=== PATIENT | female | born 1990 | race Caucasian/White ===

== ENCOUNTER 2018-05-06 19:21 | Emergency (ER) | payer BC, MEDICARE, SELFPAY ==
[2018-05-06 19:22] VITALS: BP 123/78; PULSE 89; RESP 14; TEMP 36.7; O2SAT 96; BMI 21.1
[2018-05-06 20:06] LABS: Absolute Lymphocyte Count 1.96 X10^3/ul (0.83-4.51); Absolute Neutrophil Count 2.5 X10^3/uL (2.0-7.7); Basophil# 0.03 X10^3/uL; Basophil% 0.6 % (0-1); Eosinophil# 0.21 X10^3/uL; Eosinophils% 3.9 % (0-5); Lymphocyte # 1.96 X10^3/ul (4.0); Lymphocyte % 36.6 % (19-41); Mean Corp Hgb Conc 31.3 g/gl (32-36); Mean Corpuscular Hgb 24.4 pg (27.0-32.0); Mean Platelet Vol. 10.2 fl (6.2-12.0); Monocyte# 0.66 X10^3/uL; Monocyte% 12.3 % (0-10); Neutrophil # 2.49 X10^3/uL (2.7-7.7); Neutrophil % 46.4 % (47-70); Platelet Count 218 K/mm3 (150-450); RBC Distribution Width CV 16.2 % (11.6-14.6); RBC Distribution Width SD 46.5 fl (35.1-43.9); White Blood Count 5.4 K/mm3 (4.4-11.0)
[2018-05-06 20:09] LABS: POSITIVE COUNT NO; POSITIVE DIFFERENTIAL NO; POSITIVE MORPHOLOGY NO
[2018-05-06 20:18] LABS: AST(SGOT) 11 U/L (15-37); Alanine Aminotransfer ALT/SGPT 12 U/L (13-56); Albumin, Serum 3.4 g/dL (3.2-5.0); Alkaline Phosphatase 66 U/L (45-117); Anion Gap 5 (5-15); BUN 12 mg/dL (7-18); Calcium,Total 8.3 mg/dL (8.5-10.1); Chloride 107 mmol/L (98-107); Creatinine, Serum 0.57 mg/dL (0.55-1.02); EST Glomerular Filtration Rate 133 mL/min (>60); Est Glom Filt Rate - Afr Amer 160 mL/min (>60); Estimated Creatinine Clearance 136.33 ml/min; Globulin 3.3 g/dL (2.2-4.2); Glucose 89 mg/dL (74-106); Lipase 257 U/L (73-393); Potassium 3.8 mmol/L (3.5-5.1); Protein, Total 6.7 g/dL (6.4-8.2); Sodium Level 140 mmol/L (136-145)
[2018-05-06] MEDS: 0.9% Normal Saline 1,000 ML 1000 ML IV (20:37)
[2018-05-06] MEDS: proMETHazine 25 MG/ML Syringe 6.25 MG IV (20:37)
[2018-05-06 20:59] LABS: Color, Urine Yellow (Yellow); Glucose, Dipstick Normal (Normal); Ketone-Dipstick Negative (Negative); Leukocyte Esterase-Dipstick 500 /ul (Negative); Nitrite-Dipstick Negative (Negative); Occult Blood-Urine 10 /ul (Negative); Protein-Dipstick 15 mg/dl (Negative); Specific Gravity, Urine 1.025 (1.002-1.030); Urine Bilirubin Dipstick Negative (Negative); Urine Clarity Clear (Clear); Urine Urobilinogen 1 mg/dl (Normal)
[2018-05-06 21:06] LABS: White Blood Cells 5-10 SEEN /hpf (0-5)
[2018-05-06 21:07] LABS: Bacteria RARE /hpf (None Seen); Mucous, Urine RARE /hpf (<or=2+); Red Blood Cells-Urine 0 SEEN /hpf (0-5); Squamous Epithelial Cells - UA 5-10 SEEN /hpf (5-10)
--- NOTE | 2018-05-06 21:37 | ED.VISSUMM ---
- ER Visit Summary Date of Service: 05/06/18 Chief Complaint: Nausea, vomiting, diarrhea History of Present Illness: The patient is a 27 F who reports significant increase in stress over the past month. She believes is manifesting as body aches, nausea, vomiting, diarrhea. She has had difficulty sleeping. She did see her primary care physician recently who gave her Zofran and increased her dose of Klonopin. Physical Examination: Vital signs are unremarkable. Patient sitting upright in bed. She is anxious and tearful. Head neck examination is significant for moist mucous membranes. Heart is regular rate and rhythm. Lung sounds are clear. Abdomen is soft with mild periumbilical tenderness. There is no guarding or rebound. Hypoactive bowel sounds are noted. Test Results: CBC was a hemoglobin of 10.0 hematocrit 32. Chemistry studies, LFTs, lipase all normal. Urinalysis does show 5-10 white cells with rare bacteria however 5-10 epithelial cells are also noted. She does not have any symptoms of urinary tract infection. Emergency Department Course and Treatment: Patient was given a liter IV fluids along with a dose of IV Phenergan. On repeat evaluation she is resting comfortably. She falls asleep easily during our conversation. She be given Phenergan to use to help with her nausea and to help her get sleep. Patient was advised to use Trazadone or Phenergan at bedtime, but do not combine the medications. Treatment Plan: [] Disposition: Discharge Impression: 1. Nausea, improved 2. Anxiety This note was generated with [employer] dictation software. It may contain incorrect words, spelling, and punctuation that were not noted in review of the chart prior to signing ED Disposition - Plan for ED Patient: Disposition: Home or Assisted Living Chief Complaint: Nausea/Vomiting/Diarrhea Instructions: ED Stress React, ED Nausea Vomiting Prescriptions: proMETHazine tablet [Phenergan] 0.5 - 1 tab PO Q6H PRN PRN #10 tablet PRN Reason: Nausea Referrals: Luciano Madison MD [Primary Care Provider] - 1 Week
--- NOTE | 2018-05-06 21:40 | DCINST.ED_ITS ---
ED Disposition - Plan for ED Patient: Disposition: Home or Assisted Living Chief Complaint: Nausea/Vomiting/Diarrhea Instructions: ED Nausea Vomiting, ED Stress React Prescriptions: proMETHazine tablet [Phenergan] 0.5 - 1 tab PO Q6H PRN PRN #10 tablet PRN Reason: Nausea Referrals: Luciano Madison MD [Primary Care Provider] - 1 Week
[2018-05-06 21:48] VITALS: BP 91/69; PULSE 67; RESP 17; O2SAT 97
== END 2018-05-06 21:49 | disposition home or self-care (01) ==
PROVIDERS: Emergency Provider Emergency Medicine; Family Provider Family Medicine; PCP Family Medicine
DX: R11.2 Nausea with vomiting, unspecified (principal); R19.7 Diarrhea, unspecified; F41.9 Anxiety disorder, unspecified; F31.9 Bipolar disorder, unspecified; F43.10 Post-traumatic stress disorder, unspecified; Z79.899 Other long term (current) drug therapy; Z72.0 Tobacco use
CPT/HCPCS: 80048; 80076; 81001; 83690; 85025; 96361; 96374; 99283; J7030; A4216

== ENCOUNTER → 2018-06-07 09:05 | Outpatient (CLI) | payer BC, MEDICARE, SELFPAY ==
[2018-06-07 10:24] LABS: Hematocrit 35.5 % (37-47); Hemoglobin 11.5 g/dl (12.0-15.0); Mean Corp Hgb Conc 32.4 g/gl (32-36); Mean Corpuscular Hgb 25.4 pg (27.0-32.0); Mean Corpuscular Volume 78.5 fL (81-99); Mean Platelet Vol. 11.4 fl (6.2-12.0); Platelet Count 243 K/mm3 (150-450); RBC Distribution Width CV 17.5 % (11.6-14.6); RBC Distribution Width SD 48.5 fl (35.1-43.9); Red Blood Count 4.52 M/mm3 (4.2-5.4); White Blood Count 5.2 K/mm3 (4.4-11.0)
[2018-06-07 10:25] LABS: Scan Indicated on CBC? Y/N NO
[2018-06-07 10:49] LABS: AST(SGOT) 12 U/L (15-37); Alanine Aminotransfer ALT/SGPT 13 U/L (13-56); Albumin, Serum 3.8 g/dL (3.2-5.0); Alkaline Phosphatase 71 U/L (45-117); Anion Gap 11 (5-15); BUN 13 mg/dL (7-18); Calcium,Total 8.9 mg/dL (8.5-10.1); Chloride 105 mmol/L (98-107); Cholesterol 142 mg/dL (200); Creatinine, Serum 0.72 mg/dL (0.55-1.02); EST Glomerular Filtration Rate 101 mL/min (>60); Est Glom Filt Rate - Afr Amer 122 mL/min (>60); Globulin 3.9 g/dL (2.2-4.2); Glucose 70 mg/dL (74-106); High Density Lipoprotein 47 mg/dL; Potassium 3.9 mmol/L (3.5-5.1); Protein, Total 7.7 g/dL (6.4-8.2); Sodium Level 139 mmol/L (136-145); Triglycerides 60 mg/dL; Very Low Density Lipoprotein 12 mg/dL (5-40)
[2018-06-07 10:51] LABS: Hemoglobin A1c 4.9 % (4.2-6.3)
== END ==
PROVIDERS: Family Provider Family Medicine; PCP Family Medicine
DX: F31.60 Bipolar disorder, current episode mixed, unspecified (principal)
CPT/HCPCS: 36415; 80053; 80061; 83036; 85027

== ENCOUNTER → 2018-06-14 11:22 | Outpatient (CLI) | payer BC, MEDICARE, SELFPAY ==
[2018-06-14 14:42] LABS: Prolactin 12.4 ng/mL
== END ==
PROVIDERS: Family Provider Family Medicine; PCP Family Medicine; Visit Provider Family Medicine
DX: O92.6 Galactorrhea (principal)
CPT/HCPCS: 36415; 84146

== ENCOUNTER → 2018-07-16 14:15 | Outpatient (CLI) | payer BC, MEDICARE, SELFPAY ==
[2018-07-20 09:02] LABS: HPV Reflexed? NOT INDICATED
== END ==
PROVIDERS: Family Provider Family Medicine; PCP Family Medicine; Referring Provider Obstetrics & Gynecology; Visit Provider Obstetrics & Gynecology
DX: Z12.4 Encounter for screening for malignant neoplasm of cervix (principal)
CPT/HCPCS: 88175; G0145

== ENCOUNTER → 2018-07-17 09:10 | Outpatient (CLI) | payer BC, MEDICARE, SELFPAY ==
--- NOTE | 2018-07-17 09:13 | BI_ITS ---
MAMMOGRAPHY - BILATERAL DIAGNOSTIC REASON FOR EXAM: Female, 27 years old. One-year history of a right breast lump. This is at the 9:00 position of the breast. PERTINENT HISTORY: Non-contributory. TECHNIQUE: Digital bilateral breast jordan (3D mammographic acquisition) in the CC and MLO projections. 2-D mediolateral oblique (MLO) and craniocaudad (CC) views of both breasts were obtained. Compression spot views of the retroareolar region of the right breast were obtained as well. CAD: Full Field Digital Mammography with Computer Added Detection was performed. COMPARISON: None. Baseline examination. FINDINGS: Breast Composition: The breasts are extremely dense, which lowers the sensitivity of mammography. There are no dominant masses or suspicious calcifications. Slight asymmetry of the retroareolar region of the right breast as compared to the left side. Correlation with ultrasound is recommended. No other significant abnormalities are identified. BI/DIAG MAMM W/CAD, BILAT IMPRESSION: Asymmetry of the retroareolar region of the right breast as compared to the left side. Correlation with ultrasound is recommended. ASSESSMENT CATEGORY: BIRADS Category 0: Incomplete. Need additional imaging evaluation. A letter regarding these results will be sent to the patient by the facility within 30 days. Approximately 10% of breast cancers are not detected by mammography. A normal mammogram should not delay biopsy of a clinically suspicious abnormality. Electronically Signed: Panda Williamson MD at 11:22 EDT Tel [phone], Service support ,
--- NOTE | 2018-07-17 09:13 | US_ITS ---
STUDY: ULTRASOUND BREAST - RIGHT REASON FOR EXAM: Female, 27 years old. Palpable lump in the right breast. TECHNIQUE: Axial and longitudinal images of the RIGHT breast were performed with a high resolution ultrasound transducer. COMPARISON: Comparison is made with prior mammogram done earlier today. FINDINGS: RIGHT Breast: The palpable abnormality corresponds to a 2.6 cm x 2.6 cm x 0.9 cm well-defined hypoechoic nodule in the retroareolar region of the breasts. This most likely represents a fibroadenoma. A biopsy is recommended for further evaluation. US/Breast Limited Unilateral IMPRESSION: The palpable normality corresponds to a 2.6 cm x 2.6 x 0.9 cm solid hypoechoic nodule in the retroareolar region of the breast. A biopsy is recommended for further evaluation. ASSESSMENT CATEGORY: BIRADS Category 4: Suspicious - Biopsy Should Be Considered. A letter regarding these results will be sent to the patient by the facility within 30 days. Electronically Signed: Panda Williamson MD at 11:16 EDT Tel [phone], Service support ,
== END ==
PROVIDERS: Family Provider Family Medicine; PCP Family Medicine; Visit Provider Obstetrics & Gynecology
DX: N63.10 Unspecified lump in the right breast, unspecified quadrant (principal)
CPT/HCPCS: 76642; 77062; 77066; G0279

== ENCOUNTER → 2018-07-24 12:49 | Outpatient (CLI) | payer BC, MEDICARE, SELFPAY ==
--- NOTE | 2018-07-24 09:30 | BRBX_PTH ---
PATIENT: ROSANNA JURADO LOC: [facility] U#:[id number] AGE/SX: 34/F ROOM: RE07/24/[address]: Dr. Sue Wilson MD : 1990 BED: DIS: SPEC #: [id number] RECD: 07/24/18 12:10 STATUS: MASON REReinaldo #: [id number] AMITA: 07/24/18 09:[address]: Sue Wilson DEPT: SURGICAL PATHOLOGY RECD BY: Hai Fontenot ENTERED: 07/24/18 13:20 SP TYPE: BREAST BX OTHR DR: Dr. Luciano Madison MD Tissues: Right breast, NOS Procedures: Surgery Specimen Level IV HEADER OPERATION: Right breast biopsy PRE-OP DIAGNOSIS: Right breast mass TISSUE SUBMITTED: Right breast biopsy ISCHEMIC TIME: 30 seconds FIXATION TIME: 10 hours MICROSCOPIC DIAGNOSIS Right breast mass, core biopsy: Fibroadenoma. Negative for atypia or malignancy. SJ:fozia 07/25/18 COMMENT Correlation with clinical, radiologic findings and appropriate follow up are necessary. MICROSCOPIC DESCRIPTION Slides are reviewed. GROSS DESCRIPTION Received in fixative is one container labeled with the patient's name and designated right breast biopsy. The specimen consists of multiple elongated fragments of quiroz-yellow fibroadipose tissue that in aggregate measure 1.5 x 0.3 x 0.1 cm. The entire specimen is submitted in one cassette. / SJ:rg 07/24/18 TC:1 CPT: 17511
== END ==
PROVIDERS: Family Provider Family Medicine; PCP Family Medicine; Referring Provider Surgery; Visit Provider Surgery
DX: N63.10 Unspecified lump in the right breast, unspecified quadrant (principal)
CPT/HCPCS: 88305

== ENCOUNTER → 2019-06-11 13:18 | Outpatient (CLI) | payer BC, MEDICARE, SELFPAY ==
[2019-02-07 09:27] VITALS: BMI 20.8
--- NOTE | 2019-06-11 13:21 | CT_ITS ---
STUDY: CT BRAIN WITHOUT CONTRAST REASON FOR EXAM: Female, 28 years old. Migraine RADIATION DOSAGE (If Supplied By Facility): CTDIvol = ( 60.81 ) mGy, DLP = ( 975.86 ) mGycm TECHNIQUE: Transaxial CT imaging of the brain was performed without administration of intravenous contrast material. Individualized dose optimization techniques were used for this CT. COMPARISON: CT head 05/23/2017. FINDINGS: Normal soft tissue structures. Normal calvarium. Normal size ventricles and extra-axial spaces for the patient's age. Normal white matter tracts of the cerebral hemispheres. Normal basal ganglia and thalami. Normal brainstem. Normal cerebellum. There is no intracranial hemorrhage. There are no findings of an acute ischemic infarction. Normal visualized paranasal sinuses. CT/Brain/Head without Contrast IMPRESSION: Normal unenhanced CT scan of the brain. Electronically Signed: Deidra Kang, at 15:51 EDT Tel , Service support ,
== END ==
PROVIDERS: Family Provider Family Medicine; PCP Family Medicine; Referring Provider Family Medicine; Visit Provider Family Medicine
DX: G43.909 Migraine, unspecified, not intractable, without status migrainosus (principal)
CPT/HCPCS: 70450

== ENCOUNTER → 2019-07-16 10:16 | Outpatient (CLI) | payer BC, MEDICARE, SELFPAY ==
[2019-06-14 09:37] VITALS: BMI 20.8
--- NOTE | 2019-07-16 10:22 | MRI_ITS ---
STUDY: MRI BRAIN WITH AND WITHOUT CONTRAST (ATTENTION PITUITARY GLAND) REASON FOR EXAM: Female, 28 years old. The patient presents with a history of chronic migraine headaches with elevated prolactin. Follow-up examination. TECHNIQUE: Standardized multiplanar fat and water weighted pulse sequences were obtained. IV Dotarem 12 was administered for the contrast portion of the examination. COMPARISON: MRI BRAIN WITHOUT AND WITH CONTRAST-June 24, 2010. MRI BRAIN WITHOUT CONTRAST-September 27, 2013 FINDINGS: Normal size of the pituitary gland for the patient?s age and gender. There is slight enlargement of a nonenhancing intrapituitary lesion within the right lateral wing of the pituitary gland (coronal T1 postcontrast series 12, image 6; sagittal T1 postcontrast series 13, image 5). The prior examination of June 24, 2010, this lesion measured approximately 1.7 x 2.9 x 3.7 mm (AP x transverse x craniocaudal). On the current examination this intrapituitary lesion now measures 2.8 x 3.5 x 4.4 mm (AP x transverse x craniocaudal). There is no invasion of the cavernous sinus. Normal infundibular stalk and suprasellar cistern. Normal optic chiasm and hypothalamus. Normal size of the ventricles and extra-axial spaces for the patient's age. Normal white matter tracts of the supratentorial brain. There is no evidence for recent intracranial ischemia or other cause of cytotoxic edema on diffusion weighted imaging (DWI). Normal bilateral basal ganglia. Normal thalami. Normal flow voids within the major intracranial circulation suggesting patency by spin echo criteria. Normal venous enhancement. There is no extra-axial fluid accumulation. Normal tectal plate and pineal gland. Normal midbrain, nagi and medulla. Normal cerebellum. Normal basal cisterns. Normal bilateral temporal bones. Normal bilateral internal auditory canals. No demonstrated orbital abnormality, within the constraints of a routine brain study. Normal visualized paranasal sinuses. Normal calvarium and skull base. Normal visualized upper cervical spine. Normal visualized soft tissue structures. MRI/Brain W/WO Contrast IMPRESSION: 1. Slight enlargement of a nonenhancing intrapituitary lesion, as compared the most recent contrast-enhanced prior examination of June 24, 2010, consistent with an intrapituitary microadenoma. 2. Otherwise, normal MRI of the brain. Electronically Signed: Garfield Hall DO at 13:23 EDT Tel , Service support ,
== END ==
PROVIDERS: Family Provider Family Medicine; PCP Family Medicine
DX: G43.719 Chronic migraine without aura, intractable, without status migrainosus (principal); D35.2 Benign neoplasm of pituitary gland
CPT/HCPCS: 70553; A9575

== ENCOUNTER → 2020-05-07 10:34 | Outpatient (CLI) | payer BC, MEDICARE, MEDICAID, SELFPAY ==
[2019-06-14 09:37] VITALS: BMI 20.8
== END ==
PROVIDERS: PCP Family Medicine; Referring Provider Orthopaedic Surgery; Visit Provider Orthopaedic Surgery
DX: Z11.59 Encounter for screening for other viral diseases (principal)
CPT/HCPCS: 87635; 94799; U0003

== ENCOUNTER → 2020-05-13 14:27 | Outpatient (CLI) | payer BC, MEDICARE, MEDICAID, SELFPAY ==
[2019-06-14 09:37] VITALS: BMI 20.8
[2020-05-18 20:30] LABS: Anti-Mullerian Hormone,Serum 4.34 ng/mL (.)
== END ==
PROVIDERS: PCP Family Medicine
DX: Z31.41 Encounter for fertility testing (principal)
CPT/HCPCS: 36415; 83516

== ENCOUNTER → 2020-09-15 10:44 | Outpatient (CLI) | payer BC, MEDICARE, MEDICAID, SELFPAY ==
[2020-06-14 10:26] VITALS: BMI 20.8
[2020-09-15 11:07] LABS: Absolute Lymphocyte Count 1.58 X10^3/uL (0.83-4.51); Absolute Neutrophil Count 3.9 X10^3/uL (2.0-7.7); Basophil# 0.05 X10^3/uL; Basophil% 0.8 % (0-1); Eosinophil# 0.19 X10^3/uL; Eosinophils% 3.1 % (0-5); Hematocrit 38.8 % (37-47); Hemoglobin 12.7 g/dL (12.0-15.0); Lymphocyte # 1.58 X10^3/ul (4.0); Lymphocyte % 25.5 % (19-41); Mean Corp Hgb Conc 32.7 g/dL (32-36); Mean Corpuscular Hgb 26.6 pg (27.0-32.0); Mean Corpuscular Volume 81.3 fL (81-99); Monocyte# 0.48 X10^3/uL; Monocyte% 7.8 % (0-10); NRBC Flagged by Analyzer 0 % (0-5); Neutrophil # 3.87 X10^3/uL (2.7-7.7); Neutrophil % 62.5 % (47-70); Platelet Count 257 K/mm3 (150-450); RBC Distribution Width CV 15.5 % (11.6-14.6); RBC Distribution Width SD 45.5 fl (35.1-43.9); Red Blood Count 4.77 M/mm3 (4.2-5.4); White Blood Count 6.2 K/mm3 (4.4-11.0)
[2020-09-15 11:44] LABS: AST(SGOT) 10 U/L (15-37); Alanine Aminotransfer ALT/SGPT 16 U/L (13-56); Albumin, Serum 3.9 g/dL (3.2-5.0); Alkaline Phosphatase 108 U/L (45-117); Anion Gap 7 (5-15); BUN 8 mg/dL (7-18); BUN/Creat Ratio 11.1 RATIO (10-20); Calcium,Total 8.9 mg/dL (8.5-10.1); Chloride 111 mmol/L (98-107); Creatinine, Serum 0.72 mg/dL (0.55-1.02); EST Glomerular Filtration Rate 100 mL/min (>60); Est Glom Filt Rate - Afr Amer 121 mL/min (>60); Globulin 3.9 g/dL (2.2-4.2); Glucose 96 mg/dL (74-106); Potassium 3.4 mmol/L (3.5-5.1); Prolactin 10.5 ng/mL; Protein, Total 7.8 g/dL (6.4-8.2); Sodium Level 141 mmol/L (136-145)
[2020-09-15 12:14] LABS: HIV - WCH Non-Reactive (Nonreactive); Hepatitis B Surface Antigen Non-Reactive (Nonreactive); Hepatitis C Antibody Non-Reactive (Nonreactive); Rubella IgG Reactive (Nonreactive); Vitamin D,25 Hydroxy 31.2 ng/mL
[2020-09-17 02:39] LABS: Rapid Plasmin Reagin (RPR) NONREACTIVE (NONREACTIVE)
[2020-09-18 10:21] LABS: Testosterone Free 0.8 pg/mL (0.0-4.2)
== END ==
PROVIDERS: PCP Family Medicine; Referring Provider Obstetrics & Gynecology; Visit Provider Obstetrics & Gynecology
DX: Z13.29 Encounter for screening for other suspected endocrine disorder (principal); Z13.21 Encounter for screening for nutritional disorder
CPT/HCPCS: 36415; 80053; 82306; 84146; 84402; 84443; 85025; 86592; 86703; 86762; 86803; 87340

== ENCOUNTER → 2020-09-24 11:30 | Outpatient (CLI) | payer BC, MEDICARE, SELFPAY ==
[2020-09-22 08:53] VITALS: BMI 24.8
[2020-09-24 12:12] LABS: hCG Titer Quant., Serum < 1 mIU/mL (1-3)
== END ==
PROVIDERS: PCP Family Medicine; Referring Provider Obstetrics & Gynecology; Visit Provider Obstetrics & Gynecology
DX: O02.1 Missed abortion (principal); Z3A.00 Weeks of gestation of pregnancy not specified
CPT/HCPCS: 36415; 84702

== ENCOUNTER → 2020-10-05 12:46 | Outpatient (CLI) | payer BC, MEDICARE, MEDICAID, SELFPAY ==
--- NOTE | 2020-10-05 12:51 | US_ITS ---
STUDY: ULTRASOUND OF THE FEMALE PELVIS - COMPLETE REASON FOR EXAM: Female, 29 years old. pelvic pain s/p tubal reversal LMP: 09/18/2020 TECHNIQUE: Transabdominal and Transvaginal TECHNICAL QUALITY: Adequate. COMPARISON: None. FINDINGS: The uterus is retroverted and is tilted to the left side of the pelvis. The uterus measures 7.1 x 5 x 5.6 cm. Normal uterine cervix. The endometrium measures 10 mm in thickness, and is hyperechoic. There is no demonstrated endometrial mass. There is no demonstrated myometrial mass. I.U.D. - The patient does not have an I.U.D. The right ovary is visualized. The right ovary measures 3.3 x 2.4 x 2.0 cm. There is no right ovarian cyst or ovarian mass. There is no visualized right adnexal mass or complex lesion. There is normal arterial and normal venous vascularity. The left ovary is visualized. The left ovary measures 3.1 x 1.7 x 1.3 cm. There is no left ovarian cyst or ovarian mass. There is no visualized left adnexal mass or complex lesion. There is normal arterial and normal venous vascularity. There is minimal fluid in the cul-de-sac, likely physiologic. The bladder distends normally, contains echogenic debris suggesting inflammation US/Pelvic (Non ) IMPRESSION: Sonographically normal uterus and ovaries. No suspicious adnexal mass, there is a small amount of free fluid which is likely physiologic Echogenic debris within the bladder suggests inflammation, urinalysis recommended Electronically Signed: Kiran Crain MD at 20:56 EST , Service support ,
--- NOTE | 2020-10-05 12:51 | US_ITS ---
STUDY: ULTRASOUND OF THE FEMALE PELVIS - COMPLETE REASON FOR EXAM: Female, 29 years old. pelvic pain s/p tubal reversal LMP: 09/18/2020 TECHNIQUE: Transabdominal and Transvaginal TECHNICAL QUALITY: Adequate. COMPARISON: None. FINDINGS: The uterus is retroverted and is tilted to the left side of the pelvis. The uterus measures 7.1 x 5 x 5.6 cm. Normal uterine cervix. The endometrium measures 10 mm in thickness, and is hyperechoic. There is no demonstrated endometrial mass. There is no demonstrated myometrial mass. I.U.D. - The patient does not have an I.U.D. The right ovary is visualized. The right ovary measures 3.3 x 2.4 x 2.0 cm. There is no right ovarian cyst or ovarian mass. There is no visualized right adnexal mass or complex lesion. There is normal arterial and normal venous vascularity. The left ovary is visualized. The left ovary measures 3.1 x 1.7 x 1.3 cm. There is no left ovarian cyst or ovarian mass. There is no visualized left adnexal mass or complex lesion. There is normal arterial and normal venous vascularity. There is minimal fluid in the cul-de-sac, likely physiologic. The bladder distends normally, contains echogenic debris suggesting inflammation US/Transvaginal Non- IMPRESSION: Sonographically normal uterus and ovaries. No suspicious adnexal mass, there is a small amount of free fluid which is likely physiologic Echogenic debris within the bladder suggests inflammation, urinalysis recommended Electronically Signed: Kiran Crain MD at 20:56 EST , Service support ,
== END ==
PROVIDERS: PCP Family Medicine; Referring Provider Obstetrics & Gynecology; Visit Provider Obstetrics & Gynecology
DX: R10.2 Pelvic and perineal pain (principal)
CPT/HCPCS: 76830; 76856

== ENCOUNTER → 2020-10-07 10:08 | Outpatient (CLI) | payer BC, MEDICARE, SELFPAY | PROVIDERS: PCP Family Medicine; Referring Provider Obstetrics & Gynecology; Visit Provider Obstetrics & Gynecology | DX: R10.2 Pelvic and perineal pain (principal) | CPT/HCPCS: 87086 ==

== ENCOUNTER → 2020-10-16 06:34 | Outpatient (CLI) | payer BC, MEDICAID, MEDICARE, SELFPAY ==
--- NOTE | 2020-10-16 07:12 | US_ITS ---
STUDY: ULTRASOUND OF THE FEMALE PELVIS - COMPLETE REASON FOR EXAM: Female, 29 years old. OVARIAN DYSFUNCTION LMP: 10/16/2020. TECHNIQUE: Transvaginal TECHNICAL QUALITY: Adequate. COMPARISON: Comparison is made with prior study dated 10/05/2020. FINDINGS: The uterus is retroverted and is in a midline position. The uterus measures 8 cm x 6.5 cm x 5.0 cm. Normal uterine cervix. The endometrium measures 11 mm in thickness, and is hyperechoic. There is no demonstrated endometrial mass. There is no demonstrated myometrial mass. I.U.D. - The patient does not have an I.U.D. The right ovary is visualized. The right ovary measures 3.2 cm x 2.9 cm x 1.3 cm. There is no right ovarian cyst or ovarian mass. There is no visualized right adnexal mass or complex lesion. There is normal arterial and normal venous vascularity. The left ovary is visualized. The left ovary measures 2.7 cm x 3.2 cm x 1.4 cm. There is no left ovarian cyst or ovarian mass. There is no visualized left adnexal mass or complex lesion. There is normal arterial and normal venous vascularity. There is minimal fluid in the cul-de-sac. US/Transvaginal Non- IMPRESSION: Normal female pelvis. Minimal fluid in the cul-de-sac. Electronically Signed: Panda Williamson, at 8:24 EST , Service support ,
[2020-10-16 07:58] LABS: hCG Titer Quant., Serum < 1 mIU/mL (1-3)
[2020-10-16 08:04] LABS: Estradiol 33.7 pg/mL; Follicle Stimulating Hormone 6.9 mIU/mL; Luteinizing Hormone 7.4 mIU/mL; Thyroid Stim Hormone (TSH) 0.62 uIU/mL (0.358-3.74)
== END ==
PROVIDERS: PCP Family Medicine; Referring Provider Obstetrics & Gynecology; Visit Provider Obstetrics & Gynecology
DX: E28.9 Ovarian dysfunction, unspecified (principal)
CPT/HCPCS: 36415; 76830; 82670; 83001; 83002; 84144; 84443; 84702

== ENCOUNTER → 2020-10-19 07:30 | Outpatient (CLI) | payer BC, MEDICAID, MEDICARE, SELFPAY ==
--- NOTE | 2020-10-19 07:53 | US_ITS ---
STUDY: ULTRASOUND OF THE FEMALE PELVIS - COMPLETE REASON FOR EXAM: Female, 29 years old. INFERTILITY, OVARIAN DYSFUNCTION. PT PREPARING FOR IVF LMP: 10/16/2020. TECHNIQUE: Transvaginal TECHNICAL QUALITY: Adequate. COMPARISON: Comparison is made with prior study dated 10/16/2020. FINDINGS: The uterus is retroverted and is tilted to the left side of the pelvis. The uterus measures 5.9 cm x 6.2 cm x 4.6 cm. Normal uterine cervix. The endometrium measures 7.6 mm in thickness, and is heterogeneous (with fluid and thickened endometrium.). There is no demonstrated endometrial mass. There is no demonstrated myometrial mass. I.U.D. - The patient does not have an I.U.D. The right ovary is visualized. The right ovary measures 3.2 cm x 1.8 cm x 1.6 cm. There is no right ovarian cyst or ovarian mass. There is no visualized right adnexal mass or complex lesion. There is normal arterial and normal venous vascularity. The left ovary is visualized. The left ovary measures 2.2 cm x 1.9 cm x 1.4 cm. There is no left ovarian cyst or ovarian mass. There is no visualized left adnexal mass or complex lesion. There is normal arterial and normal venous vascularity. There is no fluid in the cul-de-sac. US/Transvaginal Non- IMPRESSION: Heterogeneous appearance of the endometrium containing both fluid and thickened endometrium. Electronically Signed: Panda Williamson MD at 8:59 EST , Service support ,
[2020-10-19 08:05] LABS: hCG Titer Quant., Serum < 1 mIU/mL (1-3)
[2020-10-19 08:10] LABS: Estradiol 28.5 pg/mL; Follicle Stimulating Hormone 7.7 mIU/mL; Luteinizing Hormone 8.6 mIU/mL; Thyroid Stim Hormone (TSH) 0.87 uIU/mL (0.358-3.74)
== END ==
PROVIDERS: PCP Family Medicine; Referring Provider Obstetrics & Gynecology; Visit Provider Obstetrics & Gynecology
DX: E28.9 Ovarian dysfunction, unspecified (principal)
CPT/HCPCS: 36415; 76830; 82670; 83001; 83002; 84144; 84443; 84702

== ENCOUNTER → 2020-11-06 09:25 | Outpatient (CLI) | payer BC, MEDICAID, MEDICARE, SELFPAY ==
--- NOTE | 2020-11-06 09:29 | US_ITS ---
STUDY: RENAL ULTRASOUND - COMPLETE REASON FOR EXAM: Female, 29 years old. UTI/ HX OF STONES TECHNIQUE: Ultrasound evaluation of the kidneys was performed with real-time and static martinez-scale imaging. COMPARISON: Comparison is made with prior examination dated 01/03/2014. FINDINGS: RIGHT KIDNEY: Normal location of the right kidney, which is normal in size. The right kidney measures 11.2 cm x 5.1 cm x 4.4 cm. There is a normal cortex of the right kidney. The renal cortex measures 1.5 cm. There is no right renal mass or cyst. There are no right renal calculi. There is no right hydronephrosis. DISTAL RIGHT URETER: There is non-visualization of the distal right ureter. There is no demonstrated right ureterovesical junction calculus. There is a visualized right ureteral jet. LEFT KIDNEY: Normal location of the left kidney, which is normal in size. The left kidney measures 10.2 cm x 5.1 cm x 4.3 cm. There is a normal cortex of the left kidney. The renal cortex measures 1.2 cm. There is no left renal mass or cyst. There are no left renal calculi. There is no left hydronephrosis. DISTAL LEFT URETER: There is non-visualization of the distal left ureter. There is no demonstrated left ureterovesical junction calculus. There is a visualized left ureteral jet. BLADDER: The distended urinary bladder has a volume of 75 ml. There is a normal wall thickness of the distended urinary bladder. There is no demonstrated mass within the urinary bladder. There are no demonstrated bladder calculi. US/Kidney and Bladder IMPRESSION: Normal ultrasound of the kidneys and urinary bladder. Electronically Signed: Panda Williamson MD at 12:32 EST , Service support ,
== END ==
PROVIDERS: PCP Family Medicine; Referring Provider Urology; Visit Provider Urology
DX: N39.0 Urinary tract infection, site not specified (principal); Z87.442 Personal history of urinary calculi
CPT/HCPCS: 76770

== ENCOUNTER → 2020-12-11 09:47 | Outpatient (CLI) | payer BC, MEDICARE, SELFPAY ==
[2020-11-24 09:43] VITALS: BMI 26.1
[2020-12-11 10:43] LABS: hCG Titer Quant., Serum 192 mIU/mL (1-3)
== END ==
PROVIDERS: PCP Family Medicine; Referring Provider Obstetrics & Gynecology; Visit Provider Obstetrics & Gynecology
DX: O20.0 Threatened abortion (principal); Z3A.00 Weeks of gestation of pregnancy not specified
CPT/HCPCS: 36415; 84702

== ENCOUNTER → 2020-12-13 08:08 | Outpatient (CLI) | payer BC, MEDICARE, SELFPAY ==
[2020-11-24 09:43] VITALS: BMI 26.1
[2020-12-13 09:04] LABS: hCG Titer Quant., Serum 436 mIU/mL (1-3)
== END ==
PROVIDERS: PCP Family Medicine; Referring Provider Obstetrics & Gynecology; Visit Provider Obstetrics & Gynecology
DX: O20.0 Threatened abortion (principal); Z3A.00 Weeks of gestation of pregnancy not specified
CPT/HCPCS: 36415; 84702

== ENCOUNTER → 2020-12-18 08:10 | Outpatient (CLI) | payer BC, MEDICARE, SELFPAY ==
[2020-11-24 09:43] VITALS: BMI 26.1
--- NOTE | 2020-12-18 08:42 | US_ITS ---
STUDY: FIRST TRIMESTER OBSTETRICAL ULTRASOUND (TWINS) REASON FOR EXAM: Female, 30 years old. LMP: viability TECHNIQUE: Transvaginal TECHNICAL QUALITY: Adequate. COMPARISON: None. FINDINGS: There are two demonstrated intrauterine gestational sacs. These measure 4 mm in diameter without the yolk sac or pole. The amniotic membrane cannot be visualized. The estimated gestation age (EGA) by implantation is 4 weeks, 1 days. The estimated date of delivery ([place]) by LMP is 08/26/2021. Also within the endometrial cavity there is a triangular hypoechoic area which may represent subchorionic hemorrhage (implantation bleed). BABY A The mean sac diameter (MSD) measure 4 mm, indicating an estimated gestational age (EGA) of 4 weeks, 1 days. There is no demonstrated yolk sac.. There is no demonstrated embryo ( pole).. The estimated gestation age (EGA) by US is 5 weeks, 1 days. The estimated date of delivery ([place]) by US is 08/19/2021. . BABY B The mean sac diameter (MSD) measure 4 mm, indicating an estimated gestational age (EGA) of 4 weeks, 1 days. There is no demonstrated yolk sac.. There is no demonstrated embryo ( pole).. The estimated gestation age (EGA) by US is 5 weeks, 1 days. The estimated date of delivery ([place]) by US is 08/19/2021. MATERNAL ANATOMY The uterus measures 8.4 x 6.8 x 6.1 cm cm. There is no demonstrated uterine fibroid. The cervix is closed. The right ovary measures 3.8 x 2.4 x 2.6 cm. There is no right ovarian cyst. There is no visualized right adnexal mass or complex lesion. The left ovary measures 3.5 x 2.8 x 2.3 cm. There is no left ovarian cyst. There is no visualized left adnexal mass or complex lesion. There is no fluid in the cul de sac. US/Transvaginal w/Preg US IMPRESSION: Suspect early twin gestation of 4 weeks 1 day with an adjacent subchorionic hemorrhage (implantation bleed). Follow-up ultrasound is recommended to Electronically Signed: Hai Murillo MD at 17:14 EDT Tel , Service support , Refer to twin gestational ultrasound Electronically Signed: Hai Murillo MD at 17:14 EDT Tel , Service support ,
[2020-12-18 09:31] LABS: hCG Titer Quant., Serum 3378 mIU/mL (1-3)
== END ==
PROVIDERS: PCP Family Medicine; Referring Provider Obstetrics & Gynecology; Visit Provider Obstetrics & Gynecology
DX: O36.80X0 Pregnancy with inconclusive fetal viability, not applicable or unspecified (principal); N93.9 Abnormal uterine and vaginal bleeding, unspecified; Z3A.00 Weeks of gestation of pregnancy not specified
CPT/HCPCS: 76801; 36415; 76802; 76817; 84702

== ENCOUNTER → 2020-12-21 12:28 | Outpatient (CLI) | payer BC, MEDICARE, SELFPAY ==
[2020-11-24 09:43] VITALS: BMI 26.1
[2020-12-21 13:41] LABS: Estradiol 658.7 pg/mL
[2020-12-21 14:09] LABS: hCG Titer Quant., Serum 10792 mIU/mL (1-3)
[2020-12-21 14:15] LABS: Progesterone Level 57.07 ng/mL (See Comment)
== END ==
PROVIDERS: PCP Family Medicine; Referring Provider Obstetrics & Gynecology Reproductive Endocrinology; Visit Provider Obstetrics & Gynecology Reproductive Endocrinology
DX: E28.9 Ovarian dysfunction, unspecified (principal); Z32.01 Encounter for pregnancy test, result positive
CPT/HCPCS: 36415; 82670; 84144; 84702

== ENCOUNTER → 2020-12-23 07:46 | Outpatient (CLI) | payer BC, MEDICAID, MEDICARE, SELFPAY ==
[2020-11-24 09:43] VITALS: BMI 26.1
--- NOTE | 2020-12-23 07:54 | US_ITS ---
STUDY: FIRST TRIMESTER OBSTETRICAL ULTRASOUND (TWINS) REASON FOR EXAM: Female, 30 years old. LMP: AFTER POSITIVE implantation. TECHNIQUE: Transvaginal TECHNICAL QUALITY: Adequate. COMPARISON: Comparison is made with prior examination dated 12/18/2020. FINDINGS: There are two demonstrated intrauterine gestational sacs. The amniotic membrane cannot be visualized. The estimated gestation age (EGA) by LMP is 4 weeks, 6 days. The estimated date of delivery ([place]) by LMP is 08/26/2021. BABY A The mean sac diameter (MSD) measure 1.08 cm, indicating an estimated gestational age (EGA) of 5 weeks, 5 days. There is a visualized yolk sac. The yolk sac measures 3.8 mm. There is no demonstrated embryo ( pole). The estimated gestation age (EGA) by US is 5 weeks, 5 days. The estimated date of delivery ([place]) by US is 08/20/2021. BABY B The mean sac diameter (MSD) measure 1.15 cm, indicating an estimated gestational age (EGA) of 5 weeks, 6 days. There is a visualized yolk sac. The yolk sac measures 3.5 mm. There is no demonstrated embryo ( pole). The estimated gestation age (EGA) by US is 5 weeks, 6 days. The estimated date of delivery ([place]) by US is 08/19/2021. MATERNAL ANATOMY The uterus measures 9.4 cm x 7.2 cm x 6.4 cm. There is no demonstrated uterine fibroid. The cervix is closed. There is evidence of a 1.3 cm x 1.6 cm x 1 cm subchorionic hematoma. The right ovary measures 3.4 cm x 3.2 cm x 2.4 centimeters. There is no right ovarian cyst. There is no visualized right adnexal mass or complex lesion. The left ovary measures 3.9 cm x 2.3 cm x 2.2 cm. There is no left ovarian cyst. There is no visualized left adnexal mass or complex lesion. There is no fluid in the cul de sac. US/Transvaginal Non- IMPRESSION: Twin gestation. Mean gestational age of twin A is 5 weeks and 5 days and mean gestational age of twin B is 5 weeks and 6 days. Small subchorionic hematoma. Electronically Signed: Panda Williamson MD at 9:22 EDT , Service support ,
== END ==
PROVIDERS: PCP Family Medicine; Referring Provider Obstetrics & Gynecology Reproductive Endocrinology; Visit Provider Obstetrics & Gynecology Reproductive Endocrinology
DX: Z32.01 Encounter for pregnancy test, result positive (principal)
CPT/HCPCS: 76802; 76817; 76830

== ENCOUNTER → 2020-12-28 11:16 | Outpatient (CLI) | payer BC, MEDICARE, SELFPAY ==
[2020-11-24 09:43] VITALS: BMI 26.1
--- NOTE | 2020-12-28 11:17 | US_ITS ---
STUDY: FIRST TRIMESTER OBSTETRICAL ULTRASOUND REASON FOR EXAM: Female, 30 years old viability . Baby A. LMP: In vitro fertilization. 12/03/2020. TECHNIQUE: Transvaginal TECHNICAL QUALITY: Adequate. PRIOR ULTRASOUND: Comparison is made with prior study dated 12/23/2020. FINDINGS: There is visualization of a single gestational sac in a normal intrauterine position. The mean sac diameter (MSD) measures 1.6 cm, indicating an estimated gestational age (EGA) of 6 weeks, 2 days. The gestational sac shape is within normal limits. There is a visualized yolk sac. The yolk sac measures 2 mm. The placenta is non-visualized. There is visualization of a live embryo. The crown-rump length (CRL) measures 4 mm, indicating an estimated gestational age (EGA) of 6 weeks, 1 days. There is demonstrated cardiac activity with a heart rate of 119 bpm. The estimated gestation age (EGA) by LMP is 5 weeks, 4 days. The estimated date of delivery (CHELSEA) by LMP is 08/26/2021. The estimated gestation age (EGA) by US is 6 weeks, 1 days. The estimated date of delivery (CHELSEA) by US is 08/22/2021. The uterus measures 8.9 cm x 7.1 cm x 6.7 cm. There is no demonstrated uterine fibroid. The cervix is closed. The right ovary measures 3 cm x 2.27 x 2.5 cm. There is no right ovarian cyst. There is no visualized right adnexal mass or complex lesion. The left ovary measures 3 cm x 2.2 size by 2.2 cm. There is no left ovarian cyst. There is no visualized left adnexal mass or complex lesion. There is minimal fluid in the cul de sac. IMPRESSION: Baby A with a mean gestational age of 6 weeks and 1 day. Electronically Signed: Panda Williamson MD at 13:12 EDT , Service support , STUDY: FIRST TRIMESTER OBSTETRICAL ULTRASOUND (TWINS) REASON FOR EXAM: Female, 30 years old. LMP: In vitro fertilization viability. Baby B TECHNIQUE: Transvaginal TECHNICAL QUALITY: Adequate. COMPARISON: Comparison is made with prior study 12/23/2020. FINDINGS: BABY B The mean sac diameter (MSD) measure 1.8 cm, indicating an estimated gestational age (EGA) of 60 weeks, 4 days. There is a visualized yolk sac. The yolk sac measures 3 mm. There is visualization of an embryo. The crown-rump length (CRL) measures 5 mm, indicating an estimated gestational age (EGA) of 6 weeks, 2 days. The estimated gestation age (EGA) by US is 5 weeks, 4 days. The estimated date of delivery (CHELSEA) by US is 08/26/2021. There is demonstrated cardiac activity with a heart rate 119 bpm. MATERNAL ANATOMY The uterus measures 8.9 cm x 7.1 cm x 6.7 cm. There is no demonstrated uterine fibroid. The cervix is closed. The right ovary measures 3.9 cm x 2.2 cm by 2.5 cm tThere is no right ovarian cyst. There is no visualized right adnexal mass or complex lesion. The left ovary measures 3 cm x 2.2 cm x 2.8 cm. There is no left ovarian cyst. There is no visualized left adnexal mass or complex lesion. There is minimal fluid in the cul de sac. US/Transvaginal w/Preg US IMPRESSION: Normal intrauterine first trimester Electronically Signed: Panda Williamson MD at 13:35 EDT , Service support ,
== END ==
PROVIDERS: PCP Family Medicine; Referring Provider Obstetrics & Gynecology; Visit Provider Obstetrics & Gynecology
DX: O30.001 Twin pregnancy, unspecified number of placenta and unspecified number of amniotic sacs, first trimester (principal); Z3A.00 Weeks of gestation of pregnancy not specified
CPT/HCPCS: 76801; 76802; 76817

== ENCOUNTER 2021-01-03 03:37 | Emergency (ER) | payer MEDICARE, BC, MEDICAID, SELFPAY ==
[2020-11-24 09:43] VITALS: BMI 26.1
[2021-01-03 03:38] VITALS: BP 135/98; PULSE 99; RESP 16; TEMP 36; O2SAT 100; BMI 39.2
--- NOTE | 2021-01-03 03:54 | US_ITS ---
STUDY: FIRST TRIMESTER OBSTETRICAL ULTRASOUND (TWINS) REASON FOR EXAM: Female, 30 years old patient with abnormal vaginal bleeding. Twin gestation with subchorionic hemorrhage TECHNIQUE: Transabdominal TECHNICAL QUALITY: Adequate. COMPARISON: Pelvic ultrasound dated 12/28/2020. FINDINGS: There are two demonstrated intrauterine gestational sacs. The placenta(s) cannot be identified. There is a thick amniotic membrane (>2mm), indicating a probable diamniotic . BABY A The mean sac diameter (MSD) measure 2.1 cm, indicating an estimated gestational age (EGA) of 6 weeks, 6 days. There is a visualized yolk sac. The yolk sac measures 4.2 mm. There is visualization of an embryo. The crown-rump length (CRL) measures 7.3 mm, indicating an estimated gestational age (EGA) of 60 weeks, 5 days. The estimated gestation age (EGA) by US is 6 weeks, 5 days. The estimated date of delivery (CHELSEA) by US is 08/24/2021. There is demonstrated cardiac activity with a heart rate 137 bpm. BABY B The mean sac diameter (MSD) measure 2.27, indicating an estimated gestational age (EGA) of 7 weeks, 1 days. There is a visualized yolk sac. There is visualization of an embryo. The crown-rump length (CRL) measures 8 mm, indicating an estimated gestational age (EGA) of 6 weeks, 5 days. The estimated gestation age (EGA) by US is 6 weeks, 6 days. The estimated date of delivery (CHELSEA) by US is 08/23/2021. There is demonstrated cardiac activity with a heart rate 127 bpm. MATERNAL ANATOMY The uterus measures 11.1 x 6.4 by cm. There is no demonstrated uterine fibroid. The cervix is closed. There is subchorionic hemorrhage measuring 3.6 x 0.9 x 1.7 cm. The right ovary is not imaged. There is no visualized right adnexal mass or complex lesion. The left ovary is not imaged. There is no visualized left adnexal mass or complex lesion. There is no fluid in the cul de sac. IMPRESSION: 1. Enlarging subchorionic hemorrhage. 2. Twin living intrauterine gestation. Electronically Signed: Cookie Davis MD at 6:49 EDT , Service support , STUDY: FIRST TRIMESTER OBSTETRICAL ULTRASOUND (TWINS) REASON FOR EXAM: Female, 30 years old patient with abnormal vaginal bleeding -- twin gestation, subchorionic hemorrhage TECHNIQUE: Transabdominal TECHNICAL QUALITY: Adequate. COMPARISON: Pelvic ultrasound dated 12/28/2020. FINDINGS: There are two demonstrated intrauterine gestational sacs. The placenta(s) cannot be identified. There is a thick amniotic membrane (>2mm), indicating a probable diamniotic . BABY A The mean sac diameter (MSD) measure 2.1 cm, indicating an estimated gestational age (EGA) of 6 weeks, 6 days. There is a visualized yolk sac. The yolk sac measures 4.2 mm. There is visualization of an embryo. The crown-rump length (CRL) measures 7.3 mm, indicating an estimated gestational age (EGA) of 60 weeks, 5 days. The estimated gestation age (EGA) by US is 6 weeks, 5 days. The estimated date of delivery (CHELSEA) by US is 08/24/2021. There is demonstrated cardiac activity with a heart rate 137 bpm. BABY B The mean sac diameter (MSD) measure 2.27, indicating an estimated gestational age (EGA) of 7 weeks, 1 days. There is a visualized yolk sac. There is visualization of an embryo. The crown-rump length (CRL) measures 8 mm, indicating an estimated gestational age (EGA) of 6 weeks, 5 days. The estimated gestation age (EGA) by US is 6 weeks, 6 days. The estimated date of delivery (CHELSEA) by US is 08/23/2021. There is demonstrated cardiac activity with a heart rate 127 bpm. MATERNAL ANATOMY The uterus measures 11.1 x 6.4 by cm. There is no demonstrated uterine fibroid. The cervix is closed. There is subchorionic hemorrhage measuring 3.6 x 0.9 x 1.7 cm. The right ovary is not imaged. There is no visualized right adnexal mass or complex lesion. The left ovary is not imaged. There is no visualized left adnexal mass or complex lesion. There is no fluid in the cul de sac. US/Transvaginal w/Preg US IMPRESSION: 1. Enlarging subchorionic hemorrhage. 2. Twin living intrauterine gestation. Electronically Signed: Cookie Davis MD at 6:50 EDT , Service support ,
--- NOTE | 2021-01-03 03:55 | ED.DCSUM_ITS ---
History of Present Illness Chief Complaint: Vag Bld, Preg Informant: Patient Onset: Today Current Severity: Mild Maximum Severity: Mild Narrative: Patient presents secondary to vaginal bleeding. She is currently 7 and half weeks with twin gestation conceived through IVF. Patient states she had some mild bleeding 2 weeks ago and a small subchorionic hemorrhage was noted. She had another ultrasound on 28 December. She states she was told the subchorionic hemorrhage is slightly larger at that visit. Patient states 2 hours prior to arrival she started having some bright red vaginal bleeding. She states it is not enough to fill a pad. 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 Blood type is A-positive. She is G8, P5 AB 3. - Past Medical History (1) Bipolar disorder Status: Chronic (2) Generalized anxiety disorder Status: Chronic (3) Post traumatic stress disorder Status: Chronic Past Medical History - Allergies and Home Meds Allergies/Adverse Reactions: Allergies cephalexin [From Keflex] Adverse Reaction (Verified 01/03/21 03:42) Vomiting codeine Adverse Reaction (Verified 01/03/21 03:42) Vomiting divalproex sodium [From Depakote] Adverse Reaction (Verified 01/03/21 03:42) Other pt states depakote causes her to black out hydrocodone bitartrate [From Vicodin] Adverse Reaction (Verified 01/03/21 03:42) Vomiting oxcarbazepine [From Trileptal] Adverse Reaction (Verified 01/03/21 03:42) Vomiting sumatriptan [From Imitrex] Adverse Reaction (Verified 01/03/21 03:42) Vomiting sumatriptan succinate [From Imitrex] Adverse Reaction (Verified 01/03/21 03:42) Vomiting Primary Care Physician: Luciano Madison MD [Primary Care Provider] - Prior records reviewed: Yes Lives: With Family Smoking Status: Current every day smoker Review of Systems General: Denies: Chills, Fever Eyes: Denies: Visual changes - bilaterally ENT: Denies: Bilateral ear pain Cardiovascular: Denies: Chest pain Respiratory: Denies: Dyspnea, Cough Gastrointestinal: Reports: Abdominal pain - Mild lower abdominal cramping. Denies: Nausea, Vomiting, Diarrhea Genitourinary: Denies: Dysuria Musculoskeletal: Denies: Swelling, Extremity Pain Skin: Denies: Rash Neurological: Denies: Headache Hematologic: Denies: Easy bruising, Easy bleeding Allergy: Denies: Uticaria Physical Exam Vital Signs/Narrative: Vital Signs Temp Pulse Resp BP Pulse Ox 01/03/21 03:38 96.8 F L 99 16 135/98 H 100 Inital Vital Signs reviewed: Yes General: Well nourished, Well developed Head: Normocephalic ENT: Moist mucous membranes Cardiovascular: Regular rate, Regular rhythm Respiratory: No distress, CTA bilaterally Abdomen: Soft, Nontender, Hypoactive bowel sounds Extremities: Nontender Skin: Normal color Neurological: Alert, Oriented x3 Psychological: Normal affect Diagnostic/Tx/Re-eval Impressions Obstetrics Ultrasound 01/03/21 03:54 IMPRESSION: 1. Enlarging subchorionic hemorrhage. 2. Twin living intrauterine gestation. Electronically Signed: Cookie Davis MD at 6:50 EDT , Service support , 01/03/21 03:54 Transvaginal w/Preg US [US] Stat Laboratory Results 01/03/21 03:49 HCG, Quant 19130 H - Medical Decision Making Ultrasound was obtained. Both fetuses have appropriate heart rates. Subchorionic hemorrhage previously noted is slightly enlarged. Patient did complain of migraine while here and was given Tylenol, Reglan, and Benadryl. Ultrasound results discussed with Dr. Garzon. She encouraged pelvic rest and close follow-up in the office. ED Disposition - Plan for ED Patient: Disposition: Home or Assisted Living Diagnosis: Threatened miscarriage Instructions: ED Possible Miscarriage ... Referrals: Sandy Ferreira EXPANDER MACHINE OPERATOR, EXPANDER MACHINE OPERATOR-C [Nurse Practitioner] - 3-5 Days if not improving
[2021-01-03 06:25] VITALS: BP 115/76; PULSE 75; RESP 18; O2SAT 98
[2021-01-03] MEDS: Metoclopramide 10 MG/2 ML Vial IV (06:29)
[2021-01-03] MEDS: Acetaminophen 500 MG Tablet 1000 MG PO (06:29)
[2021-01-03] MEDS: DiphenhydrAMINE 50 MG/ML Syringe 25 MG IV (06:30)
[2021-01-03 07:09] VITALS: BP 116/72; PULSE 78; RESP 16; O2SAT 100
== END 2021-01-03 07:11 | disposition home or self-care (01) ==
PROVIDERS: Emergency Provider Emergency Medicine; PCP Family Medicine
DX: O20.0 Threatened abortion (principal); O99.331 Smoking (tobacco) complicating pregnancy, first trimester; F17.200 Nicotine dependence, unspecified, uncomplicated; Z3A.01 Less than 8 weeks gestation of pregnancy; O30.001 Twin pregnancy, unspecified number of placenta and unspecified number of amniotic sacs, first trimester
CPT/HCPCS: 76801; 76802; 76817; 84702; 96374; 96375; 99283; A4216

== ENCOUNTER → 2021-01-14 18:08 | Outpatient (CLI) | payer BC, MEDICARE, SELFPAY ==
[2021-01-03 03:38] VITALS: BMI 39.2
--- NOTE | 2021-01-14 18:11 | US_ITS ---
STUDY: FIRST TRIMESTER OBSTETRICAL ULTRASOUND REASON FOR EXAM: Female, 30 years old VIABILITY- bleeding with twins LMP: TECHNIQUE: Transvaginal real-time exam with iqbal scale image documentation. TECHNICAL QUALITY: Adequate. PRIOR ULTRASOUND: Prior ultrasound of 01/03/2021 FINDINGS: There is a twin intrauterine gestation. Baby A is intrauterine with a normal gestational sac. Sac diameter is equivalent to 8 weeks and 3 days. A yolk sac is visualized measuring 0.35 cm. The placenta is not visualized due to early gestational age. There is a thick membrane indicating a dichorionic gestation. Baby A demonstrates a heart rate of 166 bpm and a crown rump length measurement of 2.34 cm equivalent to 8 weeks and 5 days. CHELSEA of 08/22/2021 Baby B is intrauterine with a normal sac with diameter up equivalent to 8 weeks and 3 days. A yolk sac is identified measuring 0.44 cm. Baby B demonstrates a heart rate of 1 64 bpm and a crown-rump length of 2.24 cm MIRTA: 28 weeks and 5 days with an CHELSEA of 08/22/2021. The subchorionic hemorrhage appears resolved. The uterus measures 9.5 x 7.0 x 10.1 cm. No uterine abnormality. Cervix is closed. The right ovary is 3.0 x 2.0 x 2.6 cm. The left ovary is 2.7 x 2.4 x 2.1 cm. Involuting corpus luteum of the right ovary. Normal DOPPLER flow of the ovaries. No additional adnexal masses or free fluid. US/Transvaginal w/Preg US IMPRESSION: Twin intrauterine gestation with by biometry as stated above. Both fetuses are living with gestational age of 8 weeks and 5 days. The prior identified subchorionic hemorrhage appears resolved. No new intrauterine findings. Normal ovaries bilaterally. Involuting corpus luteum of the right ovary. Negative for other adnexal masses or free fluid. Electronically Signed: Divina Ferguson MD at 20:21 EDT , Service support ,
== END ==
PROVIDERS: PCP Family Medicine; Visit Provider Obstetrics & Gynecology
DX: O46.91 Antepartum hemorrhage, unspecified, first trimester (principal); Z3A.00 Weeks of gestation of pregnancy not specified
CPT/HCPCS: 76801; 76817

== ENCOUNTER 2021-01-17 17:47 | Emergency (ER) | payer BC, MEDICARE, SELFPAY ==
[2021-01-17 17:48] VITALS: BP 131/94; PULSE 108; RESP 16; TEMP 36.4; O2SAT 96; BMI 26.7
--- NOTE | 2021-01-17 18:09 | ED.VIS.HA ---
History of Present Illness Chief Complaint: Headache Informant: Patient Onset: Weeks - 4 Context: Gradual, Onset Timing: Continuous Quality: Similar Prior Headaches, Throbbing Location: Bifrontal and retro-orbital Current Severity: Moderate Maximum Severity: Severe Worsened by: Light Relieved by: Nothing. Trying Tylenol only since she is . Associated Symptoms: Nausea, Vomiting, Photophobia Narrative: Patient states she has a history of migraines and had a similar headache started around 4 weeks ago, it has been persistent and continuous, dealing with it every day. 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 She states the headache is similar to prior except with the fact that it is persistent. She partially blames this on the fact that she is not allowed to take her usual medicine such as her triptan since she is . She also states that several hours ago she became very shaky all over along with a little lightheadedness no syncope, and those symptoms have been persistent. She denies any lower abdominal pain or vaginal bleeding or urinary symptoms. No fevers or chills. 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 Comment: patient states that the is not a carrier (3) Depression Status: Chronic (4) Generalized anxiety disorder Status: Chronic (5) History of benign pituitary tumor Status: Chronic (6) PTSD (post-traumatic stress disorder) Status: Chronic Comment: past trauma Past Medical History - Allergies and Home Meds Allergies/Adverse Reactions: Allergies cephalexin [From Keflex] Adverse Reaction (Verified 01/17/21 17:48) Vomiting codeine Adverse Reaction (Verified 01/17/21 17:48) Vomiting divalproex sodium [From Depakote] Adverse Reaction (Verified 01/17/21 17:48) Other pt states depakote causes her to black out hydrocodone bitartrate [From Vicodin] Adverse Reaction (Verified 01/17/21 17:48) Vomiting oxcarbazepine [From Trileptal] Adverse Reaction (Verified 01/17/21 17:48) Vomiting sumatriptan [From Imitrex] Adverse Reaction (Verified 01/17/21 17:48) Vomiting sumatriptan succinate [From Imitrex] Adverse Reaction (Verified 01/17/21 17:48) Vomiting Primary Care Physician: Luciano Madison MD [Primary Care Provider] - Lives: Spouse/ Significant Other Smoking Status: Former smoker Review of Systems General: Reports: Malaise - and shaky all over. Denies: Chills, Fever, Sweats Eyes: Reports: Blurred Vision - bilaterally - occasionally. Denies: Diplopia ENT: Denies: Bilateral ear pain, Rhinorrhea, Sore throat Cardiovascular: Denies: Chest pain, Palpitations Respiratory: Denies: Dyspnea, Cough, Dyspnea on exertion Gastrointestinal: Reports: Nausea, Vomiting. Denies: Abdominal pain, Diarrhea, Melena, Hematochezia Genitourinary: Denies: Dysuria, Hematuria, Frequency Musculoskeletal: Reports: Swelling, Extremity Pain. Denies: Back pain Skin: Denies: Rash, Wounds Neurological: Reports: Headache. Denies: Weakness, Numbness Physical Exam Vital Signs/Narrative: Vital Signs Temp Pulse Resp BP Pulse Ox 01/17/21 17:48 97.6 F L 108 H 16 131/94 H 96 Inital Vital Signs reviewed: Yes General: Well nourished, Well developed Head: NC, AT Eyes: Perrl, EOMI, - - mild photophobia ENT: Moist mucous membranes, No rhinorrhea. Negative for: Sinus tenderness Neck: Supple, No Lymphadenopathy, Nontender, No Meningismus Cardiovascular: Regular rate, Regular rhythm, No murmurs. Negative for: Tachycardia Respiratory: No distress, CTA bilaterally, Chest nontender Abdomen: Soft, Nontender, Nondistended, Normal bowel sounds Back: Nontender, Normal Inspection Extremities: No edema, Tenderness - mild, at pes anserinas bilaterally; no overlying erythema or other abn; normal inspection bilat w/o objective swelling present.. Negative for: Calf Tenderness Skin: Normal color, No rash, No Trauma Neuro: Alert, Oriented x3, Cranial nerves II-XII grossly intact, Normal Strength, Normal Sensation, Normal Gait Psychological: - - anxious Diagnostic/Tx/Re-eval Laboratory Tests 01/17/21 01/17/21 Range/Units 18:12 18:12 WBC 8.6 (4.4-11.0) K/mm3 RBC 4.88 (4.2-5.4) M/mm3 Hgb 12.2 (12.0-15.0) g/dL Hct 39.7 (37-47) % MCV 81.4 (81-99) fL MCH 25.0 L (27.0-32.0) pg MCHC 30.7 L (32-36) g/dL RDW Std Deviation 45.7 H (35.1-43.9) fl RDW Coeff of Yuri 15.4 H (11.6-14.6) % Plt Count 338 (150-450) K/mm3 MPV 9.9 (6.2-12.0) fl Immature Gran % (Auto) 0.600 (0.0-0.9) % Neut % (Auto) 67.1 (47-70) % Lymph % (Auto) 18.7 L (19-41) % Terry % (Auto) 9.6 (0-10) % Eos % (Auto) 3.4 (0-5) % Baso % (Auto) 0.6 (0-1) % Absolute Neuts (auto) 5.8 (2.0-7.7) X10^3/uL Absolute Lymphs (auto) 1.60 (0.83-4.51) X10^3/uL Nucleated RBC % 0 (0-5) % Sodium 137 (136-145) mmol/L Potassium 3.7 (3.5-5.1) mmol/L Chloride 106 (98-107) mmol/L Carbon Dioxide 25.0 (21.0-32.0) mmol/L Anion Gap 6 (5-15) BUN 7 (7-18) mg/dL Creatinine 0.63 (0.55-1.02) mg/dL Estim Creat Clear Calc 120.01 ml/min Est GFR (MDRD) Af Amer 141 (>60) mL/min Est GFR (MDRD) Non-Af 116 (>60) mL/min BUN/Creatinine Ratio 11.1 (10-20) RATIO Glucose 88 (74-106) mg/dL Calcium 9.2 (8.5-10.1) mg/dL - Medical Decision Making Patient was given IV fluids, Reglan, Benadryl. On reevaluation she is improved and is comfortable going home. She still feels anxious and is a little shaky but she is able to stop while I was discussing with her. She states she will go home and take her usual prescription medications that she is allowed to take and go to bed and she is comfortable with that plan and following up. ED Disposition - Plan for ED Patient: Disposition: Home or Assisted Living Diagnosis: Migraine headache, Anxiety Instructions: ED, Migraine (Classical) Prescriptions: Metoclopramide [Reglan] 10 mg PO Q6H PRN #10 tablet PRN Reason: Headache or nausea Prescription Printed Referrals: Luciano Madison MD [Primary Care Provider] - As Needed
[2021-01-17] MEDS: Metoclopramide 10 MG/2 ML Vial IV (18:21)
[2021-01-17] MEDS: DiphenhydrAMINE 50 MG/ML Syringe 25 MG IV (18:21)
[2021-01-17] MEDS: 0.9% Normal Saline 1,000 ML 999 ML IV (18:21)
[2021-01-17 18:23] LABS: Absolute Neutrophil Count 5.8 X10^3/uL (2.0-7.7); Basophil# 0.05 X10^3/uL; Basophil% 0.6 % (0-1); Eosinophil# 0.29 X10^3/uL; Eosinophils% 3.4 % (0-5); Hematocrit 39.7 % (37-47); Hemoglobin 12.2 g/dL (12.0-15.0); Lymphocyte % 18.7 % (19-41); Mean Corp Hgb Conc 30.7 g/dL (32-36); Mean Corpuscular Volume 81.4 fL (81-99); Mean Platelet Vol. 9.9 fl (6.2-12.0); Monocyte# 0.82 X10^3/uL; Monocyte% 9.6 % (0-10); NRBC Flagged by Analyzer 0 % (0-5); Neutrophil # 5.75 X10^3/uL (2.7-7.7); Neutrophil % 67.1 % (47-70); Platelet Count 338 K/mm3 (150-450); RBC Distribution Width CV 15.4 % (11.6-14.6); RBC Distribution Width SD 45.7 fl (35.1-43.9); Red Blood Count 4.88 M/mm3 (4.2-5.4); White Blood Count 8.6 K/mm3 (4.4-11.0)
[2021-01-17 18:39] LABS: Anion Gap 6 (5-15); BUN 7 mg/dL (7-18); BUN/Creat Ratio 11.1 RATIO (10-20); Calcium,Total 9.2 mg/dL (8.5-10.1); Chloride 106 mmol/L (98-107); Creatinine, Serum 0.63 mg/dL (0.55-1.02); EST Glomerular Filtration Rate 116 mL/min (>60); Est Glom Filt Rate - Afr Amer 141 mL/min (>60); Estimated Creatinine Clearance 120.01 ml/min; Glucose 88 mg/dL (74-106); Potassium 3.7 mmol/L (3.5-5.1); Sodium Level 137 mmol/L (136-145)
[2021-01-17 20:09] VITALS: BP 128/80; PULSE 80; RESP 16; O2SAT 99
== END 2021-01-17 20:15 | disposition home or self-care (01) ==
PROVIDERS: Emergency Provider Emergency Medicine; PCP Family Medicine
DX: O99.351 Diseases of the nervous system complicating pregnancy, first trimester (principal); O99.341 Other mental disorders complicating pregnancy, first trimester; G43.909 Migraine, unspecified, not intractable, without status migrainosus; F41.9 Anxiety disorder, unspecified; Z3A.09 9 weeks gestation of pregnancy; Z87.891 Personal history of nicotine dependence
CPT/HCPCS: 80048; 85025; 96361; 96374; 96375; 99283; J7030

== ENCOUNTER → 2021-01-18 12:10 | Outpatient (CLI) | payer BC, MEDICARE, SELFPAY ==
[2021-01-18 09:32] VITALS: BMI 26.2
[2021-01-18 13:17] LABS: Amphetamine Urine VISTA NEGATIVE (<1000 ng/mL); Barbiturate Urine VISTA NEGATIVE (< 200 ng/mL); Benzodiazepine Urine VISTA NEGATIVE (< 200 ng/mL); Cocaine Urine VISTA NEGATIVE (< 300 ng/mL); Ecstacy Urine VISTA NEGATIVE (< 500 ng/mL); Methadone Urine VISTA NEGATIVE (< 300 ng/mL); PCP Urine VISTA NEGATIVE (< 25 ng/mL); THC Urine VISTA NEGATIVE (< 50 ng/mL); Vista UDS pH Range 7
[2021-01-20 12:53] LABS: HPV APTIMA, High Risk Negative (Negative)
[2021-01-21 03:06] LABS: Chlamydia By Nucleic Acid AMP Negative (Negative)
[2021-01-21 17:00] LABS: Gonococcus By Nucleic Acid AMP Negative (Negative)
== END ==
PROVIDERS: PCP Family Medicine; Referring Provider Obstetrics & Gynecology; Visit Provider Obstetrics & Gynecology
DX: O09.90 Supervision of high risk pregnancy, unspecified, unspecified trimester (principal); Z3A.00 Weeks of gestation of pregnancy not specified; Z12.4 Encounter for screening for malignant neoplasm of cervix
CPT/HCPCS: 80307; 87086; 87088; 87491; 87591; 87624; 88175; G0145

== ENCOUNTER 2021-01-24 03:36 | Emergency (ER) | payer BC, MEDICARE, SELFPAY ==
[2021-01-18 09:32] VITALS: BMI 26.2
[2021-01-24 03:36] VITALS: BP 137/85; PULSE 118; RESP 18; TEMP 36.2; O2SAT 98; BMI 26.7
--- NOTE | 2021-01-24 03:45 | ED.DCSUM_ITS ---
History of Present Illness Chief Complaint: Vag Bld, Preg Informant: Patient Onset: Today Context: Sudden Onset Timing: Continuous Current Severity: Moderate Maximum Severity: Moderate Narrative: Patient is a 30-year-old female with twin gestation at approximately 10 weeks the presents to the emergency department vaginal bleeding. Patient states that started about an hour ago. She is describes it as being bleeding like a normal menstrual period. She denies any pain. She denies any fevers or chills. She did discuss this with her TECHNICAL SERVICES CONSULTANT who told her to come in for formal ultrasound. Her blood type is a positive. She did have history of subchorionic hemorrhage early in which seemed to have resolved. She denies any weakness or lightheadedness. Prior similar symptoms: Yes Recent Illness/Hospitalization: No Past Medical History - Allergies and Home Meds Allergies/Adverse Reactions: Allergies cephalexin [From Keflex] Adverse Reaction (Verified 01/24/21 03:38) Vomiting codeine Adverse Reaction (Verified 01/24/21 03:38) Vomiting divalproex sodium [From Depakote] Adverse Reaction (Verified 01/24/21 03:38) Other pt states depakote causes her to black out hydrocodone bitartrate [From Vicodin] Adverse Reaction (Verified 01/24/21 03:38) Vomiting oxcarbazepine [From Trileptal] Adverse Reaction (Verified 01/24/21 03:38) Vomiting sumatriptan [From Imitrex] Adverse Reaction (Verified 01/24/21 03:38) Vomiting sumatriptan succinate [From Imitrex] Adverse Reaction (Verified 01/24/21 03:38) Vomiting Primary Care Physician: Poonam Reilly MD [STAFF PHYSICIAN] - Prior records reviewed: Yes Past Medical History: - - History of seizures Surgical History: noncontributory Smoking Status: Current every day smoker Review of Systems General: Denies: Chills, Fever, Sweats Eyes: Denies: Visual changes - bilaterally, Diplopia ENT: Denies: Rhinorrhea, Sore throat Cardiovascular: Denies: Chest pain, Palpitations Respiratory: Denies: Dyspnea, Cough, Dyspnea on exertion Gastrointestinal: Denies: Abdominal pain, Nausea, Vomiting, Diarrhea, Melena, Hematochezia Genitourinary: Denies: Dysuria, Hematuria, Frequency Musculoskeletal: Denies: Back pain, Extremity Pain Skin: Denies: Rash, Wounds Neurological: Denies: Headache, Weakness, Numbness Physical Exam Vital Signs/Narrative: Vital Signs Temp Pulse Resp BP Pulse Ox 01/24/21 03:36 97.2 F L 118 H 18 137/85 H 98 Inital Vital Signs reviewed: Yes General: Well nourished, Well developed, No Acute Distress Head: Normocephalic, Atraumatic Eyes: Perrl, EOMI ENT: Moist mucous membranes, No rhinorrhea Neck: Supple, Nontender Cardiovascular: Regular rate, Regular rhythm, No murmurs Respiratory: No distress, CTA bilaterally, Chest nontender Abdomen: Soft, Nontender, Nondistended, Normal bowel sounds Back: Nontender, Normal Inspection Extremities: Nontender, No edema Skin: Normal color, No rash Neurological: Alert, Oriented x3, Cranial nerves II-XII grossly intact, Normal Strength, Normal Sensation Psychological: Normal affect, Normal Mood Diagnostic/Tx/Re-eval Abnormal Lab Results 01/24/21 01/24/21 01/24/21 03:45 03:45 04:15 WBC 6.4 RBC 4.34 Hgb 10.8 L Hct 34.9 L MCV 80.4 L MCH 24.9 L MCHC 30.9 L RDW Std Deviation 44.6 H RDW Coeff of Yuri 15.2 H Plt Count 271 MPV 10.1 Immature Gran % (Auto) 0.500 Neut % (Auto) 56.3 Lymph % (Auto) 27.7 [place] % (Auto) 10.7 H Eos % (Auto) 3.9 Baso % (Auto) 0.9 Absolute Neuts (auto) 3.6 Absolute Lymphs (auto) 1.76 Nucleated RBC % 0 Sodium 138 Potassium 3.5 Chloride 107 Carbon Dioxide 24.0 Anion Gap 7 BUN 6 L Creatinine 0.45 L Estim Creat Clear Calc 168.02 Est GFR (MDRD) Af Amer 205 Est GFR (MDRD) Non-Af 170 BUN/Creatinine Ratio 13.2 Glucose 83 Calcium 8.8 Urine Color Yellow Urine Clarity Clear Urine pH 6.0 Ur Specific [place] 1.020 Urine Protein Negative Urine Glucose (UA) Normal Urine Ketones Negative Urine Occult Blood 250 H Urine Nitrite Negative Urine Bilirubin Negative Urine Urobilinogen Normal Ur Leukocyte Esterase 100 H Urine RBC 10-25 SEEN Urine WBC 10-25 SEEN Ur Squamous Epith Cells 0-5 SEEN Urine Bacteria 0 SEEN Urine Mucus 0 SEEN - Medical Decision Making Patient presents with vaginal bleeding. She does have twin gestation at approximately 10 weeks. She has had documented intrauterine . IV was established. Labs are obtained. Labs are relatively unremarkable. Urine shows some contamination without bacteria. I do not feel this needs treated. Bedside ultrasound was performed. There is twin gestation with 2 live intrauterine pregnancies. heart rates 140s and reactive. Both fetuses appeared reactive with normal heart rates. At this time in the evening, we do not have formal ultrasound. I did offer the patient that she could stay in the emergency department and we can get a formal ultrasound first thing in the morning. She states that she has a busy day and wants to be discharged as long as it was okay with OB. I did discuss this with Dr. Pro Sykes. The patient is blood type a positive. She does not require RhoGam. She is comfortable seeing her in the office on Monday. The patient was given very strict return precautions and was counseled with any vaginal bleeding there is still risk for miscarriage. The patient will be discharged. Impression 1. Threatened miscarriage ED Disposition - Plan for ED Patient: Disposition: Home or Assisted Living Instructions: ED Possible Miscarriage ... Referrals: Poonam Reilly MD [STAFF PHYSICIAN] -
[2021-01-24 04:04] LABS: Absolute Lymphocyte Count 1.76 X10^3/uL (0.83-4.51); Absolute Neutrophil Count 3.6 X10^3/uL (2.0-7.7); Basophil# 0.06 X10^3/uL; Basophil% 0.9 % (0-1); Eosinophil# 0.25 X10^3/uL; Eosinophils% 3.9 % (0-5); Hematocrit 34.9 % (37-47); Hemoglobin 10.8 g/dL (12.0-15.0); Lymphocyte # 1.76 X10^3/ul (0.83-4.51); Lymphocyte % 27.7 % (19-41); Mean Corp Hgb Conc 30.9 g/dL (32-36); Mean Corpuscular Hgb 24.9 pg (27.0-32.0); Mean Corpuscular Volume 80.4 fL (81-99); Mean Platelet Vol. 10.1 fl (6.2-12.0); Monocyte# 0.68 X10^3/uL; Monocyte% 10.7 % (0-10); NRBC Flagged by Analyzer 0 % (0-5); Neutrophil # 3.57 X10^3/uL (2.7-7.7); Neutrophil % 56.3 % (47-70); Platelet Count 271 K/mm3 (150-450); RBC Distribution Width CV 15.2 % (11.6-14.6); RBC Distribution Width SD 44.6 fl (35.1-43.9); Red Blood Count 4.34 M/mm3 (4.2-5.4); White Blood Count 6.4 K/mm3 (4.4-11.0)
[2021-01-24 04:13] LABS: Anion Gap 7 (5-15); BUN 6 mg/dL (7-18); BUN/Creat Ratio 13.2 RATIO (10-20); Calcium,Total 8.8 mg/dL (8.5-10.1); Chloride 107 mmol/L (98-107); Creatinine, Serum 0.45 mg/dL (0.55-1.02); EST Glomerular Filtration Rate 170 mL/min (>60); Est Glom Filt Rate - Afr Amer 205 mL/min (>60); Estimated Creatinine Clearance 168.02 ml/min; Glucose 83 mg/dL (74-106); Potassium 3.5 mmol/L (3.5-5.1); Sodium Level 138 mmol/L (136-145)
[2021-01-24 04:20] VITALS: RESP 16
[2021-01-24 04:20] LABS: Bacteria 0 SEEN /hpf (None Seen); Color, Urine Yellow (Yellow); Glucose, Dipstick Normal (Normal); Ketone-Dipstick Negative (Negative); Leukocyte Esterase-Dipstick 100 /ul (Negative); Mucous, Urine 0 SEEN /hpf (<or=2+); Nitrite-Dipstick Negative (Negative); Occult Blood-Urine 250 /ul (Negative); Protein-Dipstick Negative (Negative); Urine Bilirubin Dipstick Negative (Negative); Urine Clarity Clear (Clear); Urine Urobilinogen Normal (Normal)
[2021-01-24 04:25] LABS: Red Blood Cells-Urine 10-25 SEEN /hpf (0-5); Squamous Epithelial Cells - UA 0-5 SEEN /hpf (5-10); White Blood Cells 10-25 SEEN /hpf (0-5)
== END 2021-01-24 04:20 | disposition home or self-care (01) ==
LOC: ED 03:49
PROVIDERS: Emergency Provider Emergency Medicine; PCP Family Medicine
DX: O20.0 Threatened abortion (principal); O99.331 Smoking (tobacco) complicating pregnancy, first trimester; F17.200 Nicotine dependence, unspecified, uncomplicated; Z3A.10 10 weeks gestation of pregnancy
CPT/HCPCS: 80048; 81001; 85025; 99283; A4216

== ENCOUNTER → 2021-01-29 14:26 | Outpatient (CLI) | payer BC, MEDICARE, SELFPAY ==
[2021-01-25 11:32] VITALS: BMI 26.0
--- NOTE | 2021-01-29 14:30 | US_ITS ---
STUDY: FIRST TRIMESTER OBSTETRICAL ULTRASOUND REASON FOR EXAM: Female, 30 years old . Viability. Baby A LMP: 11/12/2020. TECHNIQUE: Transvaginal TECHNICAL QUALITY: Adequate. PRIOR ULTRASOUND: Comparison is made with prior study dated 01/14/2021 and 01/03/2021. FINDINGS: There is visualization of a single gestational sac in a normal intrauterine position. The mean sac diameter (MSD) measures 4.4 cm, indicating an estimated gestational age (EGA) of 9 weeks, 6 days. The gestational sac shape is within normal limits. There is no demonstrated yolk sac. The placenta is non-visualized. There is visualization of a live embryo. The crown-rump length (CRL) measures 4.4 cm, indicating an estimated gestational age (EGA) of 11 weeks, 0 days. There is demonstrated cardiac activity with a heart rate of 166 bpm. The estimated gestation age (EGA) by LMP is 11 weeks, 1 days. The estimated date of delivery (CHELSEA) by LMP is 08/19/2021. The estimated gestation age (EGA) by US is 10 weeks, 3 days. The estimated date of delivery ([place]) by US is 08/24/2021. The uterus measures 12.7 cm x 10.6 cm x 8.4 cm. There is no demonstrated uterine fibroid. The cervix is closed. The right ovary measures 3.2 cm x 1.6 cm x 1.5 cm. There is no right ovarian cyst. There is no visualized right adnexal mass or complex lesion. The left ovary is not visualized. There is no fluid in the cul de sac. IMPRESSION: Twin gestation. Twin A has a gestational age of 10 weeks and 3 days. Electronically Signed: Panda Williamson MD at 15:27 EDT , Service support , STUDY: FIRST TRIMESTER OBSTETRICAL ULTRASOUND (TWINS) REASON FOR EXAM: Female, 30 years old. LMP: 11/12/2020. viability. Twin B TECHNIQUE: Transabdominal TECHNICAL QUALITY: Adequate. COMPARISON: None. FINDINGS: BABY B The mean sac diameter (MSD) measure 4.9 cm, indicating an estimated gestational age (EGA) of 10 weeks, 4 days. There is no demonstrated yolk sac. There is visualization of an embryo. The crown-rump length (CRL) measures 6.5 mm, indicating an estimated gestational age (EGA) of 10 weeks, 4 days. The estimated gestation age (EGA) by US is 10 weeks, 6 days. The estimated date of delivery (CHELSEA) by US is 08/21/2021. There is demonstrated cardiac activity with a heart rate 177 bpm. US/Init OB < 14Wks US IMPRESSION: Normal intrauterine first trimester Electronically Signed: Panda Williamson MD at 15:29 EDT , Service support ,
== END ==
PROVIDERS: PCP Family Medicine; Referring Provider Obstetrics & Gynecology; Visit Provider Obstetrics & Gynecology
DX: O20.0 Threatened abortion (principal); Z3A.00 Weeks of gestation of pregnancy not specified
CPT/HCPCS: 76801; 76802

== ENCOUNTER → 2021-02-01 13:37 | Outpatient (CLI) | payer BC, MEDICARE, SELFPAY ==
[2021-02-01 13:06] VITALS: BMI 26.0
[2021-02-01 13:56] LABS: Absolute Lymphocyte Count 1.39 X10^3/uL (0.83-4.51); Absolute Neutrophil Count 4.8 X10^3/uL (2.0-7.7); Basophil# 0.04 X10^3/uL; Basophil% 0.5 % (0-1); Eosinophil# 0.17 X10^3/uL; Eosinophils% 2.3 % (0-5); Hematocrit 36.8 % (37-47); Hemoglobin 11.6 g/dL (12.0-15.0); Lymphocyte # 1.39 X10^3/ul (0.83-4.51); Lymphocyte % 18.9 % (19-41); Mean Corp Hgb Conc 31.5 g/dL (32-36); Mean Corpuscular Hgb 24.8 pg (27.0-32.0); Mean Corpuscular Volume 78.8 fL (81-99); Mean Platelet Vol. 10.6 fl (6.2-12.0); Monocyte% 12.2 % (0-10); NRBC Flagged by Analyzer 0 % (0-5); Neutrophil # 4.83 X10^3/uL (2.7-7.7); Neutrophil % 65.7 % (47-70); Platelet Count 313 K/mm3 (150-450); RBC Distribution Width CV 15.4 % (11.6-14.6); RBC Distribution Width SD 43.5 fl (35.1-43.9); Red Blood Count 4.67 M/mm3 (4.2-5.4); White Blood Count 7.4 K/mm3 (4.4-11.0)
[2021-02-01 14:55] LABS: NATERA MAILED SPECIMEN
[2021-02-01 17:06] LABS: HIV - WCH Non-Reactive (Nonreactive); Hepatitis B Surface Antigen Non-Reactive (Nonreactive); Hepatitis C Antibody Non-Reactive (Nonreactive); Rubella IgG Reactive (Nonreactive); Syphilis Antibodies Non-reactive
== END ==
PROVIDERS: PCP Family Medicine; Referring Provider Obstetrics & Gynecology; Visit Provider Obstetrics & Gynecology
DX: O09.90 Supervision of high risk pregnancy, unspecified, unspecified trimester (principal); Z3A.00 Weeks of gestation of pregnancy not specified
CPT/HCPCS: 36415; 85025; 86703; 86762; 86780; 86803; 86850; 86900; 86901; 87340

== ENCOUNTER → 2021-02-10 11:38 | Outpatient (CLI) | payer BC, MEDICARE, SELFPAY ==
[2021-02-10 11:05] VITALS: BMI 25.7
== END ==
PROVIDERS: PCP Family Medicine; Referring Provider Obstetrics & Gynecology; Visit Provider Obstetrics & Gynecology
DX: Z09 Encounter for follow-up examination after completed treatment for conditions other than malignant neoplasm (principal)

== ENCOUNTER → 2021-05-21 09:34 | Outpatient (CLI) | payer BC, MEDICARE, MEDICAID, SELFPAY ==
[2021-05-21 10:29] LABS: Absolute Neutrophil Count 8.8 X10^3/uL (2.0-7.7); Basophil# 0.05 X10^3/uL; Basophil% 0.4 % (0-1); Eosinophil# 0.28 X10^3/uL; Eosinophils% 2.3 % (0-5); Hematocrit 28.2 % (37-47); Hemoglobin 8.4 g/dL (12.0-15.0); Lymphocyte % 11.6 % (19-41); Mean Corp Hgb Conc 29.8 g/dL (32-36); Mean Corpuscular Hgb 21.6 pg (27.0-32.0); Mean Corpuscular Volume 72.7 fL (81-99); Monocyte# 1.11 X10^3/uL; Monocyte% 9.2 % (0-10); NRBC Flagged by Analyzer 0.5 % (0-5); Neutrophil # 8.79 X10^3/uL (2.7-7.7); Neutrophil % 73.2 % (47-70); Platelet Count 241 K/mm3 (150-450); RBC Distribution Width CV 18.3 % (11.6-14.6); RBC Distribution Width SD 46.8 fl (35.1-43.9); Red Blood Count 3.88 M/mm3 (4.2-5.4)
[2021-05-21 10:48] LABS: Glucose Challenge Gest 1H 50g 118 mg/dL (70-140)
== END ==
PROVIDERS: PCP Family Medicine; Referring Provider Obstetrics & Gynecology; Visit Provider Obstetrics & Gynecology
DX: Z34.92 Encounter for supervision of normal pregnancy, unspecified, second trimester (principal)
CPT/HCPCS: 36415; 82950; 85025

== ENCOUNTER → 2021-05-28 10:10 | Outpatient (CLI) | payer BC, MEDICARE, MEDICAID, SELFPAY ==
[2021-05-28 10:50] LABS: Ferritin 5 ng/mL (8-252); Iron Binding Capacity,Total 493 ug/dL (250-450)
== END ==
PROVIDERS: PCP Family Medicine; Referring Provider Obstetrics & Gynecology; Visit Provider Obstetrics & Gynecology
DX: O99.019 Anemia complicating pregnancy, unspecified trimester (principal); Z3A.00 Weeks of gestation of pregnancy not specified
CPT/HCPCS: 36415; 82728; 82746; 83550

== ENCOUNTER 2021-06-05 22:40 | Outpatient (CLI) | payer BC, MEDICARE, MEDICAID, SELFPAY ==
[2021-06-05] VITALS (8 sets, daily range): BP systolic 135; BP diastolic 83; PULSE 104–110; TEMP 37.2; O2SAT 98–99; BMI 31.4
[2021-06-05 22:57] LABS: Color, Urine Yellow (Yellow); Glucose, Dipstick Normal (Normal); Ketone-Dipstick Negative (Negative); Leukocyte Esterase-Dipstick 500 /ul (Negative); Mucous, Urine 0 SEEN /hpf (<or=2+); Nitrite-Dipstick Negative (Negative); Occult Blood-Urine 25 /ul (Negative); Protein-Dipstick Negative (Negative); Urine Bilirubin Dipstick Negative (Negative); Urine Clarity Sl. Cloudy (Clear); Urine Urobilinogen Normal (Normal)
[2021-06-05 23:03] LABS: Bacteria 1+ /hpf (None Seen); Red Blood Cells-Urine 0-5 SEEN /hpf (0-5); Squamous Epithelial Cells - UA 0-5 SEEN /hpf (5-10); White Blood Cells 5-10 SEEN /hpf (0-5)
[2021-06-05 23:53] LABS: Fetal Fibronectin Negative
[2021-06-05] MEDS: Nitrofurantoin Macrocrystals 100 MG Capsule PO (23:57)
[2021-06-06] VITALS (45 sets, daily range): BP systolic 128–150; BP diastolic 66–93; PULSE 93–111; RESP 16; TEMP 36.6; O2SAT 97–100
[2021-06-06] MEDS: Lactated Ringers 1,000 ML 15 ML IV (01:25)
[2021-06-06] MEDS: Magnesium Sulfate 4gm/100mL 4 GM/100 ML IV.SOLN. IV (01:29)
[2021-06-06] MEDS: Betamethasone/Betamethasone 30 MG/5 ML Vial 12 MG IM (01:30)
--- NOTE | 2021-06-06 01:40 | OB.TRI.HP_ITS ---
HPI - General HPI Narrative ROSANNA JURADO, is a 30 F at 29/0 who presents with contractions. She has been doris off and on since yesterday evening but they became more persistent tonight. While in triage, patient has made cervical change from 1 to 2 cm and contractions have become significantly more uncomfortable. Denies fevers, chills, chest pain, shortness of breath. Reports significant pressure that radiates around into her back. Maternal Data Information CHELSEA Calculator Estimated Delivery Date Method Current WG Current Estimate 08/22/21 LMP (Certain) 29w 0d # 2 PFSH PFSH Medical History (Updated 06/06/21 @ 01:[address] Sherrill Hill MD) Anxiety Bipolar disorder Chronic anemia Chronic constipation Cystic fibrosis carrier Depression Generalized anxiety disorder H/O renal calculi History of benign pituitary tumor IBS (irritable bowel syndrome) Manic affective disorder, recurrent episode, moderate degree PTSD (post-traumatic stress disorder) Skin lesions Home Medications sertraline 50 mg tablet 50 mg PO DAILY 11/07/20 [History Last Taken Unknown] hydroxyzine pamoate 50 mg PO 4X/DAY PRN PRN 01/17/21 [History Last Taken Unknown] vit no.[id number] 1 each PO DAILY 01/17/21 [History Last Taken Unknown] ondansetron 8 mg disintegrating tablet 8 mg PO Q8H PRN #60 tab 02/10/21 [Rx Last Taken Unknown] nicotine 14 mg/24 hr daily transdermal patch 1 patch TRANSDERMAL DAILY #14 ea 03/09/21 [Rx Last Taken Unknown] nicotine 7 mg/24 hr daily transdermal patch 1 patch TRANSDERMAL Q24H #14 ea 03/09/21 [Rx Last Taken Unknown] breast pump #1 ea 04/07/21 [Rx Last Taken Unknown] metoclopramide HCl 10 mg tablet 10 mg PO Q6H PRN #60 tab 04/15/21 [Rx Last Taken Unknown] buspirone 5 mg tablet 5 mg PO BID #60 tab 04/23/21 [Rx Last Taken Unknown] ferrous sulfate 325 mg (65 mg iron) tablet 325 mg PO BID #60 tab 05/07/21 [Rx Last Taken Unknown] famotidine 20 mg tablet 20 mg PO BID #60 tab 05/28/21 [Rx Last Taken Unknown] Allergy/AdvReac Type Severity Reaction Status Date / Time cephalexin [From Keflex] AdvReac Vomiting Verified 06/05/21 23:17 codeine AdvReac Vomiting Verified 06/05/21 23:17 divalproex sodium AdvReac Other Verified 06/05/21 23:17 [From Depakote] hydrocodone bitartrate AdvReac Vomiting Verified 06/05/21 23:17 [From Vicodin] oxcarbazepine AdvReac Vomiting Verified 06/05/21 23:17 [From Trileptal] sumatriptan [From Imitrex] AdvReac Vomiting Verified 06/05/21 23:17 sumatriptan succinate AdvReac Vomiting Verified 06/05/21 23:17 [From Imitrex] Family History Father Hypertension Blood clotting disorder Cancer Kidney CVA (cerebral vascular accident) Mother Depression Anxiety Grandfather Heart disease Myocardial infarction Surgical History arm manipulation History of breast biopsy History of reversal of tubal ligation Tubal ligation status Social History adopted: No household members: family housing: house number of children: 6 current occupational status: unemployed pets and animals: Yes history of recent travel: No Smoking Status: Current every day smoker tobacco type: cigarettes second hand exposure: No alcohol intake: never substance use type: does not use what type of physical activity do you participate in: other frequency: 5-6 times per week seatbelt use: sometimes do you feel safe at home: Yes additional social history: -Jori- Yolis History 8 Elective abortions Hx Para 5 Spontaneous abortions Hx # Term Pregnancies Ectopic pregnancies Hx # Pregnancies Multiple births # of living children 5 Past Pregnancies Del. Date Name GA/Weeks Outcome Route Bth Weight Infant Gen Labor Lgth Anes the yanique Del Locatn Provider FOB Unknown 2009- Libia 40 live - full term 8lbs 13oz Fe male 6 hours epidural [facility] Jori Unknown 2011- Neena 36 live - 6lbs 10oz Female [address]Vandevelde Hsieh Unknown 2012- Yaritza 37 live - full term 6lbs 15oz Fe male 4 hours epidural [facility] Jori Unknown 2013- Angelito 38 live - full term 6lbs 10oz Ma le less than 2cm epidural [facility] Jori Unknown 2016- Aneta 39 live - full term 8lbs 15 oz Female 10 houts epidural [facility] DM Jori Delivery Date: Meconium aspiration; hyperemesis MarkAdrienne Delivery Date: Non reassuring NST Adrienne Flores Delivery Date: Meconium; loose nucal cord x1 Adrienne Flores Delivery Date: no complications Adrienne Flores Delivery Date: Severe hyperemesis; meconium; loose nuchal cord x1; manual placenta removal. Abi Floresily Visit Details Expected Delivery Route/Plan if V/V Labor Preferences- labor support person: [] labor intervention preferences: [] pain management options preferred: [] cut cord/dad catch: [] : [] PP control planned: [] discussed possible routes of delivery and associated risks: [] special requests: [] Plans flu vaccine: [] tdap vaccine: [] rhogam: [] LARC form signed: [] Problem list reviewed and updated with the most current plan of care details and appropriate orders placed. Relevant counseling for the gestational age provided. Continue routine care and follow up unless otherwise noted in visit notes/problem list details OB Flowsheet Initial Weight: 162 lb Date -?-?-?-?-?-?-?-?-?-?-?-?- EGA Weight BP Urine Prot -?-?-?-?-?-?-?-?-?-?-?-?- Glucose FHR FuHt Pres Dilation -?-?-?-?-?-?-?-?-?-?-?-?- Effaced St Visit Note 01/18/21 -?-?-?-?-?-?-?-?-?-?-?-?- 9w 1d 162 lb 6 oz (+6 oz) 132/78 -?-?-?-?-?-?-?-?-?-?-?-?- A 170 -?-?-?-?-?-?-?-?-?-?-?-?- B 170 A -?-?-?-?-?-?-?-?-?-?-?-?- B -?-?-?-?-?-?-?-?-?-?-?-?- A -?-?-?-?-?-?-?-?-?-?-?-?- B A SM- viable IUP x 2 seen -?-?-?-?-?-?-?-?-?-?-?-?- B 01/25/21 -?-?-?-?-?-?-?-?-?-?-?-?- 10w 1d 161 lb 8 oz (-8 oz) 120/86 Negative -?-?-?-?-?-?-?-?-?-?-?-?- Negative A 170 -?-?-?-?-?-?-?-?-?-?-?-?- B 175 A -?-?-?-?-?-?-?-?-?-?-?-?- B -?-?-?-?-?-?-?-?-?-?-?-?- A -?-?-?-?-?-?-?-?-?-?-?-?- B A GP - work in for bleeding. Seen in ER Monday for heavy vaginal bleeding. Stopped progesterone shots last week. US today shows viable twin gestation with no AFTAB. GP - work in for bleeding. S een in ER Monday for heavy vaginal bleeding. Stopped progesterone shots last week. US today shows viable twin gestation with no AFTAB. Return precautions reviewed. -?-?-?-?-?-?-?-?-?-?-?-?- B 02/01/21 -?-?-?-?-?-?-?-?-?-?-?-?- 11w 1d 161 lb 8 oz (-8 oz) 128/90 Negative -?-?-?-?-?-?-?-?-?-?-?-?- Negative A 150 -?-?-?-?-?-?-?-?-?-?-?-?- B 165 A -?-?-?-?-?-?-?-?-?-?-?-?- B -?-?-?-?-?-?-?-?-?-?-?-?- A -?-?-?-?-?-?-?-?-?-?-?-?- B A GP - work in for bleeding. Had bright red bleeding over weekend and seen in [place] [facility] - had 2 small AFTAB. Very small AFTAB (1x0.2cm) on US today. Bleeding precautions reviewed. Will see back next week. -?-?-?-?-?-?-?-?-?-?-?-?- B 02/10/21 -?-?-?-?-?-?-?-?-?-?-?-?- 12w 3d 159 lb (-3 lb) 130/90 Negative -?-?-?-?-?-?-?-?-?-?-?-?- Negative A 155 -?-?-?-?-?-?-?-?-?-?-?-?- B 165 A -?-?-?-?-?-?-?-?--?-?-?-?- B -?-?-?-?-?-?-?-?-?-?-?-?- A -?-?-?-?-?-?-?-?-?-?-?-?- B A GP - no longer b brodie. Severe nausea - not tolerating PO intake. Sent for fluids. Plan zofran pump. -?-?-?-?-?-?-?-?-?-?-?-?- B 02/24/21 -?-?-?-?-?-?-?-?-?-?-?-?- 14w 3d 163 lb 2 oz (+1 lb 2 oz) 120/90 Negative -?-?-?-?-?-?-?-?-?-?-?-?- Negative A 150 -?-?-?-?-?-?-?-?-?-?-?-?- B 153 A -?-?-?-?-?-?-?-?-?-?-?-?- B -?-?-?-?-?-?-?-?-?-?-?-?- A -?-?-?-?-?-?-?-?-?-?-?-?- B A GP - no cramping . Still having brown bleeding. Small AFTAB noted. Encouraged continued bleeding precautions. Nausea better with zofran pump. -?-?-?-?-?-?--?-?-?-?-?-?- B 03/09/21 -?-?-?-?-?-?-?-?-?-?-?-?- 16w 2d 167 lb (+5 lb) 132/78 Negative -?-?-?-?-?-?-?-?-?-?-?-?- Negative A 145 -?-?-?-?-?-?-?-?-?-?-?-?- B 150 A -?-?-?-?-?-?-?-?-?-?-?-?- B -?-?-?-?-?-?-?-?-?-?-?-?- A -?-?-?-?-?-?-?-?-?-?-?-?- B A SM- nausea impro ving, strugglign with pump so taking oral meds and stabilizing. brown discharge no rahel bleeding -?-?-?-?-?-?-?-?-?-?-?-?- B 03/26/21 -?-?-?-?-?-?-?-?-?-?-?-?- 18w 5d 172 lb 4 oz (+10 lb 4 oz) 124/82 Negative -?-?-?-?-?-?-?-?-?-?-?-?- Negative A 140 -?-?-?-?-?-?-?-?-?-?-?-?- B 135 A -?-?-?-?-?-?-?-?-?-?-?-?- B -?-?-?-?-?-?-?-?-?-?-?-?- A -?-?-?-?-?-?-?-?-?-?-?-?- B A GP - no LOF, VB, DFM, ctx. Prescribed compression stockings for swelling. No longer using zofran pump. -?-?-?-?-?-?-?-?-?-?-?-?- B 04/08/21 -?-?-?-?-?-?-?-?-?-?-?-?- 20w 4d 179 lb (+17 lb) 136/78 Negative -?-?-?-?-?-?-?-?-?-?-?-?- Negative A 140 -?-?-?-?-?-?-?-?-?-?-?-?- B 145 A -?-?-?-?-?-?-?-?-?-?-?-?- B -?-?-?-?-?-?-?-?-?-?-?-?- A -?-?-?-?-?-?-?-?-?-?-?-?- B A SM- no vb lof go od fm no regular ctx. co vulvar swelling, round ligament pain -?-?-?-?-?-?-?-?-?-?-?-?- B 04/23/21 -?-?-?--?-?-?-?-?-?-?-?-?- 22w 5d 182 lb (+20 lb) 102/78 Negative -?-?-?-?-?-?-?-?-?-?-?-?- Negative A 145 -?-?-?-?-?-?-?-?-?-?-?-?- B 145 A Breech -?-?-?-?-?-?-?-?-?-?-?-?- B Transverse -?-?-?-?-?-?-?-?-?-?-?-?- A -?-?-?-?-?-?-?-?-?-?-?-?- B A Sm- no vb lof, d iscussed still having severe anxiety, psychiatrist prescribed clonazepam, which i explained is a medication not preferred due to known risks of growth restriction and abnormalities, so i would recommend adding buspar until therapeutic, patient agrees to try. ordered. -?-?-?-?-?-?-?-?-?-?-?-?- B 05/07/21 -?-?-?-?-?-?-?-?-?-?-?-?- 24w 5d 185 lb (+23 lb) 138/80 Negative -?-?-?-?-?-?-?-?-?-?-?-?- Negative A 145 -?-?-?-?-?-?-?-?-?-?-?-?- B 155 A -?-?-?-?-?-?-?-?-?-?-?-?- B -?-?-?-?-?-?-?-?-?-?-?-?- A -?-?-?-?-?-?-?-?-?-?-?-?- B A SM- took zpack f or infection, neg covid infection, still having some SOB and wheezing. -?-?-?-?-?-?-?-?-?-?-?-?- B 05/28/21 -?-?-?-?-?-?-?-?-?-?-?-?- 27w 5d 191 lb 6 oz (+29 lb 6 oz) 128/80 Negative -?-?-?-?-?-?-?-?-?-?-?-?- Negative A 145 -?--?-?-?-?-?-?-?-?-?-?-?- B 140 A Cephalic -?-?-?-?-?-?-?-?-?-?-?-?- B Cephalic -?-?-?-?-?-?-?-?-?-?-?-?- A -?-?-?-?-?-?-?-?-?-?-?-?- B A GP - no LOF, VB, dFM, ctx. Had iron studies drawn today. Prescribed pepcid for heartburn -?-?-?-?-?-?-?-?-?-?-?-?- B 06/05/21 -?-?-?-?-?-?-?-?-?-?-?-?- 28w 6d 195 lb 1.745 oz (+33 lb 1.745 oz) 135/83 140/93 150/91 135/73 138/74 129/66 Negative mg/dl (Nega tive) -?-?-?-?-?-?-?-?-?-?-?-?- A -?-?-?-?-?-?-?-?-?-?-?-?- B A -?-?-?-?-?-?-?-?-?-?-?-?- B -?-?-?-?-?-?-?-?-?-?-?-?- A -?-?-?-?-?-?-?-?-?-?-?-?- B A -?-?-?-?-?-?-?-?-?-?-?-?- B ROS Constitutional Constitutional: Denies fever(s) or weakness Cardiovascular Cardiovascular: Denies chest pain, dyspnea or lightheadedness Gastrointestinal Gastrointestinal: Reports abdominal pain, nausea and vomiting Genitourinary Genitourinary: Reports contractions and movement; Denies urinary frequency, urinary hesitancy or urinary urgency Physical Exam Const alert, oriented x3, no apparent distress, average body habitus, healthy appearing and well nourished HEENT normocephalic and moist oral mucous membranes Head and Scalp: atraumatic Eyes PERRL and EOMs intact bilaterally Neck full ROM Resp normal respiratory effort, no retractions and no use of accessory muscles Cardio regular rate and regular rhythm GI soft to palpation, non-tender and non-distended Manual OB Exam: dilated 2, effaced 50 and station -3 Extremity normal to inspection and full ROM Skin no rashes or lesions noted Neuro no focal motor deficits and no sensory deficits noted Psych mental status grossly normal, affect normal, speech normal and activity/motor behavior normal NST FHR Rate Baby A Baseline: 140 Variability:: Moderate Accelerations:: 15 x 15 Decelerations:: None NST Reactive:: Yes FHR Category:: Category I Uterine Activity:: q2-4min FHR Rate Baby B Baseline: 130 Variability:: Moderate Accelerations:: 15 x 15 Decelerations:: None NST Reactive:: Yes FHR Category:: Category I Assessment & Plan (1) labor: PLAN: Patient presents in labor. Made cervical change from 1 to 2 cm since arrival approximately 2 hours Contractions of increased from every 6 minutes approximately every 2 to 3 minutes Magnesium sulfate started for neuro protection Betamethasone administered Penicillin started for GBS unknown-GBS culture collected CBC and type and screen pending Indomethacin administered for toco lysis Patient discussed with Dr. Cash at [facility] who accepts transport. Charges/Coding Visit Charges Office Visits / Consults: [id number] OV L4 Est
[2021-06-06 01:46] LABS: Absolute Lymphocyte Count 1.65 X10^3/uL (0.83-4.51); Absolute Neutrophil Count 11.3 X10^3/uL (2.0-7.7); Basophil# 0.09 X10^3/uL; Basophil% 0.6 % (0-1); Eosinophil# 0.32 X10^3/uL; Eosinophils% 2.1 % (0-5); Hematocrit 26.2 % (37-47); Lymphocyte # 1.65 X10^3/ul (0.83-4.51); Lymphocyte % 10.8 % (19-41); Mean Corp Hgb Conc 30.5 g/dL (32-36); Mean Corpuscular Hgb 21.1 pg (27.0-32.0); Mean Corpuscular Volume 68.9 fL (81-99); Mean Platelet Vol. 9.9 fl (6.2-12.0); Monocyte# 1.39 X10^3/uL; Monocyte% 9.1 % (0-10); NRBC Flagged by Analyzer 0.5 % (0-5); Neutrophil # 11.27 X10^3/uL (2.7-7.7); Neutrophil % 73.6 % (47-70); Platelet Count 219 K/mm3 (150-450); RBC Distribution Width CV 18.9 % (11.6-14.6); RBC Distribution Width SD 46.5 fl (35.1-43.9); White Blood Count 15.3 K/mm3 (4.4-11.0)
[2021-06-06] MEDS: Indomethacin 25 MG Capsule 50 MG PO (01:50)
[2021-06-06] MEDS: Magnesium Sulfate 4gm/100mL 2 GM/50 ML IV.SOLN. IV (01:52)
[2021-06-06] MEDS: Magnesium Sulfate 20 GM/500 ML BAG IV (02:04)
--- NOTE | 2021-06-06 03:45 | NURSING ---
pt transferred to [facility] by [facility] ambulance
== END 2021-06-06 03:45 | disposition short-term general hospital (02) ==
LOC: WPOUT 22:48 → WP 22:48
PROVIDERS: PCP Family Medicine; Referring Provider Obstetrics & Gynecology; Visit Provider Obstetrics & Gynecology
DX: O60.03 Preterm labor without delivery, third trimester (principal); O99.333 Smoking (tobacco) complicating pregnancy, third trimester; O99.343 Other mental disorders complicating pregnancy, third trimester; F41.9 Anxiety disorder, unspecified; F17.210 Nicotine dependence, cigarettes, uncomplicated; Z3A.29 29 weeks gestation of pregnancy; Z87.442 Personal history of urinary calculi; Z79.899 Other long term (current) drug therapy
CPT/HCPCS: 96365; 96366; 96367 ×2; 96372; 36415; 59025; 59050; 76815; 81001; 82731; 85025; 86850; 86900; 86901; 87077; 87081; 87086; 87088; 87186; 94760; 99218; J7120; G0378; J0702

== ENCOUNTER 2021-06-09 15:00 | Outpatient (CLI) | payer BC, MEDICARE, MEDICAID, SELFPAY ==
[2021-06-09] VITALS (7 sets, daily range): BP systolic 107–138; BP diastolic 59–81; PULSE 99–111; TEMP 36.7; BMI 32.3
[2021-06-09] MEDS: Acetaminophen/Butalbital/Caffe 1 Tablet 2 TABLET PO (15:48)
[2021-06-09 16:14] LABS: Protein, Urine (Random) 34.8 mg/dL (<11.9); Protein:Creat Ratio 350 mg/g CRE (0-200)
[2021-06-09 16:19] LABS: AST(SGOT) 20 U/L (15-37); Alanine Aminotransfer ALT/SGPT 15 U/L (13-56); EST Glomerular Filtration Rate 195 mL/min (>60); Est Glom Filt Rate - Afr Amer 236 mL/min (>60); Estimated Creatinine Clearance 181.69 ml/min; Uric Acid 4.3 mg/dL (2.6-6.0)
[2021-06-09 16:23] LABS: Hematocrit 24.5 % (37-47); Hemoglobin 7.2 g/dL (12.0-15.0); Mean Corp Hgb Conc 29.4 g/dL (32-36); Mean Corpuscular Hgb 20.7 pg (27.0-32.0); Mean Corpuscular Volume 70.6 fL (81-99); Mean Platelet Vol. 9.6 fl (6.2-12.0); Platelet Count 218 K/mm3 (150-450); RBC Distribution Width CV 19.4 % (11.6-14.6); RBC Distribution Width SD 47.4 fl (35.1-43.9); Red Blood Count 3.47 M/mm3 (4.2-5.4); White Blood Count 14.1 K/mm3 (4.4-11.0)
[2021-06-10 14:57] LABS: 24 Hour Urine Protein 339.7 mg/24HR (<150 MG/24HR); 24HR. UA Prot. Total Volume 1975 mL; Urine Protein (24 Hour) 17.2 mg/dL (<11.9)
[2021-06-10 15:02] LABS: 24HR. Urine Creatinine 0.96 g/24 HR (0.70-1.90)
[2021-06-10 15:04] LABS: Creat.Clear Total Volume 1975 mL; Creatinine Clearance 166 ml/min (100-200); Creatinine Serum Creat 0.4 mg/dL (0.6-1.0); Creatinine Urine 48.4 mg/dL (NO RANGE EST.); EST Glomerular Filtration Rate 196 mL/min (>60); Est Glom Filt Rate - Afr Amer 237 mL/min (>60)
--- NOTE | 2021-06-13 06:53 | OB.TRI.PN_ITS ---
Progress Notes Date of Service: 06/10/21 Progress Note: Patient presents for triage evaluation secondary to elevated bp in office and headache FHT: A150 Moderate variability reactive no decelerations category I tracing B 140 Moderate variability reactive no decelerations category I tracing [place]: irritability Contractions Assessment and plan: headache resolved and bps normal, nl labs Reactive NST, reassuring maternal and status patient discharged to home to follow-up as scheduled. See problem list details for additional plan information. Laboratory Studies: Laboratory Tests 06/10/21 06/10/21 06/10/21 Range/Units 14:45 14:45 14:45 WBC (4.4-11.0) K/mm3 RBC (4.2-5.4) M/mm3 Hgb (12.0-15.0) g/dL Hct (37-47) % MCV (81-99) fL MCH (27.0-32.0) pg MCHC (32-36) g/dL RDW Std Deviation (35.1-43.9) fl RDW Coeff of Yuri (11.6-14.6) % Plt Count (150-450) K/mm3 MPV (6.2-12.0) fl Creatinine 0.4 L (0.55-1.02) mg/dL Estim Creat Clear Calc ml/min Est GFR (MDRD) Af Amer 237 (>60) mL/min Est GFR (MDRD) Non-Af 196 (>60) mL/min Uric Acid (2.6-6.0) mg/dL AST (15-37) U/L ALT (13-56) U/L U Random Total Protein (<11.9) mg/dL Urine Collection Time 24.0 24.0 (24.0) HOURS Ur Collection Duration 24.0 (24.0) HOURS Urine Total Volume 2.00 L Timed Urine Volume 1975 1975 mL Urine Creatinine 48.4 48.60 (NO RANGE EST.) mg/dL Ur Creatinine 24 Hour 0.96 (0.70-1.90) g/24 HR Creatinine Clearance 166 (100-200) ml/min Ur Total Protein 24 Hr 339.7 H (<150 MG/24HR) mg/24HR Protein/Creatinin Ratio (0-200) mg/g CRE Urine Total Protein 17.2 H (<11.9) mg/dL 06/09/21 06/09/21 06/09/21 Range/Units 15:35 15:30 15:30 WBC 14.1 H (4.4-11.0) K/mm3 RBC 3.47 L (4.2-5.4) M/mm3 Hgb 7.2 L (12.0-15.0) g/dL Hct 24.5 L (37-47) % MCV 70.6 L (81-99) fL MCH 20.7 L (27.0-32.0) pg MCHC 29.4 L (32-36) g/dL RDW Std Deviation 47.4 H (35.1-43.9) fl RDW Coeff of Yuri 19.4 H (11.6-14.6) % Plt Count 218 (150-450) K/mm3 MPV 9.6 (6.2-12.0) fl Creatinine 0.40 L (0.55-1.02) mg/dL Estim Creat Clear Calc 181.69 ml/min Est GFR (MDRD) Af Amer 236 (>60) mL/min Est GFR (MDRD) Non-Af 195 (>60) mL/min Uric Acid 4.3 (2.6-6.0) mg/dL AST 20 (15-37) U/L ALT 15 (13-56) U/L U Random Total Protein 34.8 H (<11.9) mg/dL Urine Collection Time (24.0) HOURS Ur Collection Duration (24.0) HOURS Urine Total Volume L Timed Urine Volume mL Urine Creatinine 99.50 (NO RANGE EST.) mg/dL Ur Creatinine 24 Hour (0.70-1.90) g/24 HR Creatinine Clearance (100-200) ml/min Ur Total Protein 24 Hr (<150 MG/24HR) mg/24HR Protein/Creatinin Ratio 350 H (0-200) mg/g CRE Urine Total Protein (<11.9) mg/dL Charges/Coding Procedures Urinary/Genital [id number]: [id number] non-stress test Interp Assessment & Plan (1) Proteinuria affecting : COMMENT: plan weekly nsts on l and d and growth us q 4 weeks, plan 37 week delivery. home bps checks
== END 2021-06-09 17:10 | disposition home or self-care (01) ==
LOC: WPOUT 15:10 → WP 15:11
PROVIDERS: Obstetrics & Gynecology; PCP Family Medicine; Visit Provider Obstetrics & Gynecology
DX: O12.10 Gestational proteinuria, unspecified trimester (principal); Z3A.00 Weeks of gestation of pregnancy not specified
CPT/HCPCS: 36415; 59025; 59050; 82565; 82570; 82575; 84156; 84450; 84460; 84550; 85027; 99218; G0378

== ENCOUNTER → 2021-06-11 13:01 | Outpatient (CLI) | payer BC, MEDICARE, MEDICAID, SELFPAY ==
[2021-06-11] MEDS: 0.9% NaCl Peripheral Flush Adult/Peds IV (13:18)
[2021-06-11 13:19] VITALS: BP 127/73; PULSE 119; RESP 16; TEMP 36.6; O2SAT 99
[2021-06-11] MEDS: 0.9% NaCl IVPB Med Flush (250 mL) 15 ML IV (13:19)
== END ==
PROVIDERS: PCP Family Medicine; Referring Provider Obstetrics & Gynecology; Visit Provider Obstetrics & Gynecology
DX: O99.019 Anemia complicating pregnancy, unspecified trimester (principal); Z3A.00 Weeks of gestation of pregnancy not specified
CPT/HCPCS: 96365; J1756; J7050; A4216

== ENCOUNTER 2021-06-18 09:40 | Outpatient (CLI) | payer BC, MEDICARE, MEDICAID, SELFPAY ==
[2021-06-18 09:54] VITALS: BMI 32.1
[2021-06-18 09:55] VITALS: TEMP 36.1
[2021-06-18 09:57] VITALS: BP 127/84; PULSE 112
== END 2021-06-18 11:14 | disposition home or self-care (01) ==
LOC: MEDOUTP 09:44 → WP 09:46
PROVIDERS: PCP Family Medicine; Referring Provider Obstetrics & Gynecology; Visit Provider Obstetrics & Gynecology
DX: O99.019 Anemia complicating pregnancy, unspecified trimester (principal); Z3A.00 Weeks of gestation of pregnancy not specified
CPT/HCPCS: 59025

== ENCOUNTER → 2021-06-18 13:19 | Outpatient (CLI) | payer BC, MEDICARE, MEDICAID, SELFPAY ==
[2021-06-18] MEDS: 0.9% NaCl Peripheral Flush Adult/Peds IV (13:35)
[2021-06-18 13:40] VITALS: BP 119/74; PULSE 117; RESP 16; TEMP 36.2; O2SAT 98
[2021-06-18] MEDS: 0.9% NaCl IVPB Med Flush (250 mL) 15 ML IV (13:40)
[2021-06-18 14:30] VITALS: BP 113/68; PULSE 118; RESP 16; O2SAT 100
== END ==
PROVIDERS: PCP Family Medicine; Referring Provider Obstetrics & Gynecology; Visit Provider Obstetrics & Gynecology
DX: O99.019 Anemia complicating pregnancy, unspecified trimester (principal); Z3A.00 Weeks of gestation of pregnancy not specified
CPT/HCPCS: 96365; J1756; J7050; A4216

== ENCOUNTER 2021-06-24 12:50 | Outpatient (CLI) | payer BC, MEDICARE, MEDICAID, SELFPAY ==
[2021-06-24 13:10] VITALS: BP 131/92; PULSE 110
[2021-06-24 13:11] VITALS: BP 123/87; PULSE 114; TEMP 36.3
[2021-06-24 13:13] VITALS: BMI 32.8
--- NOTE | 2021-07-05 08:10 | OB.TRI.PN ---
Progress Notes Date of Service: 06/24/21 Progress Note: Patient presents for triage evaluation secondary to NST for twin FHT A: Moderate variability reactive no decelerations category I tracing FHT B: Moderate variability reactive no decelerations category I tracing [place]: No Contractions Assessment and plan: Reactive NST, reassuring maternal and status patient discharged to home to follow-up []. See problem list details for additional plan information. Charges/Coding Procedures Urinary/Genital [id number]: 51758-65 non-stress test Interp
== END 2021-06-24 13:55 | disposition home or self-care (01) ==
LOC: WPOUT 12:55 → WP 12:55
PROVIDERS: PCP Family Medicine; Referring Provider Obstetrics & Gynecology; Visit Provider Obstetrics & Gynecology
DX: O47.9 False labor, unspecified (principal); Z3A.00 Weeks of gestation of pregnancy not specified
CPT/HCPCS: 59025

== ENCOUNTER → 2021-06-25 12:33 | Outpatient (CLI) | payer BC, MEDICARE, MEDICAID, SELFPAY ==
[2021-06-25] MEDS: 0.9% NaCl IVPB Med Flush (250 mL) 15 ML IV (12:40)
[2021-06-25] MEDS: 0.9% NaCl Peripheral Flush Adult/Peds IV (12:41)
[2021-06-25 12:47] VITALS: BP 129/85; PULSE 114; RESP 16; TEMP 36.1; O2SAT 99; BMI 32.5
== END ==
PROVIDERS: PCP Family Medicine; Referring Provider Obstetrics & Gynecology; Visit Provider Obstetrics & Gynecology
DX: O99.019 Anemia complicating pregnancy, unspecified trimester (principal); Z3A.00 Weeks of gestation of pregnancy not specified
CPT/HCPCS: 96365; J1756; J7050; A4216

== ENCOUNTER → 2021-06-25 14:15 | Outpatient (CLI) | payer BC, MEDICARE, MEDICAID, SELFPAY ==
--- NOTE | 2021-06-25 14:16 | US_ITS ---
HISTORY: Twins, AGA, well being. TECHNIQUE: US Biophysical Profile W/O Nonst. Transabdominal pelvic ultrasound was performed. Number of images including paperwork 48. COMPARISON: 01/29/2021. FINDINGS: INTRAUTERINE GESTATION(s): Twin. Baby A- PRESENTATION: Cephalic. PLACENTA: Anterior, no placenta previa HEART MOTION: 140 bpm. AMNIOTIC FLUID: Largest fluid pocket 3.2 x 7.7 cm. ONEL 13.5 cm. BIOPHYSICAL PROFILE (BPP): 05/09. -- breathin/2. -- movement: 2/2. -- tone: 2/2. --ONEL: 2/2. Baby B- PRESENTATION: Cephalic. PLACENTA: Anterior, no placenta previa HEART MOTION: 147 bpm. AMNIOTIC FLUID: Largest fluid pocket 2 x 4.3 cm. ONEL 13.5 cm. BIOPHYSICAL PROFILE (BPP): 05/09. -- breathin/2. -- movement: 2/2. -- tone: 2/2. --ONEL: 2/2. US/Biophysical Prof W/O Non Stres IMPRESSION: Living twin intrauterine gestation with normal biophysical profile scores. at 1615 Reported and signed by: Demi Ford MD Electronically Signed: Demi Ford MD at 16:14 EDT Tel , Service support ,
== END ==
PROVIDERS: PCP Family Medicine; Referring Provider Obstetrics & Gynecology; Visit Provider Obstetrics & Gynecology
DX: O30.042 Twin pregnancy, dichorionic/diamniotic, second trimester (principal); O26.899 Other specified pregnancy related conditions, unspecified trimester; R10.2 Pelvic and perineal pain; Z3A.00 Weeks of gestation of pregnancy not specified
CPT/HCPCS: 76819; 87070; 87205

== ENCOUNTER → 2021-07-02 09:31 | Outpatient (CLI) | payer BC, MEDICARE, MEDICAID, SELFPAY ==
--- NOTE | 2021-07-02 09:33 | US_ITS ---
EXAM: US BIOPHYSICAL PROFILE WITHOUT NON-STRESS TESTING : 1990 CLINICAL INDICATION: AGA, twins TECHNIQUE: Real-time ultrasound of the maternal pelvis for biophysical profile evaluation with image documentation. This report was created using [employer] report generation technology. COMPARISON: None. FINDINGS: BREATHING MOVEMENTS: Present. Score 2/2. GROSS BODY MOVEMENTS: Present. Score 2/2. TONE: Present. Score 2/2. QUALITATIVE AMNIOTIC FLUID VOLUME: Within normal limits. Score 2/2. FETUS: There is a twin gestation. HEART RATE: Twin A heart rate is 141 bpm. Twin B heart rate of 140 bpm. PRESENTATION: Twin A is in the cephalic position. Twin B is in the oblique position on the right. PLACENTA: The placenta is anterior. Twin B placental location is anterior. FREE FLUID: Twin A largest fluid pocket is 3.1 x 9.3 cm. The largest fluid pocket for twin B is 3.0 x 4.7 cm. OTHER FINDINGS: Twin A and twin B both have biophysical profile scores of 8/8. US/Biophysical Prof W/O Non Stres IMPRESSION: Twin gestations both with biophysical profile scores of 8/8. Twin A has a heart rate of 141 bpm and twin B has a heart rate of 140 bpm. at 1718 Reported and signed by: Michael Valverde MD Electronically Signed: Michael Valverde MD at 17:17 EDT Tel , Service support ,
== END ==
PROVIDERS: PCP Family Medicine; Referring Provider Obstetrics & Gynecology; Visit Provider Obstetrics & Gynecology
DX: O30.042 Twin pregnancy, dichorionic/diamniotic, second trimester (principal); Z3A.00 Weeks of gestation of pregnancy not specified
CPT/HCPCS: 76819

== ENCOUNTER → 2021-07-02 10:37 | Outpatient (CLI) | payer BC, MEDICARE, MEDICAID, SELFPAY ==
[2021-07-02 10:48] VITALS: BP 129/79; PULSE 114; RESP 16; TEMP 36.5; O2SAT 99
[2021-07-02] MEDS: 0.9% NaCl IVPB Med Flush (250 mL) 15 ML IV (11:01)
[2021-07-02] MEDS: 0.9% NaCl Peripheral Flush Adult/Peds IV (11:01)
[2021-07-02 11:57] VITALS: BP 126/88; PULSE 104; RESP 16; O2SAT 100
== END ==
PROVIDERS: PCP Family Medicine; Referring Provider Obstetrics & Gynecology; Visit Provider Obstetrics & Gynecology
DX: O99.019 Anemia complicating pregnancy, unspecified trimester (principal); Z3A.00 Weeks of gestation of pregnancy not specified
CPT/HCPCS: 96365; J1756; J7050; A4216

== ENCOUNTER → 2021-07-09 11:17 | Outpatient (CLI) | payer BC, MEDICARE, MEDICAID, SELFPAY ==
--- NOTE | 2021-07-09 11:19 | US_ITS ---
STUDY: OBSTETRICAL ULTRASOUND - BIOPHYSICAL PROFILE REASON FOR EXAM: Female, 30 years old AGA- TWINS twin A LMP: 11/15/2020 PRIOR ULTRASOUND: 07/02/2021 TECHNIQUE: Transabdominal TECHNICAL QUALITY: Adequate. FINDINGS: There is a single intrauterine fetus. The fetus is in an transverse lie with the head on the maternal left side. There is demonstrated cardiac activity with a heart rate of 131 bpm. There is a normal amniotic fluid volume. The largest amniotic fluid pocket measures 7.3 x 4.97 cm. The placenta is anterior in location and is not low lying. There are Grade 2 placental changes. age by current US: 33 weeks, 5 days. [place] by current US: 08/22/2021. Gender: Female BIOPHYSICAL PROFILE: Breathing Movements (FBM): 2 Gross Body Movements (GBM): 2 Tone (FT): 2 Amniotic Fluid Volume (AFV): 2 TOTAL SCORE: 8 / 8 IMPRESSION: Normal biophysical profile of 8/8. Electronically Signed: Kiran Crain MD at 16:29 EDT , Service support , STUDY: OBSTETRICAL ULTRASOUND - BIOPHYSICAL PROFILE REASON FOR EXAM: Female, 30 years old AGA- TWINS twin B LMP: 11/15/2020 PRIOR ULTRASOUND: 07/02/2021 TECHNIQUE: Transabdominal TECHNICAL QUALITY: Adequate. FINDINGS: There is a single intrauterine fetus. The fetus is in a cephalic presentation. There is demonstrated cardiac activity with a heart rate of 138 bpm. There is a normal amniotic fluid volume. The largest amniotic fluid pocket measures 6.45 x 4.44 cm. . The placenta is anterior in location and is not low lying. There are Grade 2 placental changes. Age by LMP: 33 weeks, 5 days. [place] by LMP: 08/22/2021. Gender: Female BIOPHYSICAL PROFILE: Breathing Movements (FBM): 2 Gross Body Movements (GBM): 2 Tone (FT): 2 Amniotic Fluid Volume (AFV): 2 TOTAL SCORE: US/Biophysical Prof W/O Non Stres IMPRESSION: Normal biophysical profile of 05/09. Electronically Signed: Kiran Crain MD at 16:28 EDT , Service support ,
== END ==
PROVIDERS: PCP Family Medicine; Visit Provider Obstetrics & Gynecology
DX: O30.042 Twin pregnancy, dichorionic/diamniotic, second trimester (principal); Z3A.00 Weeks of gestation of pregnancy not specified
CPT/HCPCS: 76819

== ENCOUNTER → 2021-07-12 14:19 | Outpatient (CLI) | payer BC, MEDICARE, MEDICAID, SELFPAY ==
[2021-07-12 14:23] VITALS: BP 134/92; PULSE 116; RESP 16; O2SAT 99
[2021-07-12] MEDS: 0.9% NaCl Peripheral Flush Adult/Peds IV (14:37)
[2021-07-12] MEDS: 0.9% NaCl IVPB Med Flush (250 mL) 15 ML IV (14:37)
[2021-07-12 15:27] VITALS: BP 128/92; PULSE 107; RESP 16; TEMP 36.5; O2SAT 99
== END ==
PROVIDERS: PCP Family Medicine; Referring Provider Obstetrics & Gynecology; Visit Provider Obstetrics & Gynecology
DX: O99.019 Anemia complicating pregnancy, unspecified trimester (principal); D64.9 Anemia, unspecified; Z3A.00 Weeks of gestation of pregnancy not specified
CPT/HCPCS: 96365; J1756; J7050; A4216

== ENCOUNTER → 2021-07-16 11:09 | Outpatient (CLI) | payer BC, MEDICARE, MEDICAID, SELFPAY ==
--- NOTE | 2021-07-16 11:19 | US_ITS ---
STUDY: OBSTETRICAL ULTRASOUND - BIOPHYSICAL PROFILE REASON FOR EXAM: Female, 30 years old AGA TWINS . Twin A. LMP: 11/15/2020. PRIOR ULTRASOUND: Comparison is made with prior examination 07/09/2021. TECHNIQUE: Transabdominal TECHNICAL QUALITY: Adequate. FINDINGS: There is a single intrauterine fetus. The fetus is in a cephalic presentation. There is demonstrated cardiac activity with a heart rate of 144 bpm. There is a normal amniotic fluid volume. The largest amniotic fluid pocket measures 5.1 cm. The placenta is anterior in location and is not low lying. There are Grade 3 placental changes. Age by LMP: 34 weeks, 5 days. [place] by LMP: 08/22/2021.. BIOPHYSICAL PROFILE: Breathing Movements (FBM): 2 Gross Body Movements (GBM): 2 Tone (FT): 2 Amniotic Fluid Volume (AFV): 2 TOTAL SCORE: 8 / 8 IMPRESSION: Normal biophysical profile of 8/8. Electronically Signed: Panda Williamson MD at 12:25 EDT , Service support , STUDY: OBSTETRICAL ULTRASOUND - BIOPHYSICAL PROFILE REASON FOR EXAM: Female, 30 years old AGA TWINS . Twin B LMP: 11/15/2020. PRIOR ULTRASOUND: Comparison is made with prior examination dated 07/09/2021. TECHNIQUE: Transabdominal TECHNICAL QUALITY: Adequate. FINDINGS: There is a single intrauterine fetus. The fetus is in a cephalic presentation. There is demonstrated cardiac activity with a heart rate of 137 bpm. There is a normal amniotic fluid volume. The largest amniotic fluid pocket measures 7.1 cm. The placenta is anterior in location and is not low lying. There are Grade 3 placental changes. Age by LMP: 34 weeks, 5 days. [place] by LMP: 08/22/2021. BIOPHYSICAL PROFILE: Breathing Movements (FBM): 2 Gross Body Movements (GBM): 2 Tone (FT): 2 Amniotic Fluid Volume (AFV): 2 TOTAL SCORE: US/Biophysical Prof W/O Non Stres IMPRESSION: Normal biophysical profile of 05/09. Electronically Signed: Panda Williamson MD at 12:26 EDT , Service support ,
[2021-07-16 11:40] LABS: Absolute Lymphocyte Count 1.45 X10^3/uL (0.83-4.51); Absolute Neutrophil Count 8.8 X10^3/uL (2.0-7.7); Basophil# 0.09 X10^3/uL; Basophil% 0.8 % (0-1); Eosinophils% 1.7 % (0-5); Hemoglobin 9.1 g/dL (12.0-15.0); Lymphocyte # 1.45 X10^3/ul (0.83-4.51); Lymphocyte % 12.3 % (19-41); Mean Corp Hgb Conc 30.3 g/dL (32-36); Mean Corpuscular Hgb 21.9 pg (27.0-32.0); Mean Corpuscular Volume 72.3 fL (81-99); Mean Platelet Vol. 10.5 fl (6.2-12.0); Monocyte# 0.97 X10^3/uL; Monocyte% 8.2 % (0-10); NRBC Flagged by Analyzer 0.8 % (0-5); Neutrophil # 8.79 X10^3/uL (2.7-7.7); Neutrophil % 74.8 % (47-70); POSITIVE MORPHOLOGY YES; Platelet Count 214 K/mm3 (150-450); RBC Distribution Width SD 62.3 fl (35.1-43.9); Red Blood Count 4.15 M/mm3 (4.2-5.4); White Blood Count 11.8 K/mm3 (4.4-11.0)
[2021-07-16 11:42] LABS: Differential Indicated SCAN CRITERIA MET
[2021-07-16 11:59] LABS: Protein:Creat Ratio 238 mg/g CRE (0-200)
[2021-07-16 12:33] LABS: Anisocytosis 1+
[2021-07-16 12:46] LABS: ALB/GLOB Ratio 0.5 RATIO (0.9-2.4); AST(SGOT) 15 U/L (15-37); Alanine Aminotransfer ALT/SGPT 9 U/L (13-56); Albumin, Serum 2.2 g/dL (3.2-5.0); Alkaline Phosphatase 141 U/L (45-117); Anion Gap 9 (5-15); BUN 6 mg/dL (7-18); BUN/Creat Ratio 10.2 RATIO (10-20); Calcium,Total 8.8 mg/dL (8.5-10.1); Chloride 109 mmol/L (98-107); Creatinine, Serum 0.59 mg/dL (0.55-1.02); EST Glomerular Filtration Rate 125 mL/min (>60); Est Glom Filt Rate - Afr Amer 151 mL/min (>60); Globulin 4.3 g/dL (2.2-4.2); Glucose 105 mg/dL (74-106); Potassium 3.9 mmol/L (3.5-5.1); Protein, Total 6.5 g/dL (6.4-8.2); Sodium Level 137 mmol/L (136-145)
== END ==
PROVIDERS: Obstetrics & Gynecology; PCP Family Medicine; Referring Provider Obstetrics & Gynecology; Visit Provider Obstetrics & Gynecology
DX: O99.019 Anemia complicating pregnancy, unspecified trimester (principal); O12.10 Gestational proteinuria, unspecified trimester; O30.042 Twin pregnancy, dichorionic/diamniotic, second trimester; D64.9 Anemia, unspecified; Z3A.00 Weeks of gestation of pregnancy not specified
CPT/HCPCS: 36415; 76819; 80053; 82570; 84156; 85025

== ENCOUNTER 2021-07-20 12:02 | Inpatient (IN) | payer BC, MEDICARE, MEDICAID, SELFPAY ==
[2021-07-20] VITALS (134 sets, daily range): BP systolic 65–168; BP diastolic 34–111; PULSE 62–139; RESP 6–22; TEMP 36–37.1; O2SAT 85–100; BMI 33.9
--- NOTE | 2021-07-20 12:01 | US_ITS ---
STUDY: SECOND AND THIRD TRIMESTER OBSTETRICAL ULTRASOUND - TWIN REASON FOR EXAM: Female, 30 years old. LMP: 35.2 WEEKS GESTATION POSITION TWINS BEDSIDE US -- ELEVATED BLOOD PRESSURE NEED POSITION FOR DELIVERY TECHNIQUE: Transabdominal TECHNICAL QUALITY: Adequate. COMPARISON: None. FINDINGS: The uterine wall is normal. There is a competent closed cervical os. The cervix measures 2.8 cm in length. Fetus A demonstrates cardiac activity with a heart rate of 127 bpm. Fetus ?A? is in a cephalic presentation. Fetus B demonstrates cardiac activity with a heart rate of 136 bpm. Fetus B is in a cephalic presentation. age by prior US: 35 weeks, 2 days. [place] by prior US: 08/22/2021. Age by LMP: 35 weeks, 2 days. [place] by LMP: 08/22/2021. FETUS B BIOMETRY: age by prior US: 35 weeks, 2 days. [place] by previous US: 08/22/2021. Age by LMP: 35 weeks, 2 days. [place] by LMP: 08/22/2021. IMPRESSION: Both fetuses are in a cephalic presentation. Normal amniotic fluid index. Electronically Signed: Panda Williamson MD at 13:42 EDT , Service support , STUDY: SECOND AND THIRD TRIMESTER OBSTETRICAL ULTRASOUND - TWIN REASON FOR EXAM: Female, 30 years old. LMP: 35.2 WEEKS GESTATION POSITION TWINS BEDSIDE US -- ELEVATED BLOOD PRESSURE NEED POSITION FOR DELIVERY TECHNIQUE: Transabdominal TECHNICAL QUALITY: Adequate. COMPARISON: None. FINDINGS: The uterine wall is normal. There is a competent closed cervical os. The cervix measures 2.8 cm in length. Fetus A demonstrates cardiac activity with a heart rate of 127 bpm. Fetus ?A? is in a cephalic presentation. Fetus B demonstrates cardiac activity with a heart rate of 136 bpm. Fetus B is in a cephalic presentation. age by prior US: 35 weeks, 2 days. [place] by prior US: 08/22/2021. Age by LMP: 35 weeks, 2 days. [place] by LMP: 08/22/2021. FETUS B BIOMETRY: age by prior US: 35 weeks, 2 days. [place] by previous US: 08/22/2021. Age by LMP: 35 weeks, 2 days. [place] by LMP: 08/22/2021. US/OB Limited (No Biometrics)
[2021-07-20 12:02] LABS: Absolute Lymphocyte Count 1.13 X10^3/uL (0.83-4.51); Absolute Neutrophil Count 7.4 X10^3/uL (2.0-7.7); Basophil# 0.07 X10^3/uL; Basophil% 0.7 % (0-1); Eosinophil# 0.19 X10^3/uL; Eosinophils% 1.9 % (0-5); Hematocrit 31.4 % (37-47); Hemoglobin 9.3 g/dL (12.0-15.0); Lymphocyte # 1.13 X10^3/ul (0.83-4.51); Lymphocyte % 11.4 % (19-41); Mean Corp Hgb Conc 29.6 g/dL (32-36); Mean Corpuscular Hgb 21.4 pg (27.0-32.0); Mean Corpuscular Volume 72.4 fL (81-99); Monocyte# 0.92 X10^3/uL; Monocyte% 9.3 % (0-10); NRBC Flagged by Analyzer 0.9 % (0-5); Neutrophil # 7.36 X10^3/uL (2.7-7.7); Neutrophil % 74.6 % (47-70); POSITIVE MORPHOLOGY YES; Platelet Count 173 K/mm3 (150-450); RBC Distribution Width CV 26.2 % (11.6-14.6); RBC Distribution Width SD 66.4 fl (35.1-43.9); Red Blood Count 4.34 M/mm3 (4.2-5.4); White Blood Count 9.9 K/mm3 (4.4-11.0)
[2021-07-20 12:03] LABS: Differential Indicated SCAN CRITERIA MET
[2021-07-20] MEDS: Labetalol (Prefilled) 20 MG/4 ML IV (12:03)
[2021-07-20] MEDS: Magnesium Sulfate 4gm/100mL 4 GM/100 ML IV.SOLN. IV (12:10)
[2021-07-20] MEDS: Labetalol (Prefilled) 20 MG/4 ML 40 MG IV (12:15)
[2021-07-20 12:17] LABS: AST(SGOT) 17 U/L (15-37); Alanine Aminotransfer ALT/SGPT 8 U/L (13-56); Creatinine, Serum 0.59 mg/dL (0.55-1.02); EST Glomerular Filtration Rate 124 mL/min (>60); Est Glom Filt Rate - Afr Amer 150 mL/min (>60); Estimated Creatinine Clearance 123.18 ml/min; Protein:Creat Ratio 950 mg/g CRE (0-200); Uric Acid 6.3 mg/dL (2.6-6.0)
[2021-07-20 12:22] LABS: Anisocytosis 2+; Hypochromasia 2+; Microcytosis 2+; Platelet Estimate ADEQUATE (ADEQ); Polychromasia RARE
[2021-07-20] MEDS: Magnesium Sulfate 4gm/100mL 2 GM/50 ML IV.SOLN. IV (12:30)
[2021-07-20] MEDS: Magnesium Sulfate 20 GM/500 ML BAG IV (12:41)
[2021-07-20] MEDS: Lactated Ringers 1,000 ML 150 ML IV (13:28)
--- NOTE | 2021-07-20 13:34 | HP.PCM.OB_ITS ---
HPI - General General Date of Admission: 07/20/21 HPI Narrative ROSANNA JURADO, is a 30 F who presents with severe preeclampsia. She has had increasing headaches not managed with Tylenol and now has severe range blood pressures. Labs are within normal limits. Patient's blood pressures responded to 2 doses of IV labetalol and magnesium sulfate. Maternal Data Information CHELSEA Calculator Estimated Delivery Date Method Current WG Current Estimate 08/22/21 LMP (Certain) 35w 2d # 2 PFSH PFSH Medical History (Updated 07/20/21 @ 13:[address] Poonam Reilly MD) Anxiety Bipolar disorder Chronic anemia Chronic constipation Cystic fibrosis carrier Depression Generalized anxiety disorder H/O renal calculi History of benign pituitary tumor IBS (irritable bowel syndrome) Manic affective disorder, recurrent episode, moderate degree PTSD (post-traumatic stress disorder) Skin lesions Home Medications hydroxyzine pamoate 50 mg PO 4X/DAY PRN PRN 01/17/21 [History Last Taken 07/19/21 20:00 50 mg] breast pump #1 ea 04/07/21 [Rx Last Taken Unknown] famotidine 20 mg tablet 20 mg PO BID #180 tab 06/11/21 [Rx Last Taken Unknown] blood pressure monitor #1 ea 06/15/21 [Rx Last Taken Unknown] Allergy/AdvReac Type Severity Reaction Status Date / Time cephalexin [From Keflex] AdvReac Vomiting Verified 07/16/21 10:15 codeine AdvReac Vomiting Verified 07/16/21 10:15 divalproex sodium AdvReac Other Verified 07/16/21 10:15 [From Depakote] hydrocodone bitartrate AdvReac Vomiting Verified 07/16/21 10:15 [From Vicodin] oxcarbazepine AdvReac Vomiting Verified 07/16/21 10:15 [From Trileptal] sumatriptan [From Imitrex] AdvReac Vomiting Verified 07/16/21 10:15 sumatriptan succinate AdvReac Vomiting Verified 07/16/21 10:15 [From Imitrex] Family History Father Hypertension Blood clotting disorder Cancer Kidney CVA (cerebral vascular accident) Mother Depression Anxiety Grandfather Heart disease Myocardial infarction Surgical History arm manipulation History of breast biopsy History of reversal of tubal ligation Tubal ligation status Social History adopted: No household members: family housing: house number of children: 6 current occupational status: unemployed pets and animals: Yes history of recent travel: No Smoking Status: Current every day smoker tobacco type: cigarettes second hand exposure: No alcohol intake: never substance use type: does not use what type of physical activity do you participate in: other frequency: 5-6 times per week seatbelt use: sometimes do you feel safe at home: Yes additional social history: -Junito Lagos History 8 Elective abortions Hx Para 5 Spontaneous abortions Hx # Term Pregnancies Ectopic pregnancies Hx # Pregnancies Multiple births # of living children 5 Past Pregnancies Del. Date Name GA/Weeks Outcome Route Bth Weight Infant Gen Labor Lgth Anesthesia Del Locatn Provider FOB Unknown 2009- Libia 40 live - full term 8lbs 13oz Fe male 6 hours epidural [facility] Jori Unknown 2011- Mikaela 36 live - 6lbs 10oz Female 7 hours epidural [facility] Dr.Vandevelde Hsieh Unknown 2012- Yaritza 37 live - full term 6lbs 15oz Fe male 4 hours epidural [facility] Jori Unknown 2013- Angelito 38 live - full term 6lbs 10oz Ma le less than 2cm epidural WC [facility] Jori Unknown 2015- Aneta 39 live - full term 8lbs 15 oz Female 10 houts epidural [facility] SHABBIR Hsieh Delivery Date: Meconium aspiration; hyperemesis Adrienne Flores Delivery Date: Non reassuring NST Adrienne Flores Delivery Date: Meconium; loose nucal cord x1 Adrienne Flores Delivery Date: no complications Adrienne Flores Delivery Date: Severe hyperemesis; meconium; loose nuchal cord x1; manual placenta removal. Adrienne Flores Visit Details Expected Delivery Route/Plan if V/V Labor Preferences- labor support person: [] labor intervention preferences: [] pain management options preferred: [] cut cord/dad catch: [] : [] PP control planned: [] discussed possible routes of delivery and associated risks: [] special requests: [] Plans flu vaccine: [] tdap vaccine: [] rhogam: [] LARC form signed: [] Problem list reviewed and updated with the most current plan of care details and appropriate orders placed. Relevant counseling for the gestational age provided. Continue routine care and follow up unless otherwise noted in visit notes/problem list details OB Flowsheet Initial Weight: 162 lb Date -?-?-?-?-?-?-?-?-?-?-?-?- EGA Weight BP Urine Prot -?-?-?-?-?-?-?-?-?-?-?-?- Glucose FHR FuHt Pres Dilation -?-?-?-?-?-?-?-?-?-?-?-?- Effaced St Visit Note 01/18/21 -?-?-?-?-?-?-?-?-?-?-?-?- 9w 1d 162 lb 6 oz (+6 oz) 132/78 -?-?-?-?-?-?-?-?-?-?-?-?- A 170 -?-?-?-?-?-?-?-?-?-?-?--?- B 170 A -?-?-?-?-?-?-?-?-?-?-?-?- B -?-?-?-?-?-?-?-?-?-?-?-?- A -?-?-?-?-?-?-?-?-?-?-?-?- B A SM- viable IUP x 2 seen -?-?-?-?-?-?-?-?-?-?-?-?- B 01/25/21 -?-?-?-?-?-?-?-?-?-?-?-?- 10w 1d 161 lb 8 oz (-8 oz) 120/86 Negative -?-?-?-?-?-?-?-?-?-?-?-?- Negative A 170 -?-?-?-?-?-?-?-?-?-?-?-?- B 175 A -?-?-?-?-?-?-?-?-?-?-?-?- B -?-?-?-?-?-?-?-?-?-?-?-?- A -?-?-?-?-?-?-?-?-?-?-?-?- B A GP - work in for bleeding. Seen in ER Monday for heavy vaginal bleeding. Stopped progesterone shots last week. US today shows viable twin gestation with no AFTAB. GP - work in for bleeding. S een in ER Monday for heavy vaginal bleeding. Stopped progesterone shots last week. US today shows viable twin gestation with no AFTAB. Return precautions reviewed. -?-?-?-?-?-?-?-?-?-?-?-?- B 02/01/21 -?-?-?-?-?-?-?-?-?-?-?-?- 11w 1d 161 lb 8 oz (-8 oz) 128/90 Negative -?-?-?-?-?-?-?-?-?-?-?-?- Negative A 150 -?-?-?-?-?-?-?-?-?-?-?-?- B 165 A -?-?-?-?-?-?-?-?-?-?-?-?- B -?-?-?-?-?-?-?-?-?-?-?-?- A -?-?-?-?-?-?-?-?-?-?-?-?- B A GP - work in for bleeding. Had bright red bleeding over weekend and seen in [facility] - had 2 small AFTAB. Very small AFTAB (1x0.2cm) on US today. Bleeding precautions reviewed. Will see back next week. -?-?-?-?-?-?--?-?-?-?-?-?- B 02/10/21 -?-?-?-?-?-?-?-?-?-?-?-?- 12w 3d 159 lb (-3 lb) 130/90 Negative -?-?-?-?-?-?-?-?-?-?-?-?- Negative A 155 -?-?-?-?-?-?-?-?-?-?-?-?- B 165 A -?-?-?-?-?-?-?-?-?-?-?-?- B -?-?-?-?-?-?-?-?-?-?-?-?- A -?-?-?-?-?-?-?-?-?-?-?-?- B A GP - no longer b brodie. Severe nausea - not tolerating PO intake. Sent for fluids. Plan zofran pump. -?-?-?-?-?-?-?-?-?-?-?-?- B 02/24/21 -?-?-?-?-?-?-?-?-?-?-?-?- 14w 3d 163 lb 2 oz (+1 lb 2 oz) 120/90 Negative -?-?-?-?-?-?-?-?-?-?-?-?- Negative A 150 -?-?-?-?-?-?-?-?-?-?-?-?- B 153 A -?-?-?--?-?-?-?-?-?-?-?-?- B -?-?-?-?-?-?-?-?-?-?-?-?- A -?-?-?-?-?-?-?-?-?-?-?-?- B A GP - no cramping . Still having brown bleeding. Small AFTAB noted. Encouraged continued bleeding precautions. Nausea better with zofran pump. -?-?-?-?-?-?-?-?-?-?-?-?- B 03/09/21 -?-?-?-?-?-?-?-?-?-?-?-?- 16w 2d 167 lb (+5 lb) 132/78 Negative -?-?-?-?-?-?-?-?-?-?-?-?- Negative A 145 -?-?-?-?-?-?-?-?-?-?-?-?- B 150 A -?-?-?-?-?-?-?-?-?-?-?-?- B -?-?-?-?-?-?--?-?-?-?-?-?- A -?-?-?-?-?-?-?-?-?-?-?-?- B A SM- nausea impro ving, strugglign with pump so taking oral meds and stabilizing. brown discharge no rahel bleeding -?-?-?-?-?-?-?-?-?-?-?-?- B 03/26/21 -?-?-?-?-?-?-?-?-?-?-?-?- 18w 5d 172 lb 4 oz (+10 lb 4 oz) 124/82 Negative -?-?-?-?-?-?-?-?-?-?-?-?- Negative A 140 -?-?-?-?-?-?-?-?-?-?-?-?- B 135 A -?-?-?-?-?-?-?-?-?-?-?-?- B -?-?-?-?-?-?-?-?-?-?-?-?- A -?-?-?-?-?-?-?-?-?-?-?-?- B A GP - no LOF, VB, DFM, ctx. Prescribed compression stockings for swelling. No longer using zofran pump. -?-?-?-?-?-?-?-?-?-?-?-?- B 04/08/21 -?-?-?-?-?-?-?-?-?-?-?-?- 20w 4d 179 lb (+17 lb) 136/78 Negative -?-?-?-?-?-?-?-?-?-?-?-?- Negative A 140 -?-?-?-?-?-?-?-?-?-?-?-?- B 145 A -?-?-?-?-?-?-?-?-?-?-?-?- B -?-?-?-?-?-?-?-?-?-?-?-?- A -?-?-?-?-?-?-?-?-?-?-?-?- B A SM- no vb lof go od fm no regular ctx. co vulvar swelling, round ligament pain -?-?-?-?-?-?-?-?-?-?-?-?- B 04/23/21 -?-?-?-?-?-?-?-?-?-?-?-?- 22w 5d 182 lb (+20 lb) 102/78 Negative -?-?-?-?-?-?-?-?-?-?-?-?- Negative A 145 -?-?-?-?-?-?-?-?-?-?-?-?- B 145 A Breech -?-?-?-?-?-?-?-?-?-?-?-?- B Transverse -?-?-?-?-?-?-?-?-?-?-?-?- A -?-?-?-?-?-?-?-?-?-?-?-?- B A Sm- no vb lof, d iscussed still having severe anxiety, psychiatrist prescribed clonazepam, which i explained is a medication not preferred due to known risks of growth restriction and abnormalities, so i would recommend adding buspar until therapeutic, patient agrees to try. ordered. -?-?-?-?-?-?-?-?-?-?-?-?- B 05/07/21 -?-?-?-?-?-?--?-?-?-?-?-?- 24w 5d 185 lb (+23 lb) 138/80 Negative -?-?-?-?-?-?-?-?-?-?-?-?- Negative A 145 -?-?-?-?-?-?-?-?-?-?-?-?- B 155 A -?-?-?-?-?-?-?-?-?-?-?-?- B -?-?-?-?-?-?-?-?-?-?-?-?- A -?-?-?-?-?-?-?-?-?-?-?-?- B A SM- took zpack f or infection, neg covid infection, still having some SOB and wheezing. -?-?-?-?-?-?-?-?-?-?-?-?- B 05/28/21 -?-?-?-?-?-?-?-?-?-?-?-?- 27w 5d 191 lb 6 oz (+29 lb 6 oz) 128/80 Negative -?-?-?-?-?-?-?-?-?-?-?-?- Negative A 145 -?-?-?-?-?-?-?-?-?-?-?-?- B 140 A Cephalic -?-?-?-?-?-?-?-?-?-?-?-?- B Cephalic -?-?-?-?-?-?-?--?-?-?-?-?- A -?-?-?-?-?-?-?-?-?-?-?-?- B A GP - no LOF, VB, dFM, ctx. Had iron studies drawn today. Prescribed pepcid for heartburn -?-?-?-?-?-?-?-?-?-?-?-?- B 06/05/21 -?-?-?-?-?-?-?-?-?-?-?-?- 29w 0d 195 lb 1.745 oz (+33 lb 1.745 oz) 135/83 140/93 150/91 150/91 135/73 138/74 129/66 142/79 132/85 133/73 136/83 130/76 139/86 128/74 Negative mg/dl (Nega tive) -?-?-?-?-?-?-?-?-?-?-?-?- A -?-?-?-?-?-?-?-?-?-?-?-?- B A -?-?-?-?-?-?-?-?-?-?-?-?- B -?-?-?-?-?-?-?-?-?-?-?-?- A -?-?-?-?-?-?-?-?-?-?-?-?- B A -?-?-?-?-?-?-?-?-?-?-?-?- B 06/09/21 -?-?-?-?-?-?-?-?-?-?-?-?- 29w 3d 195 lb (+33 lb) 152/100 Negative -?-?-?-?-?-?-?-?-?-?-?-?- Negative A -?-?-?-?-?-?-?-?-?-?-?-?- B A -?-?-?-?-?-?-?-?-?-?-?-?- B -?-?-?-?-?-?-?-?-?-?-?-?- A -?-?-?-?-?-?-?-?-?-?-?-?- B A elevated bps and headache- sent to l and d. repeat BPs WNL. LOWRY resolved. elevated urine protein but normal other labs -?-?-?-?-?-?-?-?-?-?-?-?- B 06/15/21 -?-?-?-?-?-?-?-?-?-?-?-?- 30w 2d 195 lb (+33 lb) 137/96 132/86 Negative -?-?-?-?-?-?-?-?-?-?-?-?- Negative A 140 -?-?-?-?-?-?-?-?-?-?-?-?- B 155 A -?-?-?-?-?-?-?-?-?-?-?-?- B -?-?-?-?-?-?-?-?-?-?-?-?- A -?-?-?-?-?-?-?-?-?-?-?-?- B A pelvic pressure irregular ctx no cervical change, repeat bp WNL, reviewed precautions see PL updates. -?-?-?-?-?-?-?-?-?-?-?-?- B 06/25/21 -?-?-?-?-?-?-?-?-?-?-?-?- 31w 5d 199 lb 4 oz (+37 lb 4 oz) 130/86 Negative -?-?-?-?-?-?-?-?-?-?-?-?- Negative A 133 -?-?-?-?-?-?-?-?-?-?-?-?- B 139 A Cephalic -?-?-?-?-?-?-?-?-?-?-?-?- B Cephalic 2 -?-?-?-?-?-?-?-?-?-?-?-?- 50 A -3 -?-?-?-?-?-?-?-?-?-?-?-?- B A GP - no LOF, VB, DFM. Continues to have pressure and contractions. Cervix unchanged from prior exam. Reassurance provided. -?-?-?-?-?-?-?-?-?-?-?-?- B 07/09/21 -?-?-?-?-?-?-?--?-?-?-?-?- 33w 5d 204 lb (+42 lb) 132/88 -?-?-?-?-?-?-?-?-?-?-?-?- A 145 -?-?-?-?-?-?-?-?-?-?-?-?- B 135 A -?--?-?-?-?-?-?-?-?-?-?-?- B -?-?-?-?-?-?-?-?-?-?-?-?- A -?-?-?-?-?-?-?-?-?-?-?-?- B A SM- no vb lof ir regular ctx discussed left sided VC. fu echo ordered -?-?-?-?-?-?-?-?-?-?-?-?- B 07/16/21 -?-?-?-?-?-?-?-?-?-?-?-?- 34w 5d 208 lb 4 oz (+46 lb 4 oz) 144/96 138/99 Negative -?-?-?-?--?-?-?-?-?-?-?-?- Negative A 140 -?-?-?-?-?-?-?-?-?-?-?-?- B 140 A -?-?-?-?-?-?-?-?-?-?-?-?- B 2 -?-?-?-?-?-?-?-?-?-?-?-?- A -?-?-?-?-?-?-?-?-?-?-?-?- B A SM- no vb lof go od fm co pressure and irregular ctx, no LOWRY BV -?-?-?-?-?-?-?-?-?-?-?-?- B 07/20/21 -?-?-?-?-?-?-?-?-?-?-?-?- 35w 2d 203 lb 14.841 oz (+41 lb 14.841 oz) -?-?-?-?-?-?-?-?-?-?-?-?- A -?-?-?-?-?-?-?-?-?-?-?-?- B A -?-?-?-?-?-?-?-?-?-?-?-?- B -?-?-?-?-?-?-?-?-?-?-?-?- A -?-?-?-?-?-?-?-?-?-?-?-?- B A -?-?-?-?-?-?-?-?-?-?-?-?- B NST FHR Rate Baby A Baseline: 140 Variability:: Moderate Accelerations:: 15 x 15 Decelerations:: None NST Reactive:: Yes FHR Category:: Category I Uterine Activity:: Irregular FHR Rate Baby B Baseline: 140 Variability:: Moderate Accelerations:: 15 x 15 Decelerations:: None NST Reactive:: Yes FHR Category:: Category I ROS Constitutional Constitutional: Reports systems reviewed and no addt'l complaints, except as documented Eyes Eyes: Denies change in vision ENT HEENT: Reports systems reviewed and no addt'l complaints, except as documented Cardiovascular Cardiovascular: Reports systems reviewed and no addt'l complaints, except as documented; Denies chest pain or dyspnea Respiratory/Chest Respiratory/Chest: Reports systems reviewed and no addt'l complaints, except as documented Gastrointestinal Gastrointestinal: Reports systems reviewed and no addt'l complaints, except as documented; Denies abdominal pain Genitourinary Genitourinary: Reports systems reviewed and no addt'l complaints, except as documented, contractions Details: present (irregular) and movement Details: present; Denies dysuria or genital lesions Musculoskeletal Musculoskeletal: Reports systems reviewed and no addt'l complaints, except as documented Neurologic Neurologic: Reports systems reviewed and no addt'l complaints, except as documented Endocrine Endocrinology: Reports systems reviewed and no addt'l complaints, except as documented Vital Signs Vital Signs Vital Signs: Weight Weight: 203 lb 14.841 oz Body Mass Index (BMI) 33.9 Physical Exam Const alert, oriented x3, no apparent distress and healthy appearing HEENT normocephalic and moist oral mucous membranes Head and Scalp: atraumatic Neck full ROM, no lymphadenopathy, supple and thyroid normal General: trachea midline Lymph Lymphatic: no lymphadenopathy noted Chest inspection of chest normal Resp normal respiratory effort Cardio regular rate GI normal to inspection, nondistended, normoactive bowel sounds, soft to palpation and non-tender Inspection: gravid external exam normal Manual OB Exam: estimated gestational size appropriate, presentation cephalic, dilated, effaced and station Extremity normal to inspection General Extremity: Negative for edema Skin no rashes or lesions noted Neuro no focal motor deficits and deep tendon reflexes 2+ bilaterally Motor Exam: strength 5/5 throughout and clonus absent Psych mental status grossly normal Labs Labs Labs: Blood Type A POSITIVE Antibody Screen NEGATIVE Hct 31.4 % (37-47) L Hgb 9.3 g/dL (12.0-15.0) L Obstetrics US Syphilis Total Ab Non-reactive Rubella IgG Antibody Reactive (Nonreactive) Hep Bs Antigen Non-Reactive (Nonreactive) Neisseria gonorrhoeae DNA (PJ) Negative (Negative) HIV 1&2 Antibody Non-Reactive (Nonreactive) Glucose 1 Hr 50 gm 118 mg/dL (70-140) Assessment & Plan (1) Pre-eclampsia, mild, third trimester: COMMENT: twice weekly visits, home bp monitoring, weekly labs, reviewed symptoms. weekly bpp with MFM. 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 MFM to reach out to patient to schedule another echo. initial ECHO was read normal. Serial growth q4w. testing 1x week (3) Discordant growth in twin gestation: COMMENT: 06/28/21- 20% growth discordance- 2xwkly BPP w/ MFM (4) Proteinuria affecting : COMMENT: 2x wkly BPP 1 @ [facility] and 1 @ [facility],weekly nsts on l and d and growth us q 4 weeks, weekly labs, plan 37 week delivery. home bps checks (5) Positive GBS test: COMMENT: tx with PCN in labor (6) Anemia affecting : (7) Smoking (tobacco) complicating , unspecified trimester: COMMENT: encouraged cessation, smokes approximately 15 cig a day. ordered nicotine patches (8) Conceived by in vitro fertilization: COMMENT: echo at 24 weeks- NORMAL done 05/03/21 (9) Bipolar disorder: COMMENT: sees Dr Newman. Sertraline and vistaril PRN. (10) PTSD (post-traumatic stress disorder): COMMENT: past trauma (11) Cystic fibrosis carrier: COMMENT: patient states that the is not a carrier (12) : QUALIFIERS: Weeks of gestation: 31 weeks Qualified Code(s): Z3A.31 - 31 weeks gestation of COMMENT: nl genetic and carrier screening reviewed. anatomy reviewed. (13) Supervision of high risk , antepartum: COMMENT: PRR CHELSEA: 08/22/21 Girl/Girl - Sonya (sp TBD)PC: Neena Reza; Angelito Vigil Arianna & Elvira(has custody of) Spouse: Jori (14) Twin : QUALIFIERS: Multiple gestation type: dichorionic and diamniotic Trimester: second trimester Qualified Code(s): O30.042 - Twin , dichorionic/diamniotic, second trimester COMMENT: notified of normal genetics, (girl/girl) fraternal (15) Preeclampsia, severe: COMMENT: recommend immediate delivery- patient requesting primary for twins PLAN: proceed with LTCS
--- NOTE | 2021-07-20 13:37 | OP.PCM_ITS ---
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 M to reach out to patient to schedule another echo. initial ECHO was read normal. Serial growth q4w. testing 1x week (3) Discordant growth in twin gestation: COMMENT: 06/28/21- 20% growth discordance- 2xwkly BPP w/ [facility] (4) Proteinuria affecting : COMMENT: 2x wkly BPP 1 @ [facility] and 1 @ [facility],weekly nsts on l and d and growth us q 4 weeks, weekly labs, plan 37 week delivery. home bps checks (5) Positive GBS test: COMMENT: tx with PCN in labor (6) Bipolar disorder: COMMENT: sees Dr Newman. Sertraline and vistaril PRN. (7) PTSD (post-traumatic stress disorder): COMMENT: past trauma (8) Cystic fibrosis carrier: COMMENT: patient states that the is not a carrier (9) Supervision of high risk , antepartum: COMMENT: PRR CHELSEA: 08/22/21 Girl/Girl - Sonya (sp TBD)PC: Neena Reza; Angelito Vigil Arianna & Elvira(has custody of) Spouse: Jori (10) Twin : QUALIFIERS: Multiple gestation type: dichorionic and diamniotic Trimester: second trimester Qualified Code(s): O30.042 - Twin , dichorionic/diamniotic, second trimester COMMENT: notified of normal genetics, (girl/girl) fraternal (11) : QUALIFIERS: Weeks of gestation: 31 weeks Qualified Code(s): Z3A.31 - 31 weeks gestation of COMMENT: nl genetic and carrier screening reviewed. anatomy reviewed. (12) Conceived by in vitro fertilization: COMMENT: echo at 24 weeks- NORMAL done 05/03/21 (13) Smoking (tobacco) complicating , unspecified trimester: COMMENT: encouraged cessation, smokes approximately 15 cig a day. ordered nicotine patches (14) Anemia affecting : Maternal Data Information CHELSEA Calculator Estimated Delivery Date Method Current WG Current Estimate 08/22/21 LMP (Certain) 35w 2d # 2 Final CHELSEA Source: LMP Details Operative Information Pre-Operative Diagnosis: Previous Type of Anesthesia: Spinal Special Medications: none Drain: Garg to straight drain Estimated Blood Loss: 800 Fluids Replaced: crystalloid Findings Description of Procedure: Spinal anesthesia was placed without difficulty. Garg catheter was placed. The patient was placed in the dorsal supine position with leftward tilt. Patient was prepped and draped in the normal sterile fashion. Pfannenstiel skin incision was made with the scalpel and carried through to the underlying layer of fascia with the scalpel. Fascia was nicked in the midline and the incision extended laterally. The rectus bellies were dissected off superiorly and inferiorly with out complication both sharply and bluntly. The peritoneum was entered digitally. The incision was stretched and a low transverse uterine incision was made with the scalpel. The infant's head was delivered atraumatically followed by the anterior and posterior shoulders without complication the rest of the infant delivered. The cord was clamped and cut and the was handed off to awaiting nurse. second membranes were ruptured and baby b on the left was delivered breech feet first and without complication and with delayed cord clamping, passed off to awaiting nurse. The placenta was delivered spontaneously immediately following and was noted to be intact and have a three-vessel cord. The uterus was exteriorized cleared of all clots and debris, and the incision was closed in a double layer closure using #1 Monocryl. The ovaries and fallopian tubes were noted to be within normal limits. The uterus was returned to the maternal abdomen and gutters were cleared of all clots and debris. The peritoneum was closed with 3-0 Monocryl in a running fashion. Gloves were changed prior to fascial closure. Fascia was closed with 0 PDS in a running fashion. Subcutaneous tissue was copiously irrigated and the skin was closed with 3-0 Monocryl in a subcuticular fashion. Mepilex dressing was applied without complication. Patient was taken to recovery in stable condition. It was discussed with the patient that based on the clinical information obtained during this encounter, combined with her history, at this time I would recommend vaginal or for future deliveries if further pregnancies are desired. Amniotic Membrane Rupture Type: Artificial Amniotic Fluid Description: Clear Placenta Disposition: [facility] Cord Vessel Description: 3 Vessels Cord Entanglement: None Delayed Cord Clamping: Yes Complications Risks of Surgery Discussed w/Patient: Bleeding, Infection and Injury to surrounding structure(s) including bowel and bladder Vaginal Delivery Complication Complications: None Admit VTE Documentation VTE Present on Admission: No VTE Mechan Device Prophylaxis: SCD's Procedures Urinary/Genital [id number]: [id number] delivery+PP Care([facility])
[2021-07-20] MEDS: Sodium Citrate/Citric Acid 30 ML UDC PO (13:57)
--- NOTE | 2021-07-20 14:58 | PLAC_PTH ---
PATIENT: ROSANNA JURADO LOC: [facility] U#:[id number] AGE/SX: 30/F ROOM: WP002 RE07/20/[address]: Dr. Poonam Reilly MD : 1990 BED: 1 DIS: 07/22/2021 SPEC #: [id number] RECD: 07/20/21 17:19 STATUS: MASON REReinaldo #: [id number] AMITA: 07/20/21 14:[address]: Poonam Reilly DEPT: SURGICAL PATHOLOGY RECD BY: Annabelle Romo ENTERED: 07/21/21 11:09 SP TYPE: PLACENTA OTHR DR: Dr. Luciano Madison MD Tissues: Placenta, NOS Procedures: Surgery Specimen Level V HEADER OPERATION: Caesarean section PRE-OP DIAGNOSIS: Twins TISSUE SUBMITTED: Placenta MICROSCOPIC DIAGNOSIS Dichorionic and diamniotic twin placenta (1008 gm): Placenta A: Placental disc - third trimester placenta. - Focal area of infarction and calcification (1 cm in greatest dimension). Membranes - no pathologic diagnosis. Umbilical cord - three blood vessels and no pathologic diagnosis. Placenta B: Placental disc - third trimester placenta. Membranes - no pathologic diagnosis. Umbilical cord - three blood vessels and no pathologic diagnosis. SJ:fozia 07/23/2021 MICROSCOPIC DESCRIPTION Slides are reviewed. GROSS DESCRIPTION SPECIMEN: TWIN PLACENTA / CLINICAL INFORMATION: A. Weight: A ? 2.7 kg; B ? 1.865 kg B. Gestational Age: 35 weeks C. Sex: A ? Female, B - Female The specimen consists of twin placenta consisting of single placental disc, two umbilical cord and two amniotic sacs. Dividing membranous septum is present in the center of the surface of the placental disc. PLACENTAL WEIGHT (POST FIXATION): 1008 gm PLACENTAL DIMENSIONS: PLACENTAL SHAPE: Usual ovoid PLACENTAL WEIGHT FOR GESTATIONAL AGE: Within 10-99th percentile PLACENTA A: Placenta A is identified by a clamp on umbilical cord MEMBRANES - Present A. Insertion: Marginal B. Site of rupture from edge: At edge of placental disc C. Color of membrane: Quiroz-iqbal D. Abnormalities: None UMBILICAL CORD ? Present. A. Color: Quiroz-iqbal B. Insertion: Paracentral C. Length: 56 cm D. Diameter: Up to 1.2 cm E. Number of vessels: Three F. Abnormalities: None PLACENTAL DISC - Present A. Color of surface: Quiroz-iqbal B. surface abnormalities: None C. Maternal cotyledons: Intact with minimal tears D. Attached retro placental clot: No clot E. Cut surface: Dark red and spongy F. Lesions: Sections reveal a quiroz, indurated lesion measuring 1 cm in greatest dimension. G. Separate clot: Absent PLACENTA B: MEMBRANES - Present A. Insertion: Membranes of placenta B are separately inserted at the margin. B. Site of rupture from edge: At edge of placental disc C. Color of membrane: Quiroz-iqbal D. Abnormalities: None UMBILICAL CORD - Present A. Color: Quiroz-iqbal B. Insertion: Paracentral close to the dividing membranous septum. C. Length: 33 cm D. Diameter: 1 cm E. Number of vessels: Three F. Abnormalities: None PLACENTAL DISC - Present A. Color of surface: Quiroz-iqbal B. surface abnormalities: None C. Maternal cotyledons: Intact with minimal tears D. Attached retro placental clot: No clot E. Cut surface: Dark red and spongy F. Lesions: None G. Separate clot: Absent SECTIONS SUBMITTED: 11 cassettes 1 - Dividing membranous septum 2-6 - placenta A (2 - membrane roll, 3 - umbilical cord, end inked black, 4-6 - placental disc). Cassette 4 contains the lesion. 7-11 - placenta B (7 - membrane roll, 8 - umbilical cord, end inked black, 9-11 - placental disc) FLORENTINO:fozia 07/22/21 TC:5 CPT: 57803 x2
[2021-07-20] MEDS: Lactated Ringers 1,000 ML 999 ML IV ×2 (16:00→23:48)
[2021-07-20 17:21] LABS: Pathology Specimen OB SEE PATHOLOGY REPORT
[2021-07-20] MEDS: Ketorolac 30 MG/ML Syringe IV ×2 (17:23→23:22)
[2021-07-20] MEDS: Oxytocin 30 units/NS 500 ml 30 UNITS/500 ML IV.SOLN 167 UNITS IV (17:29)
[2021-07-20] MEDS: Ondansetron 4 MG/2 ML Vial IV ×2 (17:57→22:00)
[2021-07-20] MEDS: proCHLORPERazine 10 MG/2 ML Vial IV (18:23)
--- NOTE | 2021-07-20 18:38 | NURSING ---
1443-see anesthesia record for vitals
--- NOTE | 2021-07-20 18:40 | NURSING ---
1538-mag stopped, pt feeling dizzy, and lightheaded.
[2021-07-20] MEDS: Lactated Ringers 1,000 ML 100 ML IV (20:38)
--- NOTE | 2021-07-20 20:55 | NURSING ---
late [id number] dr hidalgo made aware of pt feeling dizzy and lightheaded and initial blood pressure was 65/34, mag infusion stopped and that jonny was at bedside and gave ephedra for this, bp did come up to 96/62, 95/56, and 95/56 with the last being 89/50, pts hr has been in the 80's. order for ivf bolus received and to continue to hold mag at this point. late [id number] dr bruner office d/t orders not being put in, spoke w nurse reina, will have her pt orders in late [id number] dr hidalgo made aware that this nurse did not unroll the roller clamp for pitocin when first in room, noticed this around 1730 that it was not infusing, therefore unrolled pitocin and started this infusion, bleeding stable fundus firm u-1. to complete pitocin as normally would. new orders recedived for pt to have cbc, and cmp drawn in am and to call dr hidalgo for blood pressures above 150/100 and will restart mag infusion. -
[2021-07-20] MEDS: Acetaminophen 500 MG Tablet 1000 MG PO (23:23)
[2021-07-21] VITALS (19 sets, daily range): BP systolic 115–139; BP diastolic 65–87; PULSE 66–82; RESP 16–18; TEMP 36.2–36.6; O2SAT 96–100
--- NOTE | 2021-07-21 00:31 | NURSING ---
iv that was placed upon admission to is in left AC-charted as it is in the Right AC, unable to edit documentation
[2021-07-21] MEDS: Ketorolac 30 MG/ML Syringe IV ×2 (05:08→11:10)
[2021-07-21] MEDS: Acetaminophen 500 MG Tablet 1000 MG PO ×3 (05:08→17:16)
[2021-07-21 05:29] LABS: Hematocrit 21.4 % (37-47); Hemoglobin 6.6 g/dL (12.0-15.0); Mean Corp Hgb Conc 30.8 g/dL (32-36); Mean Corpuscular Hgb 22.2 pg (27.0-32.0); Mean Corpuscular Volume 72.1 fL (81-99); Mean Platelet Vol. 10.3 fl (6.2-12.0); POSITIVE MORPHOLOGY YES; Platelet Count 134 K/mm3 (150-450); RBC Distribution Width CV 25.8 % (11.6-14.6); RBC Distribution Width SD 65.3 fl (35.1-43.9); Red Blood Count 2.97 M/mm3 (4.2-5.4); White Blood Count 7.8 K/mm3 (4.4-11.0)
[2021-07-21 05:32] LABS: Scan Indicated on CBC? Y/N YES- FLAGS NOTED
[2021-07-21 05:43] LABS: ALB/GLOB Ratio 0.5 RATIO (0.9-2.4); AST(SGOT) 17 U/L (15-37); Alanine Aminotransfer ALT/SGPT 8 U/L (13-56); Albumin, Serum 1.6 g/dL (3.2-5.0); Alkaline Phosphatase 103 U/L (45-117); Anion Gap 8 (5-15); BUN 6 mg/dL (7-18); BUN/Creat Ratio 10.8 RATIO (10-20); Calcium,Total 7.9 mg/dL (8.5-10.1); Chloride 106 mmol/L (98-107); Creatinine, Serum 0.56 mg/dL (0.55-1.02); EST Glomerular Filtration Rate 134 mL/min (>60); Est Glom Filt Rate - Afr Amer 162 mL/min (>60); Estimated Creatinine Clearance 129.78 ml/min; Globulin 3.4 g/dL (2.2-4.2); Glucose 91 mg/dL (74-106); Potassium 4.5 mmol/L (3.5-5.1); Sodium Level 137 mmol/L (136-145)
--- NOTE | 2021-07-21 10:09 | PCM.PN.OB ---
Objective Data Objective Data Vital Signs: Vital Signs Temp Pulse Resp BP Pulse Ox 97.5 F L 73 16 135/76 H 98 07/21/21 10:05 07/21/21 10:05 07/21/21 10:05 07/21/21 10:05 07/21/21 10:05 Oxygen Delivery Method Room Air Weight: 203 lb 14.841 oz Body Mass Index (BMI) 33.9 Intake & Output: Intake and Output for Last 24 Hours 07/19/21 07/20/21 07/21/21 23:59 23:59 23:59 Intake Total 2681.59 / 2681.59 2233.33 / 2233.33 Output Total 1450 / 1450 525 / 525 Balance 1231.59 / 1231.59 1708.33 / 1708.33 Lab / Micro Data Result Diagrams: 07/21/21 05:14 07/21/21 05:14 Labs: Laboratory Results - last 24 hr 07/20/21 11:30: U Random Total Protein 21.0 H, Urine Creatinine 22.10, Protein/Creatinin Ratio 950 H 07/20/21 11:30: Creatinine 0.59, Estim Creat Clear Calc 123.18, Est GFR (MDRD) Af Amer 150, Est GFR (MDRD) Non-Af 124, Uric Acid 6.3 H, AST 17, ALT 8 L 07/20/21 11:30: Blood Type A POSITIVE, Antibody Screen NEGATIVE 07/20/21 11:50: WBC 9.9, RBC 4.34, Hgb 9.3 L, Hct 31.4 L, MCV 72.4 L, MCH 21.4 L, MCHC 29.6 L, RDW Std Deviation 66.4 H, RDW Coeff of Yuri 26.2 H, Plt Count 173, MPV TNP, Immature Gran % (Auto) 2.100 H, Neut % (Auto) 74.6 H, Lymph % (Auto) 11.4 L, [place] % (Auto) 9.3, Eos % (Auto) 1.9, Baso % (Auto) 0.7, Absolute Neuts (auto) 7.4, Absolute Lymphs (auto) 1.13, Nucleated RBC % 0.9, Platelet Estimate ADEQUATE, Polychromasia RARE, Hypochromasia 2+, Anisocytosis 2+, Microcytosis 2+ 07/20/21 11:50: Crossmatch See Detail 07/21/21 05:14: WBC 7.8, RBC 2.97 L, Hgb 6.6 L, Hct 21.4 L, MCV 72.1 L, MCH 22.2 L, MCHC 30.8 L, RDW Std Deviation 65.3 H, RDW Coeff of Yuri 25.8 H, Plt Count 134 L, MPV 10.3 07/21/21 05:14: Sodium 137, Potassium 4.5, Chloride 106, Carbon Dioxide 23.0, Anion Gap 8, BUN 6 L, Creatinine 0.56, Estim Creat Clear Calc 129.78, Est GFR (MDRD) Af Amer 162, Est GFR (MDRD) Non-Af 134, BUN/Creatinine Ratio 10.8, Glucose 91, Calcium 7.9 L, Total Bilirubin 0.30, AST 17, ALT 8 L, Alkaline Phosphatase 103, Total Protein 5.0 L, Albumin 1.6 L, Globulin 3.4, Albumin/Globulin Ratio 0.5 L Micro: Microbiology 07/20/21 13:40 Nasal Secretion SARS-CoV-2 Antigen (Rapid) - Final Radiography Diagnostic Testing: Radiology Impression Obstetrics Ultrasound 07/20/21 12:01 IMPRESSION: Both fetuses are in a cephalic presentation. Normal amniotic fluid index. Electronically Signed: Panda Williamson MD at 13:42 EDT , Service support ,
[2021-07-21] MEDS: Naproxen 500 MG Tablet PO (17:20)
[2021-07-21 18:36] LABS: Absolute Lymphocyte Count 1.53 X10^3/uL (0.83-4.51); Absolute Neutrophil Count 6.2 X10^3/uL (2.0-7.7); Basophil# 0.06 X10^3/uL; Basophil% 0.7 % (0-1); Eosinophil# 0.21 X10^3/uL; Eosinophils% 2.3 % (0-5); Hematocrit 27.8 % (37-47); Hemoglobin 8.8 g/dL (12.0-15.0); Lymphocyte # 1.53 X10^3/ul (0.83-4.51); Lymphocyte % 16.8 % (19-41); Mean Corp Hgb Conc 31.7 g/dL (32-36); Mean Corpuscular Volume 75.7 fL (81-99); Mean Platelet Vol. 9.9 fl (6.2-12.0); Monocyte# 0.99 X10^3/uL; Monocyte% 10.9 % (0-10); NRBC Flagged by Analyzer 0.6 % (0-5); Neutrophil # 6.16 X10^3/uL (2.7-7.7); Neutrophil % 67.8 % (47-70); POSITIVE MORPHOLOGY YES; Platelet Count 153 K/mm3 (150-450); RBC Distribution Width CV 24.6 % (11.6-14.6); RBC Distribution Width SD 67.1 fl (35.1-43.9); Red Blood Count 3.67 M/mm3 (4.2-5.4); White Blood Count 9.1 K/mm3 (4.4-11.0)
[2021-07-21 18:37] LABS: Differential Indicated SCAN CRITERIA MET
[2021-07-21 19:29] LABS: Anisocytosis 2+; Differential Comment SCANNED; Polychromasia 1+
[2021-07-22] MEDS: Acetaminophen 500 MG Tablet 1000 MG PO ×2 (00:08→05:44)
[2021-07-22 02:07] VITALS: BP 132/83; PULSE 74; RESP 18; TEMP 36; O2SAT 98
[2021-07-22] MEDS: Naproxen 500 MG Tablet PO ×2 (02:08→09:38)
[2021-07-22 08:25] VITALS: BP 129/88; PULSE 84; RESP 14; TEMP 37.1; O2SAT 98
--- NOTE | 2021-07-22 09:21 | PCM.PN.OB ---
Subjective Subjective Patient doing well without complaints. Tolerating PO. Ambulating and voiding without difficulty. feeding well. Denies chest pain, shortness of breath, calf pain/swelling, fevers, chills, lightheadedness. Objective Data Objective Data Vital Signs: Vital Signs Temp Pulse Resp BP Pulse Ox 98.7 F 84 14 129/88 H 98 07/22/21 08:25 07/22/21 08:25 07/22/21 08:25 07/22/21 08:25 07/22/21 08:25 Oxygen Delivery Method Room Air Weight: 203 lb 14.841 oz Body Mass Index (BMI) 33.9 Intake & Output: Intake and Output for Last 24 Hours 07/20/21 07/21/21 07/22/21 23:59 23:59 23:59 Intake Total 2681.59 / 2681.59 3033.33 / 3033.33 Output Total 1450 / 1450 1145 / 1145 Balance 1231.59 / 1231.59 1888.33 / 1888.33 Lab / Micro Data Result Diagrams: 07/21/21 18:15 07/21/21 05:14 Labs: Laboratory Results - last 24 hr 07/20/21 11:50: Crossmatch See Detail 07/21/21 18:15: WBC 9.1, RBC 3.67 L, Hgb 8.8 L, Hct 27.8 L, MCV 75.7 L, MCH 24.0 L, MCHC 31.7 L, RDW Std Deviation 67.1 H, RDW Coeff of Yuri 24.6 H, Plt Count 153, MPV 9.9, Immature Gran % (Auto) 1.500 H, Neut % (Auto) 67.8, Lymph % (Auto) 16.8 L, Gregg % (Auto) 10.9 H, Eos % (Auto) 2.3, Baso % (Auto) 0.7, Absolute Neuts (auto) 6.2, Absolute Lymphs (auto) 1.53, Nucleated RBC % 0.6, Differential Comment SCANNED, Polychromasia 1+, Anisocytosis 2+ Micro: Microbiology 07/20/21 13:40 Nasal Secretion SARS-CoV-2 Antigen (Rapid) - Final ROS Constitutional Constitutional: Reports systems reviewed and no addt'l complaints, except as documented Cardiovascular Cardiovascular: Reports systems reviewed and no addt'l complaints, except as documented Respiratory/Chest Respiratory/Chest: Reports systems reviewed and no addt'l complaints, except as documented Gastrointestinal Gastrointestinal: Reports systems reviewed and no addt'l complaints, except as documented Physical Exam Const alert, oriented x3 and no apparent distress HEENT Head and Scalp: atraumatic Resp normal respiratory effort GI soft to palpation and non-tender Inspection: incision intact, healing well and drainage (none) Bimanual Exam - Vag & Uterus: uterus non-tender Uterus Palpation: uterus fundus firm (below Umbilicus) Assessment & Plan (1) Acute on chronic anemia: COMMENT: transfused 2 units. hg stable. iron upon dc home (2) delivery delivered: COMMENT: CS v/b twins blair kike (3) : QUALIFIERS: Weeks of gestation: 31 weeks Qualified Code(s): Z3A.31 - 31 weeks gestation of COMMENT: nl genetic and carrier screening reviewed. anatomy reviewed. (4) Supervision of high risk , antepartum: COMMENT: PRR CHELSEA: 08/22/21 Girl/Girl - Sonya (sp TBD)PC: Neena Reza; Angelito Vigil Arianna & Elvira(has custody of) Spouse: Jori PLAN: s/p LTCS PPD # 2 1. routine post care 2. breast feeding- support given 3. rh positive 4. rubella immune
--- NOTE | 2021-07-22 09:36 | PCM.DC ---
Discharge Instructions Diet Discharge Diet: No restrictions Activity Discharge Activity: May Not Drive (for 2 weeks or while taking narcotic pain medications.), May Shower and May Take a Tub Bath (in 7 days) May shower in (days): 0 May resume sexual activity in: 4-6 weeks Weight Bearing Status: Full weight bearing Lifting Restrictions: 20 pounds Dressing / Incision Call your doctor if your incision/area has: Continuous Slow Oozing, Sudden Increased Bleeding, Increased Pain/ Swelling, Increased Redness and Foul Smelling Discharge Call your doctor if you observe: Fever of 101 or Higher and Using more than 1 pad per hour (for 2 hours) Suture Line Care: Avoid Pulling/Pushing and Avoid Pinching/Bending Cleanse incision/area with: Soap & Water and Keep Dressing Clean & Dry Follow Up Care Please Follow Up With: Poonam Reilly MD When: Call [phone] to make an appointment for an incision check in 1-2 weeks. Test Results: Test results from this visit will be discussed in further detail at your follow-up appointment, if applicable. Discharge Plan Admission Admit Date/Time: 07/20/21 12:02 Primary Reason for Your Visit: Attending Provider: Poonam Reilly Primary Care Provider: Luciano Madison Discharge Orders/Prescriptions Prescriptions: New oxycodone-acetaminophen [Endocet] 5-325 mg tablet 1 tab PO Q4H PRN (Reason: pain) 7 Days Qty: 20 RF: 0 ibuprofen [ibuprofen] 600 MG tablet 600 mg PO Q6H PRN PRN (Reason: Pain) Qty: 30 RF: 0 Continued (DME) blood pressure monitor [Blood Pressure Kit] Kit See Rx Instructions .ROUTE .MEDSUPPLY Qty: 1 RF: 0 hydroxyzine pamoate 50 MG capsule 50 mg PO 4X/DAY PRN PRN (Reason: Anxiety) RF: 0 acetaminophen [Tylenol] 325 mg Tablet 650 mg PO Q6H PRN (Reason: prn pain) RF: 0 ibuprofen 800 mg Tablet 800 mg PO PRN PRN (Reason: prn pain) RF: 0 ondansetron 8 mg Tablet,Disintegrating 8 mg PO PRN PRN (Reason: Nausea) RF: 0 (DME) breast pump Device See Rx Instructions .ROUTE .MEDSUPPLY Qty: 1 RF: 0 Referrals / Follow Up: Luciano Madison MD [Primary Care Provider] - Disposition Disposition (needs filled in before D/C Order can be placed): Home, Self Care
--- NOTE | 2021-07-22 10:00 | NURSING ---
Patient desires to be discharged to hotel status this morning due to her son having surgery this afternoon. Discussed with CECE Knutson and she is comfortable with this decision. She will plan to see patient later this afternoon or tomorrow. Reviewed PHQ-9 score prior to DC.
== END 2021-07-22 09:55 | disposition home or self-care (01) | DRG 788 ==
LOC: WPOUT 12:03 → WP 15:03
PROVIDERS: Admitting Provider Obstetrics & Gynecology; PCP Family Medicine; Referring Provider Obstetrics & Gynecology; Visit Provider Obstetrics & Gynecology
DX: O14.14 Severe pre-eclampsia complicating childbirth (principal); Z3A.35 35 weeks gestation of pregnancy; Z37.2 Twins, both liveborn; O34.219 Maternal care for unspecified type scar from previous cesarean delivery; O99.334 Smoking (tobacco) complicating childbirth; F17.210 Nicotine dependence, cigarettes, uncomplicated; O66.3 Obstructed labor due to other abnormalities of fetus; O99.824 Streptococcus B carrier state complicating childbirth; Z14.1 Cystic fibrosis carrier; O30.043 Twin pregnancy, dichorionic/diamniotic, third trimester; O32.1XX2 Maternal care for breech presentation, fetus 2; O99.02 Anemia complicating childbirth; D64.9 Anemia, unspecified
CPT/HCPCS: 59025; 59050; 76815; 76816; 80053; 82565; 82570; 84156; 84450; 84460; 84550; 85025; 85027; 86850; 86900; 86901; 86920; 87426; 88307; 99218; 99251; J7120; P9016; G0378; G0463; J2405

== ENCOUNTER → 2021-08-09 09:06 | Outpatient (CLI) | payer BC, MEDICARE, MEDICAID, SELFPAY ==
[2021-08-09 09:18] LABS: Absolute Lymphocyte Count 1.69 X10^3/uL (0.83-4.51); Absolute Neutrophil Count 3.9 X10^3/uL (2.0-7.7); Basophil# 0.08 X10^3/uL; Basophil% 1.2 % (0-1); Eosinophil# 0.44 X10^3/uL; Eosinophils% 6.5 % (0-5); Hematocrit 39.8 % (37-47); Hemoglobin 12.3 g/dL (12.0-15.0); Lymphocyte # 1.69 X10^3/ul (0.83-4.51); Mean Corp Hgb Conc 30.9 g/dL (32-36); Mean Corpuscular Hgb 23.9 pg (27.0-32.0); Mean Corpuscular Volume 77.3 fL (81-99); Mean Platelet Vol. 9.3 fl (6.2-12.0); Monocyte# 0.68 X10^3/uL; NRBC Flagged by Analyzer 0 % (0-5); Neutrophil # 3.86 X10^3/uL (2.7-7.7); POSITIVE MORPHOLOGY YES; Platelet Count 366 K/mm3 (150-450); RBC Distribution Width CV 21.8 % (11.6-14.6); RBC Distribution Width SD 59.9 fl (35.1-43.9); Red Blood Count 5.15 M/mm3 (4.2-5.4); White Blood Count 6.8 K/mm3 (4.4-11.0)
[2021-08-09 09:19] LABS: Differential Indicated SCAN CRITERIA MET
[2021-08-09 09:37] LABS: Anisocytosis 2+; Differential Comment SCANNED; Macrocytosis 1+; Microcytosis 1+
[2021-08-09 17:16] LABS: Xtra Tube EP Lab EXTRA TUBE
== END ==
PROVIDERS: PCP Family Medicine; Referring Provider Nurse Practitioner Women's Health; Visit Provider Nurse Practitioner Women's Health
DX: D64.9 Anemia, unspecified (principal)
CPT/HCPCS: 36415; 85025

== ENCOUNTER 2021-11-08 11:02 | Outpatient (CLI) | payer BC, MEDICARE, MEDICAID, SELFPAY ==
--- NOTE | 2021-11-08 11:12 | US_ITS ---
STUDY: ULTRASOUND OF THE FEMALE PELVIS - COMPLETE REASON FOR EXAM: Female, 30 years old. Abnormal uterine bleeding LMP: 10/05/2021. TECHNIQUE: Transabdominal and Transvaginal TECHNICAL QUALITY: Adequate. COMPARISON: Comparison is made with prior study dated 10/19/2020. FINDINGS: The uterus is retroverted and is in a midline position. The uterus measures 9.1 cm x 6.1 cm x 4.2 cm. Normal uterine cervix. The endometrium measures 9.8 mm in thickness, and is hyperechoic. There is no demonstrated endometrial mass. There is no demonstrated myometrial mass. I.U.D. - The patient does have an I.U.D. The right ovary is visualized. The right ovary measures 2.4 cm x 1.8 cm x 2.4 cm. There is no right ovarian cyst or ovarian mass. There is no visualized right adnexal mass or complex lesion. There is normal arterial and normal venous vascularity. The left ovary is visualized. The left ovary measures 2.3 cm x 2.1 cm x 2 cm. There is no left ovarian cyst or ovarian mass. There is no visualized left adnexal mass or complex lesion. There is normal arterial and normal venous vascularity. There is no fluid in the cul-de-sac. US/Transvaginal Non- IMPRESSION: IUD is seen within the endometrium. Electronically Signed: Panda Williamson MD at 15:36 EST ,
--- NOTE | 2021-11-08 11:12 | US_ITS ---
STUDY: ULTRASOUND OF THE FEMALE PELVIS - COMPLETE REASON FOR EXAM: Female, 30 years old. Abnormal uterine bleeding LMP: 10/05/2021. TECHNIQUE: Transabdominal and Transvaginal TECHNICAL QUALITY: Adequate. COMPARISON: Comparison is made with prior study dated 10/19/2020. FINDINGS: The uterus is retroverted and is in a midline position. The uterus measures 9.1 cm x 6.1 cm x 4.2 cm. Normal uterine cervix. The endometrium measures 9.8 mm in thickness, and is hyperechoic. There is no demonstrated endometrial mass. There is no demonstrated myometrial mass. I.U.D. - The patient does have an I.U.D. The right ovary is visualized. The right ovary measures 2.4 cm x 1.8 cm x 2.4 cm. There is no right ovarian cyst or ovarian mass. There is no visualized right adnexal mass or complex lesion. There is normal arterial and normal venous vascularity. The left ovary is visualized. The left ovary measures 2.3 cm x 2.1 cm x 2 cm. There is no left ovarian cyst or ovarian mass. There is no visualized left adnexal mass or complex lesion. There is normal arterial and normal venous vascularity. There is no fluid in the cul-de-sac. US/Pelvic (Non ) IMPRESSION: IUD is seen within the endometrium. Electronically Signed: Panda Wliliamson MD at 15:36 EST ,
[2021-11-08 11:22] LABS: Absolute Lymphocyte Count 1.61 X10^3/uL (0.83-4.51); Absolute Neutrophil Count 4.1 X10^3/uL (2.0-7.7); Basophil# 0.06 X10^3/uL; Basophil% 0.9 % (0-1); Eosinophil# 0.27 X10^3/uL; Hematocrit 40.6 % (37-47); Hemoglobin 13.1 g/dL (12.0-15.0); Lymphocyte # 1.61 X10^3/ul (0.83-4.51); Mean Corp Hgb Conc 32.3 g/dL (32-36); Mean Corpuscular Hgb 27.3 pg (27.0-32.0); Mean Corpuscular Volume 84.8 fL (81-99); Monocyte# 0.63 X10^3/uL; Monocyte% 9.4 % (0-10); NRBC Flagged by Analyzer 0 % (0-5); Neutrophil # 4.12 X10^3/uL (2.7-7.7); Neutrophil % 61.6 % (47-70); Platelet Count 265 K/mm3 (150-450); RBC Distribution Width CV 14.6 % (11.6-14.6); RBC Distribution Width SD 45.6 fl (35.1-43.9); Red Blood Count 4.79 M/mm3 (4.2-5.4); White Blood Count 6.7 K/mm3 (4.4-11.0)
[2021-11-08 12:17] LABS: Thyroid Stim Hormone (TSH) 0.53 uIU/mL (0.358-3.74)
== END 2021-11-08 23:59 | disposition home or self-care (01) ==
LOC: US 11:05
PROVIDERS: PCP Family Medicine; Referring Provider Obstetrics & Gynecology; Visit Provider Obstetrics & Gynecology
DX: D64.9 Anemia, unspecified (principal); N93.9 Abnormal uterine and vaginal bleeding, unspecified
CPT/HCPCS: 36415; 76830; 76856; 84443; 85025

== ENCOUNTER → 2024-11-29 | Outpatient (CLI) | payer MEDICARE, MEDICAID, SELFPAY ==
--- NOTE | 2024-11-29 10:28 | RAD_ITS ---
PROCEDURE: SCOLIOSIS 1 VIEW REASON FOR EXAM: Scoliosis TECHNIQUE: Standing AP view(s) of the thoracic and lumbar spine. COMPARISON: None. FINDINGS: S shaped curvature of the thoracic and lumbar spine, with 9.4 degrees of rightward curvature of the lower thoracic spine and 15.4 degrees leftward curvature of the lumbar spine. Imaged lungs are clear. Cardiomediastinal silhouette is normal. RAD/Scoliosis 1 view IMPRESSION: S SHAPED CURVATURE OF THE THORACIC AND LUMBAR SPINE. Reading Location: [id number]
[2024-11-29 12:58] LABS: ALB/GLOB Ratio 1.6 RATIO (0.9-2.4); AST(SGOT) 21 U/L (<=31); Alanine Aminotransfer ALT/SGPT 15 U/L (<=34); Albumin, Serum 4.4 g/dL (3.5-5.0); Alkaline Phosphatase 92 U/L (35-104); Anion Gap 12 (5-15); BUN 9 mg/dL (4-19); BUN/Creat Ratio 12.5 RATIO (10-20); Calcium 9.5 mg/dL (7.6-11.0); Carbon Dioxide 24.6 mmol/L (22.0-29.0); Chloride 101 mmol/L (96-108); Cholesterol 152 mg/dL (<=200); Creatinine, Serum 0.75 mg/dL (0.70-1.20); EST Glomerular Filtration Rate 105 (>60); Ferritin 57 ng/mL (22-378); Globulin 2.8 g/dL (2.2-4.2); Glucose 79 mg/dL (70-99); High Density Lipoprotein 47 mg/dL; Low Density Lipoprotein Calc. 92 mg/dL; Potassium 4.1 mmol/L (3.3-5.1); Protein, Total 7.2 g/dL (5.9-8.4); Sodium Level 138 mmol/L (133-145); Thyroid Stim Hormone (TSH) 0.482 uIU/mL (0.300-4.200); Total Bilirubin 0.34 mg/dL (0.00-1.30); Triglycerides 66 mg/dL; Very Low Density Lipoprotein 13 mg/dL (5-40); cholesterol:hdl ratio screen 3.26
[2024-11-29 13:29] LABS: Iron 129 ug/dL (50-170); Iron Binding Capacity,Total 276 ug/dL (250-450); Iron Binding Capacity,Unsat 147 ug/dL (228-428)
[2024-11-29 13:47] LABS: Absolute Neutrophil Count 4.4 X10^3/uL (2.0-7.7); Basophil# 0.06 X10^3/uL; Basophil% 0.9 % (0-1); Eosinophil# 0.24 X10^3/uL; Eosinophils% 3.4 % (0-5); Hematocrit 42.1 % (37-47); Hemoglobin 14.2 g/dL (12.0-15.0); Lymphocyte % 22.8 % (19-41); Mean Corp Hgb Conc 33.7 g/dL (32-36); Mean Corpuscular Volume 91.9 fL (81-99); Mean Platelet Vol. 11.2 fl (6.2-12.0); Monocyte# 0.73 X10^3/uL; Monocyte% 10.4 % (0-10); NRBC Flagged by Analyzer 0 % (0-5); Neutrophil # 4.37 X10^3/uL (2.7-7.7); Neutrophil % 62.2 % (47-70); Platelet Count 266 K/mm3 (150-450); RBC Distribution Width CV 12.4 % (11.6-14.6); RBC Distribution Width SD 41.4 fl (35.1-43.9); Red Blood Count 4.58 M/mm3 (4.2-5.4)
== END | disposition home or self-care (01) ==
PROVIDERS: PCP Family Medicine; Referring Provider Family Medicine; Visit Provider Family Medicine
DX: E03.9 Hypothyroidism, unspecified (principal); D50.9 Iron deficiency anemia, unspecified; Z13.6 Encounter for screening for cardiovascular disorders; Z13.228 Encounter for screening for other metabolic disorders; M41.20 Other idiopathic scoliosis, site unspecified
CPT/HCPCS: 36415; 72081; 80053; 80061; 82728; 83036; 83540; 83550; 84439; 84443; 85025

== ENCOUNTER → 2025-03-03 | Outpatient (CLI) | payer MEDICARE, MEDICAID, SELFPAY ==
[2025-03-03 12:06] LABS: hCG Titer Quant., Serum 39 mIU/mL (<9 non-preg)
== END | disposition home or self-care (01) ==
LOC: LAB 09:24
PROVIDERS: PCP Family Medicine; Referring Provider Advanced Practice Midwife; Visit Provider Advanced Practice Midwife
DX: O20.0 Threatened abortion (principal); Z3A.00 Weeks of gestation of pregnancy not specified
CPT/HCPCS: 36415; 84702

== ENCOUNTER → 2025-03-05 | Outpatient (CLI) | payer MEDICARE, MEDICAID, SELFPAY ==
[2025-03-05 10:43] LABS: hCG Titer Quant., Serum 95 mIU/mL (<9 non-preg)
== END | disposition home or self-care (01) ==
LOC: LAB 09:05
PROVIDERS: PCP Family Medicine; Referring Provider Advanced Practice Midwife; Visit Provider Advanced Practice Midwife
DX: O20.0 Threatened abortion (principal); Z3A.00 Weeks of gestation of pregnancy not specified
CPT/HCPCS: 36415; 84702

== ENCOUNTER → 2025-03-07 | Outpatient (CLI) | payer MEDICARE, MEDICAID, SELFPAY ==
[2025-03-07 10:13] LABS: hCG Titer Quant., Serum 263 mIU/mL (<9 non-preg)
== END | disposition home or self-care (01) ==
PROVIDERS: Referring Provider Obstetrics & Gynecology; Visit Provider Obstetrics & Gynecology
DX: O26.859 Spotting complicating pregnancy, unspecified trimester (principal); Z3A.00 Weeks of gestation of pregnancy not specified
CPT/HCPCS: 36415; 84702

== ENCOUNTER → 2025-03-10 | Outpatient (CLI) | payer MEDICARE, MEDICAID, SELFPAY ==
--- OUTSIDE RECORDS SUMMARY | 2025-03-10 07:20 | XMS RPT_ITS | CCD ---
Author Organization [facility] CliniSymd Care Team Providers Care Library Attendant Name Role Phone LACI SINGH Primary Care Unavailab MARTHA Chirinos Attending MARTHA Soto Admitting Unavai lable Unavailable Primary Care Provider Unavailedwige SINGH MD, DR AGUERO Primary Care Physician Laci Singh MD Primary Care Provider Lico Mortensen (Hist) Unavailable Laci Singh MD Primary Care Provider Lico Mortensen (Hist) Unavailable LATIA TRINIDAD Attending Benny SINGH MD, DR AGUERO Primary Care Unavailable LATIA TRINIDAD Attending Benny SINGH MD, DR AGUERO Primary Care Unavailable SAMANTHA KEVIN, DR AGUERO Primary Care Unavailable LISSY CELIS Attending Laci Hernandez MD Primary Care Provider Laci Singh MD Primary Care Provider LACI SINGH Primary Care Unavailab le LACI SINGH Primary Care Unavailab ABRIL Nathan Referring Unavailable LACI SINGH Primary Care Unavailab GAVINO Price Referring Unavailable LACI SINGH Primary Care Unavailab le LACI SINGH Primary Care Unavailab le Michelle Goldberg DO Primary Care Provider Michelle Goldberg DO Attending Provider Michelle Goldberg DO Referring Provider Ashlyn VSC, Michelle Primary Care Unavailable Ashlyn VSC, Michelle Referring Unavailable Ana Hilton Attending Unavailable Tommie, Poonam Primary Care Unavailable Poonam Reilly Attending Unavailable Poonam Reilly Referring Unavailable Ana Hilton Attending Unavailable Ana Hilton Referring Unavailable Ashlyn VSC, Michelle Primary Care Unavailable Care Physician, No Primary Primary Care Unava ilable Poonam Reilly Attending Unavailable Poonam Reilly Referring Unavailable Elli Ramirez Attending Unavailable Elli Ramirez Referring Unavailable Ashlyn VSC, Michelle Primary Care Unavailable Erich Avendaño Attending Unavailable Ashlyn VSC, Michelle Primary Care Unavailable Elli Ramirez Attending Unavailable Elli Ramirez Referring Unavailable Ashlyn VSC, Michelle Primary Care Unavailable Ashlyn VSC, Michelle Primary Care Unavailable Ashlyn VSC, Michelle Attending Unavailable Ashlyn VSC, Michelle Referring Unavailable Ana Grant Attending Provider Jarocho KEVIN, Dr. Jung Attending Provider [phone] Elli Ramirez CNM Attending Provider Elli Ramirez CNM Referring Provider [phone] Allergies Allergy Classification Reported Allergen(s) Allergy Type Date of Onset Reaction(s) Facility (9 sources) Acetaminophen / HYDROcodone; Translations: [HYDROCODONE-ACETAM INOPHEN] Drug Allergy 07-16-20 09 Nausea And Vomiting, Vomiting [facility] (11 sources) Cephalexin; Translations: [CEPHALEXIN] Drug Allergy 07-10-20 14 Nausea And Vomiting, Vomiting [facility] (15 sources) SUMAtriptan; Translations: [sumatriptan] Drug Allergy 07-16-20 09 Nausea And Vomiting, Vomiting [facility] (4 sources) Valproate; Translations: [divalproex sodium] Drug Allergy 06-06-20 21 Other (See Comments) [facility] Comment on above: pt states depjoellete c auses her to black out (11 sources) Sulfamethoxazole / Trimethoprim; Translations: [sulfamethoxazole-t rimethoprim] Drug Allergy 07-16-20 09 GI Upset [facility] Comment on above: Patient stated she h ad nausea, and diarrhea (4 sources) Valproate; Translations: [divalproex sodium] Drug Allergy [facility] (8 sources) Valproate; Translations: [DIVALPROEX] Drug Allergy 09-15-20 Mental Status Change [facility] Work Phone: (8 sources) Carbamazepine Analogues; Translations: [CARBAMAZEPINE ANALOGUES] Propensity to adverse reactions 07-16-20 Vomiting [facility] Work Phone: (1 source) Acetaminophen / HYDROcodone; Translations: [acetaminophen-hydr ocodone] Drug Allergy [facility] (1 source) Sulfamethoxazole / Trimethoprim; Translations: [SULFAMETHOXAZOLE-T RIMETHOPRIM] Drug Allergy 07-16-20 [facility] (2 sources) Codeine Drug Allergy 10-06-19 [facility] (3 sources) HYDROcodone; Translations: [hydrocodone bitartrate] Drug Allergy 10-06-19 [facility] (2 sources) OXcarbazepine Drug Allergy 10-06-19 [facility] (3 sources) SUMAtriptan; Translations: [sumatriptan succinate] Drug Allergy 10-06-19 [facility] (1 source) Cephalexin Drug Allergy 02-08-20 [facility] Repository (1 source) Codeine Drug Allergy 02-08-20 [facility] (1 source) OXcarbazepine Drug Allergy 02-08-20 [facility] Rep[facility] (1 source) SUMAtriptan Drug Allergy 02-08-20 [facility] Repository Medications Current Medications Medication Drug Class(es) Dates Sig (Normalized) Sig (Original) acetaminophen 325 mg / HYDROcodone bitartrate 5 mg oral tablet (3 sources) Opioid Agonist Start: 07-16-2022 End: 07-21-2022 take 1 tablet by mouth every six hours as needed for pain [place] 325- 5 mg oral tablet Dose = 1 tab(s), Oral, q6h, PRN As needed for severe pain, X 3 day(s), # 12 tab(s), 0 Refill(s), Pharmacy: [id number], Renal colic Renal colic on left side, 167.6, cm, 07/17/22 21:43:00 EDT, Height, 70.5, kg, 07/17/22 21:43:00 EDT, Dosing... Start Date: 07/18/22 Stop Date: 07/21/22 Status: Ordered albuterol MDI (90 mcg/inh) CFC free inhalation aerosol (4 sources) Start: 04-27-2021 take 1 puff(s) by inhalation every six hours as needed for wheezing albuterol MDI (90 mcg/inh) CFC free inhalation aerosol 1 puff(s), Inhalation, q6h, PRN as needed for wheezing, # 6.7 gram(s), 0 Refill(s), Bronchitis Start Date: 04/27/21 Status: Ordered amoxicillin 875 mg / clavulanate 125 mg oral tablet (1 source) Penicillin-class Antibacterial Start: 12-17-2023 End: 12-24-2023 take 1 tablet by mouth twice daily amoxicillin-clav ulanate potassium (AUGMENTIN) 875-125 mg per tablet Take 1 tablet by mouth two times a day for 7 days. 14 tablet 0 12/17/2023 12/24/2023 Active Comment on above: Take 1 tablet by stefany two times a day for 7 days. busPIRone hydrochloride 10 mg oral tablet (2 sources) Start: 06-06-2021 take 1 tablet by mouth three times daily 30 mg, Oral, 3 TIMES DAILY, First dose on 06/06/21 at 0900 This 15 mg tablet can be split into thirds (5 mg) or halves (7.5 mg) based on the ordered dose. take 2 tablets by mouth three ti mes daily busPIRone (BUSPAR) 15 MG tablet Take 30 mg by mouth 3 times daily 0 Active cefdinir 300 mg oral capsule (1 source) Cephalosporin Antibacterial Start: 07-18-2022 End: 07-25-2022 cefdinir 300 mg oral capsule Dose : 300 mg = 1 cap(s), Oral, q12h, X 7 day(s), # 14 cap(s), 0 Refill(s), 07/25/22 22:27:00 EDT, Pharmacy: [id number], 167.6, cm, 07/17/22 21:43:00 EDT, Height, 70.5, kg, 07/17/22 21:43:00 EDT, Dosing Weight Start Date: 07/18/22 Stop Date: 07/25/22 Status: Ordered clonazePAM 0.5 mg oral tablet (19 sources) Benzodiazepine Start: 07-29-2022 clonazePAM 1 m g oral tablet Dose : 1 mg = 1 tab(s), Oral, TID, PRN Anxiety, # 270 tab(s), 0 Refill(s), 70.5 Start Date: 07/29/22 Status: Ordered Start: 10-06-2021 End: 02-25-2022 take 1 tablet by mouth twice daily Clonazepam 0.5 mg tablet Discontinued 0.5 mg PO TWICE A DAY October 06, 2021 1:00am February 25, 2022 1:49pm Start: 11-07-2020 End: 01-12-2021 take 1 tablet by mouth twice daily Clonazepam (Klonopin) 1 mg tablet Discontinued 1 mg PO TWICE A DAY November 07, 2020 1:00am January 12, 2021 10:38am Start: 05-16-2017 End: 02-07-2025 take 1 tablet by mouth once daily Clonazepam 0.5 mg tablet Discontinued 0.5 mg PO DAILY June 10, 2022 12:00am February 07, 2025 9:50am Start: 02-17-2017 End: 06-14-2020 take 1 tablet by mouth three times daily as needed for anxiety Clonazepam 0.5 MG tablet Discontinued 0.5 mg PO 3 TIMES DAILY NEEDED as needed for Anxiety February 17, 2017 12:00am June 14, 2020 10:21am Comment on above: Take by mouth. docusate sodium 100 mg oral capsule (1 source) Start: 2020 take 100 mg by mouth twice daily as needed for constipation 100 mg, Oral, 2 TIMES DAILY PRN, Constipation, Starting on 06/06/21 at 0611 Do not crush or break. doxepin hydrochloride 10 mg oral capsule (8 sources) Tricyclic Antidepressant Start: 2019 doxepin capsule 10 mg Take 10 mg by mouth. 09/27/2020 Active Comment on above: Take 10 mg by mouth. 2 ml dupilumab 150 mg/ml auto-injector (4 sources) Interleukin-4 Receptor alpha Antagonist Start: 2023 inject 300 mg by subcutaneous injection every other week DUPIXENT PEN 300 mg/2 mL pen injection Inject 300 mg subcutaneously every 2 weeks. 01/22/2024 Active FLUoxetine 40 mg oral capsule (7 sources) Serotonin Reuptake Inhibitor Start: 2024 take 1 capsule by mouth once daily Fluoxetine 40 mg capsule Active 40 mg PO daily February 07, 2025 12:00am Start: 10-08-2023 FLUoxetine (OH OZAC) 40 mg capsule 10/08/2023 Active Start: 09-08-2022 FLUoxetine 20 mg oral capsule Dose : 20 mg = 1 cap(s), Oral, qDay, # 30 cap(s), 0 Refill(s) Start Date: 09/08/22 Status: Ordered hydrOXYzine pamoate 50 mg oral capsule (12 sources) Antihistamine Start: 06-10-2022 take 1 capsule by mouth twice daily Hydroxyzine Pamoate (Vistaril) 50 mg capsule Active 50 mg PO TWICE A DAY June 10, 2022 12:00am Start: 06-06-2021 hydrOXYzine (V ISTARIL) capsule 50 mg Start: 01-17-2021 End: 02-25-2022 take 1 capsule by mouth four times daily as needed for anxiety Hydroxyzine Pamoate 50 MG capsule Discontinued 50 mg PO 4 TIMES DAILY NEEDED as needed for Anxiety January 17, 2021 12:00am February 25, 2022 1:50pm Start: 01-09-2020 hydrOXYzine HC l (ATARAX) 25 mg tablet Take by mouth. 01/09/2020 Active take 0.5 mg by mouth three times daily as needed hydrOXYzine (VISTARIL) 25 MG capsule Take 0.5 mg by mouth 3 times daily as needed for Itching 0 Active Comment on above: Take by mouth. indomethacin 25 mg oral capsule (2 sources) Nonsteroidal Anti-inflammatory Drug Start: 06-06-20 End: 06-08-20 21 take 1 capsule by mouth every six hours indomethacin (INDOCIN) 25 MG capsule Take 1 capsule by mouth every 6 hours for 3 doses 3 capsule 0 06/07/2021 06/08/2021 Active mecobalamin (1 source) Start: 02-08-20 take 1 tablet by mouth once daily Mecobalamin (Vitamin B12) 500 mcg tablet,chewable Active 500 ug PO DAILY February 07, 2025 12:00am methocarbamol 500 mg oral tablet (1 source) Muscle Relaxant Start: 02-08-20 take 1 tablet by mouth three times daily as needed for pain Methocarbamol 500 mg tablet Active 500 mg PO THREE TIMES A DAY as needed for pain/spasms 60 February 07, 2025 12:00am 2 ml metoclopramide 5 mg/ml prefilled syringe (6 sources) Dopamine-2 Receptor Antagonist Start: 06-06-20 21 metoclopramide (REGLAN) injection 10 mg Start: 01-17-2021 End: 04-15-2021 take 1 tablet by mouth every six hours as needed for nausea Metoclopramide Hcl 10 mg tablet Discontinued 10 mg PO EVERY 6 HOURS as needed for Headache or nausea February 09, 2021 4:53pm April 15, 2021 10:44am 24 hr nicotine 0.583 mg/hr transdermal system (1 source) Cholinergic Nicotinic Agonist Start: 06-06-2021 nicotine (NICODERM CQ) 14 MG/24HR 1 patch omeprazole 20 mg disintegrating oral tablet (6 sources) Proton Pump Inhibitor Start: 04-07-2022 End: 08-05-2022 take 1 tablet by mouth once daily omeprazole 20 mg disintegrating tablet (PriLOSEC) Indications: Generalized abdominal pain Take 1 tablet by mouth once daily. 30 tablet 3 04/07/2022 Active Comment on above: Take 1 tablet by stefany th once daily. ondansetron 4 mg oral tablet (18 sources) Serotonin-3 Receptor Antagonist Start: 07-16-2022 End: 07-19-2022 Zofran 4 mg oral tablet Dose : 4 mg = 1 tab(s), Oral, q6h, PRN As needed for nausea and vomiting, X 3 day(s), # 12 tab(s), 0 Refill(s), 07/19/22 10:10:00 EDT, Renal colic Start Date: 07/16/22 Stop Date: 07/19/22 Status: Ordered Start: 07-20-2021 End: 10-06-2021 Ondansetron 8 mg Tablet,Disi ntegrating Discontinued 8 mg PO NEEDED as needed for Nausea July 20, 2021 12:00am October 06, 2021 9:53am Start: 09-27-2020 End: 02-10-2021 take 1 tablet by mouth every eight hours as needed for nausea Ondansetron 4 mg tablet,disintegrating Discontinued 4 mg PO EVERY 8 HOURS NEEDED as needed for Nausea 60 February 09, 2021 4:53pm February 10, 2021 11:31am Start: 06-14-2020 End: 11-07-2020 Ondansetron 8 mg tablet,disi ntegrating Discontinued 8 mg PO June 14, 2020 12:00am November 07, 2020 9:10am Start: 02-17-2017 End: 02-07-2019 take 1 tablet by mouth every eight hours as needed for nausea Ondansetron 4 MG tablet Discontinued 4 m g PO EVERY 8 HOURS NEEDED as needed for Nausea February 17, 2017 12:00am February 07, 2019 9:26am ondansetron (ZOFRAN-ODT) disintegrating tablet 4 mg (1 source) Start: 06-06-2021 ondansetron (Z OFRAN-ODT) disintegrating tablet 4 mg OXcarbazepine 600 mg oral tablet (5 sources) Anti-epileptic Agent Start: 07-29-2022 Trileptal 600 mg ora l tablet Dose : 600 mg = 1 tab(s), Oral, BID, # 180 tab(s), 0 Refill(s) Start Date: 07/29/22 Status: Ordered Start: 06-10-2022 End: 02-07-2025 take 1 tablet by mouth twice daily Oxcarbazepine (Trileptal) 300 mg tablet Discontinued 300 mg PO TWICE A DAY June 10, 2022 12:00am February 07, 2025 9:50am Vit-Fe Fumarate-FA ( 1+1 PO) (1 source) Vit-Fe Fumarate-FA ( 1+1 PO) Take by mouth 0 Active vitamin 27-1 MG tablet 1 tablet (1 source) Start: 06-06-2021 take 1 tablet by mouth once daily 1 tablet, Oral, DAILY, First dose on 06/06/21 at 0900 rizatriptan 10 mg oral tablet (8 sources) Serotonin-1b and Serotonin-1d Receptor Agonist Start: 09-27-2020 rizatriptan (MAXALT) 10 mg tablet 1 tablet, at start of headache, may repeat in 2 hour Orally Once a day for 90 days 09/27/2020 Active Comment on above: 1 tablet, at start o f headache, may repeat in 2 hour Orally Once a day for 90 days 3 ml sodium chloride 9 mg/ml injection (3 sources) Start: 06-06-2021 10 mL, IntraVENous, EVERY 12 HOURS SCHEDULED (2 times per day), First dose on 06/06/21 at 0900 Start: 06-06-2021 take 25 mL intraveno usly every hour as needed 25 mL, IntraVENous, at 100 mL/hr, PRN, If patient receiving piggyback infusions without ordered maintenance IV fluids or with frequent/long duration piggyback infusions, Starting on 06/06/21 at 0611 Administer at the same rate as the piggyback being infused. Start: 06-06-2021 take 10 mL intraveno usly once as needed 10 mL, IntraVENous, PRN, Line Care, After every IV line use, Starting on 06/06/21 at 0611 divalproex sodium 500 mg delayed release oral tablet (3 sources) Mood Stabilizer, Anti-epileptic Agent Start: 09-27-2020 divalproex sodium 500 mg oral delayed release tablet Dose : 500 mg = 1 tab(s), Oral, TID, # 270 tab(s), 0 Refill(s) Start Date: 09/27/20 Status: Ordered Completed/Discontinued Medications Medication Drug Class(es) Dates Sig (Normalized) Sig (Original) acetaminophen 325 mg oral tablet (6 sources) Start: 07-20-2021 End: 10-06-2021 take 2 tablets by mouth every six hours as needed for pain Acetaminophen (Tylenol) 325 mg Tablet Discontinued 650 mg PO EVERY 6 HOURS as needed for prn pain July 20, 2021 12:00am October 06, 2021 9:53am Start: 06-06-2021 acetaminophen (TYLENOL) tablet 650 mg Start: 06-14-2020 End: 01-12-2021 take 1 capsule by mouth once as needed Acetaminophen (Tylenol) 325 mg capsule Discontinued 325 mg PO ONCE as needed June 14, 2020 12:00am January 12, 2021 10:37am take 1 tablet by stefany th every six hours as needed for pain acetaminophen (TYLENOL) 500 MG tablet Take 500 mg by mouth every 6 hours as needed for Pain 0 Active acetaminophen 325 mg / oxyCODONE hydrochloride 5 mg oral tablet (2 sources) Opioid Agonist Start: 07-22-2021 End: 08-05-2021 Oxycodone-Acetaminophen (Endocet) 5-325 mg tablet Discontinued 1 {tbl} PO Q4H as needed for pain 20 04July 22, 2021 August 05, 2021 3:02pm aspirin 81 mg delayed release oral tablet (2 sources) Platelet Aggregation Inhibitor, Nonsteroidal Anti-inflammatory Drug Start: 01-03-2021 End: 01-12-2021 take 1 tablet by mouth once daily Aspirin 81 MG tablet,delayed release (DR/EC) Discontinued 81 mg PO DAILY January 03, 2021 12:00am January 12, 2021 10:37am azithromycin 250 mg oral tablet (14 sources) Macrolide Antimicrobial Start: 05-31-2020 End: 05-31-2020 take 1 g by mouth once daily Azithromycin 1 gram packet Discontinued 1 g PO DAILY 3 May 31, 2020 12:00am June 04, 2020 12:00am May 31, 2020 12:37pm Start: 06-14-2019 End: 01-12-2021 take 2-5 tablets by mouth once daily Azithromycin 250 mg tablet Discontinued 0 PO .COMPLEX September 28, 2020 1:00am January 12, 2021 10:38am take 500 mg today (day 1), then 250 mg for 4 days (days 2-5) PO Start: 02-07-2019 End: 06-14-2019 Azithromycin 250 mg tablet Discontinued 250 mg PO daily February 07, 2019 12:00am June 14, 2019 9:37am 2 tablets today, then 1 tablet daily on days 2 through 5 benzonatate 100 mg oral capsule (2 sources) Non-narcotic Antitussive Start: 06-14-2019 End: 05-31-2020 take 1 capsule by mouth every eight hours as needed for cough Benzonatate 100 mg capsule Discontinued 100 mg PO Q8H as needed for cough June 14, 2019 12:00am May 31, 2020 11:56am betamethasone 3 mg/ml / betamethasone acetate 3 mg/ml injectable suspension (1 source) Corticosteroid Start: 06-07-2021 End: 06-07-2021 inject 12 mg by intramuscular injection once 12 mg, IntraMUSCular, ONCE, On 06/07/21 at 0130, For 1 dose Blood Pressure Monitor (Blood Pressure Kit) kit (2 sources) Start: 06-15-2021 End: 10-06-2021 Blood Pressure Monitor (Blood Pressure Kit) kit Discontinued 0 .ROUTE .MEDSUPPLY June 15, 2021 12:00am October 06, 2021 9:53am As directed Breast Pump device (2 sources) Start: 04-07-2021 End: 10-06-2021 Breast Pump device Discontinued 0 .ROUTE .MEDSUPPLY April 07, 2021 12:00am October 06, 2021 9:53am As directed doxycycline hyclate 100 mg oral tablet (4 sources) Tetracycline-class Drug Start: 11-07-2020 End: 01-12-2021 take 1 tablet by mouth twice daily Doxycycline Hyclate 100 mg tablet Discontinued 100 mg PO TWICE A DAY November 07, 2020 10:13am January 12, 2021 10:38am estradiol 1 mg oral tablet (5 sources) Estrogen Start: 01-03-2021 End: 01-25-2021 take 2 tablets by mouth twice daily Estradiol 1 MG tablet Discontinued 2 mg PO TWICE A DAY January 03, 2021 12:00am January 25, 2021 11:47am Start: 11-05-2020 estradiol 2 mg oral tablet Dose : 2 mg = 1 tab(s), Oral, qDay, # 30 tab(s), 0 Refill(s) Start Date: 11/05/20 Status: Ordered famotidine 20 mg oral tablet (2 sources) Histamine-2 Receptor Antagonist Start: 05-28-2021 End: 06-11-2021 take 1 tablet by mouth twice daily Famotidine (Pepcid) 20 mg tablet Discontinued 20 mg PO TWICE A DAY 60 May 28, 2021 12:00am June 11, 2021 4:10pm fluconazole 150 mg oral tablet (2 sources) Azole Antifungal Start: 11-16-2022 End: 02-07-2025 Fluconazole 150 mg tablet Discontinued 150 mg PO .COMPLEX 2 November 16, 2022 1:00am February 07, 2025 9:50am 150 mg PO take one po now and repeat in 3 days ibuprofen 600 mg oral tablet (6 sources) Nonsteroidal Anti-inflammatory Drug Start: 07-22-2021 End: 08-05-2021 take 1 tablet by mouth every six hours as needed for pain Ibuprofen 600 MG tablet Discontinued 600 mg PO EVERY 6 HOURS NEEDED as needed for Pain July 22, 2021 12:00am August 05, 2021 3:02pm Start: 07-20-2021 End: 08-05-2021 Ibuprofen 800 mg Tablet Disc ontinued 800 mg PO NEEDED as needed for prn pain July 20, 2021 12:00am August 05, 2021 3:02pm Start: 06-14-2020 End: 01-12-2021 Ibuprofen 600 mg tablet Disc ontinued NMA PO June 14, 2020 12:00am January 12, 2021 10:38am lamoTRIgine 100 mg oral tablet (2 sources) Mood Stabilizer, Anti-epileptic Agent Start: 09-03-2013 End: 09-05-2013 Lamotrigine 100 MG tablet Discontinued 25 mg PO TWICE A DAY 60 September 03, 2013 1:00am September 05, 2013 3:40pm linaclotide 0.29 mg oral capsule (2 sources) Guanylate Cyclase-C Agonist Start: 05-06-2018 End: 02-07-2019 take 1 capsule by mouth once daily Linaclotide 290 capsule Discontinued 290 ug PO DAILY May 06, 2018 12:00am February 07, 2019 9:26am lurasidone hydrochloride 80 mg oral tablet (4 sources) Atypical Antipsychotic Start: 10-06-2021 End: 02-25-2022 Lurasidone (Latuda) 80 mg tablet Discontinued 80 mg PO DAILY October 06, 2021 1:00am February 25, 2022 1:50pm must administer with food (at least 350 calories) Start: 07-16-2018 End: 06-14-2020 take 1 tablet by mouth once daily Lurasidone (Latuda) 120 mg tablet Discontinued 120 mg PO DAILY July 16, 2018 12:00am June 14, 2020 10:21am 500 ml magnesium sulfate 40 mg/ml injection (1 source) Start: 06-06-2021 End: 06-06-2021 2,000 mg/hr (50 mL/hr), IntraVENous, at 50 mL/hr, CONTINUOUS, Starting on 06/06/21 at 0645 1000 mg = 1 gram; 2000 mg = 2 grams; 20,000 mg = 20 grams methylPREDNISolone 4 mg oral tablet (4 sources) Corticosteroid Start: 09-28-2020 End: 10-03-2020 take 1 tablet by mouth once Methylprednisolone (Medrol (Marco)) 4 mg tablets,dose pack Discontinued 4 mg PO per package directions 19 02September 28, 2020 1:00am October 02, 2020 1:00am September 28, 2020 1:01pm naltrexone hydrochloride 50 mg oral tablet (2 sources) Opioid Antagonist Start: 01-12-2021 End: 01-25-2021 take 1 tablet by mouth once daily Naltrexone 50 mg tablet Discontinued 50 mg PO DAILY January 12, 2021 12:00am January 25, 2021 11:47am nitrofurantoin, macrocrystals 100 mg oral capsule (4 sources) Nitrofuran Antibacterial Start: 07-27-2013 End: 09-04-2013 take 1 capsule by mouth every twelve hours Nitrofurantoin Monohyd/M-Cryst 100 MG capsule Discontinued 100 mg PO EVERY 12 HOURS September 03, 2013 1:00am September 04, 2013 10:14pm norethindrone acetate 5 mg oral tablet (2 sources) Start: 02-25-2022 End: 06-10-2022 take 1 tablet by mouth twice daily, then take 1 tablet by mouth once daily Norethindrone Acetate (Aygestin) 5 mg tablet Discontinued 5 mg PO .COMPLEX February 25, 2022 12:00am June 10, 2022 9:30am 5 mg PO BID x 3 days and then once daily for remainder potassium chloride 20 meq extended release oral tablet (2 sources) Start: 09-15-2020 End: 09-17-2020 take 1 tablet by mouth twice daily Potassium Chloride 20 mEq tablet extended release Discontinued 20 meq PO TWICE A DAY 4 September 15, 2020 1:00am September 16, 2020 1:00am September 17, 2020 1:02am predniSONE 20 mg oral tablet (9 sources) Start: 04-27-2021 End: 05-02-2021 predniSONE 20 mg oral tablet Dose : 40 mg = 2 tab(s), Oral, qDay, # 10 tab(s), 0 Refill(s), Bronchitis Start Date: 04/27/21 Stop Date: 05/02/21 Status: Ordered Start: 01-03-2021 End: 01-25-2021 take 1 tablet by mouth twice daily Prednisone 10 MG tablet Discontinued 10 mg PO TWICE A DAY January 03, 2021 3:50am January 25, 2021 11:47am Start: 11-07-2020 End: 01-03-2021 Prednisone 10 mg tablet Disc ontinued 10 mg PO .COMPLEX November 07, 2020 10:13am January 03, 2021 3:50am Take 4 pills for 3 days, 3 pills for 3 days, 2 pills for 3 days, take 1 pill for 3 days progesterone 50 mg/ml injectable solution (4 sources) Progesterone Start: 01-03-2021 End: 01-25-2021 Progesterone Micronized 1.125 GM gel Discontinued 1.125 g VG DAILY January 03, 2021 12:00am January 25, 2021 11:47am Start: 01-03-2021 End: 01-25-2021 inject 50 mg by intramuscular injection twice daily Progesterone 50 MG/ML oil Discontinued 50 mg IM TWICE A DAY January 03, 2021 12:00am January 25, 2021 11:47am promethazine hydrochloride 25 mg oral tablet (2 sources) Phenothiazine Start: 05-06-2018 End: 02-07-2019 Promethazine 25 MG tablet Discontinued 0.5 - 1 {tbl} PO EVERY 6 HOURS NEEDED as needed for Nausea May 06, 2018 12:00am February 07, 2019 9:26am 12 hr pseudoephedrine hydrochloride 120 mg extended release oral tablet (2 sources) alpha-Adrenergic Agonist Start: 06-14-2020 End: 11-07-2020 Pseudoephedrine Hcl (Sinus 12 Hour) 120 mg tablet extended release Discontinued 120 mg PO Q12H June 14, 2020 12:00am November 07, 2020 9:10am QUEtiapine 100 mg oral tablet (2 sources) Atypical Antipsychotic Start: 07-27-2013 End: 09-05-2013 take 1 tablet by mouth three times daily Quetiapine 100 MG tablet Discontinued 100 mg PO THREE TIMES A DAY July 27, 2013 12:00am September 05, 2013 3:40pm sertraline 100 mg oral tablet (9 sources) Serotonin Reuptake Inhibitor Start: 10-06-2021 End: 02-25-2022 take 1 tablet by mouth once daily Sertraline 100 mg tablet Discontinued 100 mg PO DAILY October 06, 2021 1:00am February 25, 2022 1:50pm Start: 06-06-2021 take 150 mg by mouth once corby y 150 mg, Oral, DAILY, First dose on 06/06/21 at 0900 Start: 11-05-2020 sertraline 50 mg oral tablet Dose : 50 mg = 1 tab(s), Oral, qDay, # 30 tab(s), 0 Refill(s) Start Date: 11/05/20 Status: Ordered Start: 07-27-2013 End: 09-03-2013 take 1 tablet by mouth once daily Sertraline 50 MG tablet Discontinued 50 mg PO DAILY July 27, 2013 12:00am September 03, 2013 1:51pm sertraline (ZOLO FT) 100 MG tablet Take 150 mg by mouth daily 0 Active terconazole 4 mg/ml vaginal cream (2 sources) Azole Antifungal Start: 07-02-2021 End: 07-09-2021 Terconazole 0.4 % cream Discontinued 1 NMA VAGINAL AT BEDTIME 45 7 July 02, 2021 12:00am July 08, 2021 12:00am July 09, 2021 12:01am topiramate 100 mg oral tablet (2 sources) Start: 11-07-2020 End: 01-12-2021 take 1 tablet by mouth twice daily Topiramate (Topamax) 100 mg tablet Discontinued 100 mg PO TWICE A DAY November 07, 2020 1:00am January 12, 2021 10:39am traZODone hydrochloride 100 mg oral tablet (4 sources) Serotonin Reuptake Inhibitor Start: 05-06-2018 End: 07-16-2018 take 1 tablet by mouth once daily Trazodone 100 tablet Discontinued 100 mg PO DAILY May 06, 2018 12:00am July 16, 2018 2:35pm Start: 07-27-2013 End: 09-05-2013 take 2 tablets by mouth at bedtime Trazodone 50 MG tablet Discontinued 100 mg PO AT BEDTIME July 27, 2013 12:00am September 05, 2013 3:40pm vortioxetine 10 mg oral tablet (2 sources) Start: 11-17-2015 End: 06-14-2020 take 1 tablet by mouth once daily Vortioxetine 10 MG tablet Discontinued 20 mg PO DAILY November 17, 2015 1:00am June 14, 2020 10:21am zolpidem tartrate 5 mg oral tablet (3 sources) gamma-Aminobuty shruthi Acid-ergic Agonist Start: 09-27-2020 zolpidem 5 mg oral tablet Dose : 5 mg = 1 tab(s), Oral, qHS, PRN as needed for sleep, 0 Refill(s), 72 Start Date: 09/27/20 Status: Ordered Problems Active Problems Problem Classification Problem Date Documented Da te Episodic/Chronic Anxiety disorders (20 sources) Posttraumatic stress disorder; Translations: [Post-traumatic stress disorder, unspecified] Onset: 11-20-2010 05-26-2020 Chronic Comment on above: past trauma Bacterial infection; unspecified site (2 sources) Bacteria present; Translations: [Streptococcus, group B, as the cause of diseases classified elsewhere] 07-22-2021 Episodic Comment on above: tx with PCN in labor Calculus of urinary tract (5 sources) Renal colic; Translations: [Unspecified renal colic] Onset: 07-16-2022 Episodic Cardiac dysrhythmias (1 source) Tachycardia 07-29-2022 Episodic Contraceptive and procreative management (4 sources) Encounter for fertility testing; Translations: [Patient encounter status] Onset: 08-05-2020 06-10-2022 Episodic Deficiency and other anemia (4 sources) Chronic anemia; Translations: [Anemia, unspecified] 07-22-2021 Episodic Comment on above: transfused 2 units. hg stable. iron upon dc home E Codes: Fall (1 source) Fall; Translations: [Unspecified fall, initial encounter] 02-12-2024 Episodic Early or threatened labor (4 sources) Threatened premature labor - not delivered ; Translations: [False labor before 37 completed weeks of gestation, unspecified trimester] Onset: 06-06-2021 Episodic Essential hypertension (1 source) Hypertensive disorder 07-29-2022 Chronic Comment on above: No meds Headache; including migraine (2 sources) Migraine; Translations: [Migraine, unspecified, not intractable, without status migrainosus] 01-18-2021 Chronic Hemorrhage during ; abruptio placenta; placenta previa (19 sources) Antepartum hemorrhage; Translations: [Antepartum hemorrhage, unspecified, unspecified trimester] Onset: 09-30-2013 Resolved: 07-10-2014 09-28-2021 Episodic Hypertension complicating ; childbirth and the puerperium (4 sources) Mild pre-eclampsia; Translations: [Mild to moderate pre-eclampsia, third trimester] 07-22-2021 Episodic Comment on above: twice weekly visits, home bp monitoring, weekly labs, reviewed symptoms. weekly bpp with MFM. deliver at 37 if V/V recommend immediate delivery- patient requesting primary for twins Immunizations and screening for infectious disease (6 sources) Immunization due; Translations: [Encounter for immunization] Onset: 09-27-2012 Resolved: 09-30-2013 09-27-2021 Episodic Miscellaneous mental health disorders (7 sources) Insomnia disorder related to another mental disorder; Translations: [Insomnia due to other mental disorder] Onset: 10-14-2019 10-14-2019 Chronic Mood disorders (20 sources) Bipolar affective disorder, currently manic, moderate; Translations: [Bipolar disorder, current episode manic without psychotic features, moderate] Onset: 08-18-2009 Resolved: 03-10-2021 12-03-2011 Chronic Nausea and vomiting (3 sources) Vomiting; Translations: [Vomiting, unspecified] Onset: 07-17-2022 07-17-2022 Episodic Other acquired deformities (2 sources) Scoliosis deformity of spine; Translations: [Scoliosis, unspecified] 02-07-2025 Chronic Other aftercare (1 source) Long-term current use of drug therapy; Translations: [Other residential (current) drug therapy] Episodic Other complications of ; puerperium affecting management of mother (4 sources) Deliveries by ; Translations: [Encounter for delivery without indication] 07-22-2021 Episodic Comment on above: SM CS v/b twins aver i kike Other complications of ; puerperium affecting management of mother (2 sources) Abnormality of heart; Translations: [Anomaly of heart of fetus affecting , antepartum] 07-22-2021 Episodic Comment on above: 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 MFM to reach out to patient to schedule another echo. initial ECHO was read normal. Serial growth q4w. testing 1x week Other complications of (2 sources) Anemia of ; Translations: [Anemia complicating , unspecified trimester] 07-22-2021 Chronic Other complications of (6 sources) High risk ; Translations: [Supervision of high risk , unspecified, unspecified trimester] Onset: 11-07-2013 Resolved: 07-10-2014 09-27-2021 Episodic Comment on above: PRR CHELSEA: Girl/Girl - Sonya (sp TBD)PC: Neena Reza; Angelito Vigil Arianna & Elvira(has custody of) Spouse: Jori Other complications of (2 sources) Proteinuria; Translations: [Gestational proteinuria, unspecified trimester] 07-22-2021 Episodic Comment on above: 2x wkly BPP 1 @ [facility] and 1 @ [facility],weekly nsts on l and d and growth us q 4 weeks, weekly labs, plan 37 week delivery. home bps checks Other complications of (2 sources) Hyperemesis gravidarum; Translations: [Mild hyperemesis gravidarum] 04-23-2021 Episodic Other complications of (1 source) Spotting complicating , unspecified trimester; Translations: [Spotting complicating , unspecified trimester] Onset: 03-06-2025 Episodic Other complications of (1 source) Spotting per vagina in ; Translations: [Spotting complicating , unspecified trimester] 03-06-2025 Episodic Comment on above: hx of ectopic pregna ncy, TVUS Other diseases of kidney and ureters (2 sources) Obstruction of pelviureteric junction 07-17-2022 Episodic Other endocrine disorders (1 source) Hypoglycemia 07-29-2022 Chronic Other endocrine disorders (2 sources) Disorder of endocrine ovary; Translations: [Ovarian dysfunction, unspecified] 01-12-2021 Chronic Other female genital disorders (2 sources) Abnormal uterine bleeding; Translations: [Abnormal uterine and vaginal bleeding, unspecified] 06-10-2022 Chronic Comment on above: nl US. iud in. ayges tin given. s/p cbc coags which were normal. iud removed now and declines hormonal intervention. Other gastrointestinal disorders (8 sources) Irritable bowel syndrome; Translations: [Irritable bowel syndrome without diarrhea] Onset: 05-16-2017 04-07-2022 Chronic Other gastrointestinal disorders (2 sources) Chronic constipation; Translations: [Other constipation] 01-12-2021 Episodic Other injuries and conditions due to external causes (2 sources) Injury of left shoulder; Translations: [Unspecified injury of left shoulder and upper arm, initial encounter] 02-12-2024 Episodic Other lower respiratory disease (2 sources) Cough; Translations: [Acute cough] 08-31-2024 Episodic Other and delivery including normal (16 sources) ; Translations: [Normal ] Onset: 05-04-2016 01-30-2021 Episodic Comment on above: System added from do cumentation. Status documented as Yes on Admission 06/28/21- % growth discordance- 2xwkly BPP w/ MFM nl genetic and anny er screening reviewed. anatomy reviewed. notified of normal g enetics, (girl/girl) fraternal Other upper respiratory infections (1 source) Acute maxillary sinusitis; Translations: [Acute maxillary sinusitis, unspecified] 12-17-2023 Episodic Residual codes; unclassified (9 sources) Carrier of cystic fibrosis gene mutation; Translations: [Cystic fibrosis carrier] Onset: 12-24-2015 09-27-2021 Episodic Comment on above: patient states that the is not a carrier Residual codes; unclassified (9 sources) History of neoplasm of pituitary gland; Translations: [Personal history of other specified conditions] Onset: 04-07-2022 04-07-2022 Episodic Spondylosis; intervertebral disc disorders; other back problems (8 sources) Cervicalgia; Translations: [Radiculopathy, lumbar region] Onset: 02-07-2025 Episodic Syncope (2 sources) Syncope; Translations: [Syncope and collapse] 01-12-2021 Episodic Thyroid disorders (1 source) Hypothyroidism, unspecified; Translations: [Hypothyroidism, unspecified] Onset: 12-12-2024 Chronic Unclassified (1 source) Acute cough; Translations: [Acute cough] Onset: 08-31-2024 Unclassified (1 source) Low back pain, unspecified; Translations: [Low back pain, unspecified] Onset: 02-07-2025 Unclassified (1 source) M54.16 - Radiculopathy, lumbar region,M54.2 - Cervicalgia Urinary tract infections (2 sources) Urinary tract infectious disease; Translations: [Urinary tract infection, site not specified] 11-22-2015 Episodic Past or Other Problems Problem Classification Problem Date Documented Da te Episodic/Chronic Abdominal pain (12 sources) Right lower quadrant pain; Translations: [Right lower quadrant pain] Onset: 07-21-2009 Resolved: 10-09-2013 11-24-2011 Episodic Epilepsy; convulsions (4 sources) Neurological finding; Translations: [Unspecified convulsions] Onset: 09-30-2013 Resolved: 07-10-2014 09-27-2021 Episodic Genitourinary symptoms and ill-defined conditions (11 sources) History of recurrent urinary tract infection; Translations: [Personal history of urinary (tract) infections] Onset: 09-27-2012 Resolved: 07-10-2014 09-27-2021 Episodic Menstrual disorders (4 sources) Irregular periods; Translations: [Irregular menstruation, unspecified] Onset: 06-22-2012 Resolved: 10-10-2013 10-10-2013 Chronic Miscellaneous mental health disorders (4 sources) depression; Translations: [ depression] Onset: 11-20-2010 Resolved: 11-24-2011 11-24-2011 Episodic Nonmalignant breast conditions (8 sources) Increased ; Translations: [Galactorrhea not associated with childbirth] Onset: 07-01-2010 Resolved: 07-10-2014 11-24-2011 Episodic Other circulatory disease (7 sources) History of clinical finding in subject; Translations: [Personal history of other diseases of the circulatory system] Onset: 09-27-2012 09-27-2021 Episodic Other complications of (4 sources) Iron deficiency anemia of ; Translations: [Anemia complicating , unspecified trimester] Onset: 12-03-2011 Resolved: 03-29-2012 03-29-2012 Chronic Other complications of (4 sources) Nausea and vomiting; Translations: [Vomiting of , unspecified] Onset: 12-24-2015 09-27-2021 Episodic Other complications of (4 sources) Supervision of other high risk pregnancies, unspecified trimester; Translations: [Supervision of other high-risk ] Onset: 07-21-2009 Resolved: 03-29-2012 03-29-2012 Episodic Other complications of (4 sources) Pain in female pelvis; Translations: [Other specified related conditions, unspecified trimester] Onset: 11-24-2011 Resolved: 03-29-2012 03-29-2012 Episodic Other complications of (4 sources) History of hemorrhage; Translations: [Supervision of with other poor reproductive or obstetric history, unspecified trimester] Onset: 09-27-2012 Resolved: 07-10-2014 09-27-2021 Episodic Other complications of (4 sources) Finding of pattern of ; Translations: [Supervision of other high risk pregnancies, unspecified trimester] Onset: 09-30-2013 Resolved: 07-10-2014 09-27-2021 Episodic Other complications of (4 sources) Maternal tobacco use in ; Translations: [Smoking (tobacco) complicating , unspecified trimester] Onset: 09-30-2013 Resolved: 07-10-2014 09-27-2021 Episodic Other complications of (3 sources) Vomiting of , unspecified; Translations: [Unspecified vomiting of , unspecified as to episode of care or not applicable] Onset: 12-24-2015 09-27-2021 Episodic Other gastrointestinal disorders (4 sources) Diarrhea; Translations: [Diarrhea, unspecified] Onset: 09-01-2009 Resolved: 11-24-2011 11-24-2011 Episodic Other injuries and conditions due to external causes (1 source) Unspecified injury of left shoulder and upper arm, initial encounter; Translations: [Injury of left shoulder, initial encounter] Onset: 02-12-2024 Episodic Other nervous system disorders (7 sources) H/O: migraine; Translations: [Personal history of other diseases of the nervous system and sense organs] Onset: 09-27-2012 09-27-2021 Episodic Other screening for suspected conditions (not mental disorders or infectious disease) (4 sources) Patient encounter status; Translations: [Encounter for nonprocreative screening for genetic disease carrier status] Onset: 09-30-2013 Resolved: 07-10-2014 09-27-2021 Episodic Polyhydramnios and other problems of amniotic cavity (2 sources) Subchorionic hematoma; Translations: [Other specified disorders of amniotic fluid and membranes, first trimester, not applicable or unspecified] Onset: 12-24-2015 09-27-2021 Episodic Residual codes; unclassified (7 sources) H/O: depression; Translations: [Personal history of other complications of , childbirth and the puerperium] Onset: 12-24-2015 12-24-2015 Episodic Residual codes; unclassified (4 sources) FH: Thrombosis; Translations: [Family history of ischemic heart disease and other diseases of the circulatory system] Onset: 09-27-2012 Resolved: 07-10-2014 09-27-2021 Episodic Unclassified (2 sources) arm manipulation 04-22-2022 Comment on above: Shoulder froze up- l eft currently in therapy Results Test Name Value Interpretation Reference Range Facility hCG Titer Quant., Serumon HCG QUANT. 263 mIU/mL High <9 non-preg [facility] Comment on above: Result Comment: Gest ational Age 0.2-1 Week: 5-50 mIU/mL 1-2 Weeks: 50-500 mIU/mL 2-3 Weeks: 100-5000 mIU/mL 3-4 Weeks: 500-10,000 mIU/mL 4-5 Weeks:1000-50,000 mIU/mL 5-6 Weeks: 10,000-100,000 mIU/mL 6-8 Weeks: 15,000-200,000 mIU/mL 2-3 Months:10,000-100,000 mIU/mL Performed By: #### L 700.8000 #### [facility] [address] [place], [address] Serum human chorionic gonado tropin detection for pregnancyOrdered By: Elli Ramirez on 03-05-2025 HCG ( test) Ql 95 mIU/mL High <9 [facility] Comment on above: Gestational Age0.2-1 Week: 5-50 mIU/mL1-2 Weeks: 50-500 mIU/mL2-3 Weeks: 100-5000 mIU/mL3-4 Weeks: 500-10,000 mIU/mL4-5 Weeks:1000-50,000 mIU/mL5-6 Weeks: 10,000-100,000 mIU/mL6-8 Weeks: 15,000-200,000 mIU/mL2-3 Months:10,000-100,000 mIU/mL hCG Titer Quant., Serumon HCG QUANT. 95 mIU/mL High <9 non-preg [facility] Comment on above: Result Comment: Gest ational Age 0.2-1 Week: 5-50 mIU/mL 1-2 Weeks: 50-500 mIU/mL 2-3 Weeks: 100-5000 mIU/mL 3-4 Weeks: 500-10,000 mIU/mL 4-5 Weeks:1000-50,000 mIU/mL 5-6 Weeks: 10,000-100,000 mIU/mL 6-8 Weeks: 15,000-200,000 mIU/mL 2-3 Months:10,000-100,000 mIU/mL Performed By: #### L 501.9520, L500.4100, L500.4050, L503.6030, L100.0100, L503.6550, L501.9985, L506.0400 #### [facility] [address] [place], [place], [address] Serum human chorionic gonado tropin detection for pregnancyOrdered By: Elli Ramirez on 03-03-2025 HCG ( test) Ql 39 mIU/mL High <9 [facility] Comment on above: Gestational Age0.2-1 Week: 5-50 mIU/mL1-2 Weeks: 50-500 mIU/mL2-3 Weeks: 100-5000 mIU/mL3-4 Weeks: 500-10,000 mIU/mL4-5 Weeks:1000-50,000 mIU/mL5-6 Weeks: 10,000-100,000 mIU/mL6-8 Weeks: 15,000-200,000 mIU/mL2-3 Months:10,000-100,000 mIU/mL hCG Titer Quant., Serumon HCG QUANT. 39 mIU/mL High <9 non-preg [facility] Comment on above: Result Comment: Gest ational Age 0.2-1 Week: 5-50 mIU/mL 1-2 Weeks: 50-500 mIU/mL 2-3 Weeks: 100-5000 mIU/mL 3-4 Weeks: 500-10,000 mIU/mL 4-5 Weeks:1000-50,000 mIU/mL 5-6 Weeks: 10,000-100,000 mIU/mL 6-8 Weeks: 15,000-200,000 mIU/mL 2-3 Months:10,000-100,000 mIU/mL Performed By: #### L 501.9520, L500.4100, L500.4050, L503.6030, L100.0100, L503.6550, L501.9985, L506.0400 #### [facility] [address] [place], [place], [id number] Cerv Spine 4 or 5 Viewson Cerv Spine 4 or 5 Views [facility] Imaging Services [address] [place], [place] [id number] Cerv Spine 4 or 5 Views MR#: [id number] Acct: [id number] Name: SUZIE ALEXANDRE Tawanda Russell Rep #: [id number] : 1990 F 34 From: Tal ledbetter MD PCP: Michelle Goldberg DO Status: DEP AMB Study: Cerv Spine 4 or 5 Views Date of Exam: 02/07/25 Exam# [id number] Ordering Dr: Ana Hilton PROCEDURE: CERV SPINE 4 OR 5 VIEWS 02/07/2025 REASON FOR EXAM: CHRONIC PAIN, NKI TECHNIQUE: 4 views of the cervical spine. COMPARISON: None. FINDINGS: Grade 1 anterolisthesis of C2 on C3, C3 on C4, C4 on C5 and C5 on C6 on flexion images. No associated instability. Normal craniovertebral junction. Normal anterior atlantoaxial articulation. Normal odontoid process. Straightening of the cervical lordosis. Normal vertebral bodies and posterior osseous elements. Normal disc space heights and vertebral endplates. Normal visualized intervertebral neuroforamina. Normal visualized soft tissue structures. RAD/Cerv Spine 4 or 5 Views IMPRESSION: Straightening of the cervical lordosis, probably muscular spasm and pain. No evidence of instability. Reading Location: [place] [address] CC: PANCHO Mcdonnell; Michelle Goldberg DO Magnetic Resonance Imaging Director: Signed Normal [facility] L/S Spine Min 4 Viewson L/S Spine Min 4 Views [facility] Imaging Services [address] [place], [place] [address] L/S Spine Min 4 Views MR#: [id number] Acct: [id number] Name: SUZIE ALEXANDRE Rep #: [id number] : 1990 F 34 From: Ced Ortiz MD PCP: Michelle Goldberg DO Status: DEP AMB Study: L/S Spine Min 4 Views Date of Exam: 02/07/25 Exam# [id number] Ordering Dr: Ana Hilton PROCEDURE: L/S SPINE MIN 4 VIEWS 02/07/2025 REASON FOR EXAM: CHRONIC PAIN, NKI TECHNIQUE: Four views; AP, lateral and flexion-extension COMPARISON: None available FINDINGS: Leftward thoracolumbar curvature, scoliosis. 5 [id number] lumbar vertebral body types identified. No fracture or malalignment. No evidence of instability. The disc spaces appear within limits. Suspect possible small bilateral nephrolithiasis RAD/L/S Spine Min 4 Views IMPRESSION: Leftward thoracolumbar curvature, scoliosis. Suspect possible small bilateral nephrolithiasis Reading Location: [id number] CC: PANCHO Mcdonnell; Michelle Goldberg DO Magnetic Resonance Imaging Director: Signed Normal [facility] Orthopedic Visit Reporton Orthopedic Visit Report [facility] [address] [place] [address] OFFICE VISIT Date of Service: 02/07/25 MR#: [id number] Acct: [id number] Name: SUZIE ALEXANDRE Rep #: [id number] : 1990 Provider: PANCHO Mcdonnell Age/Sex: 34/F Location: [facility] Status: Signed Intake Vital Signs 06/10/22 09:13 02/07/25 09:37 Height 5 ft 5 in 5 ft 5 in Weight: 157 lb BMI 26.1 Intake Visit Reasons: SCOLIOSIS Allergies cephalexin (From Keflex) Adverse Reaction (Verified 02/07/25 09:39) Vomiting codeine Adverse Reaction (Verified 02/07/25 09:39) Vomiting divalproex sodium (From Depakote) Adverse Reaction (Verified 02/07/25 09:39) Other hydrocodone bitartrate (From Vicodin) Adverse Reaction (Verified 02/07/25 09:39) Vomiting oxcarbazepine (From Trileptal) Adverse Reaction (Verified 02/07/25 09:39) Vomiting sumatriptan (From Imitrex) Adverse Reaction (Verified 02/07/25 09:39) Vomiting sumatriptan succinate (From Imitrex) Adverse Reaction (Verified 02/07/25 09:39) Vomiting Medications ???Medication ???Instructions ???Recorded ???Confirmed ???Type hydroxyzine pamoate 50 mg capsule 50 mg PO BID 06/10/22 02/07/25 Hi story (Vistaril) fluoxetine 40 mg capsule 40 mg PO QDAY 02/07/25 02/07/25 Hi story mecobalamin (vitamin B12) 500 mcg 500 mcg PO DAILY 02/07/25 5 History chewable tablet methocarbamol 500 mg tablet 500 mg PO TID PRN pain/spasms #60 02/07/25 02/07/25 Rx tabs PFSH Medical History Pre-eclampsia H/O renal calculi Smoking (tobacco) complicating , unspecified trimester Conceived by in vitro fertilization Cystic fibrosis carrier PTSD (post-traumatic stress disorder) Skin lesions IBS (irritable bowel syndrome) Manic affective disorder, recurrent episode, moderate degree Anxiety Depression History of benign pituitary tumor Chronic anemia Chronic constipation Bipolar disorder Generalized anxiety disorder Surgical History arm manipulation History of reversal of tubal ligation History of breast biopsy Tubal ligation status Family History Father Hypertension Blood clotting disorder Cancer Kidney CVA (cerebral vascular accident) Mother Depression Anxiety Grandfather Heart disease Myocardial infarction Social History adopted: No household members: family housing: house number of children: 6 current occupational status: unemployed pets and animals: Yes history of recent travel: No Smoking Status: Current every day smoker tobacco type: cigarettes second hand exposure: No alcohol intake: never substance use type: does not use what type of physical activity do you participate in: other frequency: 5-6 times per week seatbelt use: sometimes do you feel safe at home: Yes additional social history: -Junito Lagos HPI SCOLIOSIS Details: This documentation accurately reflects the service provided and the decisions made by me, PANCHO Mcdonnell 02/07/25 0936. Part of today???s visit was documented by Annette ROMERO, acting as scribe. SUZIE ALEXANDRE is a 34 year old F here today for scoliosis. Patient states that she has pain in between her shoulder blades and in the center of her lower back. Worsening over the last 2 and half years. She gets pain bilaterally in her lower back however left-sided symptoms seem to be worse she also reports that she will get a left sided shooting pain into her left buttock. She states that by the end of the day her upper back gets very still which make it hard for her to straighten her back. She has been having pain ever since she was a kid. When she was a kid she used to wear a back brace. She states that standing towards the end of the day is hard for her due to stiffness and pain. Her lower back pain does radiated into her right leg. Standing in one spot increases the pain. She hasn't been able to sleep in a bed for the last 15 years. Laying flat increases the pain. Denies numbness, tingling or other associated symptoms. She has done PT in the past but it never seemed to be very beneficial for her. This was about 4 years ago. She has tried chiropractor treatment in the past. She denies injections. No prior back or neck surgeries. She denies having an MRI of her back but did have some xrays in November. She denies leg weakness. Takes ibuprofen and Tylenol over the counter has tried heat at home with some mild help. The patient also has neck pain that will radiate up into her head and cause headaches. The patient also reports a left shoulder pain but has had shoulder surgery in the past about 4 years ago and so is (more content not included)... Normal [facility] Absolute lymphocyte countOrd ered By: Michelle Goldberg on 11-29-2024 Lymphocytes Auto (Unsp spec) [#/Vol] 1.60 10*3/uL 0.83-4.51 [facility] Absolute neutrophil countOrd ered By: Michelle Goldberg on 11-29-2024 Neutrophils (Bld) [#/Vol] 4.4 10*3/uL 2.0-7.7 [facility] Automated lymphocyte count a s percentage of total leukocytesOrdered By: Michelle Goldberg on 11-29-2024 Lymphocytes/100 WBC Auto (Unsp spec) 22.8 % 19- [facility] BUN/creatinine ratioOrdered By: Michelle Goldberg on 11-29-2024 Urea nitrogen/Creatinine [Mass ratio] 12.5 mg/mg 10- [facility] Basophil percentageOrdered B y: Michelle Goldberg on 11-29-2024 Basophils/100 WBC (Bld) 0.9 % 0-1 [facility] Bilirubin, totalOrdered By: Michelle Goldberg on 11-29-2024 Bilirubin [Mass/Vol] 0.34 mg/dL 0.00-1.30 [facility] CBC W/Diff, Automatedon 11-03 Absolute Lymph 1.60 X10 3/uL Normal 0.83-4.51 [facility] Comment on above: Performed By: #### L 501.9520, L500.4100, L500.4050, L503.6030, L100.0100, L503.6550, L501.9985, L506.0400 #### [facility] [address] [place], [address] Absolute Neut 4.4 X10 3/uL Normal 2.0-7.7 [facility] Comment on above: Performed By: #### L 501.9520, L500.4100, L500.4050, L503.6030, L100.0100, L503.6550, L501.9985, L506.0400 #### [facility] [address] [place], [address] Basophils/100 WBC (Bld) 0.9 % Normal 0-1 [facility] Comment on above: Performed By: #### L 501.9520, L500.4100, L500.4050, L503.6030, L100.0100, L503.6550, L501.9985, L506.0400 #### [facility] [address] [place], [address] Eosinophils/100 WBC (Bld) 3.4 % Normal 0-5 [facility] Comment on above: Performed By: #### L 501.9520, L500.4100, L500.4050, L503.6030, L100.0100, L503.6550, L501.9985, L506.0400 #### [facility] [address] [place], [address] (682) Erythrocyte distribution width (RBC) [Ratio] 12.4 % Normal 11.6-14.6 [facility] Comment on above: Performed By: #### L 501.9520, L500.4100, L500.4050, L503.6030, L100.0100, L503.6550, L501.9985, L506.0400 #### [facility] [address] [place], [address] (787) Hematocrit (Bld) [Volume fraction] 42.1 % Normal 37-47 [facility] Comment on above: Performed By: #### L 501.9520, L500.4100, L500.4050, L503.6030, L100.0100, L503.6550, L501.9985, L506.0400 #### [facility] [address] [place], [address] Hemoglobin (Bld) [Mass/Vol] 14.2 g/dL Normal 12.0-15.0 [facility] Comment on above: Performed By: #### L 501.9520, L500.4100, L500.4050, L503.6030, L100.0100, L503.6550, L501.9985, L506.0400 #### [facility] [address] [facility] [place], [address] IG% 0.300 Normal 0.0-0.9 [facility] Comment on above: Result Comment: IG% - Immature Granulocytes (promyelocytes, myelocytes and metamyelocytes) > 1% indicates that a LEFT SHIFT is Present. Performed By: #### L 501.9520, L500.4100, L500.4050, L503.6030, L100.0100, L503.6550, L501.9985, L506.0400 #### [facility] [address] [facility] [place], [address] Lymphocytes/100 WBC (Bld) 22.8 % Normal 19-41 [facility] Comment on above: Performed By: #### L 501.9520, L500.4100, L500.4050, L503.6030, L100.0100, L503.6550, L501.9985, L506.0400 #### [facility] [address] [facility] [place], [address] MCH (RBC) [Entitic mass] 31.0 pg Normal 27.0-32.0 [facility] Comment on above: Performed By: #### L 501.9520, L500.4100, L500.4050, L503.6030, L100.0100, L503.6550, L501.9985, L506.0400 #### [facility] [address] [place], [address] MCHC (RBC) [Mass/Vol] 33.7 g/dL Normal 32-[address] [facility] Comment on above: Performed By: #### L 501.9520, L500.4100, L500.4050, L503.6030, L100.0100, L503.6550, L501.9985, L506.0400 #### [facility] [address] [place], [address] MCV (RBC) [Entitic vol] 91.9 fL Normal 81-99 [facility] Comment on above: Performed By: #### L 501.9520, L500.4100, L500.4050, L503.6030, L100.0100, L503.6550, L501.9985, L506.0400 #### [facility] [address] [place], [address] Monocytes/100 WBC (Bld) 10.4 % High 0-10 [facility] Comment on above: Performed By: #### L 501.9520, L500.4100, L500.4050, L503.6030, L100.0100, L503.6550, L501.9985, L506.0400 #### [facility] [address] [place], [address] Neutrophils/100 WBC (Bld) 62.2 % Normal 47-70 [facility] Comment on above: Performed By: #### L 501.9520, L500.4100, L500.4050, L503.6030, L100.0100, L503.6550, L501.9985, L506.0400 #### [facility] [address] [place], [address] Nucleated RBC (Bld) [#/Vol] 0 10*3/uL Normal 0-5 [facility] Comment on above: Performed By: #### L 501.9520, L500.4100, L500.4050, L503.6030, L100.0100, L503.6550, L501.9985, L506.0400 #### [facility] [address] [place], [address] Platelet mean volume (Bld) [Entitic vol] 11.2 fL Normal 6.2-12.0 [facility] Comment on above: Performed By: #### L 501.9520, L500.4100, L500.4050, L503.6030, L100.0100, L503.6550, L501.9985, L506.0400 #### [facility] [address] [place], [address] Platelets (Bld) [#/Vol] 266 10*3/uL Normal 150-450 [facility] Comment on above: Performed By: #### L 501.9520, L500.4100, L500.4050, L503.6030, L100.0100, L503.6550, L501.9985, L506.0400 #### [facility] [address] [place], [address] RBC (Bld) [#/Vol] 4.58 10*6/uL Normal 4.2-5.4 [facility] Comment on above: Performed By: #### L 501.9520, L500.4100, L500.4050, L503.6030, L100.0100, L503.6550, L501.9985, L506.0400 #### [facility] [address] [place], [address] RDW SD 41.4 fl Normal 35.1-43.9 [facility] Comment on above: Performed By: #### L 501.9520, L500.4100, L500.4050, L503.6030, L100.0100, L503.6550, L501.9985, L506.0400 #### [facility] [address] [place], [address] WBC (Bld) [#/Vol] 7.0 10*3/uL Normal 4.4-11.0 [facility] Comment on above: Performed By: #### L 501.9520, L500.4100, L500.4050, L503.6030, L100.0100, L503.6550, L501.9985, L506.0400 #### [facility] [address] [place], [place], [id number] Calculated total iron bindin g capacityOrdered By: Michelle Goldberg on 11-29-2024 Total Iron Binding Capacity 276 ug/dL 250-450 [facility] Calculated very low density lipoprotein (VLDL) cholesterol measurementOrdered By: Michelle Goldberg on 11-29-2024 Calculated very low density lipoprotein (VLDL) cholesterol measurement 13 mg/dL 5-40 [facility] VLDL Cholesterol 13 mg/dL 5-40 [facility] Carbon dioxide measurementOr dered By: Michelle Goldberg on 11-29-2024 CO2 [Moles/Vol] 24.6 mmol/L 22.0-29.0 [facility] Chloride measurementOrdered By: Michelle Goldberg on 11-29-2024 Chloride [Moles/Vol] 101 mmol/L 96-108 [facility] Comprehensive Metabolic Prof ilon 11-29-2024 Albumin [Mass/Vol] 4.4 g/dL Normal 3.5-5.0 [facility] Comment on above: Performed By: #### L 501.9520, L500.4100, L500.4050, L503.6030, L100.0100, L503.6550, L501.9985, L506.0400 #### [facility] [address] [facility] [id number] Albumin/Globulin [Mass ratio] 1.6 {ratio} Normal 0.9-2.4 [facility] Comment on above: Performed By: #### L 501.9520, L500.4100, L500.4050, L503.6030, L100.0100, L503.6550, L501.9985, L506.0400 #### [facility] [address], [place], [id number] ALK PHOS 92 U/L Normal 35-104 [facility] Comment on above: Performed By: #### L 501.9520, L500.4100, L500.4050, L503.6030, L100.0100, L503.6550, L501.9985, L506.0400 #### [facility] [address] [place], [address] ALT [Catalytic activity/Vol] 15 U/L Normal <=34 [facility] Comment on above: Performed By: #### L 501.9520, L500.4100, L500.4050, L503.6030, L100.0100, L503.6550, L501.9985, L506.0400 #### [facility] [address] [place], [address] Anion gap [Moles/Vol] 12 mmol/L Normal 5-[address] [facility] Comment on above: Performed By: #### L 501.9520, L500.4100, L500.4050, L503.6030, L100.0100, L503.6550, L501.9985, L506.0400 #### [facility] [address] [place], [address] AST [Catalytic activity/Vol] 21 U/L Normal <=31 [facility] Comment on above: Performed By: #### L 501.9520, L500.4100, L500.4050, L503.6030, L100.0100, L503.6550, L501.9985, L506.0400 #### [facility] [address] [place], [address] Bilirubin [Mass/Vol] 0.34 mg/dL Normal 0.00-1.30 [facility] Comment on above: Performed By: #### L 501.9520, L500.4100, L500.4050, L503.6030, L100.0100, L503.6550, L501.9985, L506.0400 #### [facility] [address] [place], [address] BUN/CRE 12.5 RATIO Normal 10-20 [facility] Comment on above: Performed By: #### L 501.9520, L500.4100, L500.4050, L503.6030, L100.0100, L503.6550, L501.9985, L506.0400 #### [facility] [address] [place], [address] Calcium [Mass/Vol] 9.5 mg/dL Normal 7.6-11.0 [facility] Comment on above: Performed By: #### L 501.9520, L500.4100, L500.4050, L503.6030, L100.0100, L503.6550, L501.9985, L506.0400 #### [facility] [address] [place], [address] Chloride [Moles/Vol] 101 mmol/L Normal 96-108 [facility] Comment on above: Performed By: #### L 501.9520, L500.4100, L500.4050, L503.6030, L100.0100, L503.6550, L501.9985, L506.0400 #### [facility] [address] [place], [address] CO2 [Moles/Vol] 24.6 mmol/L Normal 22.0-29.0 [facility] Comment on above: Performed By: #### L 501.9520, L500.4100, L500.4050, L503.6030, L100.0100, L503.6550, L501.9985, L506.0400 #### [facility] [address] [place], [address] Creatinine [Mass/Vol] 0.75 mg/dL Normal 0.70-1.[address] [facility] Comment on above: Performed By: #### L 501.9520, L500.4100, L500.4050, L503.6030, L100.0100, L503.6550, L501.9985, L506.0400 #### [facility] [address] [place], [address] GFR/1.73 sq M.predicted among non-blacks MDRD (S/P/Bld) [Vol rate/Area] 105 mL/min/{1.73_m2} Normal >60 [facility] Comment on above: Result Comment: mL/m in/1.73m2 CKD-EPI Creatinine Equation (2020) Performed By: #### L 501.9520, L500.4100, L500.4050, L503.6030, L100.0100, L503.6550, L501.9985, L506.0400 #### [facility] [address] [place], [address] Globulin (S) [Mass/Vol] 2.8 g/dL Normal 2.2-4.2 [facility] Comment on above: Performed By: #### L 501.9520, L500.4100, L500.4050, L503.6030, L100.0100, L503.6550, L501.9985, L506.0400 #### [facility] [address] [place], [address] Glucose [Mass/Vol] 79 mg/dL Normal 70-99 [facility] Comment on above: Performed By: #### L 501.9520, L500.4100, L500.4050, L503.6030, L100.0100, L503.6550, L501.9985, L506.0400 #### [facility] [address] [place], [address] Potassium [Moles/Vol] 4.1 mmol/L Normal 3.3-5.[address] [facility] Comment on above: Performed By: #### L 501.9520, L500.4100, L500.4050, L503.6030, L100.0100, L503.6550, L501.9985, L506.0400 #### [facility] [address] [place], [address] Sodium [Moles/Vol] 138 mmol/L Normal 133-145 [facility] Comment on above: Performed By: #### L 501.9520, L500.4100, L500.4050, L503.6030, L100.0100, L503.6550, L501.9985, L506.0400 #### [facility] [address] [place], [address] T PROT 7.2 g/dL Normal 5.9-8.4 [facility] Comment on above: Performed By: #### L 501.9520, L500.4100, L500.4050, L503.6030, L100.0100, L503.6550, L501.9985, L506.0400 #### [facility] [address] [place], [address] Urea nitrogen [Mass/Vol] 9 mg/dL Normal 4-19 [facility] Comment on above: Performed By: #### L 501.9520, L500.4100, L500.4050, L503.6030, L100.0100, L503.6550, L501.9985, L506.0400 #### [facility] [address] [place], [address] Eosinophil percentageOrdered By: Michelle Goldberg on 11-29-2024 Eosinophils/100 WBC (Bld) 3.4 % 0-5 [facility] Erythrocyte distribution wid th ratioOrdered By: Michelle Goldberg on 11-29-2024 Erythrocyte distribution width (RBC) [Ratio] 12.4 % 11.6-14.6 [facility] Erythrocyte distribution wid th standard deviationOrdered By: Michelle Goldberg on 11-29-2024 Erythrocyte distribution width (RBC) [Entitic vol] 41.4 fL 35.1-43.9 [facility] Erythrocyte distribution width (RBC) [Ratio] 41.4 fl 35.1-43.9 [facility] Ferritinon 11-29-2024 Ferritin [Mass/Vol] 57 ng/mL Normal 22-378 [facility] Comment on above: Performed By: #### L 501.9520, L500.4100, L500.4050, L503.6030, L100.0100, L503.6550, L501.9985, L506.0400 #### [facility] [address] [place], [place], [address] GFR/1.73 sq M.predicted mindy g non-blacks MDRD (S/P/Bld) [Vol rate/Area]Ordered By: Michelle Goldberg on 11-29-2024 Estimated GFR (MDRD) Non-Af Amer 105 >60 [facility] Comment on above: mL/min/1.73m2 CKD-EP I Creatinine Equation (2020) Glomerular filtration rate ( GFR) estimation/1.73 sq m using serum, plasma, or whole bOrdered By: Michelle Goldberg on 11-29-2024 GFR/1.73 sq M.predicted among non-blacks MDRD (S/P/Bld) [Vol rate/Area] 105 mL/min/{1.73_m2} >60 [facility] Comment on above: mL/min/1.73m2 CKD-EP I Creatinine Equation (2020) Hematocrit Auto (Bld) [Volum e fraction]Ordered By: Michelle Goldberg on 11-29-2024 Hematocrit (Bld) [Volume fraction] 42.1 % 37-47 [facility] Hemoglobin A1con 11-29-2024 HbA1c (Bld) [Mass fraction] 5.0 % Low <=5.6 [facility] Comment on above: Performed By: #### L 501.9520, L500.4100, L500.4050, L503.6030, L100.0100, L503.6550, L501.9985, L506.0400 #### [facility] [address] [place], [place], [id number] Hemoglobin A1c percentageOrd ered By: Michelle Goldberg on 11-29-2024 HbA1c (Bld) [Mass fraction] 5.0 % Low >5.7 [facility] Hemoglobin measurementOrdere d By: Michelle Goldberg on 11-29-2024 Hemoglobin (Bld) [Mass/Vol] 14.2 g/dL 12.0-15.0 [facility] Immature granulocytes/100 WB C Auto (Bld)Ordered By: Michelle Goldberg on 11-29-2024 Immature granulocytes/100 WBC (Bld) 0.300 % 0.0-0.9 [facility] Comment on above: IG% - Immature Granu locytes (promyelocytes, myelocytes and metamyelocytes) > 1% indicates that a LEFT SHIFT is Present. Iron (Unsp spec) [Mass/Mass] Ordered By: Michelle Goldberg on 11-29-2024 Iron [Mass/Vol] 129 ug/dL 50-170 [facility] Iron measurement (mass/mass) Ordered By: Michelle Goldberg on 11-29-2024 Iron (Unsp spec) [Mass/Mass] 129 ug/dL 50-170 [facility] Iron saturation [Mass fracti on]Ordered By: Michelle Goldberg on 11-29-2024 Iron Saturation 47.0 % 15.0-55.0 [facility] Iron+Iron Binding Capacityon 11-29-2024 Iron [Mass/Vol] 129 ug/dL Normal 50-170 [facility] Comment on above: Performed By: #### L 501.9520, L500.4100, L500.4050, L503.6030, L100.0100, L503.6550, L501.9985, L506.0400 #### [facility] [place], [address] IRON SATURATION 47.0 Normal 15.0-55.0 [facility] Comment on above: Performed By: #### L 501.9520, L500.4100, L500.4050, L503.6030, L100.0100, L503.6550, L501.9985, L506.0400 #### [facility] [address] [place], [address] TIBC 276 ug/dL Normal 250-450 [facility] Comment on above: Performed By: #### L 501.9520, L500.4100, L500.4050, L503.6030, L100.0100, L503.6550, L501.9985, L506.0400 #### [facility] [address] [place], [address] UIBC 147 ug/dL Low 228-428 [facility] Comment on above: Performed By: #### L 501.9520, L500.4100, L500.4050, L503.6030, L100.0100, L503.6550, L501.9985, L506.0400 #### [facility] [address] [place], [address] LDL calc ser/plasOrdered By: Michelle Goldberg on 11-29-2024 Cholesterol in LDL [Mass/Vol] 92 mg/dL [facility] Comment on above: Feamhhyxrp=134-637 m g/dL & Higher Dymw=977 mg/dL or greater LDL Cholesterol, Calculated 92 mg/dL [facility] Comment on above: Jottkvxlgp=193-626 m g/dL & Higher Epge=524 mg/dL or greater Laboratory - Chemistry and C hemistry - challengeOrdered By: Michelle Goldberg on 11-29-2024 AST [Catalytic activity/Vol] 21 U/L <32 [facility] Lipid Profileon 11-29-2024 CHOL:HDL 3.26 Normal [facility] Comment on above: Performed By: #### L 501.9520, L500.4100, L500.4050, L503.6030, L100.0100, L503.6550, L501.9985, L506.0400 #### [facility] [address] [place], [address] Cholesterol [Mass/Vol] 152 mg/dL Normal <=200 [facility] Comment on above: Result Comment: Chol esterol level, Desirable <200 mg/dL Borderline high cholesterol 200-239 mg/dL High cholesterol >=240 mg/dL Recommendations of the NCEP Adult Treatment Panel for the following risk-cutoff thresholds for the [place] population. Performed By: #### L 501.9520, L500.4100, L500.4050, L503.6030, L100.0100, L503.6550, L501.9985, L506.0400 #### [facility] [address] [place], [address] Cholesterol in HDL [Mass/Vol] 47 mg/dL Normal [facility] Comment on above: Result Comment: Sharon onal Cholesterol Education Program (NCEP) guidelines: <40 mg/dL: Low HDL-cholesterol (major risk factor for CHD) >= 60 mg/dL: High HDL-cholesterol (negative risk factor for CHD) HDL-cholesterol is affected by a number of factors, e.g. smoking, exercise, hormones, sex and age. Performed By: #### L 501.9520, L500.4100, L500.4050, L503.6030, L100.0100, L503.6550, L501.9985, L506.0400 #### [facility] [address] [place], [address] Cholesterol in LDL [Mass/Vol] 92 mg/dL Normal [facility] Comment on above: Result Comment: Bord mclxyl=590-720 mg/dL Higher Yfiu=303 mg/dL or greater Performed By: #### L 501.9520, L500.4100, L500.4050, L503.6030, L100.0100, L503.6550, L501.9985, L506.0400 #### [facility] [address] [place], [address] Cholesterol in VLDL [Mass/Vol] 13 mg/dL Normal 5-40 [facility] Comment on above: Performed By: #### L 501.9520, L500.4100, L500.4050, L503.6030, L100.0100, L503.6550, L501.9985, L506.0400 #### [facility] [address] [place], [address] Triglyceride [Mass/Vol] 66 mg/dL Normal [facility] Comment on above: Result Comment: The drugs N-Acetylcysteine and Metamizole may falsely depress this assay. Normal range: <150 mg/dL Borderline High: 150-199 mg/dL High: 200-499 mg/dL Very High: >500 mg/dL Performed By: #### L 501.9520, L500.4100, L500.4050, L503.6030, L100.0100, L503.6550, L501.9985, L506.0400 #### [facility] [address] [place], [address] Lymphocytes Auto (Unsp spec) [#/Vol]Ordered By: Michelle Goldberg on 11-29-2024 Lymphocytes (Bld) [#/Vol] 1.60 10*3/uL 0.83-4.5 1 [facility] Lymphocytes/100 WBC Auto (Un sp spec)Ordered By: Michelle Goldberg on 11-29-2024 Lymphocytes/100 WBC (Bld) 22.8 % 19-41 [facility] MCV (mean corpuscular volume ) determinationOrdered By: Michelle Goldberg on 11-29-2024 MCV (RBC) [Entitic vol] 91.9 fL 81-99 [facility] Mean corpuscular hemoglobin (MCH) determinationOrdered By: Michelle Goldberg on 11-29-2024 MCH (RBC) [Entitic mass] 31.0 pg 27.0-32.0 [facility] Mean corpuscular hemoglobin concentration (MCHC) determinationOrdered By: Michelle Goldberg on 11-29-2024 MCHC (RBC) [Mass/Vol] 33.7 g/dL 32-[address] [facility] Mean platelet volume determi nationOrdered By: Michelle Goldberg on 11-29-2024 Platelet mean volume (Bld) [Entitic vol] 11.2 fL 6.2-12.0 [facility] Monocyte percentageOrdered B y: Michelle Goldberg on 11-29-2024 Monocytes/100 WBC (Bld) 10.4 % High 0-10 [facility] Neutrophil percentageOrdered By: Michelle Goldberg on 11-29-2024 Neutrophils/100 WBC (Bld) 62.2 % 47-70 [facility] No Panel InformationOrdered By: Michelle Goldberg on 11-29-2024 Unsaturated Iron Binding Capacity 147 ug/dL Low 228-428 [facility] Nucleated red blood cell per centageOrdered By: Michelle Goldberg on 11-29-2024 Nucleated RBC/100 WBC (Bld) [Ratio] 0 % 0-5 [facility] Platelet countOrdered By: Reji Goldberg on 11-29-2024 Platelets (Bld) [#/Vol] 266 10*3/uL 150-450 [facility] RBC Auto (Bld) [#/Vol]Ordere d By: Michelle Goldberg on 11-29-2024 RBC (Bld) [#/Vol] 4.58 10*6/uL 4.2-5.4 [facility] Scoliosis 1 viewon Scoliosis 1 view [facility] Imaging Services [address] [id number] Scoliosis 1 view MR#: [id number] Acct: [id number] Name: SUZIE ALEXANDRE Rep #: [id number] : 1990 F 34 From: Latia Larson MD PCP: Michelle Goldberg DO Status: REG CLI Study: Scoliosis 1 view Date of Exam: 11/29/24 Exam# [id number] Ordering Dr: Michelle Goldberg [facility] D O PROCEDURE: SCOLIOSIS 1 VIEW REASON FOR EXAM: Scoliosis TECHNIQUE: Standing AP view(s) of the thoracic and lumbar spine. COMPARISON: None. FINDINGS: S shaped curvature of the thoracic and lumbar spine, with 9.4 degrees of rightward curvature of the lower thoracic spine and 15.4 degrees leftward curvature of the lumbar spine. Imaged lungs are clear. Cardiomediastinal silhouette is normal. RAD/Scoliosis 1 view IMPRESSION: S SHAPED CURVATURE OF THE THORACIC AND LUMBAR SPINE. Reading Location: [id number] CC: Michelle Goldberg DO Magnetic Resonance Imaging Director: Signed Normal [facility] Screening total cholesterol/ high density lipoprotein (HDL) cholesterol ratioOrdered By: Michelle Goldberg on 11-29-2024 Cholesterol.total/Cholest sandra in HDL [Mass ratio] 3.26 {ratio} [facility] Serum creatinine measurement (mass/volume)Ordered By: Michelle Goldberg on 11-29-2024 Creatinine [Mass/Vol] 0.75 mg/dL 0.70-1.[address] [facility] Serum globulin measurementOr dered By: Michelle Goldberg on 11-29-2024 Globulin (S) [Mass/Vol] 2.8 g/dL 2.2-4.2 [facility] Serum glucose measurement (m ass/volume)Ordered By: Michelle Goldberg on 11-29-2024 Glucose [Mass/Vol] 79 mg/dL 70-99 [facility] Serum or plasma alanine hanks otransferase (ALT) measurementOrdered By: Michelle Goldberg on 11-29-2024 ALT [Catalytic activity/Vol] 15 U/L <35 [facility] Serum or plasma albumin delmi urement (mass/volume)Ordered By: Michelle Goldberg on 11-29-2024 Albumin [Mass/Vol] 4.4 g/dL 3.5-5.0 [facility] Serum or plasma albumin/glob ulin mass ratioOrdered By: Michelle Goldberg on 11-29-2024 Albumin/Globulin [Mass ratio] 1.6 {ratio} 0.9-2.4 [facility] Serum or plasma alkaline stepan sphatase measurementOrdered By: Michelle Goldberg on 11-29-2024 ALP [Catalytic activity/Vol] 92 U/L 35-104 [facility] Serum or plasma anion gap de termination (moles/volume)Ordered By: Michelle Goldberg on 11-29-2024 Anion gap [Moles/Vol] 12 mmol/L 5-[address] [facility] Serum or plasma calcium delmi urement (mass/volume)Ordered By: Michelle Goldberg on 11-29-2024 Calcium [Mass/Vol] 9.5 mg/dL 7.6-11.0 [facility] Serum or plasma cholesterol in HDL measurement (mass/volume)Ordered By: Michelle Goldberg on 11-29-2024 Cholesterol in HDL [Mass/Vol] 47 mg/dL >40 [facility] Comment on above: National Cholesterol Education Program (NCEP) guidelines:<40 mg/dL: Low HDL-cholesterol (major risk factor for CHD)>= 60 mg/dL: High HDL-cholesterol (negative risk factor for CHD)HDL-cholesterol is affected by a number of factors, e.g. smoking, exercise, hormones, sex and age. Serum or plasma cholesterol measurement (mass/volume)Ordered By: Michelle Goldberg on 11-29-2024 Cholesterol [Mass/Vol] 152 mg/dL <201 [facility] Comment on above: Cholesterol level, D esirable <200 mg/dLBorderline high cholesterol 200-239 mg/dLHigh cholesterol >=240 mg/dLRecommendations of the NCEP Adult Treatment Panel for the following risk-cutoff thresholds for the [place] population. Serum or plasma ferritin terry surement (mass/volume)Ordered By: Michelle Goldberg on 11-29-2024 Ferritin [Mass/Vol] 57 ng/mL 22-378 [facility] Serum or plasma iron saturat ion measurement (mass fraction)Ordered By: Michelle Goldberg on 11-29-2024 Iron saturation [Mass fraction] 47.0 % 15.0-55.0 [facility] Serum or plasma potassium me asurementOrdered By: Michelle Goldberg on 11-29-2024 Potassium [Moles/Vol] 4.1 mmol/L 3.3-5.[address] [facility] Serum or plasma sodium measu rement (moles/volume)Ordered By: Michelle Goldberg on 11-29-2024 Sodium [Moles/Vol] 138 mmol/L 133-145 [facility] Serum or plasma urea nitroge n measurement (mass/volume)Ordered By: Michelle Goldberg on 11-29-2024 Urea nitrogen [Mass/Vol] 9 mg/dL 4-19 [facility] T4 Free Directon 11-29-2024 T4 FREE DIRECT 1.20 ng/dL Normal 0.76-1.46 [facility] Comment on above: Performed By: #### L [id number], L500.4100, L500.4050, L503.6030, L100.0100, L503.6550, L501.9985, L506.0400 #### [facility] [address] [place], [address] T4 freeOrdered By: Michelle coronado on 11-29-2024 Free T4 [Mass/Vol] 1.20 ng/dL 0.76-1.46 [facility] TSH DL <= 0.005 mIU/L QnOrde red By: Michelle Goldberg on 11-29-2024 Thyroid Stimulating Hormone (TSH) 0.482 uIU/mL 0.300-4.200 [facility] TSH Qn 0.482 uIU/mL 0.300-4.200 [facility] Thyroid Stim Hormone (TSH)on 11-29-2024 TSH 0.482 uIU/mL Normal 0.300-4.200 [facility] Comment on above: Performed By: #### L [id number], L500.4100, L500.4050, L503.6030, L100.0100, L503.6550, L501.9985, L506.0400 #### [facility] [address] [place], [address] Total proteinOrdered By: Albina Goldberg on 11-29-2024 Protein [Mass/Vol] 7.2 g/dL 5.9-8.4 [facility] Triglycerides measurementOrd ered By: Michelle Goldberg on 11-29-2024 Triglyceride [Mass/Vol] 66 mg/dL <199 [facility] Comment on above: The drugs N-Acetylcy steine and Metamizole may falsely depress this assay. 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 Symptoms are staying the same. Associated symptoms includes facial pain/pressure and dyspnea. Denies nausea, vomiting , and diarrhea. Treatments tried include nothing so far. with no relief of symptoms. Sick contacts: unknown. History of asthma, frequent episodes of bronchitis, chronic bronchitis, bronchiectasis or COPD: No Smoker: yes Seasonal/environmental allergies: No The ROS is otherwise negative. The patient's pmh, medications, allergies, and past visits are reviewed. PHYSICAL EXAM: BP 122/76 Pulse 105 Temp 36.6 ?C (97.8 ?F) Resp 18 Wt 69.8 kg (153 lb 14.1 oz) LMP 09/26/2015 (LMP Unknown) SpO2 96% BMI 25.22 kg/m? General appearance: alert, cooperative, pleasant, in no acute distress Head: Normocephalic Eyes: EOM's intact, conjunctiva pink and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 Comment on above: Performed By: #### C MP, ADIFF, ANEU, CBC, 125VTD, HFP, MISC, GFR, TSH, A1C, LIPID #### [address] [address] #### FOL, PROL, B12, T4, T3 #### [address] [address] B12on 01-03-2023 Cobalamin (Vitamin B12) [Mass/Vol] 644 pg/mL Normal 211-911 [facility] ([place] Comment on above: Performed By: #### C MP, ADIFF, ANEU, CBC, 125VTD, HFP, MISC, GFR, TSH, A1C, LIPID #### [address] [address] #### FOL, PROL, B12, T4, T3 #### [address] [address] CBCon 01-03-2023 Erythrocyte distribution width (RBC) [Ratio] 16.0 % High 11.5-14.5 [facility] ([place] Comment on above: Performed By: #### C MP, ADIFF, ANEU, CBC, 125VTD, HFP, MISC, GFR, TSH, A1C, LIPID #### [address] [address] #### FOL, PROL, B12, T4, T3 #### [address] [address] Hematocrit (Bld) [Volume fraction] 36.7 % Low 37.0-47.0 [facility] ([place] Comment on above: Performed By: #### C MP, ADIFF, ANEU, CBC, 125VTD, HFP, MISC, GFR, TSH, A1C, LIPID #### [address] [address] #### FOL, PROL, B12, T4, T3 #### [address] [address] Hgb 12.2 G/dL Normal 12.0-16.0 [facility] ([place] Comment on above: Performed By: #### C MP, ADIFF, ANEU, CBC, 125VTD, HFP, MISC, GFR, TSH, A1C, LIPID #### [address] [address] #### FOL, PROL, B12, T4, T3 #### [place] [address] MCH (RBC) [Entitic mass] 27.4 pg Normal 27.0-31.2 [facility] ([place] Comment on above: Performed By: #### C MP, ADIFF, ANEU, CBC, 125VTD, HFP, MISC, GFR, TSH, A1C, LIPID #### [place] [id number] #### FOL, PROL, B12, T4, T3 #### [place] [address] MCHC 33.4 G/dL Normal 33.0-37.0 [facility] ([place] Comment on above: Performed By: #### C MP, ADIFF, ANEU, CBC, 125VTD, HFP, MISC, GFR, TSH, A1C, LIPID #### [place] [address] #### FOL, PROL, B12, T4, T3 #### [place] [address] MCV (RBC) [Entitic vol] 82.2 fL Normal 80.0-94.0 A [facility] ([place] Comment on above: Performed By: #### C MP, ADIFF, ANEU, CBC, 125VTD, HFP, MISC, GFR, TSH, A1C, LIPID #### [place] [address] #### FOL, PROL, B12, T4, T3 #### [place] [address] Platelet 259 10 3/mcL Normal 130-400 [facility] ([place] Comment on above: Performed By: #### C MP, ADIFF, ANEU, CBC, 125VTD, HFP, MISC, GFR, TSH, A1C, LIPID #### [place] [id number] #### FOL, PROL, B12, T4, T3 #### [place] [address] Platelet mean volume (Bld) [Entitic vol] 8.7 fL Normal 7.4-10.4 [facility] ([place] Comment on above: Performed By: #### C MP, ADIFF, ANEU, CBC, 125VTD, HFP, MISC, GFR, TSH, A1C, LIPID #### [address] [address] #### FOL, PROL, B12, T4, T3 #### [place] [address] RBC 4.46 10 6/mcL Normal 4.20-5.40 [facility] ([place] Comment on above: Performed By: #### C MP, ADIFF, ANEU, CBC, 125VTD, HFP, MISC, GFR, TSH, A1C, LIPID #### [place] [address] #### FOL, PROL, B12, T4, T3 #### [place] [address] WBC 6.6 10 3/mcL Normal 4.6-10.8 [facility] ([place] Comment on above: Performed By: #### C MP, ADIFF, ANEU, CBC, 125VTD, HFP, MISC, GFR, TSH, A1C, LIPID #### [place] [id number] #### FOL, PROL, B12, T4, T3 #### [place] [address] CMPon 01-03-2023 Albumin Level 3.9 G/dL Normal 3.5-5.0 [facility] ([place] Comment on above: Performed By: #### C MP, ADIFF, ANEU, CBC, 125VTD, HFP, MISC, GFR, TSH, A1C, LIPID #### [place] [address] #### FOL, PROL, B12, T4, T3 #### [place] [address] Albumin/Globulin [Mass ratio] 1.3 {ratio} Normal 1.1-2.5 [facility] ([place] Comment on above: Performed By: #### C MP, ADIFF, ANEU, CBC, 125VTD, HFP, MISC, GFR, TSH, A1C, LIPID #### [address] [address] #### FOL, PROL, B12, T4, T3 #### [address] [address] ALP [Catalytic activity/Vol] 87 U/L Normal 40-135 [facility] ([place] Comment on above: Performed By: #### C MP, ADIFF, ANEU, CBC, 125VTD, HFP, MISC, GFR, TSH, A1C, LIPID #### [address] [address] #### FOL, PROL, B12, T4, T3 #### [address] [address] ALT [Catalytic activity/Vol] 26 U/L Normal 14-59 [facility] ([place] Comment on above: Performed By: #### C MP, ADIFF, ANEU, CBC, 125VTD, HFP, MISC, GFR, TSH, A1C, LIPID #### [address] [address] #### FOL, PROL, B12, T4, T3 #### [address] [address] AST [Catalytic activity/Vol] 18 U/L Normal 10-40 [facility] ([place] Comment on above: Performed By: #### C MP, ADIFF, ANEU, CBC, 125VTD, HFP, MISC, GFR, TSH, A1C, LIPID #### [address] [address] #### FOL, PROL, B12, T4, T3 #### [place] [id number] Bili Total 0.2 mg/dL Normal 0.2-1.0 [facility] ([place] Comment on above: Result Comment: Use of this assay is not recommended for patients undergoing treatment with eltrombopag due to the potential for falsely elevated results. Performed By: #### C MP, ADIFF, ANEU, CBC, 125VTD, HFP, MISC, GFR, TSH, A1C, LIPID #### [address] [address] #### FOL, PROL, B12, T4, T3 #### [address] [address] BUN/Creatinine Ratio 16 ratio Normal 7-27 [facility] ([place] Comment on above: Performed By: #### C MP, ADIFF, ANEU, CBC, 125VTD, HFP, MISC, GFR, TSH, A1C, LIPID #### [address] [address] #### FOL, PROL, B12, T4, T3 #### [address] [address] Calcium [Mass/Vol] 8.8 mg/dL Normal 8.4-10.2 [facility] ([place] Comment on above: Performed By: #### C MP, ADIFF, ANEU, CBC, 125VTD, HFP, MISC, GFR, TSH, A1C, LIPID #### [address] [address] #### FOL, PROL, B12, T4, T3 #### [address] [address] Chloride [Moles/Vol] 104 mmol/L Normal 98-107 [facility] ([place] Comment on above: Performed By: #### C MP, ADIFF, ANEU, CBC, 125VTD, HFP, MISC, GFR, TSH, A1C, LIPID #### [address] [address] #### FOL, PROL, B12, T4, T3 #### [address] [address] CO2 [Moles/Vol] 26 mmol/L Normal 22-29 [facility] ([place] Comment on above: Performed By: #### C MP, ADIFF, ANEU, CBC, 125VTD, HFP, MISC, GFR, TSH, A1C, LIPID #### [address] [address] #### FOL, PROL, B12, T4, T3 #### [address] [address] Creatinine [Mass/Vol] 0.58 mg/dL Normal 0.55-1.02 [facility] ([place] Comment on above: Performed By: #### C MP, ADIFF, ANEU, CBC, 125VTD, HFP, MISC, GFR, TSH, A1C, LIPID #### [address] [address] #### FOL, PROL, B12, T4, T3 #### [address] [address] Electrolyte Balance 10.0 mEq/L Normal 4.0-15.0 [facility] [place] Comment on above: Performed By: #### C MP, ADIFF, ANEU, CBC, 125VTD, HFP, MISC, GFR, TSH, A1C, LIPID #### [address] [address] #### FOL, PROL, B12, T4, T3 #### [address] [address] Globulin 3.0 G/dL Normal [facility] ([place] Comment on above: Performed By: #### C MP, ADIFF, ANEU, CBC, 125VTD, HFP, MISC, GFR, TSH, A1C, LIPID #### [address] [address] #### FOL, PROL, B12, T4, T3 #### [address] [address] Glucose [Mass/Vol] 79 mg/dL Normal 70-105 [facility] ([place] Comment on above: Performed By: #### C MP, ADIFF, ANEU, CBC, 125VTD, HFP, MISC, GFR, TSH, A1C, LIPID #### [address] [address] #### FOL, PROL, B12, T4, T3 #### [address] [address] Potassium [Moles/Vol] 4.5 mmol/L Normal 3.5-5.1 [facility] ([place] Comment on above: Performed By: #### C MP, ADIFF, ANEU, CBC, 125VTD, HFP, MISC, GFR, TSH, A1C, LIPID #### [address] [address] #### FOL, PROL, B12, T4, T3 #### [address] [address] Sodium [Moles/Vol] 140 mmol/L Normal 136-145 [facility] ([place] Comment on above: Performed By: #### C MP, ADIFF, ANEU, CBC, 125VTD, HFP, MISC, GFR, TSH, A1C, LIPID #### [address] [address] #### FOL, PROL, B12, T4, T3 #### [address] [address] Total Protein 6.9 G/dL Normal 6.4-8.2 [facility] ([place] Comment on above: Performed By: #### C MP, ADIFF, ANEU, CBC, 125VTD, HFP, MISC, GFR, TSH, A1C, LIPID #### [address] [address] #### FOL, PROL, B12, T4, T3 #### [address] [address] Urea nitrogen [Mass/Vol] 9 mg/dL Normal 7-18 [facility] ([place] Comment on above: Performed By: #### C MP, ADIFF, ANEU, CBC, 125VTD, HFP, MISC, GFR, TSH, A1C, LIPID #### [address] [address] #### FOL, PROL, B12, T4, T3 #### [address] [address] FOLon 01-03-2023 Folate 9.27 ng/mL Normal 5.38-24.00 [facility] ([place] Comment on above: Performed By: #### C MP, ADIFF, ANEU, CBC, 125VTD, HFP, MISC, GFR, TSH, A1C, LIPID #### [address] [address] #### FOL, PROL, B12, T4, T3 #### [place] [address] HFPon 01-03-2023 Bili Indirect Unable to Calculate Normal [facility] ([place] Comment on above: Result Comment: Unab le to calculate this test result accurately. Results used to calculate this test are outside the reportable range. Performed By: #### C MP, ADIFF, ANEU, CBC, 125VTD, HFP, MISC, GFR, TSH, A1C, LIPID #### [address] [address] #### FOL, PROL, B12, T4, T3 #### [place] [address] Bili Direct <0.1 Normal 0.0-0.2 [facility] ([place] Comment on above: Result Comment: Use of this assay is not recommended for patients undergoing treatment with eltrombopag due to the potential for falsely elevated results. Performed By: #### C MP, ADIFF, ANEU, CBC, 125VTD, HFP, MISC, GFR, TSH, A1C, LIPID #### [place] [address] #### FOL, PROL, B12, T4, T3 #### [place] [address] LABORATORYOrdered By: Sy Banks on 01-03-2023 Basophil, Absolute 0.1 103/mcL Invalid Interpretation Code 0.0 - 0.2 10^3/mcL AO Workflow SS Basophils/100 WBC (Bld) 0.9 % Invalid Interpretation Code 0.0 - 2.5 % AO Workflow SS Eosinophil, Absolute 0.2 103/mcL Invalid Interpretation Code 0.0 - 0.4 10^3/mcL AO Workflow SS Eosinophils/100 WBC (Bld) 2.5 % Invali d Interpretation Code 0.0 - 7.0 % AO Workflow SS Erythrocyte distribution width (RBC) [Ratio] 16.0 % Invalid Interpretation Code 11.5 - 14.5 % AO Workflow SS Hematocrit (Bld) [Volume fraction] 36.7 % Invalid Interpretation Code 37.0 - 47.0 % AO Workflow SS Hemoglobin (Bld) [Mass/Vol] 12.2 G/dL Invalid Interpretation Code 12.0 - 16.0 G/dL AO Workflow SS Lymphocyte, Absolute 1.8 103/mcL Invalid Interpretation Code 0.8 - 3.9 10^3/mcL AO Workflow SS Lymphocytes/100 WBC (Bld) 28.0 % Invali d Interpretation Code 10.0 - 50.0 % AO Workflow SS MCH (RBC) [Entitic mass] 27.4 pg Invalid Interpretation Code 27.0 - 31.2 pg AO Workflow SS MCHC 33.4 G/dL Invalid Interpretation Code 33.0 - 37.0 G/dL AO Workflow SS MCV (RBC) [Entitic vol] 82.2 fL Invalid Interpretation Code 80.0 - 94.0 fL AO Workflow SS Monocyte, Absolute 0.6 103/mcL Invalid Interpretation Code 0.2 - 1.0 10^3/mcL AO Workflow SS Monocytes/100 WBC (Bld) 8.4 % Invalid Interpretation Code 1.7 - 13.0 % AO Workflow SS Neutrophil, Absolute 3.9 103/mcL Invalid Interpretation Code 2.9 - 6.2 10^3/mcL AO Workflow SS Neutrophils/100 WBC (Bld) 60.2 % Invali d Interpretation Code 37.0 - 80.0 % AO Workflow SS Platelet mean volume (Bld) [Entitic vol] 8.7 fL Invalid Interpretation Code 7.4 - 10.4 fL AO Workflow SS Platelets (Bld) [#/Vol] 259 103/mcL Invalid Interpretation Code 130 - 400 10^3/mcL AO Workflow SS RBC (Bld) [#/Vol] 4.46 106/mcL Invalid Interpretation Code 4.20 - 5.40 10^6/mcL AO Workflow SS WBC (Bld) [#/Vol] 6.6 103/mcL Invalid Interpretation Code 4.6 - 10.8 10^3/mcL AO Workflow SS LABORATORYOrdered By: SYSTEM SYSTEM on 01-03-2023 Bili Indirect Unable to Calculate Invalid Interpretation Code AO Chemistry S Comment on above: Result Comment: Unab le to calculate this test result accurately. Results used to calculate this test are outside the reportable range. Bilirubin.direct [Mass/Vol] mg/dL Invalid Interpretation Code 0.0 - 0.2 mg/dL AO ADM SS Calcium [Mass/Vol] 8.8 mg/dL Invalid Interpretation Code 8.4 - 10.2 mg/dL AO ADM SS Chloride [Moles/Vol] 104 mmol/L Invalid Interpretation Code 98 - 107 mmol/L AO ADM SS CO2 [Moles/Vol] 26 mmol/L Invalid Interpretation Code 22 - 29 mmol/L AO ADM SS Cobalamin (Vitamin B12) [Mass/Vol] 644 pg/mL Invalid Interpretation Code 211 - 911 pg/mL AH ADM SS Creatinine [Mass/Vol] 0.58 mg/dL Invalid Interpretation Code 0.55 - 1.02 mg/dL AO ADM SS Electrolyte Balance 10.0 mEq/L Invalid Interpretation Code 4.0 - 15.0 mEq/L AO ADM SS Folate [Mass/Vol] 9.27 ng/mL Invalid Interpretation Code 5.38 - 24.00 ng/mL AH ADM SS GFR 144 ml/min/1.73sqm Invalid Interpretation Code AO Chemistry S GFR Non- 119 ml/min/1.73sqm Inva lid Interpretation Code AO Chemistry S Glucose [Mass/Vol] 79 mg/dL Invalid Interpretation Code 70 - 105 mg/dL AO ADM SS HbA1c (Bld) [Mass fraction] 5.0 % Invalid Interpretation Code 4.3 - 6.4 % AO ADM SS Potassium [Moles/Vol] 4.5 mmol/L Invalid Interpretation Code 3.5 - 5.1 mmol/L AO ADM SS Prolactin [Mass/Vol] 9.2 ng/mL Invalid Interpretation Code 2.0 - 30.0 ng/mL AH ADM SS Sodium [Moles/Vol] 140 mmol/L Invalid Interpretation Code 136 - 145 mmol/L AO ADM SS T3 [Mass/Vol] 164 ng/dL Invalid Interpretation Code 60 - 181 ng/dL AH ADM SS T4 [Mass/Vol] 10.6 ug/dL Invalid Interpretation Code 4.5 - 10.9 mcg/dL AH ADM SS Urea nitrogen [Mass/Vol] 9 mg/dL Invalid Interpretation Code 7 - 18 mg/dL AO ADM SS Urea nitrogen/Creatinine [Mass ratio] 16 ratio Invalid Interpretation Code 7 - 27 ratio AO ADM SS LABORATORYOrdered By: Tammi Russo on 01-03-2023 Cholesterol [Mass/Vol] 154 mg/dL Invalid Interpretation Code 0 - 200 mg/dL AO ADM SS Cholesterol in HDL [Mass/Vol] 50 mg/dL Invalid Interpretation Code 40 - 60 mg/dL AO ADM SS Cholesterol in LDL [Mass/Vol] 87 mg/dL Invalid Interpretation Code 0 - 130 mg/dL AO ADM SS Triglyceride [Mass/Vol] 85 mg/dL Invalid Interpretation Code 0 - 150 mg/dL AO ADM SS LIPIDon 01-03-2023 Cholesterol [Mass/Vol] 154 mg/dL Normal 0-200 [facility] ([place] Comment on above: Result Comment: Chol esterol Reference Interval: Less than 200 Desirable 200-239 Borderline high risk 240 and above High risk Performed By: #### C MP, ADIFF, ANEU, CBC, 125VTD, HFP, MISC, GFR, TSH, A1C, LIPID #### [address] [address] #### FOL, PROL, B12, T4, T3 #### [address] [address] Cholesterol in HDL [Mass/Vol] 50 mg/dL Normal 40-60 [facility] ([place] Comment on above: Performed By: #### C MP, ADIFF, ANEU, CBC, 125VTD, HFP, MISC, GFR, TSH, A1C, LIPID #### [address] [address] #### FOL, PROL, B12, T4, T3 #### [address] [address] Cholesterol in LDL [Mass/Vol] 87 mg/dL Normal 0-130 [facility] ([place] Comment on above: Performed By: #### C MP, ADIFF, ANEU, CBC, 125VTD, HFP, MISC, GFR, TSH, A1C, LIPID #### [address] [address] #### FOL, PROL, B12, T4, T3 #### [address] [address] Triglyceride [Mass/Vol] 85 mg/dL Normal 0-150 [facility] ([place] Comment on above: Result Comment: Trig lyceride Reference Interval: Less than 150 Normal 150-199 Borderline high risk 200-499 High risk 500 or higher Very high risk Performed By: #### C MP, ADIFF, ANEU, CBC, 125VTD, HFP, MISC, GFR, TSH, A1C, LIPID #### [address] [address] #### FOL, PROL, B12, T4, T3 #### [address] [address] Laboratory - Chemistry and C hemistry - challengeOrdered By: SYSTEM SYSTEM on 01-03-2023 Albumin BCP dye [Mass/Vol] 3.9 G/dL Invalid Interpretation Code 3.5 - 5.0 G/dL AO ADM SS Albumin/Globulin [Mass ratio] 1.3 {ratio} Invalid Interpretation Code 1.1 - 2.5 ratio AO ADM SS ALP [Catalytic activity/Vol] 87 U/L Invalid Interpretation Code 40 - 135 U/L AO ADM SS ALT With P-5'-P [Catalytic activity/Vol] 26 U/L Invalid Interpretation Code 14 - 59 U/L AO ADM SS AST With P-5'-P [Catalytic activity/Vol] 18 U/L Invalid Interpretation Code 10 - 40 U/L AO ADM SS Bilirubin [Mass/Vol] 0.2 mg/dL Invalid Interpretation Code 0.2 - 1.0 mg/dL AO ADM SS Protein [Mass/Vol] 6.9 G/dL Invalid Interpretation Code 6.4 - 8.2 G/dL AO ADM SS No Panel InformationOrdered By: SYSTEM SYSTEM on 01-03-2023 Globulin 3.0 G/dL Invalid Interpretation Code AO ADM SS PROLon 01-03-2023 Prolactin 9.2 ng/mL Normal 2.0-30.0 [facility] Comment on above: Performed By: #### C MP, ADIFF, ANEU, CBC, 125VTD, HFP, MISC, GFR, TSH, A1C, LIPID #### [address] [id number] #### FOL, PROL, B12, T4, T3 #### [address] [id number] T3on 01-03-2023 Total T3 164 ng/dL Normal 60-181 [facility] Comment on above: Performed By: #### C MP, ADIFF, ANEU, CBC, 125VTD, HFP, MISC, GFR, TSH, A1C, LIPID #### [id number] [place], [place] [address] #### FOL, PROL, B12, T4, T3 #### [address] [address] T4on 01-03-2023 T4 [Mass/Vol] 10.6 ug/dL Normal 4.5-10.9 [facility] [place] Comment on above: Result Comment: No te - New Reference Range in effect 20 Performed By: #### C MP, ADIFF, ANEU, CBC, 125VTD, HFP, MISC, GFR, TSH, A1C, LIPID #### [address] [id number] #### FOL, PROL, B12, T4, T3 #### [address] [address] LABORATORYOrdered By: Kena quiroz on 07-18-2022 Glucose [Mass/Vol] 74 mg/dL Invalid Interpretation Code 70 - 110 mg/dL [facility] Work Phone: LABORATORYOrdered By: SYSTEM SYSTEM on 07-18-2022 Basophils (Bld) [#/Vol] 0.0 103/mcL Invalid Interpretation Code 0.0 - 0.3 10^3/mcL [facility] Workflow SS Basophils/100 WBC (Bld) 0.8 % Invalid Interpretation Code 0.0 - 2.5 % [facility] Workflow SS Calcium [Mass/Vol] 8.7 mg/dL Invalid Interpretation Code 8.7 - 10.4 mg/dL ADM SS Chloride [Moles/Vol] 109 mmol/L Invalid Interpretation Code 98 - 110 mEq/L ADM SS CO2 [Moles/Vol] 22 mmol/L Invalid Interpretation Code 22 - 32 mEq/L AH ADM SS Creatinine [Mass/Vol] 0.69 mg/dL Invalid Interpretation Code 0.50 - 1.20 mg/dL AH ADM SS Electrolyte Balance 10.0 mEq/L Invalid Interpretation Code 4.0 - 15.0 mEq/L AH ADM SS Eosinophils (Bld) [#/Vol] 0.2 103/mcL Invali d Interpretation Code 0.0 - 0.7 10^3/mcL AH Workflow SS Eosinophils/100 WBC (Bld) 4.2 % Invali d Interpretation Code 0.0 - 6.0 % Workflow SS Erythrocyte distribution width (RBC) [Ratio] 15.4 % Invalid Interpretation Code 11.5 - 15.5 % Workflow SS GFR/1.73 sq M.predicted among blacks MDRD (S/P/Bld) [Vol rate/Area] ml/min/1.73sqm Invalid Interpretation Code Chemistry S GFR/1.73 sq M.predicted among non-blacks MDRD (S/P/Bld) [Vol rate/Area] ml/min/1.73sqm Invalid Interpretation Code Chemistry S Glucose [Mass/Vol] 58 mg/dL Invalid Interpretation Code 70 - 110 mg/dL ADM SS Hematocrit (Bld) [Volume fraction] 37.1 % Invalid Interpretation Code 34.0 - 46.0 % Workflow SS Hemoglobin (Bld) [Mass/Vol] 12.6 G/dL Invalid Interpretation Code 12.0 - 16.0 G/dL Workflow SS Lymphocytes (Bld) [#/Vol] 1.6 103/mcL Invali d Interpretation Code 0.9 - 4.3 10^3/mcL Workflow SS Lymphocytes/100 WBC (Bld) 32.9 % Invali d Interpretation Code 20.0 - 40.0 % Workflow SS MCH (RBC) [Entitic mass] 29.3 pg Invalid Interpretation Code 27.0 - 33.0 pg AH Workflow SS MCHC 34.0 G/dL Invalid Interpretation Code 32.0 - 36.0 G/dL Workflow SS MCV (RBC) [Entitic vol] 86.4 fL Invalid Interpretation Code 80.0 - 99.0 fL Workflow SS Monocytes (Bld) [#/Vol] 0.4 103/mcL Invalid Interpretation Code 0.1 - 1.4 10^3/mcL Workflow SS Monocytes/100 WBC (Bld) 9.4 % Invalid Interpretation Code 2.0 - 13.0 % Workflow SS Neutrophils (Bld) [#/Vol] 2.5 103/mcL Invali d Interpretation Code 2.3 - 8.1 10^3/mcL AH Workflow SS Neutrophils/100 WBC (Bld) 52.7 % Invali d Interpretation Code 50.0 - 75.0 % Workflow SS Platelet mean volume (Bld) [Entitic vol] 8.5 fL Invalid Interpretation Code 6.6 - 10.5 fL AH Workflow SS Platelets (Bld) [#/Vol] 193 103/mcL Invalid Interpretation Code 150 - 450 10^3/mcL AH Workflow SS Potassium [Moles/Vol] 3.7 mmol/L Invalid Interpretation Code 3.5 - 5.0 mEq/L AH ADM SS RBC (Bld) [#/Vol] 4.30 106/mcL Invalid Interpretation Code 4.10 - 5.30 10^6/mcL AH Workflow SS Sodium [Moles/Vol] 141 mmol/L Invalid Interpretation Code 136 - 145 mEq/L AH ADM SS Urea nitrogen [Mass/Vol] 7.0 mg/dL Invalid Interpretation Code 8.0 - 22.0 mg/dL AH ADM SS Urea nitrogen/Creatinine [Mass ratio] 10.1 ratio Invalid Interpretation Code 10.0 - 22.0 ratio AH ADM SS WBC (Bld) [#/Vol] 4.8 103/mcL Invalid Interpretation Code 4.5 - 10.8 10^3/mcL AH Workflow SS LABORATORYOrdered By: Lovely Luke on 07-17-2022 Appearance (U) Cloudy *ABN* (07/17/22 3:21 PM) Invalid Interpretation Code Clear AO Auto Urine SS Bacteria LM.HPF (Urine sed) [#/Area] 1 /[HPF] Invalid Interpretation Code AO Auto Urine SS Basophil, Absolute 0.0 103/mcL Invalid Interpretation Code 0.0 - 0.2 10^3/mcL AO Workflow SS Basophils/100 WBC (Bld) 0.5 % Invalid Interpretation Code 0.0 - 2.5 % AO Workflow SS Bilirubin Ql (U) Small *ABN* (07/17/22 3:21 PM) Invalid Interpretation Code Negative AO Auto Urine SS Calcium [Mass/Vol] 8.7 mg/dL Invalid Interpretation Code 8.4 - 10.2 mg/dL AO ADM SS Chloride [Moles/Vol] 100 mmol/L Invalid Interpretation Code 98 - 107 mmol/L AO ADM SS CO2 [Moles/Vol] 27 mmol/L Invalid Interpretation Code 22 - 29 mmol/L AO ADM SS Color (U) Yellow (07/17/22 3:21 PM) Invalid Interpretation Code AO Auto Urine SS Creatinine [Mass/Vol] 0.98 mg/dL Invalid Interpretation Code 0.55 - 1.02 mg/dL AO ADM SS Crystals.amorphous LM.HPF (Urine sed) [#/Area] 1 /[HPF] Invalid Interpretation Code AO Auto Urine SS Electrolyte Balance 10.0 mEq/L Invalid Interpretation Code 4.0 - 15.0 mEq/L AO ADM SS Eosinophil, Absolute 0.1 103/mcL Invalid Interpretation Code 0.0 - 0.4 10^3/mcL AO Workflow SS Eosinophils/100 WBC (Bld) 1.2 % Invali d Interpretation Code 0.0 - 7.0 % AO Workflow SS Erythrocyte distribution width (RBC) [Ratio] 15.6 % Invalid Interpretation Code 11.5 - 14.5 % AO Workflow SS Glucose [Mass/Vol] 83 mg/dL Invalid Interpretation Code 70 - 105 mg/dL AO ADM SS Glucose Test strip (U) [Mass/Vol] Negative Invalid Interpretation Code Negativemg/ dL AO Auto Urine SS Hematocrit (Bld) [Volume fraction] 36.7 % Invalid Interpretation Code 37.0 - 47.0 % AO Workflow SS Hemoglobin (Bld) [Mass/Vol] 12.8 G/dL Invalid Interpretation Code 12.0 - 16.0 G/dL AO Workflow SS Hemoglobin Auto test strip (U) [Mass/Vol] Large *ABN* (07/17/22 3:21 PM) Invalid Interpretation Code Negative AO Auto Urine SS Ketones Ql (U) 40 mg/dL Invalid Interpretation Code Negativemg/ dL AO Auto Urine SS Lymphocyte, Absolute 1.0 103/mcL Invalid Interpretation Code 0.8 - 3.9 10^3/mcL AO Workflow SS Lymphocytes/100 WBC (Bld) 10.7 % Invali d Interpretation Code 10.0 - 50.0 % AO Workflow SS MCH (RBC) [Entitic mass] 29.2 pg Invalid Interpretation Code 27.0 - 31.2 pg AO Workflow SS MCHC 35.0 G/dL Invalid Interpretation Code 33.0 - 37.0 G/dL AO Workflow SS MCV (RBC) [Entitic vol] 83.7 fL Invalid Interpretation Code 80.0 - 94.0 fL AO Workflow SS Monocyte distribution width Auto (Bld) [Entitic vol] 17.05 Invalid Interpretation Code 0.00 - 20.00 AO Workflow SS Comment on above: Result Comment: For ED adult patients suspected of sepsis, MDW<=20.0 does not rule out sepsis or risk of sepsis Monocyte, Absolute 0.8 103/mcL Invalid Interpretation Code 0.2 - 1.0 10^3/mcL AO Workflow SS Monocytes/100 WBC (Bld) 8.8 % Invalid Interpretation Code 1.7 - 13.0 % AO Workflow SS Neutrophil, Absolute 7.6 103/mcL Invalid Interpretation Code 2.9 - 6.2 10^3/mcL AO Workflow SS Neutrophils/100 WBC (Bld) 78.8 % Invali d Interpretation Code 37.0 - 80.0 % AO Workflow SS Platelet mean volume (Bld) [Entitic vol] 8.5 fL Invalid Interpretation Code 7.4 - 10.4 fL AO Workflow SS Platelets (Bld) [#/Vol] 216 103/mcL Invalid Interpretation Code 130 - 400 10^3/mcL AO Workflow SS Potassium [Moles/Vol] 4.3 mmol/L Invalid Interpretation Code 3.5 - 5.1 mmol/L AO ADM SS RBC (Bld) [#/Vol] 4.39 106/mcL Invalid Interpretation Code 4.20 - 5.40 10^6/mcL AO Workflow SS Sodium [Moles/Vol] 137 mmol/L Invalid Interpretation Code 136 - 145 mmol/L AO ADM SS UA Leuk Est Trace *ABN* (07/17/22 3:21 PM) Invalid Interpretation Code Negative AO Auto Urine SS UA Mucous 1+ /HPF Invalid Interpretation Code AO Auto Urine SS UA Nitrite Negative (07/17/22 3:21 PM) Invalid Interpretation Code Negative AO Auto Urine SS UA pH 5.5 (07/17/22 3:21 PM) Invalid Interpretation Code 5.0 - 8.0 AO Auto Urine SS UA Protein 100 mg/dL Invalid Interpretation Code Negativemg/ dL AO Auto Urine SS UA RBC LOADED /HPF Invalid Interpretation Code None Seen/HPF AO Auto Urine SS UA Spec Grav 1.025 (07/17/22 3:21 PM) Invalid Interpretation Code 1.015-1.025 AO Auto Urine SS UA Specimen Type Clean Catch (07/17/22 3:21 PM) Invalid Interpretation Code AO Auto Urine SS UA Squam Epithelial LOADED /HPF Invalid Interpretation Code None Seen/HPF AO Auto Urine SS UA Urobilinogen 0.2 E.U./dL Invalid Interpretation Code 0.2-1.0E.U. /dL AO Auto Urine SS Urea nitrogen [Mass/Vol] 14 mg/dL Invalid Interpretation Code 7 - 18 mg/dL AO ADM SS Urea nitrogen/Creatinine [Mass ratio] 14 ratio Invalid Interpretation Code 7 - 27 ratio AO ADM SS WBC (Bld) [#/Vol] 9.6 103/mcL Invalid Interpretation Code 4.6 - 10.8 10^3/mcL AO Workflow SS WBC LM.HPF (Urine sed) [#/Area] 10-15 /HPF Invalid Interpretation Code None Seen/HPF AO Auto Urine SS LABORATORYOrdered By: SYSTEM SYSTEM on 07-17-2022 GFR 79 ml/min/1.73sqm Invalid Interpretation Code AO Chemistry S GFR Non- 65 ml/min/1.73sqm Inval id Interpretation Code AO Chemistry S LABORATORYOrdered By: Vero Schilling on 07-17-2022 Appearance (U) Clear (07/17/22 2:50 AM) Invalid Interpretation Code Clear AH Auto Urine SS Bacteria LM.HPF (Urine sed) [#/Area] Trace /HPF Invalid Interpretation Code Negative/HP F AH Auto Urine SS Bilirubin Ql (U) Negative (07/17/22 2:50 AM) Invalid Interpretation Code Neg-Trace AH Auto Urine SS Color (U) Yellow (07/17/22 2:50 AM) Invalid Interpretation Code AH Auto Urine SS Glucose Test strip (U) [Mass/Vol] Negative Invalid Interpretation Code Negativemg/ dL AH Auto Urine SS Hemoglobin Auto test strip (U) [Mass/Vol] Large *ABN* (07/17/22 2:50 AM) Invalid Interpretation Code Neg-Trace AH Auto Urine SS Ketones Ql (U) 40 mg/dL Invalid Interpretation Code Neg-Tracemg /dL AH Auto Urine SS UA Leuk Est Trace (07/17/22 2:50 AM) Invalid Interpretation Code Negative AH Auto Urine SS UA Mucous Trace /HPF Invalid Interpretation Code AH Auto Urine SS UA Nitrite Negative (07/17/22 2:50 AM) Invalid Interpretation Code Negative AH Auto Urine SS UA pH 6.0 (07/17/22 2:50 AM) Invalid Interpretation Code 5.0 - 8.0 AH Auto Urine SS UA Protein Negative Invalid Interpretation Code Negativemg/ dL AH Auto Urine SS UA RBC 5-10 /HPF Invalid Interpretation Code 0-2/HPF AH Auto Urine SS UA Spec Grav 1.010 (07/17/22 2:50 AM) Invalid Interpretation Code 1.006-1.029 AH Auto Urine SS UA Specimen Type Clean Catch (07/17/22 2:50 AM) Invalid Interpretation Code AH Auto Urine SS UA Squam Epithelial 0-2 /HPF Invalid Interpretation Code 0-20/HPF AH Auto Urine SS UA Urobilinogen 0.2 E.U./dL Invalid Interpretation Code 0.2-1.0E.U. /dL AH Auto Urine SS WBC LM.HPF (Urine sed) [#/Area] 3-5 /HPF Invalid Interpretation Code 0-5/HPF AH Auto Urine SS LABORATORYOrdered By: Lovely Luke on 07-16-2022 Appearance (U) Cloudy *ABN* (07/16/22 7:59 AM) Invalid Interpretation Code Clear AO Auto Urine SS Bacteria LM.HPF (Urine sed) [#/Area] 2 /[HPF] Invalid Interpretation Code AO Auto Urine SS Basophil, Absolute 0.1 103/mcL Invalid Interpretation Code 0.0 - 0.2 10^3/mcL AO Workflow SS Basophils/100 WBC (Bld) 0.5 % Invalid Interpretation Code 0.0 - 2.5 % AO Workflow SS Bilirubin Ql (U) Negative (07/16/22 7:59 AM) Invalid Interpretation Code Negative AO Auto Urine SS Calcium [Mass/Vol] 9.0 mg/dL Invalid Interpretation Code 8.4 - 10.2 mg/dL AO ADM SS Chloride [Moles/Vol] 103 mmol/L Invalid Interpretation Code 98 - 107 mmol/L AO ADM SS CO2 [Moles/Vol] 24 mmol/L Invalid Interpretation Code 22 - 29 mmol/L AO ADM SS Color (U) Yellow (07/16/22 7:59 AM) Invalid Interpretation Code AO Auto Urine SS Creatinine [Mass/Vol] 0.85 mg/dL Invalid Interpretation Code 0.55 - 1.02 mg/dL AO ADM SS Electrolyte Balance 10.0 mEq/L Invalid Interpretation Code 4.0 - 15.0 mEq/L AO ADM SS Eosinophil, Absolute 0.1 103/mcL Invalid Interpretation Code 0.0 - 0.4 10^3/mcL AO Workflow SS Eosinophils/100 WBC (Bld) 0.8 % Invali d Interpretation Code 0.0 - 7.0 % AO Workflow SS Erythrocyte distribution width (RBC) [Ratio] 15.5 % Invalid Interpretation Code 11.5 - 14.5 % AO Workflow SS Glucose [Mass/Vol] 105 mg/dL Invalid Interpretation Code 70 - 105 mg/dL AO ADM SS Glucose Test strip (U) [Mass/Vol] Negative Invalid Interpretation Code Negativemg/ dL AO Auto Urine SS HCG ( test) Ql Negative (07/16/22 7:59 AM) Invalid Interpretation Code AO Manual Urine SS Hematocrit (Bld) [Volume fraction] 39.9 % Invalid Interpretation Code 37.0 - 47.0 % AO Workflow SS Hemoglobin (Bld) [Mass/Vol] 13.9 G/dL Invalid Interpretation Code 12.0 - 16.0 G/dL AO Workflow SS Hemoglobin Auto test strip (U) [Mass/Vol] Small *ABN* (07/16/22 7:59 AM) Invalid Interpretation Code Negative AO Auto Urine SS Ketones Ql (U) Negative Invalid Interpretation Code Negativemg/ dL AO Auto Urine SS Lymphocyte, Absolute 1.0 103/mcL Invalid Interpretation Code 0.8 - 3.9 10^3/mcL AO Workflow SS Lymphocytes/100 WBC (Bld) 8.6 % Invali d Interpretation Code 10.0 - 50.0 % AO Workflow SS MCH (RBC) [Entitic mass] 29.1 pg Invalid Interpretation Code 27.0 - 31.2 pg AO Workflow SS MCHC 34.8 G/dL Invalid Interpretation Code 33.0 - 37.0 G/dL AO Workflow SS MCV (RBC) [Entitic vol] 83.6 fL Invalid Interpretation Code 80.0 - 94.0 fL AO Workflow SS Monocyte distribution width Auto (Bld) [Entitic vol] 17.08 Invalid Interpretation Code 0.00 - 20.00 AO Workflow SS Comment on above: Result Comment: For ED adult patients suspected of sepsis, MDW<=20.0 does not rule out sepsis or risk of sepsis Monocyte, Absolute 0.7 103/mcL Invalid Interpretation Code 0.2 - 1.0 10^3/mcL AO Workflow SS Monocytes/100 WBC (Bld) 5.6 % Invalid Interpretation Code 1.7 - 13.0 % AO Workflow SS Neutrophil, Absolute 10.0 103/mcL Invalid Interpretation Code 2.9 - 6.2 10^3/mcL AO Workflow SS Neutrophils/100 WBC (Bld) 84.5 % Invali d Interpretation Code 37.0 - 80.0 % AO Workflow SS Platelet mean volume (Bld) [Entitic vol] 8.5 fL Invalid Interpretation Code 7.4 - 10.4 fL AO Workflow SS Platelets (Bld) [#/Vol] 270 103/mcL Invalid Interpretation Code 130 - 400 10^3/mcL AO Workflow SS Potassium [Moles/Vol] 4.8 mmol/L Invalid Interpretation Code 3.5 - 5.1 mmol/L AO ADM SS test (u) int Not detected Invalid Interpretation Code AO Manual Urine SS RBC (Bld) [#/Vol] 4.78 106/mcL Invalid Interpretation Code 4.20 - 5.40 10^6/mcL AO Workflow SS Sodium [Moles/Vol] 137 mmol/L Invalid Interpretation Code 136 - 145 mmol/L AO ADM SS UA Leuk Est Small *ABN* (07/16/22 7:59 AM) Invalid Interpretation Code Negative AO Auto Urine SS UA Mucous 1+ /HPF Invalid Interpretation Code AO Auto Urine SS UA Nitrite Negative (07/16/22 7:59 AM) Invalid Interpretation Code Negative AO Auto Urine SS UA pH 6.0 (07/16/22 7:59 AM) Invalid Interpretation Code 5.0 - 8.0 AO Auto Urine SS UA Protein Negative Invalid Interpretation Code Negativemg/ dL AO Auto Urine SS UA RBC 15-25 /HPF Invalid Interpretation Code None Seen/HPF AO Auto Urine SS UA Spec Grav >=1.030 *ABN* (07/16/22 7:59 AM) Invalid Interpretation Code 1.015-1.025 AO Auto Urine SS UA Specimen Type Void (07/16/22 7:59 AM) Invalid Interpretation Code AO Auto Urine SS UA Squam Epithelial LOADED /HPF Invalid Interpretation Code None Seen/HPF AO Auto Urine SS UA Urobilinogen 0.2 E.U./dL Invalid Interpretation Code 0.2-1.0E.U. /dL AO Auto Urine SS Urea nitrogen [Mass/Vol] 16 mg/dL Invalid Interpretation Code 7 - 18 mg/dL AO ADM SS Urea nitrogen/Creatinine [Mass ratio] 19 ratio Invalid Interpretation Code 7 - 27 ratio AO ADM SS WBC (Bld) [#/Vol] 11.8 103/mcL Invalid Interpretation Code 4.6 - 10.8 10^3/mcL AO Workflow SS WBC LM.HPF (Urine sed) [#/Area] 5-10 /HPF Invalid Interpretation Code None Seen/HPF AO Auto Urine SS LABORATORYOrdered By: SYSTEM SYSTEM on 07-16-2022 GFR 93 ml/min/1.73sqm Invalid Interpretation Code AO Chemistry S GFR Non- 77 ml/min/1.73sqm Inval id Interpretation Code AO Chemistry S CNOVon 04-07-2022 CNOV Office Visit (FAMMAS ) SUZIE ALEXANDRE ([id number]) 1990 F Date Time Provider Department 04/07/22 3:00 PM YUSEF MERCADO During your visit today, we recorded the following information about you: Temperature Pulse Respiration Blood pressure 98.4 degrees 92/minute 14/minute 132/94 Weight Height 75.1 kg 1.664 m Yusef Mercado APRN.CHIKA 04/07/2022 4:41 PM Signed - Begin daily GI probiotic and daily fiber supplement - Stay hydrated - Complete labs both blood and stool tests - Begin taking omeprazole 20mg daily - Avoid irritating foods - Follow up in 1 month - Go to ER if symptoms worsen or do not improve in next several days Yusef Mercado APRN.CHIKA 04/08/2022 7:52 AM Signed This note was created using [employer]xtControlter. Subjective Suzie Alexandre is a 31 year old female. Patient presents to the office today with chief complaint of generalized abdominal discomfort that she has had intermittently for the last several weeks however this abdominal pain has worsened over the last 3 to 4 days. Patient denies any fevers, chills, night sweats. Patient reports that she has been experiencing some nausea but denies any vomiting, diarrhea, blood in stool, or dark tarry stools. Patient reports that the abdominal pain is typically worse after eating. Patient currently reports her abdominal pain a 4 out of 10. Patient reports that the pain was much worse yesterday. Review of Systems Constitutional: Negative. HENT: Negative. Eyes: Negative. Respiratory: Negative. Cardiovascular: Negative. Gastrointestinal: Positive for abdominal pain and nausea. Negative for abdominal distention, anal bleeding, blood in stool, constipation, diarrhea, rectal pain and vomiting. Endocrine: Negative. Genitourinary: Negative. Musculoskeletal: Negative. Skin: Negative. Allergic/Immunologic: Negative. Neurological: Negative. Hematological: Negative. Psychiatric/Behavioral : Negative. Objective BP 148/104 (BP Site: Right Arm, BP Position: Sitting) Pulse 114 Temp 36.9 ?C (98.4 ?F) (Temporal) Resp 14 Ht 166.4 cm (5' 5.5) Wt 75.1 kg (165 lb 9.6 oz) LMP 09/26/2015 (LMP Unknown) SpO2 96% BMI 27.14 kg/m? Physical Exam Constitutional: General: She is not in acute distress. Appearance: Normal appearance. She is not ill-appearing, toxic-appearing or diaphoretic. HENT: Head: Normocephalic. Right Ear: Tympanic membrane, ear canal and external ear normal. Left Ear: Tympanic membrane, ear canal and external ear normal. Nose: Nose normal. Eyes: Extraocular Movements: Extraocular movements intact. Conjunctiva/sclera: Conjunctivae normal. Pupils: Pupils are equal, round, and reactive to light. Cardiovascular: Rate and Rhythm: Normal rate and regular rhythm. Pulses: Normal pulses. Pulmonary: Effort: Pulmonary effort is normal. Breath sounds: Normal breath sounds. Abdominal: General: Abdomen is flat. Bowel sounds are normal. Palpations: Abdomen is soft. There is no mass. Tenderness: There is abdominal tenderness. There is no right CVA tenderness, left CVA tenderness, guarding or rebound. Hernia: No hernia is present. Comments: Patient has generalized abd tenderness, no localized tenderness. Musculoskeletal: General: Normal range of motion. Cervical back: Normal range of motion and neck supple. Skin: General: Skin is warm and dry. Capillary Refill: Capillary refill takes less than 2 seconds. Neurological: General: No focal deficit present. Mental Status: She is alert. Psychiatric: Mood and Affect: Mood normal. Behavior: Behavior normal. Thought Content: Thought content normal. Judgment: Judgment normal. Assessment and Plan ASSESSMENT/PLAN: 1. Generalized abdominal pain - ICD9: 789.07, ICD10: R10.84 - Will obtain diagnostics as below. Patient is to begin taking omeprazole 20 mg by mouth daily. Patient is to begin taking a daily fiber supplement and daily GI probiotic. We will treat further based on results from test below. Patient is to avoid irritating foods. Patient is to follow-up in 1 month for reevaluation. Patient instructed to go to the ER if symptoms do not improve or worsen. - OMEPRAZOLE 20 MG DELAYED RELEASE,DISINTEGRATING TABLET - CBC + DIFF - COMP METABOLIC PANEL - LIPASE BLD - AMYLASE BLD - H PYLORI AG BY EIA,STOOL - FECAL OCCULT BLOOD TEST Yusef Mercado, REFRIGERATION INSTALLER.SOAKING TANK WORKER Referring Provider: SELF [[id number]] Allergies As of Date: 04/07/2022 Noted Allergy Reaction BACTRIM (SULFAMETHOXAZOLE-TRIM ETH*07/16/2009 8 - GI Upset DEPAKOTE (DIVALPROEX) 09/15/2009 1 - Mental Status Change IMITREX (SUMATRIPTAN) 07/16/2009 11 - Vomiting KEFLEX (CEPHALEXIN) 07/10/2014 11 - Vomiting TRILEPTAL (CARBAMAZEPINE ANALOGUE*07/16/2009 11 - Vomiting VICODIN (HYDROCODONE-ACETAMINO PHE*07/16/2009 11 - Vomiting Date Reviewed: 04/07/2022 Reviewed by: Lolita (more content not included)... 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 No other abnormalities are noted. Persistent left superior vena cava (PLSVC) is diagnosed when the superior vena cava is present on the left instead of the right side. In ~half of cases, only the left is present; the remainder have both. PLSVC occurs in about 1 in 300 babies. It often goes undiagnosed. PLSVC may coexist with other CHD. Because of a slight association with aneuploidy, genetic testing (usually amniocentesis) may be performed. echocardiography is recommended.. Babies with PLSVC are at risk for other cardiac abnormalities such as coarctation of the aorta. The biggest problem for babies with PLSVC is the development of aortic stenosis. Follow up US are recommended. Children with isolated PLSVC should not have issues later in life. When no other genetic reason is found to explain the PLSVC, the risk of this happening again is extremely low. If there is a genetic etiology, then the risk depends on the risk of recurrence of that diagnosis. RECOMMENDATIONS: 1. Order for echo placed. 2. Follow up US q. 4 weeks 3. Pediatric Cardiology referral recommended. VIANEY I spent 30 minutes in patient care and consultation. Normal [facility] CULTURE URINEon 06-07-2021 CULTURE URINE CULTURE URINE --> Status: F No growth (<1,000 CFU/ml). Normal [facility] Comment on above: Performed By: #### C /UR #### [address] [id number] Culture, UrineOrdered By: Sera Soares on 06-07-2021 Bacteria identified Cx Nom (U) No growth (<1,000 CFU/ml). [facility] Work [facility]: Test Performed by [facility], [address] [place] [id number] [place], [place] [address] Work Phone: [facility] Work Phone: [phone] Glucose,Bedsideon 06-07-2021 Glucose [Mass/Vol] 136 mg/dL High 70-100 [facility] Comment on above: Result Comment: Test performed by glucose meter. Results may be 10%-15% lower than serum/plasma values. (CLIA ID [id number]) Performed By: #### B GLU #### [facility] [address] [id number] POCT GlucoseOrdered By: Arlin Cash on 06-07-2021 Glucose [Mass/Vol] 136 mg/dL High 70 - 100 mg/dL [facility] Work [facility]: Comment on above: Test performed by gl ucose meter. Results may be 10%-15% lower than serum/plasma values. (CLIA ID [id number]) Interpretation and review of laboratory results Abnormal [facility] Work Phone: Test Performed by [facility], [address] [place] [id number] [facility] Work Phone: [facility] Work Phone: C. Trachomatis / N. Gonorrho eae, DNAOrdered By: Geoff Soares on 06-06-2021 C. trachomatis DNA PJ+probe Ql (Genital specimen) NOT Detected Chlamydia trachomatis Nucleic Acid NOT Detected by DNA Amplification using the [employer] System. Culture is the only recommended test in medical-legal cases such as suspected child abuse or molestation. [employer] Work Phone: N. gonorrhoeae DNA PJ+probe Ql (Unsp spec) NOT Detected Neisseria gonorrhoeae Nucleic Acid NOT Detected by DNA Amplification using the [employer] System. Culture is the only recommended test in medical-legal cases such as suspected child abuse or molestation. [employer] Work Phone: Test Performed by [facility], [address] [place] [id number] [employer] Work Phone: [employer] Work Phone: CBCOrdered By: Geoff Soares on 06-06-2021 Hematocrit (Bld) [Volume fraction] 26.6 % Low 35.0 - 47.0 % [facility] Phone: Hemoglobin.gastrointestin al spec 1 Ql (Stl) 8.3 g/dL Low 11.7 - 16.0 g/dL [facility] Phone: Interpretation and review of laboratory results Abnormal [employer] Work Phone: MCH (RBC) [Entitic mass] 20.9 pg Low 26. 0 - 34.0 pg [employer] Work Phone: MCHC (RBC) [Mass/Vol] 31.1 % Low 32.0 - 36.0 % [employer] Phone: MCV (RBC) [Entitic vol] 67.3 fL Low 79.0 - 98.0 fL [employer] Work Phone: Platelet distribution width (Bld) [Ratio] 20.3 % High 11.5 - 14.5 % [employer] Phone: Platelet mean volume (Bld) [Entitic vol] 8.5 fL 7.4 - 10.4 fL [employer] Phone: Platelets (Bld) [#/Vol] 245 10*3/uL 140 - 440 10*3/uL [employer] Work Phone: RBC (Bld) [#/Vol] 3.95 10*6/uL 3.80 - 5.2 0 10*6/uL [employer] Work Phone: [phone] WBC (Bld) [#/Vol] 17.3 10*3/uL High 3.6 - 10.7 10*3/uL [employer] Work Phone: Test Performed by [facility], [address] [place] [id number] [facility] Work [facility]: [employer] Work Phone: Chlamydia and GC PCR Panelon 06-06-2021 Chlamydia and GC PCR Panel Chlamydia trachomatis PCR --> Status: F NOT Detected Chlamydia trachomatis Nucleic Acid NOT Detected by DNA Amplification using the DailyLookid System. Culture is the only recommended test in medical-legal cases such as suspected child abuse or molestation. Chlamydia trachomatis Nucleic Acid NOT Detected by DNA Amplification using the CepFilepicker.ioid System. Culture is the only recommended test in medical-legal cases such as suspected child abuse or molestation. Neisseria gonorrhoeae PCR --> Status: F NOT Detected Neisseria gonorrhoeae Nucleic Acid NOT Detected by DNA Amplification using the CepFilepicker.ioid System. Culture is the only recommended test in medical-legal cases such as suspected child abuse or molestation. Neisseria gonorrhoeae Nucleic Acid NOT Detected by DNA Amplification using the CepFilepicker.ioid System. Culture is the only recommended test in medical-legal cases such as suspected child abuse or molestation. Normal [facility] Comment on above: Performed By: #### C TNGP #### [facility] [address] [place] [address] Hemogramon 06-06-2021 Erythrocyte distribution width (RBC) [Ratio] 20.3 % High 11.5-14.5 [facility] Comment on above: Performed By: #### H EMOG #### [facility] [address] [place] [address] Hematocrit (Bld) [Volume fraction] 26.6 % Low 35.0-47.0 [facility] Comment on above: Performed By: #### H EMOG #### [facility] [address] [place] [phone] Hemoglobin (Bld) [Mass/Vol] 8.3 g/dL Low 11.7-16.0 [facility] Comment on above: Performed By: #### H EMOG #### [facility] [address], [place] MCH (RBC) [Entitic mass] 20.9 pg Low 26.0-34.0 [facility] Comment on above: Performed By: #### H EMOG #### [facility] [address], [place] MCHC 31.1 % Low 32.0-36.0 [facility] Comment on above: Performed By: #### H EMOG #### [facility] [address], [place] MCV (RBC) [Entitic vol] 67.3 fL Low 79.0-98.0 [facility] Comment on above: Performed By: #### H EMOG #### [facility] [address], [place] Platelet mean volume (Bld) [Entitic vol] 8.5 fL Normal 7.4-10.4 [facility] Comment on above: Performed By: #### H EMOG #### [facility] [address], [place] Platelets (Bld) [#/Vol] 245 10*3/uL Normal 140-440 [facility] Comment on above: Performed By: #### H EMOG #### [facility] [address], [place] RBC (Bld) [#/Vol] 3.95 10*6/uL Normal 3.80-5.20 [facility] Comment on above: Performed By: #### H EMOG #### [facility] [address], [place] WBC (Bld) [#/Vol] 17.3 10*3/uL High 3.6-10.7 [facility] Comment on above: Performed By: #### H EMOG #### [facility] [address], [place] TS GELon 06-06-2021 TS GEL ABO Group: A Rh, Gel: POS Antibody Screen Gel: NEG Normal [facility] Comment on above: Performed By: #### T SGL #### [facility] TYPE AND SCREENOrdered By: B eron Soares on 06-06-2021 ABO Grouping A [employer] Work Phone: Rh Type Positive [facility] Work [facility]: Test Performed by [facility], [address] [place] [id number] [employer] Work Phone: [employer] Work Phone: [phone] Trichomonas Vaginali, Molecu larOrdered By: Geoff Soares on 06-06-2021 Trichomonas Vaginali, Molecular NOT Detected Reference Interval: Not Detected Method: Real-time PCR. Negative results do not completely rule out infection with Trichomonas vaginalis. [employer] Work Phone: Test Performed by [facility], [address] [place] [phone] [employer] Work Phone: [employer] Work Phone: Trichomonas vaginalis PCRon 06-06-2021 Trichomonas vaginalis PCR Trichomonas va ginalis PCR --> Status: F NOT Detected Reference Interval: Not Detected Method: Real-time PCR. Negative results do not completely rule out infection with Trichomonas vaginalis. Reference Interval: Not Detected Method: Real-time PCR. Negative results do not completely rule out infection with Trichomonas vaginalis. Normal [facility] Comment on above: Performed By: #### T VPCR #### [facility] [address] [place] [phone] [id number] 02-11-2021 SARS-CoV-2 (COVID-19) RNA PJ+probe Ql (Unsp spec) Negative Normal Negative [facility] Comment on above: Result Comment: Nega tive results do not preclude SARS-CoV-2 infection and should not be used as the sole basis for patient management decisions. Negative results must be combined with clinical observations, patient history, and epidemiological information. Performed By: #### L [phone] #### [facility] [address] [phone] ABO, External ResultOrdered By: Historical Provider on 02-01-2021 ABO, External Result A [facility] Work Phone: HIV, External ResultOrdered By: Historical Provider on 02-01-2021 HIV, External Result Negative [facility] Work Phone: Hepatitis B, External Result Ordered By: Historical Provider on 02-01-2021 Hep B, External Result Non-Reactive [facility] Work Phone: Hepatitis C Antibody, Route [employer] Drivers Supervisor al ResultOrdered By: Historical Provider on 02-01-2021 Hepatitis C Antibody, External Result Non-Reactive [facility] Work Phone: No Panel InformationOrdered By: Historical Provider on 02-01-2021 Verified with Joseph Gee RN [facility] Work Phone: [facility] Work Phone: RPR, External LabOrdered By: Historical Provider on 02-01-2021 RPR, External Result Non-Reactive [facility] Work Phone: Rh Factor, External ResultOr dered By: Historical Provider on 02-01-2021 Rh Factor, External Result Positive [facility] Work Phone: Rubella Titer, External Resu ltOrdered By: Historical Provider on 02-01-2021 Rubella Titer, External Result Immune [facility] Work Phone: XR Injection Hysterosalpingo graphyon 08-04-2020 XR Injection Hysterosalpingography Fluoro Time Indication: Infertility 3.0 minutes of fluoro was provided to Dr. Sandoval. Read by: MABEL DONOVAN MD Approved by: MABEL DONOVAN MD Date: 08/04/2020 9:20 AM [facility] WIREWORKER - Office Visiton 06-02 WIREWORKER - Office Visit Chief Complaint PATIENT HERE FOR POST OP VISIT. SURGERY DATE: 06/05/2020 History of Present Illnesspatient's postop status post tubal reversal o on June 05, 2020.Postoperatively she has resumed her bowel function. She has no incisional tenderness. Inspection of the minilaparotomy site shows well-healing incision. Discussed with the patient to attempt the next cycle. She should track her menstrual cycles cautiously and if she misses a cycle she must have a urine tests to confirm. She will then need to have serial beta hCGs with early ultrasound to locate the and she is at risk for an ectopic gestation with her tubal reversal. Operative findings and pictures were provided to the patient Active Problems Constipation (564.00) (K59.00) Other constipation (564.09) (K59.09) Postoperative pain (338.18) (G89.18) Pre-procedure lab exam (V72.63) (Z01.812) Current Meds Cyclobenzaprine HCl - 5 MG Oral Tablet; TAKE 1 TABLET 3 TIMES DAILY NEEDED; Therapy: [id number] to (Evaluate:[id number]); Last Rx:[id number] Ordered Rx By: Mirna Pat; Dispense: 7 Days ; #:20 Tablet; Refill: 0;For: Postoperative pain; KIP = N; Print Rx Provider Impressions 1.normal postop visit status post tubal reversal #2 patient to track menstrual cycles and attempt beginning with next cycle. #3 patient to have early test in early ultrasounds to exclude ectopic should she conceive Patient Discussion/Summary 1.normal postop visit status post tubal reversal #2 patient to track menstrual cycles and attempt beginning with next cycle. #3 patient to have early test in early ultrasounds to exclude ectopic should she conceive The patient was counseled regarding diagnostic results, instructions for management, prognosis and risks and benefits of treatment options. 15 minutes was spent counseling. Signatures Electronically signed by : El Gomez MD; Jun 18 2020 3:32PM EST (Author) Normal [employer] WIREWORKER - Office Visiton 06-02 WIREWORKER - Office Visit Chief Complaint Patient here for pain (7) and bleeding after surgery. Surgery date 06/05/2020. History of Present [id number] yo who presents for problem visit s/p mini-lap reanastomosis on 06/05. No intraoperative complications. Reports 7/10 pain and took her last dose of percocet yesterday at 2 pm. She reports that the pain is incisional and denies any fevers. Appetite is decreased but no nausea and vomiting. Passing flatus, but last BM was 10 days ago. Has a hx of IBS with constipation. Was taking colace but just increased it to BID. Just started taking MIralax yesterday. Concerns re: bleeding. Had vaginal bleeding x 1-2 days after surgery but since has tapered. No bleeding today. Active Problems Pre-procedure lab exam (V72.63) (Z01.812) Vitals Vital Signs Recorded: [id number] 01:48PM Heart Xndc678 Pyielzvj822 Furrozpzc90 Height5 ft 6 in Jckifl447 lb 6 oz BMI Ahougvbbfu35.21 BSA Calculated1.83 Tobacco Usea) Yes Patient encouraged to stop using tobacco productsa) Yes Fall Screeninga) No falls within the last year Pain Scale7 Physical Exam Well appearing female Abdomen is soft, nondistended, tender in the lower abdomen near incision. Incision is clear, dry without erythema, induration. Dermabond is covering the incision. No signs of infection. Diagnoses/Problems Postoperative pain (338.18) (G89.18) Constipation (564.00) (K59.00) Orders Start: Cyclobenzaprine HCl - 5 MG Oral Tablet; TAKE 1 TABLET 3 TIMES DAILY NEEDED Rx By: Mirna Pat; Dispense: 7 Days ; #:20 Tablet; Refill: 0;For: Postoperative pain; KIP = N; Print Rx Start: oxyCODONE-Acetaminophe n 5-325 MG Oral Tablet; TAKE 1 TABLET EVERY 4 TO 6 HOURS NEEDED FOR PAIN Rx By: Mirna Pat; Dispense: 2 Days ; #:10 Tablet; Refill: 0;For: Postoperative pain; KIP = N; Print Rx Provider Impressions 29 yo F s/p tubal reanastomosis on 06/05 who presents here for with incision pain and constipation. No signs of infection or intraabdominal process. #Reviewed aggressive bowel regimen and hydration with miralax and colace to induce BM #Short course of percocet refiled as well as flexeril rx provided for patient #Precautions reviewed for signs of infection DIscussed and seen with Dr. Jason Pat MD Reproductive Endocrinology and Infertility Fellow Patient Discussion/Summary 29 yo F s/p tubal reanastomosis on 06/05 who presents here for with incision pain and constipation. No signs of infection or intraabdominal process. #Reviewed aggressive bowel regimen and hydration with miralax and colace to induce BM #Short course of percocet refiled as well as flexeril rx provided for patient #Precautions reviewed for signs of infection DIscussed and seen with Dr. Jason Pat MD Reproductive Endocrinology and Infertility Fellow Attending Note Trainee role: Fellow Trainee discussed patient with Dr. Gomez Signatures Electronically signed by : Mirna Pat MD; Jun 11 2020 2:30PM EST (Author) Electronically signed by : El Gomez MD; Jun 11 2020 2:39PM EST (Author) Normal [facility] 06-05-2020 Erythrocyte distribution width (RBC) [Ratio] 15.1 % High 11.5 - 14.5 [facility] Comment on above: Performed By: #### C BC #### [address] [address] Hematocrit (Bld) [Volume fraction] 40.8 % Normal 36.0 - 46.0 [facility] Comment on above: Performed By: #### C BC #### [address] [address] Hemoglobin (Bld) [Mass/Vol] 12.6 g/dL Normal 12.0 - 16.0 [facility] Comment on above: Performed By: #### C BC #### [address] [address] MCHC (RBC) [Mass/Vol] 30.9 g/dL Low 32.0 - 36.0 [facility] Comment on above: Performed By: #### C BC #### [address] [address] MCV (RBC) [Entitic vol] 85 fL Normal 80 - 100 [facility] Comment on above: Performed By: #### C BC #### [address] [address] Nucleated RBC/100 WBC (Bld) [Ratio] 0.0 /100 WBC Normal 0.0 - 0.0 [facility] Comment on above: Performed By: #### C BC #### [address] [address] Platelets (Bld) [#/Vol] 264 10*3/uL Normal 150 - 450 [facility] Comment on above: Performed By: #### C BC #### [address] [place] [address] RBC (Bld) [#/Vol] 4.78 x10E12/L Normal 4.00 - 5.20 [facility] Comment on above: Performed By: #### C BC #### [address] [place] [address] WBC (Bld) [#/Vol] 7.6 10*3/uL Normal 4.4 - 11.3 [facility] Comment on above: Performed By: #### C BC #### [address] [place] [address] HCG,BETA-QUANTITATIVEon HCG,BETA-QUANTITATIVE <2 Normal [facility] Comment on above: Result Comment: Low- level positive HCG results can be seen in early , in gertrude- or post-menopausal females due to normal pituitary HCG production, or with analytic interference. Repeat testing in 48-72 hours can aid in assessing for as results should double in this time period. FSH measurement is recommended in gertrude- or post-menopausal females as concurrent elevation of FSH can support pituitary production as the source of the HCG elevation. . Total HCG measurement is performed using the Crys Jonathon Access Immunoassay which detects intact HCG and free beta HCG subunit. This test is not indicated for use as a tumor marker. HCG testing is performed using a different test methodology at [facility] than other [facility]. Direct result comparison should only be made within the same method. REF VALUES NON FEMALE <5 MALES <5 Performed By: #### H CGQU #### [address] [place] [address] History and Physicalon 06-05 History and Physical History of Present Illness: /Lactating: Are You no (1) Are You Currently Breastfeedingno (1) HPI: SUZIE ALEXANDRE is a 29 year old Female Comorbidities: Comorbid Conditionsdiabetes Diabtetes TypeType 2 Insulin Dependentno DM Acuity or Statuscontrolled Allergies: No Known Allergies: Intolerances: gabapentin: Nausea/Vomiting codeine: Nausea/Vomiting Depakote: Nausea/Vomiting hydrocodone: Nausea/Vomiting Keflex: Nausea/Vomiting Trileptal: Nausea/Vomiting Imitrex: Nausea/Vomiting Medications Prior to Admission: Ambien 10 mg oral tablet: 1 tab(s) orally once a day (at bedtime) clonazePAM 0.5 mg oral tablet: 1 tab(s) orally 3 times a day, As Needed - for anxiety Zofran ODT 8 mg oral tablet, disintegratin tab(s) orally 3 times a day, As Needed for nausea. Objective: Objective Information: Pain reported at 06/05 11:55: sleeping Recent Lab Results: Results: CBC: 06/05/2020 06:42 \ Hgb / \ 12.6 / WBC Plt 7.6 264 / Hct \ / 40.8 \ RBC: 4.78 MCV: 85 Signatures/Attestation /Certification: Note Completion: I am a: Resident/Fellow Attending AttestationI saw and evaluated the patient. I personally obtained the robbins and critical portions of the history and physical exam or was physically present for robbins and critical portions performed by the resident/fellow. I reviewed the resident/fellows documentation and discussed the patient with the resident/fellow. I agree with the resident/fellows medical decision making as documented in the note. I personally evaluated the patient [id number] Attending Provider Inpatient Certification StatementI certify this patients need for inpatient care based on the above documentation including; the order to admit as inpatient, the anticipated length of stay, diagnosis, problem list and plan of care, and discharge plan. Electronic Signatures: Katie Borjas (Fellow)) (Signed 05-Jun-2020 12:39) Authored: History of Present Illness, Comorbidities, Allergies, Medications Prior to Admission, Objective, Signatures/Attestation /Certification El Gomez) (Signed 05-Jun-2020 12:41) Authored: Signatures/Attestation /Certification Co-Signer: History of Present Illness, Comorbidities, Allergies, Medications Prior to Admission, Objective, Signatures/Attestation /Certification Last Updated: 05-Jun-2020 12:41 by El Gomez) References: 1. Data Referenced From Patient Profile - Preop v2 05-Jun-2020 07:00 Normal [facility] History and Physical This report has bee n cancelled. Normal [facility] History and Physical - Surge ry > 30 dayson 09-04-2020 History and Physical - Surgery > 30 days This report has been cancelled. Normal [facility] History and Physical - Surgery > 30 days History of Present Illness: /Lactating: Are You no Are You Currently Breastfeedingno History Present Illness: Reason for surgery: Tubal reversal HPI: 29 yo requesting a tubal reversal. Patient has had 2 miscarriages in 2010 and 2014. She has had 5 liveborn children vaginally with the same partner whom she has been to for 9 years. Following the of her last child in 2016 she had a tubal ligation via modified [place] based on the operative note. The exact amount of tube removed is unclear since pathology report was not available but it appears to be a tubal ligation by the standard methodology. OB hx: x 5 PMH: MDD PSH: Tubal ligation via modified [place]droy Social: smokes 1 ppd Allergies None Home Medication Review: Home Medications Reviewed: yes Impression/Procedure: Impression and Planned Procedure: History of modified Edroy tubal ligation. Desires tubal reversal. Plan to proceed with mini-laparotomy and tubal reanastomosis. Physical Exam by System: Constitutional: Well appearing female in no distress Head/Neck: Normocephalic Respiratory/Thorax: Unlabored breathing Cardiovascular: Well perfused Gastrointestinal: Abdomen soft, nondistended, non tender Extremities: No edema and without any cyanosis Neurological: Grossly intact Psychological: Normal affect Skin: No lesions Consent: COVID-19 Consent: COVID-19 Risk ConsentSurgeon has reviewed robbins risks related to the risk of doris COVID-19 and if they contract COVID-19 what the risks are. Signatures/Attestation : Note Completion: I am a: Resident/Fellow Attending AttestationI saw and evaluated the patient. I personally obtained the robbins and critical portions of the history and physical exam or was physically present for robbins and critical portions performed by the resident/fellow. I reviewed the resident/fellows documentation and discussed the patient with the resident/fellow. I agree with the resident/fellows medical decision making as documented in the note. I personally evaluated the patient [id number] Electronic Signatures: Mirna Pat (Fellow)) (Signed 04-Jun-2020 15:54) Authored: History of Present Illness, Home Medication Review, Impression/Procedure, Physical Exam, Consent, Signatures/Attestation El Gomez) (Signed 05-Jun-2020 12:13) Authored: Signatures/Attestation Co-Signer: History of Present Illness, Home Medication Review, Impression/Procedure, Physical Exam, Consent, Signatures/Attestation Last Updated: 05-Jun-2020 12:13 by El Gomez) [facility] Patient Profile - Preop v2on 06-05-2020 Patient Profile - Preop v2 Profile: Initial Info: How to be Addressedbridgette Spoken Language PreferredEnglish Source of Informationpatient; family Are you currently using the Personal Electronic Health Record or MYUHCAREno Are you interested in learning more about MYCARE for the management of your healthdeclined Stated Reason for Admissiontubal reversal Primary Contact Name and Numbersherry mother [phone] Limitations on Visitors/Phone Callsnone Patient Belongingsremains with patient Patient Belongings Remaining with Patientclothing; phone to mother Medications Brought to Hospitalno General Health: Weight in kg72.3 kilogram(s) Weight in dwa058.3 pound(s) Weight Methodstated Height in feet5 feet Height in inches5 inch(es) Height in cm165.1 centimeter(s) Height Methodstated BMI (kg/m2)26.524 square meter Patient or Family Member Reaction to Anesthesiapatient reaction Patient Reaction to Anesthesianausea and vomiting Blood Avoidance/Restrictions none Previous Transfusion Reactionpt reports has never received blood transfusion Health Mgmt: Symptoms/Conditions Managed at Homeanxiety depression ptsd bipolar Are You no Are You Currently Breastfeedingno (1) Barriers to Managing Healthnone Relationship/Environ: Living Arrangementshouse Lives Withdependent child(kayce); significant other Resource/Environmental Concernsnone Anticipated Transition [place] Services Anticipated at Transitionnone Substance: Current or Former Substance Use never: e-Cigarette/Vaping, Alcohol, Street Drugs YES: Cigarette/Tobacco Tobacco Cessation Education (provide if tobacco use within the last 12 mos) patient declined Risk Screens: COVID-19 Screening Completedno exposure or symptoms Advance Directive/DNRno Advance Directive Information Givenpatient/family declined Advance Directive Mental Healthnot applicable During the past month, have you often been bothered by feeling down, depressed or hopelessno During the past month, have you often had little interest or pleasure in doing thingsno Have you had any thoughts of harming yourselfno Have you had any thoughts of harming anyone elseno Are you or have you been threatened or abused physically,emotionally or sexually abused by anyoneno Do you feel UNSAFE going back to the place you are livingno Patient is Able to be Assessed for Learningyes Factors Influencing Readiness to Learnnone Factors that Impact Ability to Learnnone Devices/Methods Used to Communicatenone Learning Preferencesverbal instruction; individual instruction Cultural Considerationsnone Developmental Considerationsnone Yarsanism Considerationsnone Other learner availableno Falls RiskPatient location auto qualifies him/her for HIGH RISK. Are there any cultural, spiritual, sikhism practices/values/needs that are important for us to knowno Pain Scalenumerical 0-10 Pain Scale Educationteaching provided Current Pain Level0 = None Acceptable Pain Level4 = Moderate Expression of Pain (nonverbal)none Chronic Painno Information Review: Allergies, Home Meds and Significant Events have been Reviewed and Verified with Patient/Familyyes Allergy, Intolerance, Adverse Event: Allergies: No Known Allergies: Active Intolerances: gabapentin: Drug, Nausea/Vomiting, Active Electronic Signatures: Nenita Pickering (ILDA) (Signed 05-Jun-2020 07:30) Authored: Profile, Additional Information Last Updated: 05-Jun-2020 07:30 by Nenita Pickering (ILDA) References: 1. Data Referenced From History and Physical - Surgery > 30 days 05-Jun-2020 00:00 Normal [facility] Preop Checkliston 06-05-2020 Preop Checklist Preop Checklist: Preop Checklist: Arrival [id number] Arrival Time06:25 Procedure Typetubal anastomosis Temperature C36.4 degrees C Temperature F97.5 degrees F Heart Rqiy840 beats per minute Respiratory Rate18 breath per minute Blood Pressure Xjbdfgdk949 mm/Hg Blood Pressure Ivxtjeosj85 mm/Hg NPO [id number] 07:00 NPO Commentlast solids 9 ID Band Onyes Allergy Bandyes Consent Signedyes H&P Completeyes Anesthesia Assessment Completedyes EKG Performednot ordered Chest X-Ray Performednot ordered HCG Urine Testserum hcg Chlorhexadine Bath Givennot applicable Nasal Antiseptic Appliednot applicable Hair Washedyes Soap and water bath with hair shampoo the night before surgeryyes Hat placed on prior to transportnot applicable SCD's Appliedyes RICARDA Hose Appliednot ordered Denturesnot applicable Prostheticsnot applicable Hearing Aidsnot applicable Valuables Securedcell to mother Glasses / Contactsnot applicable Bowel Prepno Cardiovascular Assessment: Apicalregular Radial Pulsespalpable Pedal Pulsespalpable Extremitieswarm, well perfused Respiratory Assessment: Respirationsunlabored regular Air Exchangeequal, good Breath Soundsclear Neurological Assessment: Level of Consciousnessalert, oriented Mobilitymoves all extremities Able to Express Selfyes Age Appropriateyes Emotional Statuscalm Preop Education: Surgical Site Infection Preventionyes Pain Scales and Managementyes Language / Communication: Language / CommunicationEnglish Electronic Signatures: Nenita Pickering (ILDA) (Signed 05-Jun-2020 07:34) Authored: Preop Checklist Last Updated: 05-Jun-2020 07:34 by Nenita Pickering (ILDA) Normal [facility] TYPE + SCREENon 06-05-2020 ABO TYPE A Normal [facility] Comment on above: Performed By: #### T +S #### [place] [address] RH TYPE Positive Normal [facility] Comment on above: Performed By: #### T +S #### [place] [address] CORONAVIRUS 2019, SCREEN ASY MPTOMATICon 06-03-2020 CORONAVIRUS 2019,PCR NOT DETECTED Normal Not Detected [facility] Comment on above: Result Comment: This assay is designed to detect the N, ORF1ab and/or S genes of SARS-CoV-2 via nucleic acid amplification. A Negative (NOT DETECTED) result does not preclude 2019-nCoV infection since the adequacy of sample collection and/or low viral burden may result in presence of viral nucleic acids below the clinical sensitivity of this test method. Negative (NOT DETECTED) result should not be used as the sole basis for treatment or other patient management decisions. Rather negative results should be combined with clinical observations, patient history, and epidemiological information to make patient management decisions. Fact sheet for providers: https://www.fda.gov/media/162995/download Fact sheet for patients: https://www.fda.gov/media/492025/download This test has received FDA Emergency Use Authorization (EUA) and has been verified by [facility] ([facility]). This test is only authorized for the duration of time that circumstances exist to justify the authorization of the emergency use of in vitro diagnostic tests for the detection of SARS-CoV-2 virus and/or diagnosis of COVID-19 infection under section 564(b)(1) of the Act, 21 U.S.C. 360bbb-3(b)(1), unless the authorization is terminated or revoked sooner. [facility] is certified under CLIA-88 as qualified to perform high complexity testing. Testing is performed in the [facility] laboratories located at [address] [place] [address]. Performed By: #### C OVSC #### [place] [address] CORONAVIRUS 2019, SCREEN ASY MPTOMATICon 06-02-2020 Lab Specimen Source Nasal, Nasopharyngeal Normal [facility] Comment on above: Performed By: #### C OVSC #### [address] [place] [address] COVID CCon 05-27-2020 SARS-CoV-2 (COVID-19) RNA PJ+probe Ql (Unsp spec) Negative Normal NEGATIVE [facility] Comment on above: Order Comment: COVID 19 SENT TO [facility] 05/23/20 1215 ELLI VERMA Result Comment: Test performed by PCR This test was developed and its performance characteristics determined by [facility] Pathology [facility] [place]. This test has been authorized by FDA under and Emergency Use Authorization (EUA). This test has been validated in accordance with the FDA's Guidance Document Policy for Diagnostics Testing in Laboratories Certified to Perform High Complexity Testing under CLIA prior to Emergency use Authorization for Coronavirus Disease 2019 during the Public Health Emergency issued on November. Test performed by: [facility] [address] [place] [id number] Otis Blackman III, M.D. Performed By: #### L [phone] #### [facility] RE[facility]. LAB [address] [facility]. [place] [id number] # [phone] Vital Signs Date Time Vital Sign Value Performing Clinician Facility 02-07-2025 09:37-0400 Body height 165.1 cm Michelle Gonzaleser DO Work Phone: [facility] 02-07-2025 09:37-0400 Body mass index (BMI) [Ratio] 26.1 kg/m2 Michelle Ashlyn DO Work Phone: [facility] 02-07-2025 09:37-0400 Body weight 71.21 kg Michelle Siunger DO Work Phone: [facility] 08-31-2024 10:36-0500 Body mass index (BMI) [Ratio] 25.22 kg/m2 Gavino Murphy APRN.SOAKING TANK WORKER Work Phone: [facility] 08-31-2024 10:36-0500 Body temperature 97.81 [degF] Gavino Murphy APRN.SOAKING TANK WORKER Work Phone: [facility] 08-31-2024 10:36-0500 Body weight 69.8 kg Gavino Murphy APRN.SOAKING TANK WORKER Work Phone: [facility] 08-31-2024 10:36-0500 Diastolic blood pressure 76 mm[Hg] Gavino Murphy APRN.SOAKING TANK WORKER Work Phone: [facility] 08-31-2024 10:36-0500 Heart rate 105 /min Gavino Murphy APRN.SOAKING TANK WORKER Work Phone: [facility] 08-31-2024 10:36-0500 Respiratory rate 18 /min Gavino Murphy APRN.SOAKING TANK WORKER Work Phone: [facility] 08-31-2024 10:36-0500 SaO2% (BldA) [Mass fraction] 96 % Gavino Murphy APRN.SOAKING TANK WORKER Work Phone: [facility] 08-31-2024 10:36-0500 Systolic blood pressure 122 mm[Hg] Gavino Murphy APRN.SOAKING TANK WORKER Work Phone: [facility] 02-12-2024 09:27-0400 Body mass index (BMI) [Ratio] 26.55 kg/m2 Abril Praisler-Wood REFRIGERATION INSTALLER.SOAKING TANK WORKER Work Phone: [facility] 02-12-2024 09:27-0400 Body temperature 98.2 [degF] Abril Praisler-Wood REFRIGERATION INSTALLER.SOAKING TANK WORKER Work Phone: [facility] 02-12-2024 09:27-0400 Body weight 73.5 kg Abril Praisler-Wood REFRIGERATION INSTALLER.SOAKING TANK WORKER Work Phone: [facility] 02-12-2024 09:27-0400 Diastolic blood pressure 64 mm[Hg] Abril Praisler-Wood REFRIGERATION INSTALLER.[facility] Work Phone: [facility] 02-12-2024 09:27-0400 Heart rate 90 /min Abril Praisler-Wood REFRIGERATION INSTALLER.[facility] Work Phone: [facility] 02-12-2024 09:27-0400 Respiratory rate 16 /min Abril Praisler-Wood REFRIGERATION INSTALLER.SOAKING TANK WORKER Work Phone: [facility] 02-12-2024 09:27-0400 SaO2% (BldA) [Mass fraction] 98 % Abril Praisler-Wood REFRIGERATION INSTALLER.SOAKING TANK WORKER Work Phone: [facility] 02-12-2024 09:27-0400 Systolic blood pressure 110 mm[Hg] Abril Praisler-Wood REFRIGERATION INSTALLER.SOAKING TANK WORKER Work Phone: [facility] 12-17-2023 08:54-0400 Body temperature 97.39 [degF] Jarrett Athy PA-C Work Phone: [facility] 12-17-2023 08:54-0400 Diastolic blood pressure 70 mm[Hg] Jarrett Athy PA-C Work Phone: [facility] 12-17-2023 08:54-0400 Heart rate 74 /min Jarrett Athy PA-C Work Phone: [facility] 12-17-2023 08:54-0400 Respiratory rate 16 /min Jarrett Athy PA-C Work Phone: [facility] 12-17-2023 08:54-0400 SaO2% (BldA) [Mass fraction] 98 % Jarrett Athy PA-C Work Phone: [facility] 12-17-2023 08:54-0400 Systolic blood pressure 122 mm[Hg] Jarrett Mccrackeny PA-C Work Phone: [facility] 07-18-2022 23:00-0400 Diastolic blood pressure 79 mm[Hg] DR GREG MC MD [facility] 07-18-2022 23:00-0400 Mean blood pressure 92 mm[Hg] DR GREG MC MD [address] [place] [address] 07-18-2022 23:00-0400 Systolic blood pressure 119 mm[Hg] DR GREG MC MD [address] [place] [address] 07-18-2022 22:53-0400 Body temperature 97.34 [degF] DR GREG MC MD [address] [place] [address] 07-18-2022 22:53-0400 Diastolic Blood Pressure NBP [address] GREG MC MD [address] [place] [address] 07-18-2022 22:53-0400 Heart rate 59 /min DR GREG MC MD [address] [place] [address] 07-18-2022 22:53-0400 Mean blood pressure 83 mm[Hg] DR GREG MC MD [address] [place] [address] 07-18-2022 22:53-0400 Respiratory rate 16 /min DR GREG MC MD [address] [place] [address] 07-18-2022 22:53-0400 Systolic Blood Pressure NBP [address] GREG MC MD [address] [place] [address] 07-18-2022 22:44-0400 Diastolic Blood Pressure NBP [address] GREG MC MD [address] [place] [address] 07-18-2022 22:44-0400 Heart rate 60 /min DR GREG MC MD [address] [place] [address] 07-18-2022 22:44-0400 Mean blood pressure 81 mm[Hg] DR GREG MC MD [address] [place] [address] 07-18-2022 22:44-0400 Systolic Blood Pressure NBP [address] GREG MC MD [address] [place] [address] 07-18-2022 22:28-0400 Body temperature 97.52 [degF] DR GREG MC MD [address] [place] [address] 07-18-2022 22:28-0400 Diastolic Blood Pressure NBP [address] GREG MC MD [address] [place] [address] 07-18-2022 22:28-0400 Heart rate 69 /min DR GREG MC MD [address] [place] [address] 07-18-2022 22:28-0400 Mean blood pressure 84 mm[Hg] DR GREG MC MD [address] [place] [address] 07-18-2022 22:28-0400 Reason For Taking VItal Signs DR GREG MC MD [address] [place] [address] 07-18-2022 22:28-0400 Systolic Blood Pressure NBP [address] GREG MC MD [address] [place] [address] 07-18-2022 22:20-0400 Heart rate 68 /min DR GREG MC MD [address] [place] [address] 07-18-2022 15:18-0400 Body temperature 98.24 [degF] DR GREG MC MD [address] [place] [address] 07-18-2022 15:18-0400 Diastolic blood pressure 70 mm[Hg] DR GREG MC MD [address] [place] [address] 07-18-2022 15:18-0400 Heart rate 72 /min DR GREG MC MD [address] [place] [address] 07-18-2022 15:18-0400 Reason For Taking VItal Signs DR GREG MC MD [address] [place] [address] 07-18-2022 15:18-0400 Systolic blood pressure 110 mm[Hg] DR GREG MC MD [address] [place] [address] 07-18-2022 06:59-0400 Body temperature 98.06 [degF] DR GREG MC MD [address] [place] [address] 07-18-2022 06:59-0400 Diastolic blood pressure 73 mm[Hg] DR GREG MC MD [address] [place] [address] 07-18-2022 06:59-0400 Systolic blood pressure 107 mm[Hg] DR GREG MC MD [address] [place] [address] 07-18-2022 05:38-0400 Body weight 25.1 kg/m2 DR GREG MC MD [address] [place] [address] 07-17-2022 22:08-0400 Mean blood pressure 77 mm[Hg] DR GREG MC MD [address] [place] [address] 07-17-2022 22:08-0400 Reason For Taking VItal Signs DR GREG MC MD [address] [place] [address] 07-17-2022 21:43-0400 Body height 167.[address] GREG MC MD [address] [place] [address] 07-17-2022 21:43-0400 Body weight 70.[address] GREG MC MD [address] [place] [address] 07-17-2022 21:43-0400 Body weight 25.1 kg/m2 DR GREG MC MD [facility] 07-17-2022 16:30-0400 Diastolic blood pressure 78 mm[Hg] MEGHAN TURK DO [facility] 07-17-2022 16:30-0400 Heart rate 80 /min MEGHAN TURK DO [facility] 07-17-2022 16:30-0400 Mean blood pressure 87 mm[Hg] MEGHAN TURK DO [facility] 07-17-2022 16:30-0400 Respiratory rate 16 /min MEGHAN TURK DO [facility]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 mouth two times a day for 7 days. 14 tablet 0 No current facility-administered medications for this visit. PAST SURGICAL HISTORY Procedure Laterality Date BREAST BIOPSY [id number] RIGHT COLPOSCOPY CERVIX UPPER/ADJACENT VAGINA Colposcopy PAST SURGICAL HISTORY OF BIOPSY OF SKIN LESION TUBAL LIGATION, 06/29/16 Dr. Reilly FAMILY HISTORY Problem Relation Age of Onset Psychiatry Mother ANXIETY Heart Father Hypertension Father Blood Disease Father Arthritis Maternal Grandmother Thyroid Maternal Grandmother Arthritis Maternal Grandfather Cancer Maternal Grandfather Diabetes Maternal Grandfather Heart Maternal Grandfather Hypertension Maternal Grandfather Lipids Maternal Grandfather Arthritis Paternal Grandmother Emphysema Paternal Grandmother Alcohol/Drug Paternal Uncle Alcohol/Drug Paternal Uncle Alcohol/Drug Paternal Uncle Psychiatry Maternal Aunt BIPOLAR,PERSONALITY DISORDER, ANXIETY Psychiatry Sister Psychiatry Brother Thyroid Maternal Aunt Seizures Brother Social History Tobacco Use Smoking status: Every Day Smokeless tobacco: Never Tobacco comments: Vapo Substance Use Topics Alcohol use: No Drug use: No Objective BP 122/70 Pulse 74 Temp 36.3 C (97.4 F) Resp 16 LMP 09/26/2015 (LMP Unknown) SpO2 98% Physical Exam Vitals reviewed. Constitutional: Appearance: Normal appearance. HENT: Head: Normocephalic and atraumatic. Right Ear: Tympanic membrane, ear canal and external ear normal. Left Ear: Tympanic membrane, ear canal and external ear normal. Nose: Congestion present. Right Sinus: Maxillary sinus tenderness present. No frontal sinus tenderness. Left Sinus: Maxillary sinus tenderness present. No frontal sinus tenderness. Mouth/Throat: Mouth: Mucous membranes are moist. Pharynx: Oropharynx is clear. Cardiovascular: Rate and Rhythm: Normal rate and regular rhythm. Heart sounds: Normal heart sounds. Pulmonary: Effort: Pulmonary effort is normal. Breath sounds: Normal breath sounds. Musculoskeletal: Cervical back: Neck supple. Lymphadenopathy: Cervical: No cervical adenopathy. Skin: General: Skin is warm and dry. Findings: No rash. Neurological: Mental Status: She is alert. Assessment and Plan ASSESSMENT/PLAN: 1. Acute non-recurrent maxillary sinusitis - ICD9: 461.0, ICD10: J01.00 - Will begin treatment with Augmentin 875 mg PO BID for 7 days - Supportive care with plenty of fluids, rest, and analgesia prn. - Follow up in 3-5 days if symptoms persist or worsen. Jarrett Levi PA-C documented in [facility] encounter[facility] Hospital Discharge instructions Patient Education 07/18/2022 22:32:00 Ureteroscopy Ureteroscopy Ureteroscopy is a procedure to check for and treat problems inside part of the urinary tract. In this procedure, a thin, tube-shaped instrument with a light at the end (ureteroscope) is used to look at the inside of the kidneys and the ureters, which are the tubes that carry urine from the kidneys to the bladder. The ureteroscope is inserted into one or both of the ureters. You may need this procedure if you have frequent urinary tract infections (UTIs), blood in your urine, or a stone in one of your ureters. A ureteroscopy can be done to find the cause of urine blockage in a ureter and to evaluate other abnormalities inside the ureters or kidneys. If stones are found, they can be removed during the procedure. Polyps, abnormal tissue, and some types of tumors can also be removed or treated. The ureteroscope may also have a tool to remove tissue to be checked for disease under a microscope (biopsy). Tell a health care provider about: Any allergies you have. All medicines you are taking, including vitamins, herbs, eye drops, creams, and [id number] medicines. Any problems you or family members have had with anesthetic medicines. Any blood disorders you have. Any surgeries you have had. Any medical conditions you have. Whether you are or may be . What are the risks? Generally, this is a safe procedure. However, problems may occur, including: Bleeding. Infection. Allergic reactions to medicines. Scarring that narrows the ureter (stricture). Creating a hole in the ureter (perforation). What happens before the procedure? Staying hydrated Follow instructions from your health care provider about hydration, which may include: Up to 2 hours before the procedure you may continue to drink clear liquids, such as water, clear fruit juice, black coffee, and plain tea. Eating and drinking restrictions Follow instructions from your health care provider about eating and drinking, which may include: 8 hours before the procedure stop eating heavy meals or foods such as meat, fried foods, or fatty foods. 6 hours before the procedure stop eating light meals or foods, such as toast or cereal. 6 hours before the procedure stop drinking milk or drinks that contain milk. 2 hours before the procedure stop drinking clear liquids. Medicines Ask your health care provider about: ?Changing or stopping your regular medicines. This is especially important if you are taking diabetes medicines or blood thinners. ?Taking medicines such as aspirin and ibuprofen. These medicines can thin your blood. Do not take these medicines before your procedure if your health care provider instructs you not to. You may be given antibiotic medicine to help prevent infection. General instructions You may have a urine sample taken to check for infection. Plan to have someone take you home from the hospital or clinic. What happens during the procedure? To reduce your risk of infection: ?Your health care team will wash or sanitize their hands. ?Your skin will be washed with soap. An IV tube will be inserted into one of your veins. You will be given one of the following: ?A medicine to help you relax (sedative). ?A medicine to make you fall asleep (general anesthetic). ?A medicine that is injected into your spine to numb the area below and slightly above the injection site (spinal anesthetic). To lower your risk of infection, you may be given an antibiotic medicine by an injection or throughthe IV tube. The opening from which you urinate (urethra) will be cleaned with a germ-killing solution. The ureteroscope will be passed through your urethra into your bladder. A salt-water solution will flow through the ureteroscope to fill your bladder. This will help the health care provider see the openings of your ureters more clearly. Then, the ureteroscope will be passed into your ureter. ?If a growth is found, a piece of it may be removed so it can be examined under a microscope (biopsy). ?If a stone is found, it may be removed through the ureteroscope, or the stone may be broken up using a laser, shock waves, or electrical energy. ?In some cases, if the ureter is too small, a tube may be inserted that keeps the ureter open (ureteral stent). The stent may be left in place for 1 or 2 weeks to keep the ureter open, and then the ureteroscopy procedure will be performed. The scope will be removed, and your bladder will be emptied. The procedure may vary among health care providers and hospitals. What happens after the procedure? Your blood pressure, heart rate, breathing rate, and blood oxygen level will be monitored until themedicines you were given have worn off. You may be asked to urinate. Do not drive for 24 hours if you were given a sedative. This information is not intended to replace advice given to you by your health care provider. Make sure you discuss any questions you have with your health care provider. Document Released: 09/23/2014 Document Revised: 08/31/2018 Document Reviewed: 06/30/2017 [employer] Patient Education 2020 [place]. Follow Up Care 07/17/2022 21:29:49 With:CRISTIN TURNER MD, [facility] Address: [address] [place] [address] [address] [place] [address]- [phone] When:08/01/2022 [facility] 10-17-2022 Nurse Progress note pt refused to sign AMA form stating that she was told by both Dr. Robin and Dr. Harper she would be discharged after her cystoscopy. Digitally Signed by Yesika Joshua RN on 07/18/2022 11:52 PM [id number] Anesthesiology Consult note Patient: SUZIE ALEXANDRE Age: 31 years Sex: Female : 1990 Associated Diagnoses: None Author: TORSTEN LARA MD Assessment Postanesthesia assessment Vitals: Vital signs from flowsheet : Vital Signs 07/18/2022 22:53 EDT Temperature Temporal Artery 36.3 DegC Heart Rate Monitored 59 bpm LOW Respiratory Rate 16 br/min Systolic Blood Pressure NBP 120 mmHg Diastolic Blood Pressure NBP 73 mmHg Mean Arterial Pressure (NBP) 83 mmHg 07/18/2022 22:44 EDT Heart Rate Monitored 60 bpm Respiratory Rate 16 br/min Systolic Blood Pressure NBP 115 mmHg Diastolic Blood Pressure NBP 71 mmHg Mean Arterial Pressure (NBP) 81 mmHg 07/18/2022 22:28 EDT Temperature Temporal Artery 36.4 DegC Peripheral Pulse Rate 69 bpm Respiratory Rate 18 br/min Systolic Blood Pressure NBP 110 mmHg Diastolic Blood Pressure NBP 79 mmHg Mean Arterial Pressure (NBP) 84 mmHg Reason For Taking VItal Signs Procedure post-care 07/18/2022 22:25 EDT Respiratory Rate 2 br/min br/min 07/18/2022 22:22 EDT Systolic Blood Pressure NBP 109 mmHg mmHg Diastolic Blood Pressure NBP 65 mmHg mmHg 07/18/2022 22:20 EDT Heart Rate Monitored 68 bpm bpm Respiratory Rate 17 br/min br/min 07/18/2022 22:19 EDT Systolic Blood Pressure NBP 108 mmHg mmHg Diastolic Blood Pressure NBP 64 mmHg mmHg 07/18/2022 22:16 EDT Systolic Blood Pressure NBP 110 mmHg mmHg Diastolic Blood Pressure NBP 70 mmHg mmHg 07/18/2022 22:15 EDT Heart Rate Monitored 70 bpm bpm Respiratory Rate 18 br/min br/min 07/18/2022 22:12 EDT Systolic Blood Pressure NBP 123 mmHg mmHg Diastolic Blood Pressure NBP 89 mmHg mmHg 07/18/2022 22:10 EDT Heart Rate Monitored 75 bpm bpm Respiratory Rate 4 br/min br/min Systolic Blood Pressure NBP 117 mmHg mmHg Diastolic Blood Pressure NBP 86 mmHg mmHg 07/18/2022 22:07 EDT Systolic Blood Pressure NBP 126 mmHg mmHg Diastolic Blood Pressure NBP 87 mmHg mmHg 07/18/2022 15:18 EDT Temperature Oral 36.8 DegC Peripheral Pulse Rate 72 bpm Respiratory Rate 16 br/min Systolic Blood Pressure 110 mmHg Diastolic Blood Pressure 70 mmHg Reason For Taking VItal Signs Routine 07/18/2022 6:59 EDT Temperature Oral 36.7 DegC Peripheral Pulse Rate 73 bpm Respiratory Rate 18 br/min Systolic Blood Pressure 107 mmHg Diastolic Blood Pressure 73 mmHg 07/18/2022 5:01 EDT Temperature Oral 36.6 DegC Peripheral Pulse Rate 75 bpm Respiratory Rate 18 br/min Systolic Blood Pressure 115 mmHg Diastolic Blood Pressure 74 mmHg 07/17/2022 22:08 EDT Temperature Oral 36.5 DegC Peripheral Pulse Rate 77 bpm Respiratory Rate 18 br/min Systolic Blood Pressure 104 mmHg Diastolic Blood Pressure 63 mmHg Mean Arterial Pressure 77 mmHg Reason For Taking VItal Signs Routine 07/17/2022 16:30 EDT Peripheral Pulse Rate 80 bpm Respiratory Rate 16 br/min Systolic Blood Pressure 106 mmHg Diastolic Blood Pressure 78 mmHg Mean Arterial Pressure 87 mmHg 07/17/2022 15:06 EDT Temperature Oral 36.5 DegC Peripheral Pulse Rate 100 bpm Respiratory Rate 16 br/min Systolic Blood Pressure 139 mmHg Diastolic Blood Pressure 100 mmHg >HHI Mean Arterial Pressure 113 mmHg . Mental status: at preoperative baseline. Respiratory function: respirations are non-labored. Respiratory support: none. CV function: Normal rate, Regular rhythm. Cardiovascular support: none. Pain: Post op control see nursing medication documentation. Nausea status: denies nausea. Postoperative hydration status: euvolemic. Digitally Signed by TORSTEN LARA MD on 07/18/2022 11:34 PM [id number] Note Discharge Instructions Thank you for allowing [place] to assist you with your healthcare needs. The following is importantdischarge information regarding your hospital visit. Your Care Team LACI SINGH MD Your Diagnosis Obstruction of left ureteropelvic junction (UPJ) due to stone Emesis What to do next Instructions From Your Doctor You have an indwelling ureteral stent. The stent must be removed, or it can become encrusted and difficult to remove at a later time. With the stent in place, avoid constipation, caffeine, and nicotine. You may have frequency and urgency of urination, and [id number] acetaminophen and ibuprofen (or ketorolac) can be useful Follow Up Appointments Follow Up with CRIST[facility]URNER [facility], [facility] When In 2 weeks 08/01/2022 EDT Where: [address] [facility] [address] [place] [address]- [phone] The Following Activity and Diet Have Been Ordered for You Discharge Activity - Ordered -- Resume your pre-hospitalization activity, 07/18/22 22:31:00 EDT Discharge Diet - Ordered -- No changes were made to your diet during your hospital stay. Please resume your pre hospitalization diet on discharge., 07/18/22 22:31:00 EDT The Following Equipment Has Been Ordered for You No qualifying data available. The Following Treatments Have Been Ordered for You Discharge Labs No qualifying data available. Discharge Radiology No qualifying data available. Other Therapies No qualifying data available. Post Acute Orders No qualifying data available. Someone Will Contact You Regarding These Home Health Referrals No home referrals have been ordered for you. No one will call you. Allergies Bactrim Depakote Imitrex Medications Please ask your primary doctor or pharmacist before taking any other medication not listed, including over the counter drugs, herbal medications, vitamins and or supplements as they may interact withyour home medications. What How Much When Why Instructions Last Dose New cefdinir (cefdinir 300 mg oral capsule) 1 cap by mouth Every 12 hours Duration: 7 Days Pickup at [facility] [address] Unchanged acetaminophen-hydrocodone ([place] 325- 5 mg oral tablet) 1 tab(s) by mouth Every 6 hours as needed for As needed for severe pain Renal colic Renal colic on left side Duration: 3 Days Pickup at [facility] 1811 Unchanged albuterol (albuterol MDI (90 mcg/ inh) CFC free inhalation aerosol) 1 puff(s) by inhalation Every 6 hours as needed for as needed for wheezing Bronchitis Unchanged divalproex sodium (divalproex sodium 500 mg oral delayed release tablet) 1 tab(s) by mouth Three (3) times a day Unchanged doxepin (doxepin 10 mg oral capsule) 1 cap by mouth Three (3) times a day Unchanged estradiol (estradiol 2 mg oral tablet) 1 tab(s) by mouth Once a day Unchanged ondansetron (ondansetron 4 mg oral tablet, disintegrating) 2 tab(s) by mouth Every 8 hours as needed for as needed for nausea/vomiting Unchanged ondansetron (Zofran 4 mg oral tablet) 1 tab(s) by mouth Every 6 hours as needed for As needed for nausea and vomiting Renal colic Duration: 3 Days Unchanged OXcarbazepine (OXcarbazepine 300 mg oral tablet) 2 tab(s) by mouth Two (2) times a day Unchanged predniSONE (predniSONE 20 mg oral tablet) 2 tab(s) by mouth Once a day Bronchitis Duration: 5 Days Unchanged rizatriptan (rizatriptan 10 mg oral tablet) 1 tab(s) by mouth Once as needed for as needed for migraine headache Unchanged sertraline (sertraline 50 mg oral tablet) 1 tab(s) by mouth Once a day Unchanged zolpidem (zolpidem 5 mg oral tablet) 1 tab(s) by mouth Daily at bedtime as needed for as needed for sleep Pharmacy Information [facility] [address]: [address] [place], [place] [phone] Please take this list to your next doctor s visit. Bring all medications you take, including over the counter medications, herbals and other supplements with you to your doctor s visit. Patients and families are reminded to discard old lists and to update any records with all medication providers or retail pharmacies. Education Materials Ureteroscopy Ureteroscopy is a procedure to check for and treat problems inside part of the urinary tract. In this procedure, a thin, tube-shaped instrument with a light at the end (ureteroscope) is used to look at the inside of the kidneys and the ureters, which are the tubes that carry urine from the kidneys to the bladder. The ureteroscope is inserted into one or both of the ureters. You may need this procedure if you have frequent urinary tract infections (UTIs), blood in your urine, or a stone in one of your ureters. A ureteroscopy can be done to find the cause of urine blockage in a ureter and to evaluate other abnormalities inside the ureters or kidneys. If stones are found, they can be removed during the procedure. Polyps, abnormal tissue, and some types of tumors can also be removed or treated. The ureteroscope may also have a tool to remove tissue to be checked for disease under a microscope (biopsy). Tell a health care provider about: Any allergies you have. All medicines you are taking, including vitamins, herbs, eye drops, creams, and ibyn-gbs-ybhmtsl medicines. Any problems you or family members have had with anesthetic medicines. Any blood disorders you have. Any surgeries you have had. Any medical conditions you have. Whether you are or may be . What are the risks? Generally, this is a safe procedure. However, problems may occur, including: Bleeding. Infection. Allergic reactions to medicines. Scarring that narrows the ureter (stricture). Creating a hole in the ureter (perforation). What happens before the procedure? Staying hydrated Follow instructions from your health care provider about hydration, which may include: Up to 2 hours before the procedure you may continue to drink clear liquids, such as water, clear fruit juice, black coffee, and plain tea. Eating and drinking restrictions Follow instructions from your health care provider about eating and drinking, which may include: 8 hours before the procedure stop eating heavy meals or foods such as meat, fried foods, or fatty foods. 6 hours before the procedure stop eating light meals or foods, such as toast or cereal. 6 hours before the procedure stop drinking milk or drinks that contain milk. 2 hours before the procedure stop drinking clear liquids. Medicines Ask your health care provider about: ? Changing or stopping your regular medicines. This is especially important if you are taking diabetes medicines or blood thinners. ? Taking medicines such as aspirin and ibuprofen. These medicines can thin your blood. Do not take these medicines before your procedure if your health care provider instructs you not to. You may be given antibiotic medicine to help prevent infection. General instructions You may have a urine sample taken to check for infection. Plan to have someone take you home from the hospital or clinic. What happens during the procedure? To reduce your risk of infection: ? Your health care team will wash or sanitize their hands. ? Your skin will be washed with soap. An IV tube will be inserted into one of your veins. You will be given one of the following: ? A medicine to help you relax (sedative). ? A medicine to make you fall asleep (general anesthetic). ? A medicine that is injected into your spine to numb the area below and slightly above the injectionsite (spinal anesthetic). To lower your risk of infection, you may be given an antibiotic medicine by an injection or throughthe IV tube. The opening from which you urinate (urethra) will be cleaned with a germ-killing solution. The ureteroscope will be passed through your urethra into your bladder. A salt-water solution will flow through the ureteroscope to fill your bladder. This will help the health care provider see the openings of your ureters more clearly. Then, the ureteroscope will be passed into your ureter. ? If a growth is found, a piece of it may be removed so it can be examined under a microscope (biopsy). ? If a stone is found, it may be removed through the ureteroscope, or the stone may be broken up using a laser, shock waves, or electrical energy. ? In some cases, if the ureter is too small, a tube may be inserted that keeps the ureter open (ureteral stent). The stent may be left in place for 1 or 2 weeks to keep the ureter open, and then the ureteroscopy procedure will be performed. The scope will be removed, and your bladder will be emptied. The procedure may vary among health care providers and hospitals. What happens after the procedure? Your blood pressure, heart rate, breathing rate, and blood oxygen level will be monitored until themedicines you were given have worn off. You may be asked to urinate. Do not drive for 24 hours if you were given a sedative. This information is not intended to replace advice given to you by your health care provider. Make sure you discuss any questions you have with your health care provider. Document Released: 09/23/2014 Document Revised: 08/31/2018 Document Reviewed: 06/30/2017 Elsevier Patient Education 2020 [employer] Additional Information VACCINATE! IT SAVES LIVES! Members of the community who have not yet received the COVID-19 vaccine and would like to receive it can visit one of [facility] vaccine clinics. There are many vaccine clinic locations within the [facility]. For locations and available times, please visit [email or web address] It is important to note that some COVID mobile vaccine clinics are held outdoors and may be canceled in rainy or stormy conditions. To learn more about pediatric vaccinations (ages 5-11), we invite you to visit the [facility] webpage. [email or web address]/[email or web address]-[email or web address] [email or web address] learn more about the COVID-19 vaccine, we invite you to visit the [facility] website for a list of frequently asked questions. [email or web address] [place] [facility] Patient Portal Access Instructions: Stay connected with your healthcare team and access your personal medical information anytime with the [facility] Patient Portal.If you would like a full copy of your medical records, please contact the [facility] Department, Monday through Monday between 8a.m. and 4:30p.m. Please follow the directions below to access the portal: 1.Access the email account you provided upon registration to the [facility].2.Look for an invitation email from [facility].3.Open the email and access the invitation link: Accept Invitation to [facility]4.Fill in the required brandon to create your account. Sign into www.[employer] with your username and password that you created in the above steps to stay up to date. You can then view a summary of results, a summary of your visits, and the ability to download your summaries to your computer or send the information securely to a physician. Remember that your healthcare information is confidential, so carefully consider who you will allow to register on the [facility] Patient Portal for access to your information. You can also access the [facility] Patient Portal on the textPlus javier. Simply click on Health Records under [employer] and then click on the [employer] logo. HOW TO SAFELY DISPOSE OF PRESCRIPTION MEDICATIONS Please use one of the following methods to safely dispose of your unused medications. 1.Use a drug disposal kit: the drug disposal pouch allows you to safely discard your old and unuseddrugs. Ask your nurse to give you one when you are discharged.2.Visit a local take-back location: Many local pharmacies and police departments have programs that collect old and unwanted prescriptiondrugs. Call your local pharmacy or go to http://Retellity.[employer]/1Y7It2o to find one close to you.3.Make use of household items: Use cat litter or old coffee grounds to dispose medications if other options arenot available. Mix your drugs with these household products, seal them in an airtight container andthrow it into the garbage. Call [facility]: [phone] to be sure your drugs can be disposed of in this way. Some medicines may require a different approach.4.Never flush your medications down the toilet. IF YOU HAVE BEEN PRESCRIBED AN OPIOID FOR PAIN If you have been prescribed an opioid (such as hydrocodone, oxycodone or morphine), it is critical to understand the possible side effects and risks of opioid pain medications. Even when taken as directed, opioids can have several side effects including: Tolerance, meaning you might need to take more of a medication for the same pain relief. Nausea, vomiting and/or constipation. Sleepiness, dizziness, dry mouth, confusion, depression or itching. Physical dependence, meaning you have withdrawal symptoms when a medication is stopped, can develop within a few days. KNOW YOUR RESPONSIBILITIES It is important to know exactly how much and how often to take the opioid pain medications you are prescribed. Never take opioids in higher amounts or more often than prescribed. Do not combine opioids with alcohol or other drugs that cause drowsiness, such as benzodiazepines, also known as benzos, including diazepam and alprazolam, muscle relaxants or sleep aids. Never sell or share prescription opioids. This is illegal. Store opioids in a secure place and out of reach of others (including children, family, friends and visitors). The last page of this document has been signed and retained as a CHART COPY. Signatures Patient Education Materials Ureteroscopy Medication Leaflets My discharge plan and instructions have been reviewed and explained to me and I,SUZIE ALEXANDRE understand my current condition and have read and understand these discharge instructions. I have received a written copy of the plan/instructions. If I have questions, I am aware that I should contact my doctor. 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 Family's history: negative. History of Present Illness The patient presents for preanesthesia evaluation with 31-year-old female with past medical historyof kidney stones, migraines, bipolar, depression, anxiety who presented with left flank pain. She has been nauseous for 4 to 5 days and unable to tolerate p.o. intake. In the ER, UA was positive for blood and leukocyte Estrace. CT abdomen was completed and showed bilateral nephrolithiasis with mildto moderate left-sided obstruction secondary to 7 mm UPJ stone. She had a slight leukocytosis with WBC count of 11.8. BMP was unremarkable. hCG was negative. Presenting for cysto/stent. Patient denies recent CP, SOB, NVD, GERD symptoms.. Review of Systems Ear/Nose/Mouth/Throat: Negative. Respiratory: No shortness of breath, No wheezing, No sleep apnea. Cardiovascular: No chest pain, No palpitations, No peripheral edema. Gastrointestinal: No nausea, No vomiting. Genitourinary: Negative. Endocrine: Negative. Musculoskeletal: No neck pain. Integumentary: Negative. Neurologic: No altered mental status, No numbness, No tingling. Health Status Allergies: Allergic Reactions (Selected) Severity Not Documented Depakote- No reactions were documented. Imitrex- No reactions were documented. Nonallergic Reactions (Selected) Mild Bactrim- No reactions were documented., Allergies (3) ActiveReaction BactrimNone Documented DepakoteNone Documented ImitrexNone Documented Current medications: (Selected) Inpatient Medications Ordered Ativan: 1 mg, 1 tab(s), Oral, q4h, PRN: Anxiety D5W / LR (1000mL) 1,000 mL: 75 mL/hr, Intravenous Flomax: 0.4 mg, 1 cap(s), Oral, qDayPC Miralax Powder Packet: 17 gram(s), 15 mL, Oral, qDay, PRN: Constipation Nicoderm C-Q 21 mg/24 hr transdermal film, extended release: 21 mg, 1 patch(es), Transdermal, q24h OXcarbazepine: 600 mg, 2 tab(s), Oral, BID Percocet 325/5: 2 tab(s), Oral, q4h, PRN: Pain, scale 4-6 Rocephin: 1 gram(s), 10 mL, 120 mL/hr, IV Push (INT), qDay Zofran: 4 mg, 2 mL, IV Push, q4h, PRN: Nausea/Vomiting melatonin: 3 mg, 1 tab(s), Oral, qHS, PRN: Sleep melatonin: 3 mg, 1 tab(s), Oral, qHS, PRN: Sleep morphine: 4 mg, 1 mL, IV Push, q3h, PRN: Pain, scale 7-10 nicotine (Nicoderm Patch REMOVAL): 1 EA, Miscellaneous, Once nicotine (Nicoderm Patch REMOVAL): 1 EA, Miscellaneous, q24h rizatriptan: 10 mg, 1 tab(s), Oral, Once, PRN: Migraine headache Prescriptions Prescribed [place] 325- 5 mg oral tablet: 1 tab(s), Oral, q6h, for 3 day(s), PRN: As needed for severe pain, 12 tab(s), 0 Refill(s) Zofran 4 mg oral tablet: 4 mg, 1 tab(s), Oral, q6h, for 3 day(s), PRN: As needed for nausea and vomiting, 12 tab(s), 0 Refill(s) albuterol MDI (90 mcg/inh) CFC free inhalation aerosol: 1 puff(s), Inhalation, q6h, PRN: as needed for wheezing, 6.7 gram(s), 0 Refill(s) cefdinir 300 mg oral capsule: 300 mg, 1 cap(s), Oral, q12h, for 7 day(s), 14 cap(s), 0 Refill(s) predniSONE 20 mg oral tablet: 40 mg, 2 tab(s), Oral, qDay, for 5 day(s), 10 tab(s), 0 Refill(s) Documented Medications Documented OXcarbazepine 300 mg oral tablet: 600 mg, 2 tab(s), Oral, BID, 120 tab(s), 0 Refill(s) divalproex sodium 500 mg oral delayed release tablet: 500 mg, 1 tab(s), Oral, TID, 270 tab(s), 0 Refill(s) doxepin 10 mg oral capsule: 10 mg, 1 cap(s), Oral, TID, 270 cap(s), 0 Refill(s) estradiol 2 mg oral tablet: 2 mg, 1 tab(s), Oral, qDay, 30 tab(s), 0 Refill(s) ondansetron 4 mg oral tablet, disintegratin mg, 2 tab(s), Oral, q8h, PRN: as needed for nausea/vomiting, 0 Refill(s) rizatriptan 10 mg oral tablet: 10 mg, 1 tab(s), Oral, Once, PRN: as needed for migraine headache, 12 tab(s), 0 Refill(s) sertraline 50 mg oral tablet: 50 mg, 1 tab(s), Oral, qDay, 30 tab(s), 0 Refill(s) zolpidem 5 mg oral tablet: 5 mg, 1 tab(s), Oral, qHS, PRN: as needed for sleep, 0 Refill(s), Medications (14) Active Scheduled: (5) cefTRIAXone IVP syringe 1 gram(s) 10 mL, IV Push (INT), qDay Nicoderm patch REMOVAL 1 EA, Miscellaneous, q24h nicotine 21 mg/24 hr ER patch 21 mg 1 patch(es), Transdermal, q24h oxcarbazepine 300 mg tablet 600 mg 2 tab(s), Oral, BID tamsulosin 0.4 mg Capsule 0.4 mg 1 cap(s), Oral, qDayPC Continuous: (1) D5/LR 1,000 mL 1,000 mL, Intravenous, 75 mL/hr PRN: (8) acetaminophen-OXYcodone 325 mg-5 mg Tablet 2 tab(s), Oral, q4h LORAZEPam 1 mg Tablet 1 mg 1 tab(s), Oral, q4h melatonin 3 mg tablet 3 mg 1 tab(s), Oral, qHS melatonin 3 mg tablet 3 mg 1 tab(s), Oral, qHS morphine 4 mg/mL 1mL INJ 4 mg 1 mL, IV Push, q3h ondansetron 2 mg/ 1 mL 2 mL INJ 4 mg 2 mL, IV Push, q4h polyethylene glycol 3350 - UD packet 17 gram(s) 15 mL, Oral, qDay rizatriptan 10 mg Tablet 10 mg 1 tab(s), Oral, Once Problem list: Medical Obstruction of left ureteropelvic junction (UPJ) due to stone / SNOMED CT 698446796 / Confirmed / SNOMED CT 444415841 / Confirmed Emesis / SNOMED CT 3109135453 / Confirmed, Active Problems (8) Anxiety Bipolar disorder Depression Emesis Migraine Obstruction of left ureteropelvic junction (UPJ) due to stone Tobacco use Histories Past Medical History: No active or resolved past medical history items have been selected or recorded. Procedure history: No active procedure history items have been selected or recorded. Social History Social & Psychosocial Habits Alcohol 1Risk Assessment: Denies Alcohol Use 04/27/2021 Use: Never Substance Abuse 01/30/2021isk Assessment: Denies Substance Abuse Tobacco 09/27/2020 Tobacco Use: 10 or more cigarettes (1/ Type: Cigarettes 1Risk Assessment: High Risk . Physical Examination Vital Signs(last 24 hrs) Last Charted Temp Oral36.8 DegC (JUL 18 15:18) Resp Rate 16 br/min (JUL 18 15:18) BMI25.1 (JUL 18 05:38) Measurements from flowsheet : Measurements 07/18/2022 5:38 EDT Body Mass Index 25.1 kg/m2 07/17/2022 21:43 EDT Height 167.6 cm Height in inches 66 inch(es) Admission Weight 70.5 kg Weight Lbs 155.1 lb [place] Body Weight 59.26 kg Type of Scale Used Standing BSA Admission 1.8 Body Mass Index 25.1 kg/m2 General: Alert and oriented, No acute distress. Airway: Normal temporomandibular joint mobility, Normal mouth, Normal neck range of motion. Mallampati classification: II (soft palate, fauces, uvula visible). Dentition Evaluation: Intact, Own teeth. Respiratory: Lungs are clear to auscultation. Cardiovascular: Normal rate, Regular rhythm. Heart Sounds: Normal. Neurologic: Alert, Oriented. Review / Management Results review: Labs (Last four charted values) WBC 4.8(JUL 18) Hgb 12.6(JUL 18) Hct 37.1(JUL 18) Plt 193(JUL 18) Na 141(JUL 18) K 3.7(JUL 18) CO2 22(JUL 18) Cl 109(JUL 18) Cr 0.69(JUL 18) BUN L 7.0(JUL 18) Glucose L 58(JUL 18) Ca 8.7(JUL 18) . Documentation reviewed: Current records. Assessment and Plan [place] [employer] Anesthesiologists (ASA) physical status classification: Class I. Anesthetic Preoperative Plan Premedication: intravenous. Anesthetic technique: MAC (GA as backup). Induction: intravenously. Maintenance airway: Mask. Postoperative pain management: Per surgeon. Risks discussed: nausea, vomiting, sore throat, dental injury. Informed consent: signed by patient. Digitally Signed by TORSTEN LARA MD on 07/18/2022 09:28 PM [id number] Note Date of Service 07/18/22 Chief Complaint Patient is a 31-year-old female with past medical history of kidney stones, migraines, bipolar, depression, anxiety who presented with left flank pain. She has been nauseous for 4 to 5 days and unable to tolerate p.o. intake. In the ER, UA was positive for blood and leukocyte Estrace. CT abdomen was completed and showed bilateral nephrolithiasis with mild to moderate left-sided obstruction secondary to 7 mm UPJ stone. She had a slight leukocytosis with WBC count of 11.8. BMP was unremarkable. hCG was negative. She was started on fluids, Zofran, ceftriaxone, Flomax and morphine Urology was consulted and recommended stent placement. Subjective Patient notes improvement, she has noted an increase in urine production. She believes her nausea has improved however has been n.p.o. given stent placement. No significant fevers or chills overnight. No significant urinary pain/blood in urine at this time. She is eager to return home. Objective Vitals and Measurements T: 36.7 C (Oral) TMIN: 36.5 C (Oral) TMAX: 36.7 C (Oral) HR: 73 RR: 18 BP: 107/73 SpO2: 97% HT: 167.6 cm WT: 70.5 kg BMI: 25.1 Intake and Output 7AM Yesterday to 7AM Today Intake and Output (Last 24 hours) Intake Administration Information 441.67 Output Urine Voided 1100.00 Total Summary Total Intake 441.67 Total Output 1100.00 Fluid Balance -658.33 Physical Exam Constitutional - well nourished, alert and oriented, no gross deformities Head - atraumatic, normocephalic Eyes - Pupils equal, round, reactive to light, no conjunctival injection, extra ocular movements grossly intact, no scleral icterus Ears, Nose, and Throat - trachea midline no lesions, masses, lymphadenopathy Respiratory - Clear to auscultation without rales, rhonchi, wheezing or diminished breath sounds Cardiovascular - regular rate and rhythm without murmurs. Normal S1 and S2. No cyanosis or edema Gastrointestinal (Abdomen) - Bowel sounds present. Soft, nontender without ascites, distention Musculoskeletal - gait normal, no obvious deformity, swelling, or clubbing. Skin: Skin normal color, texture and turgor with no lesions or eruptions Weight Dosing Weight: 70.5 kg (07/17/22) Medications Medications (14) Active Scheduled: (5) cefTRIAXone IVP syringe 1 gram(s) 10 mL, IV Push (INT), qDay Nicoderm patch REMOVAL 1 EA, Miscellaneous, q24h nicotine 21 mg/24 hr ER patch 21 mg 1 patch(es), Transdermal, q24h oxcarbazepine 300 mg tablet 600 mg 2 tab(s), Oral, BID tamsulosin 0.4 mg Capsule 0.4 mg 1 cap(s), Oral, qDayPC Continuous: (1) D5/LR 1,000 mL 1,000 mL, Intravenous, 75 mL/hr PRN: (8) acetaminophen-OXYcodone 325 mg-5 mg Tablet 2 tab(s), Oral, q4h LORAZEPam 1 mg Tablet 1 mg 1 tab(s), Oral, q4h melatonin 3 mg tablet 3 mg 1 tab(s), Oral, qHS melatonin 3 mg tablet 3 mg 1 tab(s), Oral, qHS morphine 4 mg/mL 1mL INJ 4 mg 1 mL, IV Push, q3h ondansetron 2 mg/ 1 mL 2 mL INJ 4 mg 2 mL, IV Push, q4h polyethylene glycol 3350 - UD packet 17 gram(s) 15 mL, Oral, qDay rizatriptan 10 mg Tablet 10 mg 1 tab(s), Oral, Once Lab Results 07/18 06:49 WBC: 4.8 Hgb: 12.6 Hct: 37.1 Platelet: 193 Neutrophil %: 52.7 Glucose Level: 58 L Sodium Level: 141 Potassium Level: 3.7 BUN: 7.0 L Creatinine Lvl (s): 0.69 Imaging Results and Diagnostics EXAMINATION: CT OF THE ABDOMEN AND PELVIS WITHOUT CONTRAST 07/16/2022 8:47 am FINDINGS: No osseous abnormality. The lung bases are unremarkable. Liver, spleen, adrenal glands and pancreas appear normal. Punctate medullary nephrolithiasis is identified bilaterally with multiple 3-4 mm stone seen. There is mild to moderate left-sided pelvicaliectasis. At the left UPJ, there is a 7 mm stone seen. More distally, the left ureter is unremarkable. The urinary bladder appears normal. No adenopathy, free air or free fluid seen. Solid pelvic organs are unremarkable. No GI tract abnormality is visible. The appendix is normal. No other contributory finding. IMPRESSION: 1. Bilateral nephrolithiasis. 2. Mild to moderate left-sided obstruction secondary to a 7 mm UPJ stone. EKG No qualifying data available. Assessment/Plan Obstruction of left ureteropelvic junction (UPJ) due to stone Concern for pyelonephritis continue ceftriaxone Nausea and vomiting Comorbidities including migraine, bipolar, depression and anxiety -Plan for stent placement, cont Flomax/hydration -Continue ceftriaxone, culture pending. If culture results are not available by discharge, continuecefdinir given concern for pyelonephritis for another 7 days. -Advance diet after stent placement, if patient is able to tolerate p.o. intake and urology feels comfortable discharging patient post procedure, can consider discharge this afternoon with close follow-up. -Ativan as needed -Continue Zofran as needed for nausea vomiting Time Spent >35 minutes with >50% of the time spent counseling patient and/or coordinating care Digitally Signed by GARETT ROBIN DO on 07/18/2022 09:46 AM [id number] History and physical note Date of Service 07/17/2022 Chief Complaint kidney stone, nausea and vomiting History of Present Illness 31-year-old female with a history of kidney stone, migraine, bipolar depression, and anxiety presents with left flank pain started suddenly earlier this morning sharp in quality progressive in severity comes and goes associated with nausea and vomiting so she went to [place] emergency department. In the emergency department UA positive for blood and leukoesterase ct abdomen pelvis without contrast 1. Bilateral nephrolithiasis. 2. Mild to moderate left-sided obstruction secondary to a 7 mm UPJ stone. CBC leukocytosis with WBC of 11.8 BMP unremarkable creatinine reassuring hCG negative Started on IV fluids, IV Zofran, IV ceftriaxone, IV morphine Case discussed with urology on-call agreed to see the patient in consult for likely stent placement Review of Systems All pertinent positive and negative review of systems as per HPI, all other review of systems reviewed and negative Physical Exam Vitals and Measurements T: 36.5 C (Oral) HR: 77 RR: 18 BP: 104/63 HT: 167.6 cm WT: 70.5 kg BMI: 25.1 Weight Dosing Weight: 70.5 kg (07/17/22) GENERAL:Well nourished ; no acute distress. ASSISTIVE DEVICES: None PSYCHIATRIC: appropriate HEENT moist mucous membranes extraocular muscles intact CARDIOVASCULAR: normal chest rise RESPIRATORY: Regular rate and depth; no distress, RIGHT lungclear ; LEFT lungclear . Breath soundsnormal . NEURO: no focal deficits DERM: no acute rash Lab Results No 36 Hour Lab Data Imaging Results and Diagnostics ct ab p w/o FINDINGS: No osseous abnormality. The lung bases are unremarkable. Liver, spleen, adrenal glands and pancreas appear normal. Punctate medullary nephrolithiasis is identified bilaterally with multiple 3-4 mm stone seen. There is mild to moderate left-sided pelvicaliectasis. At the left UPJ, there is a 7 mm stone seen. More distally, the left ureter is unremarkable. The urinary bladder appears normal. No adenopathy, free air or free fluid seen. Solid pelvic organs are unremarkable. No GI tract abnormality is visible. The appendix is normal. No other contributory finding. IMPRESSION: 1. Bilateral nephrolithiasis. 2. Mild to moderate left-sided obstruction secondary to a 7 mm UPJ stone. Assessment/Plan 1. Obstruction of left ureteropelvic junction (UPJ) due to stone 31-year-old female is presenting with sudden onset left flank pain nausea vomiting secondary to 7 mm kidney stone seen by urology plan is for stent placement in the morning we will keep n.p.o., control pain, IV fluids, IV antiemetics and cover with antibiotics. Acute kidney stone with left-sided obstruction n.p.o. after midnight, IV fluids, IV pain medications as needed, Flomax, urology planning for stent placement Concern for pyelonephritis continue ceftriaxone follow urine culture Nausea and vomiting second IV fluids, #1 IV Zofran as needed Anxiety uncontrolled Ativan as needed Bipolar depression stable Migraine stable Smoker nicotine patch DVT prophylaxis SCDs Full code Orders: acetaminophen-oxyCODONE, Start: 07/17/22 22:03:00 EDT, Dose = 2 tab(s), Tab, Oral, q4h, PRN, Pain, scale 4-6, 07/17/22 22:03:00 EDT cefTRIAXone, Start: 07/18/22 15:00:00 EDT, Dose = 1 gram(s), = 10 mL, IV Push (INT), qDay, Rate: 120 mL/hr, Infuse over: 5 minute(s), 0, 07/17/22 22:03:00 EDT LORazepam, Start: 07/17/22 22:03:00 EDT, Dose = 1 mg, = 1 tab(s), Oral, q4h, PRN, Anxiety, 07/17/2222:03:00 EDT melatonin, Start: 07/17/22:03:00 EDT, Dose = 3 mg, = 1 tab(s), Oral, qHS, PRN, Sleep, May repeatx 1 dose, 07/17/22 22:03:00 EDT melatonin, Start: 07/17/22:03:00 EDT, Dose = 3 mg, = 1 tab(s), Oral, qHS, PRN, Sleep, May repeatx 1 dose, 07/17/22:03:00 EDT morphine, Start: 07/17/22:03:00 EDT, Dose = 4 mg, = 1 mL, IV Push, q3h, PRN, Pain, scale 7-10, 07/17/22:03:00 EDT nicotine, Start: 07/17/22:00:00 EDT, Dose = 1 patch(es), ER Film, Transdermal, q24h, 6 week(s), Stop: 08/27/22 23:00:00 EST, 07/17/22 22:42:00 EDT nicotine (Nicoderm Patch REMOVAL), Start: 07/18/22 23:00:00 EDT, q24h, 07/18/22:42:00 EDT nicotine (Nicoderm Patch REMOVAL), Start: 07/17/22:45:00 EDT, Once, 07/17/22:42:00 EDT ondansetron, Start: 07/17/22:03:00 EDT, Dose = 4 mg, = 2 mL, IV Push, q4h, PRN, Nausea/Vomiting,07/17/22:03:00 EDT OXcarbazepine, Start: 07/17/22:21:00 EDT, Dose = 600 mg, = 2 tab(s), Oral, BID, 07/17/22:21:00 EDT polyethylene glycol 3350, Start: 07/17/22:03:00 EDT, Dose = 17 gram(s), = 15 mL, Oral, qDay, PRN, Constipation, 07/17/22:03:00 EDT rizatriptan, Start: 10/16/22 23:21:00 EDT, Dose = 10 mg, = 1 tab(s), Oral, Once, PRN, Migraine headache, 07/17/22 23:21:00 EDT Sodium Chloride 0.9% intravenous solution 1,000 mL, Start: 07/17/22 22:03:00 EDT, Rate: 100 mL/hr, 07/17/22 22:03:00 EDT Admit to Inpatient Ambulate Basic Metabolic Panel Blood Glucose Call Parameter Blood Glucose Call Parameter Blood Glucose Monitoring Bedside PRN Code Status Communication Order (continuous) Communication Order (continuous) Complete Blood Count Consult to Physician Diet Order Intake and Output IV Catheter Insertion/Care NPO after Midnight Prn Adapter Pulse Oximeter - Intermittent Sequential Compression Device Application Urinalysis Urine Culture Vital Signs Problem List/Past Medical History Ongoing Emesis Obstruction of left ureteropelvic junction (UPJ) due to stone Historical No qualifying data Bipolar depression Anxiety Migraine Kidney stone Procedure/Surgical History No qualifying data available. Tubal ligation following tubal ligation reversal Medications Home Medications (12) Active albuterol MDI (90 mcg/inh) CFC free inhalation aerosol 1 puff(s), PRN, Inhalation, q6h divalproex sodium 500 mg oral delayed release tablet 500 mg = 1 tab(s), Oral, TID doxepin 10 mg oral capsule 10 mg = 1 cap(s), Oral, TID estradiol 2 mg oral tablet 2 mg = 1 tab(s), Oral, qDay [place] 325- 5 mg oral tablet 1 tab(s), PRN, Oral, q6h ondansetron 4 mg oral tablet, disintegrating 8 mg = 2 tab(s), PRN, Oral, q8h OXcarbazepine 300 mg oral tablet 600 mg = 2 tab(s), Oral, BID predniSONE 20 mg oral tablet 40 mg = 2 tab(s), Oral, qDay rizatriptan 10 mg oral tablet 10 mg = 1 tab(s), PRN, Oral, Once sertraline 50 mg oral tablet 50 mg = 1 tab(s), Oral, qDay Zofran 4 mg oral tablet 4 mg = 1 tab(s), PRN, Oral, q6h zolpidem 5 mg oral tablet 5 mg = 1 tab(s), PRN, Oral, qHS Allergies Bactrim Depakote Imitrex Social History Alcohol - Denies Alcohol Use, 01/30/2021 Use: Never., 04/27/2021 Substance Abuse - Denies Substance Abuse, 01/30/2021 Tobacco - High Risk, 01/30/2021 Nicotine Use: 10 or more cigarettes (1/2 pack or more)/day in last 30 days. Type: Cigarettes., 09/27/2020 Family History Noncontributory to current presentation Immunizations No qualifying data available. Code Status Code Status - Ordered -- 07/17/22 22:04:00 EDT, Full Code, Constant Order Digitally Signed by TU FLYNN MD on 07/17/2022 11:39 PM [id number] Urology Consult note Date of Service 07/17/2022 Reason for Consultation Left UPJ Stone Referring Physician Dr. Nixon History of Present Illness This is a 31 year old transfer from [place]. She went to [facility] yesterday and had increased pain and anusea. She was discharged home and then went back today. The urologist in [place] requested transfer to [place]. Location: Left ureteral stone Duration: 2 days Timing: acute Quality: sharp Severity: severe Context: left prximal stone Modifying factors: pain meds Alleviating or aggravating factors: pain meds and nausea medications Associated Signs or Symptoms: nausea and emesis Review of Systems Constitutional: Negative for fever, negative for fatigue, negative for chills, negative for abnormal weight change Cardiovascular: Negative for chest pain, negative for palpitations, negative for lower extremity swelling Respiratory: Negative for shortness of breath at rest, negative for shortness of breath with activity, negative for cough, negative for wheezing Gastrointestinal: Negative for abdominal pain, negative for nausea, negative for vomiting. Genitourinary: Negative for dysuria, negative for urgency, negative for urinary frequency , negative for hematuria Musculoskeletal: Negative for back pain Skin: Negative for rashes, negative for unusual lesions Neurological: Negative for abnormal or changing headaches, negative for focal numbness, negative for weakness, negative for changes in memory Psychiatric: Negative for anxiety, negative for depression, negative for sleep problems Endocrine: Negative for hot flashes Hematologic/Lymphatic: No easy bruising, no swollen glands Physical Exam Vitals and Measurements T: 36.5 C (Oral) HR: 77 RR: 18 BP: 104/63 HT: 167.6 cm WT: 70.5 kg BMI: 25.1 Weight Dosing Weight: 70.5 kg (07/17/22) GENERAL: Well nourished; no acute distress. PSYCHIATRIC: Alert and oriented x 3, cooperative. HEAD: Normocephalic, nontraumatic head. CARDIAC: Regular rate, regular rhythm ABDOMEN: Soft, NT, ND RESPIRATORY: No respiratory distress MUSCULOSKELETAL: Gait normal. DERM: Warm and dry. Normal turgor. Lab Results No 36 Hour Lab Data Assessment/Plan 1. Obstruction of left ureteropelvic junction (UPJ) due to stone 7mm proximal stone. Start on antibiotics. Will keep NPO after midnight. Plan for stent tomorrow 2. Emesis Continue with antiemetics. Orders: NPO after Midnight Sign Consent Problem List/Past Medical History Ongoing Emesis Obstruction of left ureteropelvic junction (UPJ) due to stone Historical No qualifying data Procedure/Surgical History No stone treatement Medications Inpatient Ativan, 1 mg= 1 tab(s), Oral, q4h, PRN melatonin, 3 mg= 1 tab(s), Oral, qHS, PRN melatonin, 3 mg= 1 tab(s), Oral, qHS, PRN Miralax Powder Packet, 17 gram(s)= 15 mL, Oral, qDay, PRN morphine, 4 mg= 1 mL, IV Push, q3h, PRN Nicoderm C-Q 21 mg/24 hr transdermal film, extended release, 21 mg= 1 patch(es), Transdermal, q24h nicotine (Nicoderm Patch REMOVAL), 1 EA, Miscellaneous, q24h nicotine (Nicoderm Patch REMOVAL), 1 EA, Miscellaneous, Once NS 1,000 mL, 1000 mL, Intravenous Percocet 325/5, 2 tab(s), Oral, q4h, PRN Rocephin, 1 gram(s)= 10 mL, IV Push (INT), qDay Tylenol, 650 mg= 2 tab(s), Oral, q4h, PRN Zofran, 4 mg= 2 mL, IV Push, q4h, PRN Home albuterol MDI (90 mcg/inh) CFC free inhalation aerosol, 1 puff(s), Inhalation, q6h, PRN divalproex sodium 500 mg oral delayed release tablet, 500 mg= 1 tab(s), Oral, TID, Not taking doxepin 10 mg oral capsule, 10 mg= 1 cap(s), Oral, TID, Not taking estradiol 2 mg oral tablet, 2 mg= 1 tab(s), Oral, qDay, Not taking [place] 325- 5 mg oral tablet, 1 tab(s), Oral, q6h, PRN ondansetron 4 mg oral tablet, disintegrating, 8 mg= 2 tab(s), Oral, q8h, PRN OXcarbazepine 300 mg oral tablet, 600 mg= 2 tab(s), Oral, BID predniSONE 20 mg oral tablet, 40 mg= 2 tab(s), Oral, qDay, Not taking rizatriptan 10 mg oral tablet, 10 mg= 1 tab(s), Oral, Once, PRN sertraline 50 mg oral tablet, 50 mg= 1 tab(s), Oral, qDay, Not taking Zofran 4 mg oral tablet, 4 mg= 1 tab(s), Oral, q6h, PRN, Still taking, not as prescribed: patient now takes 8mgs every 8 hours as needed zolpidem 5 mg oral tablet, 5 mg= 1 tab(s), Oral, qHS, PRN, Not taking Allergies Bactrim Depakote Imitrex Social History Alcohol - Denies Alcohol Use, 01/30/2021 Use: Never., 04/27/2021 Substance Abuse - Denies Substance Abuse, 01/30/2021 Tobacco - High Risk, 01/30/2021 Nicotine Use: 10 or more cigarettes (1/2 pack or more)/day in last 30 days. Type: Cigarettes., 09/27/2020 Family History No family hx of stones Immunizations No qualifying data available. Digitally Signed by CRISTIN TURNER MD on 07/17/2022 10:40 PM [id number] Evaluation + Plan note Future Appointments Diagnostic Tests Pending * Urine Culture 07/17/22 [facility] 10-16-2022 Evaluation + Plan noteExtracted from: Title:History and Physical Author:TU FLYNN Date:07/17/22 1. Obstruction of left urete ropelvic junction (UPJ) due to stone 31-year-old female is presenting with sudden onset left flank pain nausea vomiting secondary to 7 mm kidney stone seen by urology plan is for stent placement in the morning we will keep n.p.o., control pain, IV fluids, IV antiemetics and cover with antibiotics. Acute kidney stone with left-sided obstruction n.p.o. after midnight, IV fluids, IV pain medications as needed, Flomax, urology planning for stent placement Concern for pyelonephritis continue ceftriaxone follow urine culture Nausea and vomiting second IV fluids, #1 IV Zofran as needed Anxiety uncontrolled Ativan as needed Bipolar depression stable Migraine stable Smoker nicotine patch DVT prophylaxis SCDs Full code Orders: acetaminophen-oxyCODONE, Start: 07/17/22 22:03:00 EDT, Dose = 2 tab(s), Tab, Oral, q4h, PRN, Pain, scale 4-6, 07/17/22 22:03:00 EDT cefTRIAXone, Start: 07/18/22 15:00:00 EDT, Dose = 1 gram(s), = 10 mL, IV Push (INT), qDay, Rate: 120 mL/hr, Infuse over: 5 minute(s), 0, 07/17/22 22:03:00 EDT LORazepam, Start: 07/17/22 22:03:00 EDT, Dose = 1 mg, = 1 tab(s), Oral, q4h, PRN, Anxiety, 07/17/22 22:03:00 EDT melatonin, Start: 07/17/22 22:03:00 EDT, Dose = 3 mg, = 1 tab(s), Oral, qHS, PRN, Sleep, May repeat x 1 dose, 07/17/22 22:03:00 EDT melatonin, Start: 07/17/22 22:03:00 EDT, Dose = 3 mg, = 1 tab(s), Oral, qHS, PRN, Sleep, May repeat x 1 dose, 07/17/22 22:03:00 EDT morphine, Start: 07/17/22 22:03:00 EDT, Dose = 4 mg, = 1 mL, IV Push, q3h, PRN, Pain, scale 7-10, 07/17/22 22:03:00 EDT nicotine, Start: 07/17/22 23:00:00 EDT, Dose = 1 patch(es), ER Film, Transdermal, q24h, 6 week(s), Stop: 08/27/22 23:00:00 EST, 07/17/22 22:42:00 EDT nicotine (Nicoderm Patch REMOVAL), Start: 07/18/22 23:00:00 EDT, q24h, 07/18/22:42:00 EDT nicotine (Nicoderm Patch REMOVAL), Start: 07/17/22 22:45:00 EDT, Once, 07/17/22:42:00 EDT ondansetron, Start: 07/17/22:03:00 EDT, Dose = 4 mg, = 2 mL, IV Push, q4h, PRN, Nausea/Vomiting, 07/17/22 22:03:00 EDT OXcarbazepine, Start: 07/17/22 23:21:00 EDT, Dose = 600 mg, = 2 tab(s), Oral, BID, 07/17/22 23:21:00 EDT polyethylene glycol 3350, Start: 07/17/22 22:03:00 EDT, Dose = 17 gram(s), = 15 mL, Oral, qDay, PRN, Constipation, 07/17/22 22:03:00 EDT rizatriptan, Start: 07/17/22 23:21:00 EDT, Dose = 10 mg, = 1 tab(s), Oral, Once, PRN, Migraine headache, 07/17/22 23:21:00 EDT Sodium Chloride 0.9% intravenous solution 1,000 mL, Start: 07/17/22 22:03:00 EDT, Rate: 100 mL/hr, 07/17/22 22:03:00 EDT Admit to Inpatient Ambulate Basic Metabolic Panel Blood Glucose Call Parameter Blood Glucose Call Parameter Blood Glucose Monitoring Bedside PRN Code Status Communication Order (continuous) Communication Order (continuous) Complete Blood Count Consult to Physician Diet Order Intake and Output IV Catheter Insertion/Care NPO after Midnight Prn Adapter Pulse Oximeter - Intermittent Sequential Compression Device Application Urinalysis Urine Culture Vital Signs Diagnostic Tests Pending * Urine Culture 07/17/22 * Basic Metabolic Panel 07/19/22 * Complete Blood Count 07/19/22 [facility] 10-15-2022 Hospital Discharge instructions Patient Education 07/16/2022 09:39:18 Kidney Stone w/ Colic Kidney Stone with Pain The sharp cramping pain on either side of your lower back and nausea/vomiting that you have are because of a small stone that has formed in the kidney. It is now passing down a narrow tube (ureter) on its way to your bladder. Once the stone reaches your bladder, the pain will often stop. But it maycome back as the stone continues to pass out of the bladder and through the urethra. The stone may pass in your urine stream in one piece. The size may be 1/16 inch to 1/4 inch (1 mm to 6 mm). Or, the stone may break up into crystal fragments that you may not even notice. Once you have had a kidney stone, you are at risk of getting another one in the future. There are 4types of kidney stones. Eighty percent are calcium stones mostly calcium oxalate but also some withcalcium phosphate. The other 3 types include uric acid stones, struvite stones (from a preceding infection), and rarely, cystine stones. Most stones will pass on their own, but may take from a few hours to a few days. Sometimes the stone is too large to pass by itself. In that case, the healthcare provider will need to use other ways to remove the stone. These techniques include: Lithotripsy. This uses ultrasound waves to break up the stone. Ureteroscopy. This pushes a basket-like instrument through the urethra and bladder and into the ureter to pull out the stone. Various types of direct surgery through the skin Home care The following are general care guidelines: Drink plenty of fluids. This means at least 12, 8-ounce glasses of fluid mostly water a day. Each time you urinate, do so in a jar. Pour the urine from the jar through the strainer and into the toilet. Continue doing this until 24 hours after your pain stops. By then, if there was a kidney stone, it should pass from your bladder. Some stones dissolve into sand-like particles and pass rightthrough the strainer. In that case, you won t ever see a stone. Save any stone that you find in the strainer and bring it to your healthcare provider to look at. It may be possible to stop certain types of stones from forming. For this reason, it is important to know what kind of stone you have. Try to stay as active as possible. This will help the stone pass. Don't stay in bed unless your pain keeps you from getting up. You may notice a red, pink, or brown color to your urine. This is normal while passing a kidney stone. If you develop pain, you may take ibuprofen or naproxen for pain, unless another medicine was prescribed. If you have chronic liver or kidney disease, talk with your healthcare provider before takingthese medicines. Also talk with your provider if you've had a stomach ulcer or GI bleeding. Preventing stones Each year for the next 5 to 7 years, you are at risk that a new stone will form. Your risk is a 50%chance over this time period. The risk is higher if you have a family history of kidney stones or have certain chronic illnesses like hypertension, obesity, or diabetes. But you can make changes to your lifestyle and diet that can lower your risk for another stone. Most kidney stones are made of calcium. The following is advice for preventing another calcium stone. If you don t know the type of stone you have, follow this advice until the cause of your stone isfound. Things that help: The most important thing you can do is to drink plenty of fluids each day. See home care above. Eat foods that contain phytates. These include wheat, rice, rye, barley, and beans. Phytates are substances that may lower your risk for any type of stone to form. Eat more fruits and vegetables. Choose those that are high in potassium. Eat foods high in natural citrate like fruit and low-sugar fruit juices. Having too little calcium in your diet can put you at risk for calcium kidney stones. Eat a normal amount of calcium in your diet and talk with your healthcare provider if you are taking calcium supplements. Cutting back on your calcium intake may raise your risk. New research shows that eating calcium-rich and oxalate-rich foods together lowers your risk for stones by binding the minerals in thestomach and intestines before they can reach the kidneys. Limit salt intake to 2 grams (1 teaspoon) per day. Use limited amounts when cooking, and don t add salt at the table. Processed and canned foods are usually high in salt. Spinach, rhubarb, peanuts, cashews, almonds, grapefruit, and grapefruit juice are all high oxalate foods. You should limit how much of these you eat. Or eat them with calcium-rich foods. These include dairy products, dark leafy greens, soy products, and calcium-enriched foods. Reducing the amount of animal meat and high protein foods in your diet may lower your risk for uricacid stones. Avoid excess sugar (sucrose) and fructose (sweetener in many soft drinks) in your diet. If you take vitamin C as a supplement, don't take more than 1,000 mg a day. A dietitian or your healthcare provider can give you information about changes in your diet that will help prevent more kidney stones from forming. Follow-up care Follow up with your healthcare provider, or as advised, if the pain lasts more than 48 hours. Talk with your provider about urine and blood tests to find out the cause of your stone. If you had an X-ray, CT scan, or other diagnostic test, you will be told of any new findings that may affect your care. Call 911 Call 911 if you have any of these: Weakness, dizziness, or fainting When to seek medical advice Call your healthcare provider right away if any of these occur: Pain that is not controlled by the medicine given Repeated vomiting or unable to keep down fluids Fever of 100.4 F (38 C) or higher, or as directed by your healthcare provider Passage of solid red or brown urine (can't see through it) or urine with lots of blood clots Foul-smelling or cloudy urine Unable to pass urine for 8 hours and increasing bladder pressure [id number] [employer]. [address] [place] [id number]. All rights reserved. This information is not intended as a substitute for professional medical care. Always follow yourhealthcare professional's instructions. Follow Up Care 07/16/2022 07:26:22 With:BERT STOUT Address: [address] [place] [phone]- [facility] (1) When:2-4 days Comments:Schedule an appointment for follow-up.Strain your urine.Push fluids.Use Tylenol, Advil or Aleve forpain and fever as needed.Use Wat[place]a as prescribed for severe pain and Zofran for nausea and vomiting.Return to the ED if your symptoms worsen. [facility] Discharge summary Discharge Instructions Thank you for allowing [facility] to assist you with your healthcare needs. The following is importantdischarge information regarding your hospital visit. Diagnosis from Today's Visit Renal colic, Renal colic on left side Flank pain left What to Do Next Instructions from Your Care Team No qualifying data available. Post Acute Orders No qualifying data available. You Need to Schedule the Following Appointments Follow Up with BERT STOUT When Within 2-4 days Why: Schedule an appointment for follow-up. Strain your urine. Push fluids. Use Tylenol, Advil or Aleve for pain and fever as needed. Use Wathena as prescribed for severe pain and Zofran for nausea and vomiting. Return to the ED if your symptoms worsen. Where: [address] [place] [phone] Business (1) Allergies Bactrim Depakote Imitrex Medications Please ask your primary doctor or pharmacist before taking any other medication not listed, including over the counter drugs, herbal medications, vitamins and or supplements as they may interact withyour home medications. What How Much When Why Instructions Last Dose New acetaminophen-hydrocodone (Wathena 325- 5 mg oral tablet) 1 tab(s) by mouth Every 6 hours as needed for As needed for severe pain Renal colic Renal colic on left side Duration: 3 Days Printed Prescription Changed ondansetron (ondansetron 4 mg oral tablet, disintegrating) 1 tab(s) by mouth Every 8 hours as needed for as needed for nausea/vomiting Changed ondansetron (Zofran 4 mg oral tablet) 1 tab(s) by mouth Every 6 hours as needed for As needed for nausea and vomiting Renal colic Duration: 3 Days Printed Prescription Unchanged albuterol (albuterol MDI (90 mcg/ inh) CFC free inhalation aerosol) 1 puff(s) by inhalation Every 6 hours as needed for as needed for wheezing Bronchitis Unchanged divalproex sodium (divalproex sodium 500 mg oral delayed release tablet) 1 tab(s) by mouth Three (3) times a day Unchanged doxepin (doxepin 10 mg oral capsule) 1 cap by mouth Three (3) times a day Unchanged estradiol (estradiol 2 mg oral tablet) 1 tab(s) by mouth Once a day Unchanged predniSONE (predniSONE 20 mg oral tablet) 2 tab(s) by mouth Once a day Bronchitis Duration: 5 Days Unchanged rizatriptan (rizatriptan 10 mg oral tablet) 1 tab(s) by mouth Once as needed for as needed for migraine headache Unchanged sertraline (sertraline 50 mg oral tablet) 1 tab(s) by mouth Once a day Unchanged zolpidem (zolpidem 5 mg oral tablet) 1 tab(s) by mouth Daily at bedtime as needed for as needed for sleep Please take this list to your next doctor s visit. Bring all medications you take, including over the counter medications, herbals and other supplements with you to your doctor s visit. Patients and families are reminded to discard old lists and to update any records with all medication providers or retail pharmacies. Medication Leaflets ondansetron (oral) (on CANDIDA maldonado) Adilia Pat Zuplenz What is the most important information I should know about ondansetron? You should not use ondansetron if you are also using apomorphine (Apokyn). What is ondansetron? Ondansetron blocks the actions of chemicals in the body that can trigger nausea and vomiting. Ondansetron is used to prevent nausea and vomiting that may be caused by surgery, cancer chemotherapy, or radiation treatment. Ondansetron may be used for purposes not listed in this medication guide. What should I discuss with my health care provider before taking ondansetron? You should not use ondansetron if: you are also using apomorphine (Apokyn); or you are allergic to ondansetron or similar medicines (dolasetron, granisetron, palonosetron). To make sure ondansetron is safe for you, tell your doctor if you have: liver disease; an electrolyte imbalance (such as low levels of potassium or magnesium in your blood); congestive heart failure, slow heartbeats; a personal or family history of long QT syndrome; or a blockage in your digestive tract (stomach or intestines). Ondansetron is not expected to harm an unborn baby. Tell your doctor if you are . It is not known whether ondansetron passes into breast milk or if it could harm a nursing baby. Tell your doctor if you are breast-feeding a baby. Ondansetron is not approved for use by anyone younger than 4 years old. Ondansetron orally disintegrating tablets may contain phenylalanine. Tell your doctor if you have phenylketonuria (PKU). How should I take ondansetron? Follow all directions on your prescription label. Do not take this medicine in larger or smaller amounts or for longer than recommended. Ondansetron can be taken with or without food. The first dose of ondansetron is usually taken before the start of your surgery, chemotherapy, or radiation treatment. Follow your doctor's dosing instructions very carefully. Take the ondansetron regular tablet with a full glass of water. To take the orally disintegrating tablet (Zofran ODT): Keep the tablet in its blister pack until you are ready to take it. Open the package and peel back the foil. Do not push a tablet through the foil or you may damage the tablet. Use dry hands to remove the tablet and place it in your mouth. Do not swallow the tablet whole. Allow it to dissolve in your mouth without chewing. Swallow several times as the tablet dissolves. To use ondansetron oral soluble film (strip) (Zuplenz): Keep the strip in the foil pouch until you are ready to use the medicine. Using dry hands, remove the strip and place it on your tongue. It will begin to dissolve right away. Do not swallow the strip whole. Allow it to dissolve in your mouth without chewing. Swallow several times after the strip dissolves. If desired, you may drink liquid to help swallow the dissolved strip. Wash your hands after using Zuplenz. Measure liquid medicine with the dosing syringe provided, or with a special dose-measuring spoon ormedicine cup. If you do not have a dose-measuring device, ask your pharmacist for one. Store at room temperature away from moisture, heat, and light. Store liquid medicine in an upright position. What happens if I miss a dose? Take the missed dose as soon as you remember. Skip the missed dose if it is almost time for your next scheduled dose. Do not take extra medicine to make up the missed dose. What happens if I overdose? Seek emergency medical attention or call the Poison Help line at . Overdose symptoms may include sudden loss of vision, severe constipation, feeling light-headed, or fainting. What should I avoid while taking ondansetron? Ondansetron may impair your thinking or reactions. Be careful if you drive or do anything that requires you to be alert. What are the possible side effects of ondansetron? Get emergency medical help if you have signs of an allergic reaction: rash, hives; fever, chills, difficult breathing; swelling of your face, lips, tongue, or throat. Call your doctor at once if you have: severe constipation, stomach pain, or bloating; headache with chest pain and severe dizziness, fainting, fast or pounding heartbeats; fast or pounding heartbeats; jaundice (yellowing of the skin or eyes); blurred vision or temporary vision loss (lasting from only a few minutes to several hours); high levels of serotonin in the body--agitation, hallucinations, fever, fast heart rate, overactivereflexes, nausea, vomiting, diarrhea, loss of coordination, fainting. Common side effects may include: diarrhea or constipation; headache; drowsiness; or tired feeling. This is not a complete list of side effects and others may occur. Call your doctor for medical advice about side effects. You may report side effects to FDA at 2-098-SNZ-0502. What other drugs will affect ondansetron? Ondansetron can cause a serious heart problem, especially if you use certain medicines at the same time, including antibiotics, antidepressants, heart rhythm medicine, antipsychotic medicines, and medicines to treat cancer, malaria, HIV or AIDS. Tell your doctor about all medicines you use, and those you start or stop using during your treatment with ondansetron. Taking ondansetron while you are using certain other medicines can cause high levels of serotonin to build up in your body, a condition called 'serotonin syndrome,' which can be fatal. Tell your doctor if you also use: medicine to treat depression; medicine to treat a psychiatric disorder; a narcotic (opioid) medication; or medicine to prevent nausea and vomiting. This list is not complete and many other drugs can interact with ondansetron. This includes prescription and wtwq-jia-hixjcui medicines, vitamins, and herbal products. Give a list of all your medicines to any healthcare provider who treats you. Where can I get more information? Your pharmacist can provide more information about ondansetron. Remember, keep this and all other medicines out of the reach of children, never share your medicines with others, and use this medication only for the indication prescribed. Every effort has been made to ensure that the information provided by [employer] is accurate, up-to-date, and complete, but no guarantee is made to that effect. Drug information contained herein may be time sensitive. [employer] information has been compiled for use by healthcare practitioners and consumers in the [place] and therefore [employer] does not warrant that uses outside of the [place] are appropriate, unless specifically indicated otherwise. [employer] drug information does not endorse drugs, diagnose patients or recommend therapy. [employer] drug information isan informational resource designed to assist licensed healthcare practitioners in caring for their p atients and/or to serve consumers viewing this service as a supplement to, and not a substitute for, the expertise, skill, knowledge and judgment of healthcare practitioners. The absence of a warningfor a given drug or drug combination in no way should be construed to indicate that the drug or drug combination is safe, effective or appropriate for any given patient. [employer] does not assume any responsibility for any aspect of healthcare administered with the aid of information [employer] provides. The information contained herein is not intended to cover all possible uses, directions, precautions, warnings, drug interactions, allergic reactions, or adverse effects. If you have questions about the drugs you are taking, check with your doctor, nurse or pharmacist. Copyright 4592-4668 [employer] Version: 13.01. Revision Date: 07/22/2016. acetaminophen and hydrocodone (a SEET a MIN oh fen and jacob droe KOE done) Hycet, Lorcet, Wathena, Verdrocet, Vicodin, Xodol, Zamicet What is the most important information I should know about acetaminophen and hydrocodone? MISUSE OF OPIOID MEDICINE CAN CAUSE ADDICTION, OVERDOSE, OR . Keep the medication in a place where others cannot get to it. Taking opioid medicine during may cause life-threatening withdrawal symptoms in the . Fatal side effects can occur if you use opioid medicine with alcohol, or with other drugs that cause drowsiness or slow your breathing. Stop taking this medicine and call your doctor right away if you have skin redness or a rash that spreads and causes blistering and peeling. What is acetaminophen and hydrocodone? Acetaminophen and hydrocodone is a combination medicine used to relieve moderate to severe pain. Acetaminophen and hydrocodone contains an opioid medicine, and may be habit-forming. Acetaminophen and hydrocodone may also be used for purposes not listed in this medication guide. What should I discuss with my healthcare provider before taking acetaminophen and hydrocodone? You should not use this medicine if you are allergic to acetaminophen or hydrocodone, or if you have: severe asthma or breathing problems; or a blockage in your stomach or intestines. Tell your doctor if you have ever had: breathing problems, sleep apnea (breathing stops during sleep); liver disease; a drug or alcohol addiction; kidney disease; a head injury or seizures; urination problems; or problems with your thyroid, pancreas, or gallbladder. If you use opioid medicine while you are , your baby could become dependent on the drug. This can cause life-threatening withdrawal symptoms in the baby after it is born. Babies born dependent on opioids may need medical treatment for several weeks. Ask a doctor before using opioid medicine if you are . Tell your doctor if you notice severe drowsiness or slow breathing in the nursing baby. How should I take acetaminophen and hydrocodone? Follow all directions on your prescription label. Never take this medicine in larger amounts, or for longer than prescribed. An overdose can damage your liver or cause . Tell your doctor if you feel an increased urge to use more of this medicine. Never share this medicine with another person, especially someone with a history of drug abuse or addiction. MISUSE CAN CAUSE ADDICTION, OVERDOSE, OR . Keep the medicine in a place where others cannot get to it. Selling or giving away this medicine is against the law. Measure liquid medicine carefully. Use the dosing syringe provided, or use a medicine dose-measuring device (not a kitchen spoon). If you need surgery or medical tests, tell the doctor ahead of time that you are using this medicine. You should not stop using this medicine suddenly. Follow your doctor's instructions about tapering your dose. Store at room temperature away from moisture and heat. Keep track of your medicine. You should be aware if anyone is using it improperly or without a prescription. Do not keep leftover opioid medication. Just one dose can cause in someone using this medicine accidentally or improperly. Ask your pharmacist where to locate a drug take-back disposal program.If there is no take-back program, flush the unused medicine down the toilet. What happens if I miss a dose? Since this medicine is used for pain, you are not likely to miss a dose. Skip any missed dose if itis almost time for your next dose. Do not use two doses at one time. What happens if I overdose? Seek emergency medical attention or call the Poison Help line at . An overdose of this medicine can be fatal, especially in a child or other person using the medicine without a prescription. Overdose symptoms may include nausea, vomiting, sweating, severe drowsiness, pinpoint pupils, slow breathing, or no breathing. Your doctor may recommend you get naloxone (a medicine to reverse an opioid overdose) and keep it with you at all times. A person caring for you can give the naloxone if you stop breathing or don't wake up. Your caregiver must still get emergency medical help and may need to perform CPR (cardiopulmonary resuscitation) on you while waiting for help to arrive. Anyone can buy naloxone from a pharmacy or local health department. Make sure any person caring foryou knows where you keep naloxone and how to use it. What should I avoid while taking acetaminophen and hydrocodone? Avoid driving or operating machinery until you know how this medicine will affect you. Dizziness ordrowsiness can cause falls, accidents, or severe injuries. Do not drink alcohol. Dangerous side effects or could occur. Ask a doctor or pharmacist before using any other medicine that may contain acetaminophen (sometimes abbreviated as APAP). Taking certain medications together can lead to a fatal overdose. What are the possible side effects of acetaminophen and hydrocodone? Get emergency medical help if you have signs of an allergic reaction: hives; difficulty breathing; swelling of your face, lips, tongue, or throat. Opioid medicine can slow or stop your breathing, and may occur. A person caring for you should give naloxone and/or seek emergency medical attention if you have slow breathing with long pauses,blue colored lips, or if you are hard to wake up. In rare cases, acetaminophen may cause a severe skin reaction that can be fatal. This could occur even if you have taken acetaminophen in the past and had no reaction. Stop taking this medicine and call your doctor right away if you have skin redness or a rash that spreads and causes blistering andpeeling. Call your doctor at once if you have: noisy breathing, sighing, shallow breathing, breathing that stops; a light-headed feeling, like you might pass out; liver problems--nausea, upper stomach pain, tiredness, loss of appetite, dark urine, maricarmen-colored stools, jaundice (yellowing of the skin or eyes); low cortisol levels-- nausea, vomiting, loss of appetite, dizziness, worsening tiredness or weakness; o high levels of serotonin in the body--agitation, hallucinations, fever, sweating, shivering, fast heart rate, muscle stiffness, twitching, loss of coordination, nausea, vomiting, diarrhea. Serious breathing problems may be more likely in older adults and in those who are debilitated or have wasting syndrome or chronic breathing disorders. Common side effects include: dizziness, drowsiness, feeling tired; nausea, vomiting, stomach pain; constipation; or headache. This is not a complete list of side effects and others may occur. Call your doctor for medical advice about side effects. You may report side effects to FDA at 0-530-NMU-6272. What other drugs will affect acetaminophen and hydrocodone? You may have breathing problems or withdrawal symptoms if you start or stop taking certain other medicines. Tell your doctor if you also use an antibiotic, antifungal medication, heart or blood pressure medication, seizure medication, or medicine to treat HIV or hepatitis C. Opioid medication can interact with many other drugs and cause dangerous side effects or . Be sure your doctor knows if you also use: cold or allergy medicines, bronchodilator asthma/COPD medication, or a diuretic ('water pill'); medicines for motion sickness, irritable bowel syndrome, or overactive bladder; other opioids--opioid pain medicine or prescription cough medicine; a sedative like Valium--diazepam, alprazolam, lorazepam, Xanax, Klonopin, Versed, and others; drugs that make you sleepy or slow your breathing--a sleeping pill, muscle relaxer, medicine to treat mood disorders or mental illness; drugs that affect serotonin levels in your body--a stimulant, or medicine for depression, Parkinson's disease, migraine headaches, serious infections, or nausea and vomiting. This list is not complete. Other drugs may affect acetaminophen and hydrocodone, including prescription and hbiu-xtt-jduzpqh medicines, vitamins, and herbal products. Not all possible interactions are listed here. Where can I get more information? Your doctor or pharmacist can provide more information about acetaminophen and hydrocodone. Remember, keep this and all other medicines out of the reach of children, never share your medicines with others, and use this medication only for the indication prescribed. Every effort has been made to ensure that the information provided by [employer] is accurate, up-to-date, and complete, but no guarantee is made to that effect. Drug information contained herein may be time sensitive. [employer] information has been compiled for use by healthcare practitioners and consumers in the [place] and therefore [employer] does not warrant that uses outside of the [place] are appropriate, unless specifically indicated otherwise. [employer] drug information does not endorse drugs, diagnose patients or recommend therapy. [employer] drug information isan informational resource designed to assist licensed healthcare practitioners in caring for their p atients and/or to serve consumers viewing this service as a supplement to, and not a substitute for, the expertise, skill, knowledge and judgment of healthcare practitioners. The absence of a warningfor a given drug or drug combination in no way should be construed to indicate that the drug or drug combination is safe, effective or appropriate for any given patient. [employer] does not assume any responsibility for any aspect of healthcare administered with the aid of information [employer] provides. The information contained herein is not intended to cover all possible uses, directions, precautions, warnings, drug interactions, allergic reactions, or adverse effects. If you have questions about the drugs you are taking, check with your doctor, nurse or pharmacist. Copyright 7684-9420 [employer] Version: 16.03. Revision Date: 11/03/2020. Education Materials Kidney Stone with Pain The sharp cramping pain on either side of your lower back and nausea/vomiting that you have are because of a small stone that has formed in the kidney. It is now passing down a narrow tube (ureter) on its way to your bladder. Once the stone reaches your bladder, the pain will often stop. But it maycome back as the stone continues to pass out of the bladder and through the urethra. The stone may pass in your urine stream in one piece. The size may be 1/16 inch to 1/4 inch (1 mm to 6 mm). Or, the stone may break up into crystal fragments that you may not even notice. Once you have had a kidney stone, you are at risk of getting another one in the future. There are 4types of kidney stones. Eighty percent are calcium stones mostly calcium oxalate but also some withcalcium phosphate. The other 3 types include uric acid stones, struvite stones (from a preceding infection), and rarely, cystine stones. Most stones will pass on their own, but may take from a few hours to a few days. Sometimes the stone is too large to pass by itself. In that case, the healthcare provider will need to use other ways to remove the stone. These techniques include: Lithotripsy. This uses ultrasound waves to break up the stone. Ureteroscopy. This pushes a basket-like instrument through the urethra and bladder and into the ureter to pull out the stone. Various types of direct surgery through the skin Home care The following are general care guidelines: Drink plenty of fluids. This means at least 12, 8-ounce glasses of fluid mostly water a day. Each time you urinate, do so in a jar. Pour the urine from the jar through the strainer and into the toilet. Continue doing this until 24 hours after your pain stops. By then, if there was a kidney stone, it should pass from your bladder. Some stones dissolve into sand-like particles and pass rightthrough the strainer. In that case, you won t ever see a stone. Save any stone that you find in the strainer and bring it to your healthcare provider to look at. It may be possible to stop certain types of stones from forming. For this reason, it is important to know what kind of stone you have. Try to stay as active as possible. This will help the stone pass. Don't stay in bed unless your pain keeps you from getting up. You may notice a red, pink, or brown color to your urine. This is normal while passing a kidney stone. If you develop pain, you may take ibuprofen or naproxen for pain, unless another medicine was prescribed. If you have chronic liver or kidney disease, talk with your healthcare provider before takingthese medicines. Also talk with your provider if you've had a stomach ulcer or GI bleeding. Preventing stones Each year for the next 5 to 7 years, you are at risk that a new stone will form. Your risk is a 50%chance over this time period. The risk is higher if you have a family history of kidney stones or have certain chronic illnesses like hypertension, obesity, or diabetes. But you can make changes to your lifestyle and diet that can lower your risk for another stone. Most kidney stones are made of calcium. The following is advice for preventing another calcium stone. If you don t know the type of stone you have, follow this advice until the cause of your stone isfound. Things that help: The most important thing you can do is to drink plenty of fluids each day. See home care above. Eat foods that contain phytates. These include wheat, rice, rye, barley, and beans. Phytates are substances that may lower your risk for any type of stone to form. Eat more fruits and vegetables. Choose those that are high in potassium. Eat foods high in natural citrate like fruit and low-sugar fruit juices. Having too little calcium in your diet can put you at risk for calcium kidney stones. Eat a normal amount of calcium in your diet and talk with your healthcare provider if you are taking calcium supplements. Cutting back on your calcium intake may raise your risk. New research shows that eating calcium-rich and oxalate-rich foods together lowers your risk for stones by binding the minerals in thestomach and intestines before they can reach the kidneys. Limit salt intake to 2 grams (1 teaspoon) per day. Use limited amounts when cooking, and don t add salt at the table. Processed and canned foods are usually high in salt. Spinach, rhubarb, peanuts, cashews, almonds, grapefruit, and grapefruit juice are all high oxalate foods. You should limit how much of these you eat. Or eat them with calcium-rich foods. These include dairy products, dark leafy greens, soy products, and calcium-enriched foods. Reducing the amount of animal meat and high protein foods in your diet may lower your risk for uricacid stones. Avoid excess sugar (sucrose) and fructose (sweetener in many soft drinks) in your diet. If you take vitamin C as a supplement, don't take more than 1,000 mg a day. A dietitian or your healthcare provider can give you information about changes in your diet that will help prevent more kidney stones from forming. Follow-up care Follow up with your healthcare provider, or as advised, if the pain lasts more than 48 hours. Talk with your provider about urine and blood tests to find out the cause of your stone. If you had an X-ray, CT scan, or other diagnostic test, you will be told of any new findings that may affect your care. Call 911 Call 911 if you have any of these: Weakness, dizziness, or fainting When to seek medical advice Call your healthcare provider right away if any of these occur: Pain that is not controlled by the medicine given Repeated vomiting or unable to keep down fluids Fever of 100.4 F (38 C) or higher, or as directed by your healthcare provider Passage of solid red or brown urine (can't see through it) or urine with lots of blood clots Foul-smelling or cloudy urine Unable to pass urine for 8 hours and increasing bladder pressure [id number] [employer]. [address] [place] [address]. All rights reserved. This information is not intended as a substitute for professional medical care. Always follow yourhealthcare professional's instructions. Additional Information VACCINATE! IT SAVES LIVES! Members of the community who have not yet received the COVID-19 vaccine and would like to receive it can visit one of [facility] vaccine clinics. There are many vaccine clinic locations within the [facility]. For locations and available times, please visit [email or web address]. It is important to note that some COVID mobile vaccine clinics are held outdoors and may be canceled in rainy orstormy conditions. To learn more about pediatric vaccinations (ages 5-11), we invite you to visit the [facility] webpage. [email or web address] learn more about the COVID-19 vaccine, we invite you to visit the [facility] website for a list of frequently asked questions. [email or web address] [place] [facility] Patient Portal Access Instructions: Stay connected with your healthcare team and access your personal medical information anytime with the [facility] Patient Portal. If you would like a full copy of your medical records please contact the [facility] Medical Records Department Monday through Monday between 8a.m. and 4:30p.m. Please follow the directions below to access the portal: 1.Access the email account you provided upon registration to the [facility].2.Look for an invitation email from [facility].3.Open the email and access the invitation link: Accept Invitation to [facility]4.Fill in the required brandon to create your account. Sign into [email or web address] with your username and password that you created in the above steps to stay up to date. You can then view a summary of results, a summary of your visits, and the ability to download your summaries to your computer or send the information securely to a physician. Remember that your healthcare information is confidential, so carefully consider who you will allow to register on the [place] [facility] Patient Portal for access to your information. You can also access the [place] [facility] Patient Portal on the [employer] javier. Simply click on Health Records under [employer] and then click on the [facility] logo. HOW TO SAFELY DISPOSE OF PRESCRIPTION MEDICATIONS Please use one of the following methods to safely dispose of your unused medications. 1.Use a drug disposal kit: the drug disposal pouch allows you to safely discard your old and unuseddrugs. Ask your nurse to give you one when you are discharged.2.Visit a local take-back location: Many local pharmacies and police departments have programs that collect old and unwanted prescriptiondrugs. Call your local pharmacy or go to http://[employer]/0R4Nd3l to find one close to you.3.Make use of household items: Use cat litter or old coffee grounds to dispose medications if other options arenot available. Mix your drugs with these household products, seal them in an airtight container andthrow it into the garbage. Call [facility]: [phone] to be sure your drugs can be disposed of in this way. Some medicines may require a different approach.4.Never flush your medications down the toilet. IF YOU HAVE BEEN PRESCRIBED AN OPIOIDS FOR PAIN If you have been prescribed an opioid (such as hydrocodone, oxycodone or morphine), it is critical to understand the possible side effects and risks of opioid pain medications. Even when taken as directed, opioids can have several side effects including: Tolerance, meaning you might need to take more of a medication for the same pain relief. Nausea, vomiting and/or constipation. Sleepiness, dizziness, dry mouth, confusion, depression or itching. Physical dependence, meaning you have withdrawal symptoms when a medication is stopped ? this can develop within a few days. KNOW YOUR RESPONSIBILITIES It is important to know exactly how much and how often to take the opioid pain medications you are prescribed. Never take opioids in higher amounts or more often than prescribed. Do not combine opioids with alcohol or other drugs that cause drowsiness, such as benzodiazepines, also known as benzos,including diazepam and alprazolam, muscle relaxants or sleep aids. Never sell or share prescriptionopioids. This is illegal. Store opioids in a secure place and out of reach of others (including children, family, friends and visitors). The last page(s) of this document has been signed and retained as a CHART COPY Signatures Patient Education Materials Kidney Stone w/ Colic Medication Leaflets ondansetron (oral), acetaminophen and hydrocodone My discharge plan and instructions have been reviewed and explained to me and I,SUZIE ALEXANDRE understand my current condition and have read and understand these discharge instructions. I have received a written copy of the plan/instructions. If I have questions, I am aware that I should contact my doctor. 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 Multiplanar reformatted images are provided for review. Automated exposure control, iterative reconstruction, and/or weight based adjustment of the mA/kV was utilized to reduce the radiation dose to as low as reasonably achievable. COMPARISON: None. HISTORY: ORDERING SYSTEM PROVIDED HISTORY: Reason for Exam: LEFT flank pain FINDINGS: No osseous abnormality. The lung bases are unremarkable. Liver, spleen, adrenal glands and pancreas appear normal. Punctate medullary nephrolithiasis is identified bilaterally with multiple 3-4 mm stone seen. There is mild to moderate left-sided pelvicaliectasis. At the left UPJ, there is a 7 mm stone seen. More distally, the left ureter is unremarkable. The urinary bladder appears normal. No adenopathy, free air or free fluid seen. Solid pelvic organs are unremarkable. No GI tract abnormality is visible. The appendix is normal. No other contributory finding. IMPRESSION: 1. Bilateral nephrolithiasis. 2. Mild to moderate left-sided obstruction secondary to a 7 mm UPJ stone. Interpreted by: Zoltan Peña MD Preliminary Report By: Zoltan Peña MD Electronically signed By Zoltan Peña MD Dictated Date: 07/16/2022 9:57:42 AM Prelim Date: 07/16/2022 9:59:39 AM Sign Date: 07/16/2022 9:59:39 AM Ordering Provider: [facility]10-15-2022 Note ORIGINAL EXAMINATION: CT OF THE ABDOMEN AND PELVIS WITHOUT CONTRAST 07/16/2022 8:47 am TECHNIQUE: CT of the abdomen and pelvis was performed without the administration of intravenous contrast. Multiplanar reformatted images are provided for review. Automated exposure control, iterative reconstruction, and/or weight based adjustment of the mA/kV was utilized to reduce the radiation dose to as low as reasonably achievable. COMPARISON: None. HISTORY: ORDERING SYSTEM PROVIDED HISTORY: Reason for Exam: LEFT flank pain FINDINGS: No osseous abnormality. The lung bases are unremarkable. Liver, spleen, adrenal glands and pancreas appear normal. Punctate medullary nephrolithiasis is identified bilaterally with multiple 3-4 mm stone seen. There is mild to moderate left-sided pelvicaliectasis. At the left UPJ, there is a 7 mm stone seen. More distally, the left ureter is unremarkable. The urinary bladder appears normal. No adenopathy, free air or free fluid seen. Solid pelvic organs are unremarkable. No GI tract abnormality is visible. The appendix is normal. No other contributory finding. IMPRESSION: 1. Bilateral nephrolithiasis. 2. Mild to moderate left-sided obstruction secondary to a 7 mm UPJ stone. Interpreted by: Zoltan Peña MD Preliminary Report By: Zoltan Peña MD Electronically signed By Zoltan Peña MD Dictated Date: 07/16/2022 9:57:42 AM Prelim Date: 07/16/2022 9:59:39 AM Sign Date: 07/16/2022 9:59:39 AM Ordering Provider: [facility]07-08-2022 Note HNO ID: [id number] Author: Yusef Mercado APRN.SOAKING TANK WORKER Service: ? Author Type: Nurse Practitioner Type: Progress Notes Filed: 04/08/2022 7:52 AM Note Text: This note was created using [employer]. Subjective Suzie Alexandre is a 31 year old female. Patient presents to the office today with chief complaint of generalized abdominal discomfort that she has had intermittently for the last several weeks however this abdominal pain has worsened over the last 3 to 4 days. Patient denies any fevers, chills, night sweats. Patient reports that she has been experiencing some nausea but denies any vomiting, diarrhea, blood in stool, or dark tarry stools. Patient reports that the abdominal pain is typically worse after eating. Patient currently reports her abdominal pain a 4 out of 10. Patient reports that the pain was much worse yesterday. Review of Systems Constitutional: Negative. HENT: Negative. Eyes: Negative. Respiratory: Negative. Cardiovascular: Negative. Gastrointestinal: Positive for abdominal pain and nausea. Negative for abdominal distention, anal bleeding, blood in stool, constipation, diarrhea, rectal pain and vomiting. Endocrine: Negative. Genitourinary: Negative. Musculoskeletal: Negative. Skin: Negative. Allergic/Immunologic: Negative. Neurological: Negative. Hematological: Negative. Psychiatric/Behavioral: Negative. Objective BP 148/104 (BP Site: Right Arm, BP Position: Sitting) Pulse 114 Temp 36.9 ?C (98.4 ?F) (Temporal) Resp 14 Ht 166.4 cm (5' 5.5) Wt 75.1 kg (165 lb 9.6 oz) LMP 09/26/2015 (LMP Unknown) SpO2 96% BMI 27.14 kg/m? Physical Exam Constitutional: General: She is not in acute distress. Appearance: Normal appearance. She is not ill-appearing, toxic-appearing or diaphoretic. HENT: Head: Normocephalic. Right Ear: Tympanic membrane, ear canal and external ear normal. Left Ear: Tympanic membrane, ear canal and external ear normal. Nose: Nose normal. Eyes: Extraocular Movements: Extraocular movements intact. Conjunctiva/sclera: Conjunctivae normal. Pupils: Pupils are equal, round, and reactive to light. Cardiovascular: Rate and Rhythm: Normal rate and regular rhythm. Pulses: Normal pulses. Pulmonary: Effort: Pulmonary effort is normal. Breath sounds: Normal breath sounds. Abdominal: General: Abdomen is flat. Bowel sounds are normal. Palpations: Abdomen is soft. There is no mass. Tenderness: There is abdominal tenderness. There is no right CVA tenderness, left CVA tenderness, guarding or rebound. Hernia: No hernia is present. Comments: Patient has generalized abd tenderness, no localized tenderness. Musculoskeletal: General: Normal range of motion. Cervical back: Normal range of motion and neck supple. Skin: General: Skin is warm and dry. Capillary Refill: Capillary refill takes less than 2 seconds. Neurological: General: No focal deficit present. Mental Status: She is alert. Psychiatric: Mood and Affect: Mood normal. Behavior: Behavior normal. Thought Content: Thought content normal. Judgment: Judgment normal. Assessment and Plan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 IMAGING Diagnoses Injury of left shoulder, initial encounter Procedures XR SHOULDER GENERAL 3V OR MORE AP/TRUE AP/OTHER LEFT RADEX SHOULDER COMPLETE MINIMUM 2 VIEWS Abril Hernandez APRN.SOAKING TANK WORKER [id number] [place] [address] [place] [address] Referral ID Status Reason Start Date Expiration Date V isits Requested Visits Authorized [id number] Closed Auto-Generate d Referral 02/12/2024 03/13/2025 1 1 [facility] for referral (narrative)* Diagnostic Procedure Only (Urgent) - Closed Specialty Diagnoses / Procedures Referred By Contac t Referred To Contact XR IMAGING Diagnoses Injury of left shoulder, initial encounter Procedures XR SHOULDER GENERAL 3V OR MORE AP/TRUE AP/OTHER LEFT RADEX SHOULDER COMPLETE MINIMUM 2 VIEWS Abril Hernandez APRN.SOAKING TANK WORKER [address] [place] [address] [place] [address] Referral ID Status Reason Start Date Expiration Date V isits Requested Visits Authorized [id number] Closed Auto-Generate d Referral 02/12/2024 03/13/2025 1 1 [facility] for referral (narrative)No reason for referral information availableWBrown Memorial Hospital Work Phone: Reason for visit Narrative* Diagnostic Procedure Only (Urgent) - Closed Specialty Diagnoses / Procedures Referred By Contac t Referred To Contact XR IMAGING Diagnoses Injury of left shoulder, initial encounter Procedures XR SHOULDER GENERAL 3V OR MORE AP/TRUE AP/OTHER LEFT RADEX SHOULDER COMPLETE MINIMUM 2 VIEWS Abril Hernandez APRN.[employer]AKING [employer] WORKER [address] [place] [address] [place] [address] Referral ID Status Reason Start Date Expiration Date V isits Requested Visits Authorized [id number] Closed Auto-Generate d Referral 02/12/2024 03/13/2025 1 1 [facility] Summary Purpose Family History Relationship Condition Age at Onset Recorded Date/T dino father Hypertension Unknown Coagulation disorder Unknown Malignant neoplasm Unknown Cerebrovascular accident (CVA) Unknown mother Depression Unknown Anxiety Unknown grandfather Cardiac disease Unknown Myocardial infarction Unknown Advance Directives Latest Code Status on File Code Status Date Activated Date Inactivated Comments Full Code 06/06/2021 6:18 AM Advance Directive Response Recorded Date/ Time Advance Directives No May 28, 2021 11:57am Procedure Findings Note Post Operative Note: PreOp D iagnosis: tubal ligation Post-Procedure Diagnosis: same Procedure: 1. laparotomy tubal reanastomoses 2. chromotubation 3. 4. 5. Surgeon: Dr. Gomez Resident/Fellow/Other County Agent: Bi Borjas Anesthesia: general I.V. Fluids: 1L Estimated Blood Loss (mL): 25cc Specimen: no Complications: none Findings: see below Urine Output: 400 cc Operative Report Dictated: Dictation: not applicable - note contains Operative Report Operative Report: Findings: Findings consistent with history of prior partial salpingectomy. Proximal portion of each fallopian tube limited to the cornua on each side. 5 cm of distal tube reapproximated bilaterally to each cornua. Patient was taken to the operating room after informed consent was obtained. She was placed under general anesthesia without issue. She was placed in dorsal lithotomy position using Cornelio stirrups. She received Ancef for antibiotic prophylaxis. Abdomen and vagina both prepped and draped in usual sterile fashion (more content not included)... Chief Complaint and Reason for Visit Chief Complaint Admit Date FASTING November 29, 2024 10:15am Chief Complaint Admit Date FASTING November 29, 2024 10:15am SCOLIOSIS February 07, 2025 9:30am RM 2 February 07, 2025 9:48am E ORDERS March 05, 2025 9:00a m Reason for Visit Admit Date Lumbar radiculopathy February 07, 2025 9:30a m Scoliosis February 07, 2025 9:30am Neck pain February 07, 2025 9:30am Additional Source Comments INFORMATION SOURCE (unrecogn ized section and content) DATE CREATED AUTHOR 06/19/2020 [employer] DATE CREATED AUTHOR AUTHOR'S ORGANIZ ATION 07/01/2020 [facility] DATE CREATED AUTHOR AUTHOR'S ORGANIZ ATION 07/16/2020 [facility] DATE CREATED AUTHOR AUTHOR'S ORGANIZ ATION 08/05/2020 [facility] DATE CREATED AUTHOR AUTHOR'S ORGANIZ ATION 02/23/2021 [facility] [place] DATE CREATED AUTHOR AUTHOR'S ORGANIZ ATION 07/19/2021 [facility] DATE CREATED AUTHOR AUTHOR'S ORGANIZ ATION 07/23/2021 [facility] DATE CREATED AUTHOR AUTHOR'S ORGANIZ ATION 04/08/2022 [facility] DATE CREATED AUTHOR AUTHOR'S ORGANIZ ATION 09/23/2023 [facility] DATE CREATED AUTHOR AUTHOR'S ORGANIZ ATION 09/01/2024 [facility] DATE CREATED AUTHOR AUTHOR'S ORGANIZ ATION 03/07/2025 [facility] Reason for Visit (unrecogniz ed section and content) Reason Comments Contractions Reason Comments Nasal Congestion drainage, headache, cough x 10 days Reason Comments Shoulder Injury Left shoulder after fall. Reason Comments Sinus Problem Left side face swoll en x 4 days Ordered Prescriptions (unrec ognized section and content) Prescription Sig Dispensed Refills Start Date End Da te indomethacin (INDOCIN) 25 MG capsule Take 1 capsule by mouth every 6 hours for 3 doses 3 capsule 0 06/07/2021 06/08/2021 Scheduled Active and Recently Administ ered Medications (unrecognized section and content) Medication Order 06/05/2021 06/06/2021 06/07/2021 betamethasone acetate-betamethasone sodium phosphate (CELESTONE) injection 12 mg (COMPLETED) 12 mg, IntraMUSCular, ONCE, On 06/07/21 at 0130, For 1 dose 0137 (Given - Provid er: Marilee Smyth RN) busPIRone (BUSPAR) tablet 30 mg 30 mg, Oral, 3 TIMES DAILY, First dose on Mon06/06/21 at 0900, This 15 mg tablet can be split into thirds (5 mg) or halves (7.5 mg) based on the ordered dose. 0920 (Given - Provider: Cat Gambino RN)1552 (Given - Provider: Cat Gambino RN)211 (Not Given - Provider: Marilee Smyth RN - Reason: Patient/family refused) 1000 (Not Given - Provider: Mirna Cronin RN - Reason: Patient/family refused - Comment: Pt doesn't want to take on empty stomach)1400 (Due)2100 (Due) indomethacin (INDOCIN) capsule 25 mg 25 mg, Oral, EVERY 6 HOURS, First dose on 06/06/21 at 0645, For 48 hours 0704 (Given - Provider: Katie Downey RN)1300 (Given - Provider: Cat Gambino RN)1913 (Given - Provider: Cta Gambino RN) 0137 (Given - Provider: Marilee Smyth RN)1005 (Given - Provider: Mirna Cronin RN)1315 (Due - Provider: Eitan Benjamin [facility])191 (Due - Provider: Eitan Benjamin [facility]) metoclopramide (REGLAN) injection 10 mg (COMPLETED) 10 mg, IntraVENous, ONCE, On 06/06/21 at 211, For 1 dose 2108 (Given - Provider: Marilee Smyth RN) nicotine (NICODERM CQ) 14 MG/24HR 1 patch 1 patch, TransDERmal, Administer over 24 Hours, DAILY, First dose on 06/06/21 at 0900, Apply new patch to nonhairy, clean, dry skin on the upper body or upper outer arm. Rotate patch sites. Notify pharmacy if patient or provider prefers patch to be removed at bedtime and replaced in the morning. Hazardous Medication -- Refer to facility policy for handling and disposal. 0918 (Patch Applied - Provider: Cat Gambino RN - Comment: right outer upper arm) 0859 (Patch Removed - Provider: Mirna Cronin RN)0900 (Due) vitamin 27-1 MG tablet 1 tablet 1 tablet, Oral, DAILY, First dose on 06/06/21 at 0900 0900 (Due) 1000 (Not Given - Provider: Mirna Cronin RN - Reason: Patient/family refused - Comment: Pt doesn't want to take on empty stomach) sertraline (ZOLOFT) tablet 150 mg 150 mg, Oral, DAILY, First dose on 06/06/21 at 0900 0913 (Given - Provider: Cat Gambino RN) 1000 (Not Given - Provider: Mirna Cronin RN - Reason: Patient/family refused - Comment: Pt doesn't want to take on empty stomach) sodium chloride flush 0.9 % injection 10 mL 10 mL, IntraVENous, EVERY 12 HOURS SCHEDULED (2 times per day), First dose on 06/06/21 at 0900 0900 (Due)2116 (Given - Provider: Marilee Smyth RN) 09 (Not Given - Provider: Mirna Cronin RN - Reason: Loss of IV access)2100 (Due) Continuous Medication Order 06/05/2021 06/06/2021 06/07/2021 magnesium sulfate (71896 mg/500mL infusion) (CANCELED) 2,000 mg/hr (50 mL/hr), IntraVENous, at 50 mL/hr, CONTINUOUS, Starting on 06/06/21 at 0645, 1000 mg = 1 gram; 2000 mg = 2 grams; 20,000 mg = 20 grams 1244 (New Bag - Provider: January Gambino RN) PRN Medication Order 06/05/2021 06/06/2021 06/07/2021 0.9 % sodium chloride infusion 25 mL, IntraVENous, at 100 mL/hr, PRN, If patient receiving piggyback infusions without ordered maintenance IV fluids or with frequent/long duration piggyback infusions, Starting on 06/06/21 at 0611, Administer at the same rate as the piggyback being infused. acetaminophen (TYLENOL) suppository 650 mg(Linked Group 1) 650 mg, Rectal, EVERY 4 HOURS PRN, Pain Mild (1-3), Fever, Fever >100.5 (38 C), Starting on 06/06/21 at 0611, Use suppository if NPO or unable to tolerate oral medications. 920 (See Alternative - Provider: Cat Gambino RN)2108 (See Alternative - Provider: Marilee Smyth RN) 0454 (See Alternative - Provider: Afsaneh Durham, ILDA) acetaminophen (TYLENOL) tablet 650 mg(Linked Group 1) 650 mg, Oral, EVERY 4 HOURS PRN, Pain Mild (1-3), Fever, Fever >100.5 (38 C), Starting on 06/06/21 at 0611, Do not use if NPO. 09 (Given - Provider: Cat Gambino RN - Comment: intermittent bodly aches and occ contraction)2108 (Given - Provider: Marilee Smyth RN) 045 (Given - Provider: Afsaneh Durham, ILDA) docusate sodium (COLACE) capsule 100 mg 100 mg, Oral, 2 TIMES DAILY PRN, Constipation, Starting on 06/06/21 at 0611, Do not crush or break. hydrOXYzine (VISTARIL) capsule 50 mg 50 mg, Oral, 3 TIMES DAILY PRN, Itching, Starting on 06/06/21 at 0632 ondansetron (ZOFRAN) injection 4 mg(Linked Group 2) 4 mg, IntraVENous, EVERY 6 HOURS PRN, Nausea, Vomiting, Starting on 06/06/21 at 0611, Administer if oral route cannot be used. 173 (Given - Provider: Cat Gambino RN) ondansetron (ZOFRAN-ODT) disintegrating tablet 4 mg(Linked Group 2) 4 mg, Oral, EVERY 8 HOURS PRN, Nausea, Vomiting, Starting on 06/06/21 at 0611 1736 (See Alternative - Provider: Cat Gambino RN) sodium chloride flush 0.9 % injection 10 mL 10 mL, IntraVENous, PRN, Line Care, After every IV line use, Starting on 06/06/21 at 0611 Linked Groups Order Group 1: acetaminophen (TYLENOL) tablet 650 mgJump to med 650 mg, Oral, EVERY 4 HOURS PRN, Pain Mild (1-3), Fever, Fever >100.5 (38 C), Starting on 06/06/21 at 0611
Do not use if NPO.
Or acetaminophen (TYLENOL) suppository 650 mgJump to med 650 mg, Rectal, EVERY 4 HOURS PRN, Pain Mild (1-3), Fever, Fever >100.5 (38 C), Starting on 06/06/21 at 0611
Use suppository if NPO or unable to tolerate oral medications.
Group 2: ondansetron (ZOFRAN-ODT) disintegrating tablet 4 mgJump to med 4 mg, Oral, EVERY 8 HOURS PRN, Nausea, Vomiting, Starting on 06/06/21 at 0611 Or ondansetron (ZOFRAN) injection 4 mgJump to med 4 mg, IntraVENous, EVERY 6 HOURS PRN, Nausea, Vomiting, Starting on 06/06/21 at 0611
Administer if oral route cannot be used.
Care Team (unrecognized sect ion and content) Care Team Personnel Name: LACI SINGH MD Member Role: Primary Care Physician Address: Address: [address] [place] [address] Care Team Related Persons Name: ELVIRA GUILLEN Address: [place] [address] Name: THAI ALEXANDRE Address: [address] Name: KIKE ALEXANDRE Address: Home [address] [place] [address] Name: MICHAEL ALEXANDRE Address: [place] [address] Name: JORI ALEXANDRE Name: NEENA ALEXANDRE Address: Home [address] [place] [address] Name: SIRENA ALEXANDRE Address: [address] Care Team Personnel Name: LACI SINGH MD Member Role: Primary Care Physician Address: Address: [address] [place] [address] Care Team Related Persons Name: ELVIRA GUILLEN Address: Home [address] [place] [address] Name: THAI ALEXANDRE Address: [address] Name: KIKE ALEXANDRE Address: [place] [address] Name: MICHAEL ALEXANDRE Address: [place] [address] Name: JORI ALEXANDRE Name: NEENA ALEXANDRE Address: [address] Name: SIRENA ALEXANDRE Address: [address] Care Team Personnel Name: LACI SINGH MD Member Role: Primary Care Physician Address: Address: [address] [place] [address] Care Team Related Persons Name: ELVIRA GUILLEN Address: [place] [address] Name: THAI ALEXANDRE Address: [address] Name: KIKE ALEXANDRE Address: [place] [address] Name: MICHAEL ALEXANDRE Address: [place] [address] Name: JORI ALEXANDRE Name: NEENA ALEXANDRE Address: [address] Name: SIRENA ALEXANDRE Address: [address] Source Comments (unrecognize d section and content) In the event this informatio n is protected by the Federal Confidentiality of Alcohol and Drug Abuse Patient Records regulations: The Federal rules restrict any use of the information to criminally investigate or prosecute any alcohol or drug abuse patient.[facility] System[facility] the event this information is protected by the Federal Confidentiality of Alcohol and Drug Abuse Patient Records regulations: The Federal rules restrict any use of the information to criminally investigate or prosecute any alcohol or drug abuse patient.[facility] the event this information is protected by the Federal Confidentiality of Alcohol and Drug Abuse Patient Records regulations: The Federal rules restrict any use of the information to criminally investigate or prosecute any alcohol or drug abuse patient.[facility] System[facility] the event this information is protected by the Federal Confidentiality of Alcohol and Drug Abuse Patient Records regulations: The Federal rules restrict any use of the information to criminally investigate or prosecute any alcohol or drug abuse patient.[facility] SystemIn the event this information is protected by the Federal Confidentiality of Alcohol and Drug Abuse Patient Records regulations: The Federal rules restrict any use of the information to criminally investigate or prosecute any alcohol or drug abuse patient.[facility] SystemIn the event this information is protected by the Federal Confidentiality of Alcohol and Drug Abuse Patient Records regulations: The Federal rules restrict any use of the information to criminally investigate or prosecute any alcohol or drug abuse patient.[facility] SystemIn the event this information is protected by the Federal Confidentiality of Alcohol and Drug Abuse Patient Records regulations: The Federal rules restrict any use of the information to criminally investigate or prosecute any alcohol or drug abuse patient.[facility] Care Teams (unrecognized sec tion and content) Library Attendant Relationship Specialty Start Date End Date Laci Singh MD PCP - General Family Medicine 11/28/11 Lico Mortensen (Hist) [address] [place] [address] Psychiatry 05/31/18 Library Attendant Relationship Specialty Start Date End Date Laci Singh MD PCP - General Family Medicine 11/28/11 Lico Mortensen (Hist) [address] [place] [address] Psychiatry 05/31/18 Library Attendant Relationship Specialty Start Date End Date Laci iSngh MD PCP - General Family Medicine 11/28/11 Lico Mortensen (Hist) [address] [place] [address] Psychiatry 05/31/18 Library Attendant Relationship Specialty Start Date End Date Laci Singh MD PCP - General Family Medicine 11/28/11 Lico Mortensen (Hist) [address] [place], [place] [id number] Psychiatry 05/31/18 Library Attendant Relationship Specialty Start Date End Date Laci Singh MD PCP - General Family Medicine 11/28/11 Lico Mortensen (Hist) [address] [place], [place] [id number] Psychiatry 05/31/18 Library Attendant Relationship Specialty Start Date End Date Laci Singh MD PCP - General Family Medicine 11/28/11 Lico Mortensen (Hist) [address] [place] [address] Psychiatry 05/31/18 Library Attendant Relationship Specialty Start Date End Date Laci Singh MD PCP - General Family Medicine 11/28/11 Lico Mortensen (Hist) [address] [place], [place] [id number] Psychiatry 05/31/18 Team Status: Active Member Role Status Dates Dr. Laci Singh MD Family Provider Active Michelle HINTON, DO Primary Care Provider Active Team Status: Inactive Member Role Status Dates Michelle HINTON, DO Primary Care Provider Active Start: November 29, 2024 End: November 29, 2024 Michelle HINTON, DO Attending Provider Active Start: November 29, 2024 End: November 29, 2024 Michelle HINTON, DO Referring Provider Active Start: November 29, 2024 End: November 29, 2024 Team Status: Active Member Role Status Dates Dr. Poonam Reilly MD Primary Care Provider Acti ve Team Status: Inactive Member Role Status Dates Michelle Goldberg VSC, DO Primary Care Provider Active Start: February 07, 2025 End: February 07, 2025 Michelle Ashlyn VSC, DO Referring Provider Active Start: February 07, 2025 End: February 07, 2025 PANCHO Mcdonnell Attending Provider Active Star t: February 07, 2025 End: February 07, 2025 Team Status: Inactive Member Role Status Dates Michelle Goldberg VSC, DO Primary Care Provider Active Start: February 07, 2025 End: February 07, 2025 Dr. Erich Avendaño MD Attending Provider Active S tart: February 07, 2025 End: February 07, 2025 Team Status: Inactive Member Role Status Dates Michelle HINTON, DO Primary Care Provider Active Start: March 03, 2025 End: March 03, 2025 Elli Ramirez CNM Attending Provider Active S tart: March 03, 2025 End: March 03, 2025 Elli Ramirez CNM Referring Provider Active S tart: March 03, 2025 End: March 03, 2025 Team Status: Active Member Role Status Dates Michelle HINTON, DO Primary Care Provider Active Start: March 05, 2025 Elli Ramirez CNM Attending Provider Active S tart: March 05, 2025 Elli Ramirez CNM Referring Provider Active S tart: March 05, 2025 Goals (unrecognized section and content) Goals may be documented in a n alternate section FOR RECORDS PERTAINING TO PATIENTS WHO ARE OR HAVE BEEN ENROLLED IN A CHEMICAL DEPENDENCY/SUBSTANCEABUSE PROGRAM, SOME INFORMATION MAY BE OMITTED. This clinical summary was aggregated from multiple sources. Caution should be exercised in using it in the provision of clinical care. This summary normalizes information from multiple sources, and as a consequence, information in this document may materially change the coding, format and clinical context of patient data. In addition, data may be omitted in some cases. CLINICAL DECISIONS SHOULD BE BASED ON THE PRIMARY CLINICAL RECORDS. [facility] [employer] [facility]. provides no warranty or guarantee of the accuracy or completeness of information in this document.
[2025-03-10 10:01] LABS: hCG Titer Quant., Serum 548 mIU/mL (<9 non-preg)
== END | disposition home or self-care (01) ==
PROVIDERS: Referring Provider Advanced Practice Midwife; Visit Provider Advanced Practice Midwife
DX: O26.859 Spotting complicating pregnancy, unspecified trimester (principal); Z3A.00 Weeks of gestation of pregnancy not specified
CPT/HCPCS: 36415; 84702

== ENCOUNTER → 2025-03-11 | Outpatient (CLI) | payer MEDICARE, MEDICAID, SELFPAY ==
--- NOTE | 2025-03-11 11:56 | US_ITS ---
PROCEDURE: TRANSVAGINAL W/PREG US 03/11/2025 REASON FOR EXAM: SPOTTING/RULE OUT ECTOPIC TECHNIQUE: Transvaginal sonographic technique. COMPARISON: None FINDINGS: Comments: LMP: January 26, 2025. Number of Gestational Sacs: 0 Number of Fetuses: Not visualized Yolk Sac: Not visualized Placenta: Presently not well-visualized Uterine Abnormalities: Endometrial thickening measuring 19 mm. Ovaries / Adnexa: Right ovary is unremarkable. The left ovary was not visualized. US/Transvaginal w/Preg US IMPRESSION: No intrauterine gestation is seen at this time. Endometrial thickening measuring 19 mm. Reading Location: [place] [address]
== END | disposition home or self-care (01) ==
LOC: US 11:56
PROVIDERS: Referring Provider Obstetrics & Gynecology; Visit Provider Obstetrics & Gynecology
DX: O26.859 Spotting complicating pregnancy, unspecified trimester (principal); Z3A.00 Weeks of gestation of pregnancy not specified
CPT/HCPCS: 76817

== ENCOUNTER → 2025-03-12 | Outpatient (CLI) | payer MEDICARE, MEDICAID, SELFPAY ==
[2025-03-12 15:17] LABS: hCG Titer Quant., Serum 210 mIU/mL (<9 non-preg)
== END | disposition home or self-care (01) ==
LOC: LAB 13:16
PROVIDERS: Referring Provider Obstetrics & Gynecology; Visit Provider Obstetrics & Gynecology
DX: O26.859 Spotting complicating pregnancy, unspecified trimester (principal); Z3A.00 Weeks of gestation of pregnancy not specified
CPT/HCPCS: 36415; 84702

== ENCOUNTER → 2025-06-16 | Outpatient (CLI) | payer MEDICARE, MEDICAID, SELFPAY ==
--- NOTE | 2025-06-16 13:45 | US_ITS ---
PROCEDURE: BREAST LIMITED UNILATERAL 06/16/2025 REASON FOR EXAM: F, Age 34 y/o , PAIN, LUMP RIGHT BREAST COMPARISON: Mammogram studies dated 06/16/2025 and 07/17/2018. A breast ultrasound dated 07/17/2018 was also reviewed. TECHNIQUE: Procedure Code: USBRSTLIMIT Modality: US Procedure: BREAST LIMITED UNILATERAL FINDINGS: There is a solid, hypoechoic, lobulated, heterogeneous mass in the right breast at the 10 o'clock, 2 cm from the nipple position measuring 3.2 x 2.5 x 1.3 cm. This is slightly larger when compared to the prior ultrasound examination. This mass does correlate to the palpable abnormality. 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 Short-term six-month follow-up ultrasound is recommended since it is slightly larger in size on today's study. A benign-appearing right axillary lymph node is seen measuring 2.3 x 1.4 x 0.9 cm. The cortex measures 2 mm. US/Breast Limited Unilateral IMPRESSION: Benign-appearing solid mass right breast. This does correlate to the palpable abnormality. 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 Short-term six-month follow-up ultrasound is recommended to document stability. BI-RADS 3: PROBABLY BENIGN. RECOMMENDATION: 6 Month Follow-up Reading Location: [id number]
--- NOTE | 2025-06-16 14:00 | BI_ITS ---
EXAM: DIAG MAMM W/CAD, BILAT 06/16/2025 CLINICAL HISTORY: F, Age 34 y/o , RIGHT BREAST PAIN AND LUMP. Patient has a history of a prior right breast biopsy which was benign. History of prior cyst aspirations. TECHNIQUE: Procedure Code: [id number] Modality: MG Procedure: DIAG MAMM W/CAD, BILAT. COMPARISON: Mammogram study dated 07/17/2018 and breast ultrasound dated 07/17/2018 FINDINGS: TISSUE DENSITY: The breasts are extremely dense, which lowers the sensitivity of mammography. Bilateral Breast Mammographic Findings: RIGHT: There is a 3 cm lobulated dense mass identified in the superior outer, far anterior aspect of the right breast which does correlate to the palpable area. This mass has a clip within it. The biopsy was benign. The mass has slightly increased in size when compared to the prior exam. Further workup with ultrasound will be performed for further evaluation. Benign-appearing secretory type calcifications and round calcifications are seen in the right breast. LEFT: There is a new 1 cm, partially obscured, isodense mass in the superior outer aspect of the left breast. Further workup with ultrasound will be performed. Benign round microcalcifications are seen in the left breast. BI/DIAG MAMM W/CAD, BILAT IMPRESSION: The right breast palpable abnormality correlating to a mass seen on the mammogr am and a left breast mass will be further worked up with ultrasound. Please see that report. OVERALL FINAL ASSESSMENT BI-RADS 0: INCOMPLETE - NEED ADDITIONAL IMAGING EVALUATION. RECOMMENDATION: Ultrasound Recommended A letter with findings and recommendations will be mailed to the patient. Reading Location: [id number]
--- NOTE | 2025-06-16 14:28 | US_ITS ---
PROCEDURE: BREAST LIMITED UNILATERAL 06/16/2025 REASON FOR EXAM: F, Age 34 y/o , LT BREAST ABN MAMMO. Left breast mass. Inconclusive mammogram. COMPARISON: Mammogram study dated 06/16/2025 . TECHNIQUE: Procedure Code: USBRSTLIMIT Modality: US Procedure: BREAST LIMITED UNILATERAL FINDINGS: There is a solid hypoechoic mass identified in the left breast at the 2 o'clock, 2 cm from nipple position measuring 1.0 x 0.6 x 0.5 cm. The mass does have a cystic component within it. The mass appears to be within a duct. The mass is wider than it is tall. It produces no posterior shadowing. It does appear to correlate to the mass seen on the mammogram however it appears to be in a slightly different position on the ultrasound examination in comparison to the mammogram. This most likely is secondary to patient positioning and probe positioning during scanning. The mass may represent a papilloma however an intraductal malignancy is another consideration. Biopsy is warranted in order to completely exclude a malignancy. There is a benign-appearing cystic mass seen at the 2 o'clock, 3 cm from the nipple position measuring 8 x 7 x 4 mm. No additional masses are seen in the breast. A benign-appearing lymph node is seen in the axillary region measuring 2.2 x 2.0 x 1.0 cm. The cortex measures 1 cm. US/Breast Limited Unilateral IMPRESSION: The solid mass in the left breast at the 2 o'clock, 2 cm from the nipple positi on warrants biopsy in order to completely exclude a malignancy. BI-RADS 4: SUSPICIOUS RECOMMENDATION: Biopsy Recommended Reading Location: [id number]
== END | disposition home or self-care (01) ==
LOC: OPBI 13:44
PROVIDERS: Referring Provider Nurse Practitioner Women's Health; Visit Provider Nurse Practitioner Women's Health
DX: N64.4 Mastodynia (principal); N63.10 Unspecified lump in the right breast, unspecified quadrant; R92.8 Other abnormal and inconclusive findings on diagnostic imaging of breast
CPT/HCPCS: 76642; 77062; 77066; G0279

== ENCOUNTER 2025-07-02 05:57 | Day surgery (SDC) | payer MEDICARE, MEDICAID, SELFPAY ==
--- NOTE | 2025-06-24 17:19 | PAT.ANESEVAL ---
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 When Was Last Pacemaker Check QUESTION #4 FULL TEXT: You/Your Family Experience fever (hyperthermia) with Anesthesia Last Oral Intake Last Oral intake: Last Oral Intake NPO since Meds taken in AM with sips of water? Meds patient instructed to take am of surgery PONV PONV - gang investigator: PONV - gang investigator Female Yes 06/24/25 13:59 HX of Motion Sickness Yes 06/24/25 13:59 HX of N/V After Surgery Yes 06/24/25 13:59 Non-Smoker Yes 06/24/25 13:59 Duration of Surgery greater No 06/24/25 13:59 than 60 minutes Number of Risk Factors 4 06/24/25 13:59 PONV Score Severe Risk 06/24/25 13:59 Height & Weight Height & Weight: Anesthesia: Height & Weight Height 5 ft 5 in 06/20/25 09:34 Respiratory Assessment Respiratory Assessment - gang investigator: Respiratory Tract Infection Hx - gang investigator Hx Respiratory Tract Infection No 06/24/25 13:59 STOP Sleep Apnea STOP Sleep Apnea - gang investigator: STOP Sleep Apnea - gang investigator Hx Hypertension No 06/24/25 13:59 Hx Sleep Apnea No 06/24/25 13:59 CPAP No 05/28/21 11:57 BIPAP No 05/28/21 11:57 Do you snore loudly (louder No 06/24/25 13:59 than talking or can be heard Do you often feel tired/ No 06/24/25 13:59 fatigued/ sleepy during daytime? Has anyone observed you stop No 06/24/25 13:59 breathing during sleep? STOP Results Negative 06/24/25 13:59 QUESTION #5 FULL TEXT : Do you snore loudly (louder than talking or can be heard through closed doors)? 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 Specify any problems Hx of Preganancy in last 3 N/A 06/24/25 13:59 Months Nurse Filling Out Transfusion NBUCHER 06/24/25 13:59 & Questions: Date: 06/24/25 06/24/25 13:59 Time: 14:00 06/24/25 13:59 Patient unable to answer at this time (ie. confused, unrespo /Reproduction History /Reproductive History - gang investigator: /Reproductive Hx- gang investigator Hx Now No 06/24/25 13:59 Gestational Age (in weeks): EDC: Hx Hx Para Hx Section SAB No 06/24/25 13:59 PFSH Medical History (Updated 06/24/25 @ 14:05 by Sima Dowling) Depression Anxiety Marijuana use Anemia Low iron Restless legs Former smoker History of echocardiogram History of Holter monitoring Pre-eclampsia H/O renal calculi Smoking (tobacco) complicating , unspecified trimester Conceived by in vitro fertilization Cystic fibrosis carrier PTSD (post-traumatic stress disorder) Skin lesions IBS (irritable bowel syndrome) Manic affective disorder, recurrent episode, moderate degree Anxiety Depression History of benign pituitary tumor Chronic anemia Chronic constipation Bipolar disorder Generalized anxiety disorder Home Medications ?Medication ?Instructions ?Recorded ?Last Taken ?Type hydroxyzine pamoate 50 mg capsule 50 mg PO BID 06/10/22 Unknown History (Vistaril) fluoxetine 40 mg capsule 40 mg PO QDAY 02/07/25 Unknown History methocarbamol 500 mg tablet 500 mg PO TID PRN pain/spasms #60 02/07/25 Unknown Rx tabs bupropion HCl 300 mg 24 hr tablet, 300 mg PO DAILY 06/24/25 Unknown History extended release Allergy/AdvReac Type Severity Reaction Status Date / Time cephalexin (From Keflex) AdvReac Vomiting Verified 06/24/25 13:57 codeine AdvReac Vomiting Verified 06/24/25 13:57 divalproex sodium (From AdvReac Other Verified 06/24/25 13:57 Depakote) hydrocodone bitartrate (From AdvReac Vomiting Verified 06/24/25 13:57 Vicodin) oxcarbazepine (From AdvReac Vomiting Verified 06/24/25 13:57 Trileptal) sumatriptan (From Imitrex) AdvReac Vomiting Verified 06/24/25 13:57 sumatriptan succinate (From AdvReac Vomiting Verified 06/24/25 13:57 Imitrex) Family History Father Hypertension Blood clotting disorder Cancer Kidney CVA (cerebral vascular accident) Mother Depression Anxiety Grandfather Heart disease Myocardial infarction Surgical History (Updated 06/24/25 @ 14:05 by Sima Dowling) History of arm manipulation History of reversal of tubal ligation History of breast biopsy Tubal ligation status Social History adopted: No household members: family housing: house number of children: 6 current occupational status: unemployed pets and animals: Yes history of recent travel: No Smoking Status: Former smoker second hand exposure: No alcohol intake: never substance use type: does not use what type of physical activity do you participate in: other frequency: 5-6 times per week seatbelt use: sometimes do you feel safe at home: Yes additional social history: -Junito [place] Audit: Pertinent Findings Pertinent Findings EKG Perinent findings: 09/04/2013. Normal sinus rhythm. Nonspecific T wave abnormality. Recommendation Anesthesia Recommendation Anesthesia recommendation: OPTIMIZED for anesthesia (If the patient has any cardiac or pulmonary symptoms we should get a repeat twelve-lead EKG on day of surgery.)
[2025-07-02] VITALS (10 sets, daily range): BP systolic 114–131; BP diastolic 69–83; PULSE 73–90; RESP 14–16; TEMP 36.4; O2SAT 94–100; BMI 28.2
[2025-07-02 06:33] LABS: Internal QC Validated? YES +Cl - CLEAR BKGD; Pregnancy, Urine Negative Negative; Record Kit Lot#,Urine Preg 0000964736
[2025-07-02] MEDS: Lactated Ringers 1,000 ML 15 ML IV (06:33)
--- NOTE | 2025-07-02 06:56 | PCM.PRE.AN2 ---
ASA Classification* ASA Classification ASA Classification: 2 Assessment & Plan Anesthesia* Anesthesia Assessment Anesthesia Assessment: Discussed sedation and/or anesthesia options, risks, benefits, and alternatives with patient/parents/legal guardian/POA. Questions invited. The patient/parents/legal guardian/POA seems to understand and agrees to proceed with anesthesia plan. Reviewed the physical assessment, medical history, allergy history and patient home medications list prior to surgery/procedure/anesthetic and documented any changes. Performed airway and anesthesia risk assessments. Anesthesia Type Anesthesia Type: General History Source History Obtained from:: Patient and Chart Anesthesia Focused Assessment* Temperature: 97.6 F Pulse Rate: 83 Blood Pressure: 129/83 Respiratory Rate: 16 Pulse Ox: 100 Airway Assessment Mouth opens: >3 cm Mallampati Score: II Labs Anesthesia Preop lab: CBC WBC, (4.4-11.0) 7.0 K/mm3 11/29/24, 10:23 RBC, (4.2-5.4) 4.58 M/mm3 11/29/24, 10:23 Hgb, (12.0-15.0) 14.2 g/dL 11/29/24, 10:23 Hct, (37-47) 42.1 % 11/29/24, 10:23 Plt Count, (150-450) 266 K/mm3 11/29/24, 10:23 CHEMISTRY Potassium, (3.3-5.1) 4.1 mmol/L 11/29/24, 10:23 Sodium, (133-145) 138 mmol/L 11/29/24, 10:23 BUN, (4-19) 9 mg/dL 11/29/24, 10:23 Creatinine, (0.70-1.20) 0.75 mg/dL 11/29/24, 10:23 Glucose, (70-99) 79 mg/dL 11/29/24, 10:23 POC Glucose, (70-110) 157 mg/dL H 09/03/13, 12:39 TSH, (0.300-4.200) 0.482 uIU/mL 11/29/24, 10:23 COAG HCG, Quant, (<9 non-preg) 210 mIU/mL H 06/11/25, 13:20 Urine Test Negative Negative Today, 06:10 [facility]st Clinic Negative 10/06/21, 09:01 Pre-Assessment Diagnosis/Proposed Procedure Planned Operative Procedure(s): (B) Ultrasound guided wire Excision, Bilateral Breast Mass or Biopsies Anesthesia History 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 When Was Last Pacemaker Check QUESTION #4 FULL TEXT: You/Your Family Experience fever (hyperthermia) with Anesthesia Last Oral Intake Last Oral intake: Last Oral Intake NPO since 19:00 07/02/25 06:25 Meds taken in AM with sips of water? Meds patient instructed to take am of surgery PONV PONV - quality engineer: PONV - quality engineer Female Yes 06/24/25 13:59 HX of Motion Sickness Yes 06/24/25 13:59 HX of N/V After Surgery Yes 06/24/25 13:59 Non-Smoker Yes 06/24/25 13:59 Duration of Surgery greater No 06/24/25 13:59 than 60 minutes Number of Risk Factors 4 06/24/25 13:59 PONV Score Severe Risk 06/24/25 13:59 Height & Weight Height & Weight: Anesthesia: Height & Weight Height 5 ft 5 in 07/02/25 06:25 Weight: 77 kg 07/02/25 06:25 Body Mass Index (BMI) 28.2 07/02/25 06:25 Respiratory Assessment Respiratory Assessment - quality engineer: Respiratory Tract Infection Hx - quality engineer Hx Respiratory Tract Infection No 06/24/25 13:59 STOP Sleep Apnea STOP Sleep Apnea - quality engineer: STOP Sleep Apnea - quality engineer Hx Hypertension No 06/24/25 13:59 Hx Sleep Apnea No 06/24/25 13:59 CPAP No 05/28/21 11:57 BIPAP No 05/28/21 11:57 Do you snore loudly (louder No 06/24/25 13:59 than talking or can be heard Do you often feel tired/ No 06/24/25 13:59 fatigued/ sleepy during daytime? Has anyone observed you stop No 06/24/25 13:59 breathing during sleep? STOP Results Negative 06/24/25 13:59 QUESTION #5 FULL TEXT : Do you snore loudly (louder than talking or can be heard through closed doors)? 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 Specify any problems Hx of Preganancy in last 3 N/A 06/24/25 13:59 Months Nurse Filling Out Transfusion NBUCHER 06/24/25 13:59 & Questions: Date: 06/24/25 06/24/25 13:59 Time: 14:00 06/24/25 13:59 Patient unable to answer at this time (ie. confused, unrespo /Reproduction History /Reproductive History - quality engineer: /Reproductive Hx- quality engineer Hx Now No 06/24/25 13:59 Gestational Age (in weeks): EDC: Hx Hx Para Hx Section SAB No 06/24/25 13:59 Active Medications Active Medications: Current Medications Generic Name Dose Route Start Last Admin Trade Name Freq PRN Reason Stop Dose Admin Cefazolin Sodium 2 gm/ Sodium 110 mls @ 200 mls/hr 07/02/25 07:30 Chloride IV 07/02/25 08:02 INTRAOP ONE Lactated Ringer's 1,000 mls @ 15 mls/hr 07/02/25 06:30 07/02/25 06:33 IV 15 mls/hr .Q48H AFTAB Administration PFSH Medical History Depression Anxiety Marijuana use Anemia Low iron Restless legs Former smoker History of echocardiogram History of Holter monitoring Pre-eclampsia H/O renal calculi Smoking (tobacco) complicating , unspecified trimester Conceived by in vitro fertilization Cystic fibrosis carrier PTSD (post-traumatic stress disorder) Skin lesions IBS (irritable bowel syndrome) Manic affective disorder, recurrent episode, moderate degree Anxiety Depression History of benign pituitary tumor Chronic anemia Chronic constipation Bipolar disorder Generalized anxiety disorder Home Medications ?Medication ?Instructions ?Recorded ?Last Taken ?Type hydroxyzine pamoate 50 mg capsule 50 mg PO BID 06/10/22 07/01/25 History (Vistaril) fluoxetine 40 mg capsule 40 mg PO QDAY 02/07/25 07/01/25 History methocarbamol 500 mg tablet 500 mg PO TID PRN pain/spasms #60 02/07/25 07/01/25 Rx tabs bupropion HCl 300 mg 24 hr tablet, 300 mg PO DAILY 06/24/25 07/01/25 History extended release Allergy/AdvReac Type Severity Reaction Status Date / Time cephalexin (From Keflex) AdvReac Vomiting Verified 06/24/25 13:57 codeine AdvReac Vomiting Verified 06/24/25 13:57 divalproex sodium (From AdvReac Other Verified 06/24/25 13:57 Depakote) hydrocodone bitartrate (From AdvReac Vomiting Verified 06/24/25 13:57 Vicodin) oxcarbazepine (From AdvReac Vomiting Verified 06/24/25 13:57 Trileptal) sumatriptan (From Imitrex) AdvReac Vomiting Verified 06/24/25 13:57 sumatriptan succinate (From AdvReac Vomiting Verified 06/24/25 13:57 Imitrex) Family History Father Hypertension Blood clotting disorder Cancer Kidney CVA (cerebral vascular accident) Mother Depression Anxiety Grandfather Heart disease Myocardial infarction Surgical History History of arm manipulation History of reversal of tubal ligation History of breast biopsy Tubal ligation status Social History adopted: No household members: family housing: house number of children: 6 current occupational status: unemployed pets and animals: Yes history of recent travel: No Smoking Status: Former smoker second hand exposure: No alcohol intake: never substance use type: does not use what type of physical activity do you participate in: other frequency: 5-6 times per week seatbelt use: sometimes do you feel safe at home: Yes additional social history: -Jori- Yolis Review of Systems (Anesthesia) ROS Narrative System reviewed and no additional complaints, except as documented. Physical Exam Const alert and oriented x3 Resp normal respiratory effort and normal air movement Auscultation: clear to auscultation bilaterally Cardio regular rate and regular rhythm Neuro oriented x3 and moves all extremities
--- NOTE | 2025-07-02 07:13 | PCM.HP.BLA ---
History and Physical Date of Admission: 07/02/25 Date of Service: 06/20/25 MR#: [id number] Acct: [id number] Name: ROSANNA JURADO Rep #: [id number] : 1990 Provider: Dr. Sue Wilson MD Age/Sex: 34/F Location: [facility] Status: Signed Intake Vital Signs 05/13/2514:52 06/20/2509:34 Height 5 ft 5 in 5 ft 5 in Weight: 163 lb 3 oz 168 lb BMI 27.1 27.9 BP 125/87 H 128/88 H Blood Pressure Location Lt brachial Position Sitting Respiration 17 Pulse 67 Pulse Source Monitor Pulse Oximetry (%) 98 Oxygen Delivery Method room air Intake Visit Reasons: BIRADS 4 Chief Complaint: birads 4 Is patient in pain?: No Allergies cephalexin (From Keflex) Adverse Reaction (Verified 06/20/25 09:35) Vomiting codeine Adverse Reaction (Verified 06/20/25 09:35) Vomiting divalproex sodium (From Depakote) Adverse Reaction (Verified 06/20/25 09:35) Other hydrocodone bitartrate (From Vicodin) Adverse Reaction (Verified 06/20/25 09:35) Vomiting oxcarbazepine (From Trileptal) Adverse Reaction (Verified 06/20/25 09:35) Vomiting sumatriptan (From Imitrex) Adverse Reaction (Verified 06/20/25 09:35) Vomiting sumatriptan succinate (From Imitrex) Adverse Reaction (Verified 06/20/25 09:35) Vomiting Medications ?Medication ?Instructions ?Recorded ?Confirmed ?Type hydroxyzine pamoate 50 mg capsule 50 mg PO BID 06/10/22 06/20/25 History (Vistaril) fluoxetine 40 mg capsule 40 mg PO QDAY 02/07/25 06/20/25 History mecobalamin (vitamin B12) 500 mcg 500 mcg PO DAILY 02/07/25 06/20/25 History chewable tablet methocarbamol 500 mg tablet 500 mg PO TID PRN pain/spasms #60 02/07/25 06/20/25 Rx tabs PFSH Medical History Pre-eclampsia H/O renal calculi Smoking (tobacco) complicating , unspecified trimester Conceived by in vitro fertilization Cystic fibrosis carrier PTSD (post-traumatic stress disorder) Skin lesions IBS (irritable bowel syndrome) Manic affective disorder, recurrent episode, moderate degree Anxiety Depression History of benign pituitary tumor Chronic anemia Chronic constipation Bipolar disorder Generalized anxiety disorder Surgical History arm manipulation History of reversal of tubal ligation History of breast biopsy Tubal ligation status Family History Father Hypertension Blood clotting disorder Cancer Kidney CVA (cerebral vascular accident) Mother Depression Anxiety Grandfather Heart disease Myocardial infarction Social History adopted: No household members: family housing: house number of children: 6 current occupational status: unemployed pets and animals: Yes history of recent travel: No Smoking Status: Current every day smoker tobacco type: cigarettes second hand exposure: No alcohol intake: never substance use type: does not use what type of physical activity do you participate in: other frequency: 5-6 times per week seatbelt use: sometimes do you feel safe at home: Yes additional social history: -Junito Lagos HPI HPI HPI: 34-year-old female presents due to abnormal mammogram. Patient states she previously had a biopsy of the right breast in 2018 showed a fibroadenoma then also had a cyst drained in the right breast in 2019. Patient states she did notice this again in the shower but has not really checked the left side regularly denies any left-sided breast pain and only occasional at the location of fibroadenoma about 10:00 1 to 2 cm from the nipple. Ultrasound results below. Left breast lesion recommended biopsy noted to be 2:00 2 cm unable however was more retroareolar on my exam/bedside ultrasound. I did previously biopsy patient's right breast lesion in 2018 pathology results showed fibroadenoma due to increase in side got a bilateral RADS 3 did discuss with patient if she would prefer for an excisional biopsy for both lesions due to location retroareolar. Age of menses 11, age of of first child 19, no family history of breast cancer, 1 previous breast biopsy with clip in place fibroadenoma 2017 and aspiration of cyst. Left breast ultrasound There is a solid hypoechoic mass identified in the left breast at the 2 o'clock, 2 cm from nipple position measuring 1.0 x 0.6 x 0.5 cm. The mass does have a cystic component within it. The mass appears to be within a duct. The mass is wider than it is tall. It produces no posterior shadowing. It does appear to correlate to the mass seen on the mammogram however it appears to be in a slightly different position on the ultrasound examination in comparison to the mammogram. This most likely is secondary to patient positioning and probe positioning during scanning. The mass may represent a papilloma however an intraductal malignancy is another consideration. Biopsy is warranted in order to completely exclude a malignancy. There is a benign-appearing cystic mass seen at the 2 o'clock, 3 cm from the nipple position measuring 8 x 7 x 4 mm. No additional masses are seen in the breast. A benign-appearing lymph node is seen in the axillary region measuring 2.2 x 2.0 x 1.0 cm. The cortex measures 1 cm. US/Breast Limited Unilateral IMPRESSION: The solid mass in the left breast at the 2 o'clock, 2 cm from the nipple position warrants biopsy in order to completely exclude a malignancy. BI-RADS 4: SUSPICIOUS RECOMMENDATION: Biopsy Recommended Right breast ultrasound FINDINGS: There is a solid, hypoechoic, lobulated, heterogeneous mass in the right breast at the 10 o'clock, 2 cm from the nipple position measuring 3.2 x 2.5 x 1.3 cm. This is slightly larger when compared to the prior ultrasound examination. This mass does correlate to the palpable abnormality. 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 Short-term six-month follow-up ultrasound is recommended since it is slightly larger in size on today's study. A benign-appearing right axillary lymph node is seen measuring 2.3 x 1.4 x 0.9 cm. The cortex measures 2 mm. US/Breast Limited Unilateral IMPRESSION: Benign-appearing solid mass right breast. This does correlate to the palpable abnormality. 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 Short-term six-month follow-up ultrasound is recommended to document stability. BI-RADS 3: PROBABLY BENIGN. RECOMMENDATION: 6 Month Follow-up ROS General General: Yes weight change; No appetite, fatigue, colon cancer, breast cancer or weakness HEENT HEENT: No difficulty swallowing, eye injury, eye surgery, swollen glands or hoarseness Endo Endocrine: No thyroid disease, diabetes mellitus, thyroid cancer, Hair loss, heat intolerance or cold intolerance Skin Skin: No rash or changing moles Breast Breast: Yes left breast lump, right breast lump, nipple discharge, breast pain, abnormal mammogram and abnormal US; No breast enlargement Musc Musculoskeletal: Yes back problems; No arthritis, rheumatoid arthritis, gout or joint pain Cardio Cardiovascular: No murmur, pacemaker, heart disease, atrial fibrillation, high blood pressure, heart attack, heart stent, palpitations, shortness of breath with exertion or chest pain Psych Psychiatric: Yes depression and anxiety; No hearing voices Resp Respiratory: No shortness of breath, No sleep apnea, No cough, No COPD, Yes asthma, No emphysema and No wheezing Gastro Gastrointestinal: No abdominal pain, Yes nausea or vomiting, No diarrhea, No constipation, No blood in stool, Yes acid reflux, No hemorrhoids, No ulcers, No gallbladder problem and No black,tarry stools Regino Hematologic: No blood thinners, No blood disorders, No bleeding, Yes anemia and No blood clots Neuro Neurologic: No system reviewed and no additional complaints, except as documented, No as per HPI, No abnormal gait, No abnormal hearing, No abnormal movements, No abnormal speech, No behavioral changes, No burning sensations, No confusion, No convulsions, No disequilibrium, No dizziness, No localized weakness, No frequent falls, No headache(s), No lack of coordination, No loss of vision, No memory loss, No numbness, No other visual disturbances, No radicular pain, No restless legs, No sensory deficit, No syncope, No tingling, No tremor(s), No weakness and No other Exam Const General: cooperative, healthy appearing and no acute distress [facility] Head: normal to inspection Chest Other: Breast inspection: Symmetric bilaterally Right breast: Fibroglandular tissue, 2 cm mass about 10:00 maybe areolar border?previous location of biopsied fibroadenoma, no nipple discharge or pain, no change in overlying skin Left breast: Fibroglandular tissue, no masses on exam, no nipple discharge or pain, no change in overlying skin No axillary or supraclavicular adenopathy bilaterally Resp Effort & Inspection: normal respiratory effort Cardio Rate: regular rate GI Inspection: non-distended Palpation: soft Skin General: no rashes or lesions noted Neuro General: patient oriented x3 Extrem General: no clubbing, cyanosis or edema Psych Affect: normal affect Assessment and Plan Assessment and Plan (1) Abnormal mammogram of left breast: Status: Acute (2) Lump of right breast: Status: Acute Qualifiers: Breast mass location: subareolar Qualified Code(s): N63.41 - Unspecified lump in right breast, subareolar Plan Did review imaging personally and with the patient and her mom. Due to the location of the left breast lesion being retroareolar discussed possible excisional biopsy is an option as it is not 2 cm from the nipple it is very close to directly behind the nipple. Would plan for left breast an ultrasound-guided wire needle localization. Then discussed the right breast mass which was previously biopsied for a fibroadenoma but has enlarged in size given a BI-RADS 3. This is also located near the areolar border. Patient would prefer to have an excisional ultrasound-guided wire localization right biopsy as well instead. Discussed the procedure excisional bilateral ultrasound-guided wire localization biopsies clear risk not limited to bleeding, infection, need for further surgery, very likely have some nipple discharge especially with the left breast excisional biopsy.. Patient had no further questions this time. Is agreeable with plan. Sue Wilson M.D. Pager: [phone] [facility] [address] [place] [address], [address] [place] [address] Office: [phone] Coding Level of Care Code Off vis,new,level 3 Diagnoses Abnormal mammogram of left breast R92.8 Subareolar mass of right breast N63.41 Breast mass location: subareolar 06/20/25 1227 <Electronically signed by Sue Wilson MD> Date Sue Wilson MD
--- NOTE | 2025-07-02 07:30 | BRBX_PTH ---
PATIENT: ROSANNA JURADO [place] [facility] [id number] AGE/SX: 34/F ROOM: RE07/02/[address]: Dr. Sue Wilson MD : 1990 BED: DIS: 07/02/2025 SPEC #: [id number] RECD: 07/02/25 09:08 STATUS: [place] REQ #: [id number] AMITA: 07/02/25 07:[address]: Sue Wilson DEPT: SURGICAL PATHOLOGY RECD BY: Kodi De La Rosa ENTERED: 07/02/25 15:02 SP TYPE: BREAST BX OTHR DR: No Primary Care Phys Tissues: A - Right breast, NOS B - Left breast, NOS Procedures: Immunohistochemical Stains Surgery Specimen Level V IHC Stain ADDITIONAL HEADER OPERATION: Ultrasound guided wire excision, bilateral breast mass or biopsy PRE-OP DIAGNOSIS: Breast mass TISSUE SUBMITTED: A- Right breast *10o'clock, long - lateral anterior, short - superior*, B- Left breast mass *2o'clock, long - lateral, short- superior* MICROSCOPIC DIAGNOSIS A. Breast, right, mass at 10 o'clock, ultrasound guided wire excision: * Fibroadenoma - see note. Note: IHC for CK5/6 supports the histologic impression (A2, A3). B. Breast, left, mass 2 o'clock, ultrasound-guided wire excision: * Fibroadenoma, fibrocystic mastopathy. MICROSCOPIC DESCRIPTION Slides are reviewed. GROSS DESCRIPTION Received fresh in 2 biohazard bags and subsequently placed into 2 formalin containers labeled with the patient's name and date of . Designated as: A. Right breast mass at 10:00 is a 3.0 x 2.9 x 2.4 cm excisional biopsy with an exposed localization wire (lateral). There is a short suture designated as superior and a long suture designated as lateral/anterior. It is presumed that the long suture designates the junction of the lateral and anterior margins. Skin is not present. The specimen is inked as follows: Superior: RedInferior: BlueMedial: YellowLateral: OrangeAnterior: GreenPosterior: Black The specimen is serially sectioned from lateral to medial (into 6 slices) revealing a 2.9 x 2.2 x 1.9 cm quiroz-pink, lobulated and rubbery mass spanning slices all 6 slices. A ribbon biopsy clip is identified on postoperative imaging. The mass is located the following distances from each margin: Anterior: <0.1 cmInferior: <0.1 cm Medial: <0.1 cmLateral: <0.1 cmPosterior: <0.1 cmSuperior: <0.1 cm Entirely submitted, sequentially from lateral to medial in 6 cassettes as follows: A1: Slice #1, lateral, perpendicularA2: Slice #2A3: Slice #3A4: Slice #4A5: Slice #5A6: Slice #6, medial, perpendicular Cold ischemic time: 9 minutesFormalin fixation time: 10 hours, 44 minutesB. Left breast mass 2:00 is a 2.6 x 1.6 x 0.8 cm excisional biopsy exposed localization wire (lateral). There is a short suture designated as superior and a long suture designated as lateral. Skin is not present. The specimen is inked as follows: Superior: RedInferior: BlueMedial: YellowLateral: OrangeAnterior: GreenPosterior: Black The specimen is serially sectioned from medial to lateral (into 6 slices) revealing a 1.4 x 1.3 x 0.8 cm quiroz-white, firm mass spanning slices #1-#4. A biopsy clip is not identified on post operative imaging. The mass is located the following distances from each margin: Anterior: <0.1 cmInferior: <0.1 cmMedial: <0.1 cm cmLateral: 1.0 cmPosterior: <0.1Superior: <0.1 cm Entirely submitted, sequentially from medial to lateral in 4 cassettes as follows: B1: Slice #1, medial, perpendicularB2: Slices #2/#3B3: Slices #4/#5B4: Slice #6, lateral, perpendicular Cold ischemic time: 11 minutesFormalin fixation time: 10 hours, 24 minutes NC 07/02/2025PT:[id number]
[2025-07-02] MEDS: Lactated Ringers 1,000 ML 1000 ML IV (07:55)
[2025-07-02] MEDS: Cefazolin 1 GM/5 ML Vial 2 GM IV (08:00)
[2025-07-02] MEDS: Lidocaine 1% (5 ml sdv) 5 ML Vial IV (08:03)
[2025-07-02] MEDS: DiphenhydrAMINE 50 MG/ML Syringe 12.5 MG IV (08:10)
--- NOTE | 2025-07-02 08:41 | BI_ITS ---
EXAM: BREAST BIOPSY SPECIMEN 07/02/2025 CLINICAL HISTORY: F, Age 34 y/o , TECHNIQUE: Procedure Code: BIB Modality: MG Procedure: BREAST BIOPSY SPECIMEN COMPARISON: Prior exam(s) dated 06/16/2025. FINDINGS: TISSUE DENSITY: The breasts are heterogeneously dense, which may obscure small masses A specimen radiograph was performed and shows the presence of the distal aspect of the placed wire as well as the clip placed after a recent ultrasound-guided biopsy. BI/Breast Biopsy Specimen IMPRESSION: OVERALL FINAL ASSESSMENT: BIRADS 0: Incomplete: Prior Mammograms for Comparison . RECOMMENDATION: Routine annual follow-up in 1 Year Additional Recommendation final recommendation will be determined after patholo gy results are known. A letter with findings and recommendations will be mailed to the patient. Reading Location: [id number]
--- NOTE | 2025-07-02 08:59 | BI_ITS ---
EXAM: BREAST BIOPSY SPECIMEN 07/02/2025 CLINICAL HISTORY: F, Age 34 y/o, wire localization breast specimen TECHNIQUE: Procedure Code: BIB Modality: MG Procedure: BREAST BIOPSY SPECIMEN COMPARISON: Prior exam(s) dated 06/16/2020. FINDINGS: TISSUE DENSITY: The breasts are heterogeneously dense, which may obscure small masses 2 breast specimen radiographs The 2 specimen radiographs contain the distal tip of the placed wire there is no evidence of a biopsy clip within the sample BI/Breast Biopsy Specimen IMPRESSION: Specimen radiographs contain the distal tip of the placed wire OVERALL FINAL ASSESSMENT: BIRADS 0: Incomplete: Prior Mammograms for Comparison . RECOMMENDATION: Routine annual follow-up in 1 Year Additional Recommendation final follow-up recommendation to be determined after pathology results are known A letter with findings and recommendations will be mailed to the patient. Reading Location: [id number]
--- NOTE | 2025-07-02 09:04 | OP.PCM_ITS ---
Operative Report (Standard) Operative Information Date of Procedure: 07/02/25 Pre-Operative Diagnosis: Bilateral breast mass Post-Operative Diagnosis: Same Surgery/Procedure Performed: Bilateral ultrasound-guided wire localization excisional breast biopsies meat carver: Yes Station Installation Supervisor: Ira Elkins Tasks completed by first line supervisor: Opening & closing Type of Anesthesia: General/Supplemental RN Documented Start/Stop Times: Operation Date: 07/02/25 07:30 Case Time Into Pre-Op 07/02/25 06:17 Out of Pre-Op 07/02/25 07:52 Anesthesia Start 07/02/25 07:55 Into Room 07/02/25 07:55 Procedure Start 07/02/25 08:15 Procedure End 07/02/25 09:24 Anesthesia End 07/02/25 09:26 Out of Room 07/02/25 09:26 Into Recovery 07/02/25 09:32 Out of Recovery 07/02/25 10:18 Into Phase II Recovery 07/02/25 10:19 Out of Phase II 07/02/25 11:15 Procedure Start Time: 08:15 Procedure Stop Time: 09:24 Select all DRAINS/GRAFTS/IMPLANTS that apply: None Special Medications: Ancef 2 g IV x 1 Estimated Blood Loss: < 10 cc Specimen collected: Yes Description of specimen(s) removed: 1. right breast mass 10:00 2 cm from the nipple, 2. left breast mass 2:00 2 cm from the nipple Description of surgery: Patient was brought to operating placed spine operating table. Timeout was completed verifying correct patient, procedure, site, positioning, special, prior began procedure. General anesthesia was induced. Patient's bilateral breasts were prepped draped in a sterile fashion. Each procedure was done similarly. Ultrasound guided needle localization with Kopan needle was completed with the wire just inferior to the breast masses. A curvilinear incision along areolar border was planned in such a way as to minimize the amount of dissection to reach the mass. Flaps were raised in the location of the wire confirmed. The wire was delivered into the wound. 2 silk [id number] stay suture was placed around the wire and used for traction. Dissection was then taken down circumferentially with electrocautery, taking care to include the entire localization needle and wide margin of grossly normal tissue. The specimen and entire localizing wire were removed. The specimen was oriented and sent to radiology. The cavity was irrigated. Pt did have some milky drainage from some ducts near the nipple. Interrupted Vicryl sutures were placed on some of the leaking ducts. Hemostasis was obtained with electrocautery. The breast incision was closed with interrupted sutures of 3-0 Vicryl and subcuticular sutures of 4-0 Monocryl. No attempt was made to close the space. Dermabond was placed on the incisions. A dressing of fluff gauze and supportive bra placed. The patient tolerated procedure well was taken to the postanesthesia care in stable condition. Surgical Findings: see operative report Complications Complications: No
--- NOTE | 2025-07-02 09:05 | EX.PCM.DISCH ---
Discharge Instructions Diet Discharge Diet: No restrictions Activity Discharge Activity: May Not Drive (for 2-3 days or while taking narcotic pain meds.) May shower in (days): 1 Lifting Restrictions: 10 pounds for 1 week. Dressing / Incision Call your doctor if your incision/area has: Continuous Slow Oozing, Sudden Increased Bleeding, Increased Pain/ Swelling and Increased Redness Call your doctor if you observe: Fever of 101 or Higher Suture Line Care: Avoid Pulling/Pushing and Avoid Pinching/Bending Remove Dressing in: 1 day Additional Dressing/Incision Instructions:: Remove bulky dressing tomorrow. Dermabond (glue) was used at the incisions this may start to peel off in about 5 days. Follow Up Care Please Follow Up With: Sue Wilson MD When: Please call [phone] for an appointment to be seen in 2 week. Test Results: Test results from this visit will be discussed in further detail at your follow-up appointment, if applicable. Discharge Plan Admission Attending Provider: Sue Wilson Primary Care Provider: Care Physician[facility] Primary Instructions Additional Instructions / Restrictions: Okay to take ibuprofen 400-600 mg PO q6hr PRN and Tylenol 650 to 1000 mg p.o. every 6 hours as needed along with the oxycodone. Take all pain meds with food. Oxycodone can cause constipation recommend taking daily stool softener (i.e. Colace/docusate) while taking the pain meds. Recommend starting some MiraLAX in 1 to 2 days if no bowel movement. If still no bowel movement the following day recommend taking additional MiraLAX versus magnesium citrate half the bottle and waiting 4-6 hours if still no results take the other half the bottle. Print Language: Serbian Discharge Orders/Prescriptions Prescriptions: New oxycodone 5 mg capsule 5 mg PO Q6H PRN (Reason: pain) 3 Days Qty: 10 0RF Continued hydroxyzine pamoate [Vistaril] 50 mg capsule 50 mg PO BID fluoxetine 40 mg capsule 40 mg PO QDAY methocarbamol 500 mg tablet 500 mg PO TID PRN (Reason: pain/spasms) Qty: 60 0RF bupropion HCl 300 mg tablet extended release 24 hr 300 mg PO DAILY Referrals / Follow Up: Care Physician[facility] Primary [Primary Care Provider, Medical] Disposition Disposition (needs filled in before D/C Order can be placed): Home, Self Care
[2025-07-02] MEDS: Bupiv/Epi 0.25% 30 ML Vial (09:17)
[2025-07-02] MEDS: fentaNYL 100 MCG/2 ML Ampul 200 MCG IV (09:25)
--- NOTE | 2025-07-02 09:35 | PCM.POST.ANE ---
Anesthesia: Postop Eval I Current Vital Signs Temperature: 97.5 F Pulse Rate: 84 Blood Pressure: 127/83 Respiratory Rate: 16 Pulse Ox: 97 Oxygen Delivery Method: Room Air Assessment Airway patent: Yes Spontaneous unlabored respirations: Yes Mental status: Awake and Calm nausea: No Vomiting: No Anesthesia Complication: No Fluid Hydration Crystalloid volume administer (ml): 1,000 Total IV fluid infused: 1,000 Progress Note Anesthesia document: Postop Eval 1 completed: Yes
--- NOTE | 2025-07-02 09:55 | POSTOPAN2_ITS ---
Anesthesia Postop Eval I Sum Postop Eval Completion status Anesthesia document: Postop Eval 1 completed: Yes Anesthesia Postop Eval I Summary Anesthesia Postop Eval I Summary: Anesthesia Postop Eval I: Assessment Summary Airway patent Yes 07/02/25 09:36 [email or web address] Spontaneous unlabored Yes 07/02/25 09:36 [email or web address] respirations Mental status Awake,Calm 07/02/25 09:36 [employer]CIAL [email or web address] nausea No 07/02/25 09:36 [employer]ANCIAL [email or web address] Vomiting No 07/02/25 09:36 [employer] [email or web address] Anesthesia Postop Eval I: Fluid Summary Crystalloid volume administer 1,000 07/02/25 09:36 [email or web address] (ml) Colloids volume administered ( ml) Blood Product volume administered (ml) Total IV fluid infused 1,000 07/02/25 09:36 [email or web address] Anesthesia Postop Eval I: Summary Notes Anesthesia Complication No 07/02/25 09:36 [email or web address] Anesthesia Complication Comment: Post-operative progress note Anesthesia: Postop Eval II Evaluation Mental status: Awake and Calm Pain Level: 1 nausea: No Vomiting: No Complications Anesthesia Complication: No
--- NOTE | 2025-07-02 09:55 | PCM.POSTANE2 ---
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 Spontaneous unlabored Yes 07/02/25 09:36 [employer]UT [email or web address] respirations Mental status Awake,Calm 07/02/25 09:36 PEANUT [email or web address] nausea No 07/02/25 09:36 PEANUT [email or web address] Vomiting No 07/02/25 09:36 PEANUT [email or web address] Anesthesia Postop Eval I: Fluid Summary Crystalloid volume administer 1,000 07/02/25 09:36 [email or web address] (ml) Colloids volume administered ( ml) Blood Product volume administered (ml) Total IV fluid infused 1,000 07/02/25 09:36 PEANUT [email or web address] Anesthesia Postop Eval I: Summary Notes Anesthesia Complication No 07/02/25 09:36 PEANUT [email or web address].[email or web address] Anesthesia Complication Comment: Post-operative progress note Anesthesia: Postop Eval II Evaluation Mental status: Awake and Calm Pain Level: 1 nausea: No Vomiting: No Complications Anesthesia Complication: No
--- NOTE | 2025-07-02 11:57 | PCM.PN.BLA ---
Progress Note During procedure patient did have milk coming from her breast ducts bilaterally?no nipple discharge during surgery. Discussed with patient after the surgery she denies any milky nipple discharge or any nipple discharge previously. Did discuss patient will likely have bloody or milky discharge after the procedure as below areas that were excised were retroareolar. Patient does have a history of pituitary tumor as shown on MRI in July 2019 patient states she had no other follow-up done with this. Will plan to refer patient to endocrine for further workup.
--- OUTSIDE RECORDS SUMMARY | 2025-07-03 21:53 | XMS RPT_ITS | CCD ---
Author Organization [facility] Care Team Providers Care Seed Laboratory Assistant Name Role Phone LACI SINGH Primary Care [...] AGUERO Primary Care Unavailable LISSY CELIS Attending UnavailLaci Casiano MD Primary Care Provider Laci Singh MD Primary Care Provider LACI SINGH Primary Care Unavailab LACI Cordero Primary Care Unavailab ABRIL Nathan Referring Unavailable LACI SINGH Primary Care Unavailab GAVINO Price Referring Unavailable LACI SINGH Primary Care Unavailab le LACI SINGH Primary Care Unavailab le Michelle Goldberg DO Primary Care Provider Michelle Goldberg DO Attending Provider Michelle Goldberg DO Referring Provider Ana Grant Attending Provider Jarocho KEVIN, Dr. Jung Attending Provider James POE, Elli Attending Provider Elli Ramirez CNM Referring Provider Tommie KEVIN, Dr. Levin Attending Provider [phone] Dr. Poonam Reilly MD Referring Provider [phone] Care Physician, No Primary Primary Care Provider Unavailable DONNY RUSSELL DO Attending Unavailable SAMANTHA KEVIN, DR AGUERO Primary Care Unavailable DONNY RUSSELL DO Attending Unavailable SAMANTHA KEVIN, DR AGUERO Primary Care Unavailable Ashlyn DO, Michelle Primary Care Provider Ashlyn DO, Michelle Referring Provider Care Physician, No Primary Referring Provider Un available Jhon PRODUCT SCIENTIST-C, Sandy Attending Provider Care Physician, No Primary Primary Care Unava ilable Robotham, Sue Referring Unavailable Robotham, Sue Attending Unavailable Ashlyn VSC, Michelle Primary Care Unavailable Ana Hilton Referring Unavailable Ana Hilton Attending Unavailable Jhon PRODUCT SCIENTIST, Sandy Referring Unavailable Jhon PRODUCT SCIENTIST, Sandy Attending Unavailable Care Physician, No Primary Primary Care Unava ilable Care Physician, No Primary Primary Care Unava ilable [place] PRODUCT SCIENTIST, Sandy Referring Unavailable [place] PRODUCT SCIENTIST, Sandy Attending Unavailable Care Physician, No Primary Primary Care Unava ilable Poonam Reilly Referring Unavailable Poonam Reilly Attending Unavailable Care Physician, No Primary Referring Unava ilable Care Physician, No Primary Primary Care Unava ilable Jhon PRODUCT SCIENTIST, Sandy Attending Unavailable Care Physician, No Primary Primary Care Unava ilable Care Physician, No Primary Referring Unava ilable Robotham, Sue Attending Unavailable Ashlyn VSC, Michelle Referring Unavailable Ashlyn VSC, Michelle Primary Care Unavailable YobaniMansooryn Attending Unavailable Ashlyn VSC, Michelle Primary Care Unavailable Erich Avendaño Attending Unavailable Ashlyn VSC, Michelle Referring Unavailable Ashlyn VSC, Michelle Attending Unavailable Ashlyn VSC, Michelle Primary Care Unavailable Ashlyn VSC, Michelle Primary Care Unavailable Elli Ramirez Referring Unavailable Elli Ramirez Attending Unavailable Ashlyn ADRIANE, Michelle Primary Care Unavailable Elli Ramirez Attending Unavailable Elli Ramirez Referring Unavailable Care Physician, No Primary Primary Care Unava ilable TommiePoonam Referring Unavailable Poonam Reilly Attending Unavailable Care Physician, No Primary Primary Care Unava ilable Tommie Poonam Referring Unavailable Poonma Reilly Attending Unavailable Care Physician, No Primary Primary Care Unava ilable Elli Ramirez Attending Unavailable Elli Ramirez Referring Unavailable Allergies Allergy Classification Reported Allergen(s) Allergy Type Date of Onset Reaction(s) Facility (9 sources) Acetaminophen / HYDROcodone; Translations: [HYDROCODONE-ACETAM INOPHEN] Drug Allergy 07-16-20 09 Nausea And Vomiting, Vomiting [facility] (17 sources) Cephalexin; Translations: [CEPHALEXIN] Drug Allergy 07-10-20 14 Nausea And Vomiting, Vomiting [facility] (20 sources) SUMAtriptan; Translations: [sumatriptan] Drug Allergy 07-16-20 09 Nausea And Vomiting, Vomiting [facility] (10 sources) Valproate; Translations: [divalproex sodium] Drug Allergy 06-06-20 21 Other (See Comments) [facility] Comment on above: pt states depakote c auses her to black out (13 sources) Sulfamethoxazole / Trimethoprim; Translations: [sulfamethoxazole-t rimethoprim] Drug Allergy 07-16-20 09 GI Upset [facility] Comment on above: Patient stated she h ad nausea, and diarrhea (6 sources) Valproate; Translations: [divalproex sodium] Drug Allergy [facility] (8 sources) Valproate; Translations: [DIVALPROEX] Drug Allergy 09-15-20 09 Mental Status Change [facility] Work Phone: (8 sources) Carbamazepine Analogues; Translations: [CARBAMAZEPINE ANALOGUES] Propensity to adverse reactions 07-16-20 09 Vomiting [facility] Work Phone: (3 sources) Acetaminophen / HYDROcodone; Translations: [acetaminophen-hydr ocodone] Drug Allergy [facility] (1 source) Sulfamethoxazole / Trimethoprim; Translations: [SULFAMETHOXAZOLE-T RIMETHOPRIM] Drug Allergy 07-16-20 09 [facility] (8 sources) Codeine Drug Allergy 10-06-19 Vomiting [facility] (9 sources) HYDROcodone; Translations: [hydrocodone bitartrate] Drug Allergy 10-06-19 [facility] (8 sources) OXcarbazepine Drug Allergy 10-06-19 [facility] (9 sources) SUMAtriptan; Translations: [sumatriptan succinate] Drug Allergy 10-06-19 [facility] (1 source) Cephalexin Drug Allergy 06-24-20 [facility] Repository (1 source) Codeine Drug Allergy 06-24-20 [facility] Repository (1 source) OXcarbazepine Drug Allergy 06-24-20 [facility] Repository (1 source) SUMAtriptan Drug Allergy 06-24-20 [facility] Repository Medications Current Medications Medication Drug Class(es) Dates Sig (Normalized) Sig (Original) acetaminophen 325 mg / HYDROcodone bitartrate 5 mg oral tablet (3 sources) Opioid Agonist Start: 07-16-2022 End: 07-21-2022 take 1 tablet by mouth every six hours as needed for pain [place] 325- 5 mg oral tablet Dose = 1 tab(s), Oral, q6h, PRN As needed for severe pain, X 3 day(s), # 12 tab(s), 0 Refill(s), Pharmacy: [id number], Renal colic Renal colic on left side, 167.6, cm, 07/17/22 21:43:00 EDT, Height, 70.5, kg, 07/17/22 21:43:00 EDT, Dosing... Start Date: 07/18/22 Stop Date: 07/21/22 Status: Ordered albuterol MDI (90 mcg/inh) CFC free inhalation aerosol (6 sources) Start: 04-27-2021 take 1 puff(s) by inhalation every six hours as needed for wheezing albuterol MDI (90 mcg/inh) CFC free inhalation aerosol 1 puff(s), Inhalation, q6h, PRN as needed for wheezing, # 6.7 gram(s), 0 Refill(s), Bronchitis Start Date: 04/27/21 Status: Ordered Quantity: 6.7 Unit: g Repeat number: 1 Indications: Bronchitis, not specified as acute or chronic; Start: 04-27-2021 take 1 puff(s) by in halation every six hours as needed for wheezing albuterol MDI (90 mcg/inh) CFC free inhalation aerosol 1 puff(s), Inhalation, q6h, PRN as needed for wheezing, # 6.7 gram(s), 0 Refill(s), Bronchitis Start Date: 04/27/21 Status: Ordered amoxicillin 875 mg / clavulanate 125 mg oral tablet (1 source) Penicillin-class Antibacterial Start: 12-17-2023 End: 12-24-2023 take 1 tablet by mouth twice daily amoxicillin-clavulanate potassium (AUGMENTIN) 875-125 mg per tablet [...] cap(s), 0 Refill(s), 07/25/22 22:27:00 EDT, Pharmacy: [facility], 167.6, cm, 07/17/22 21:43:00 EDT, Height, 70.5, kg, 07/17/22 21:43:00 EDT, Dosing Weight Start Date: 07/18/22 Stop Date: 07/25/22 Status: Ordered clonazePAM 1 mg oral tablet (20 sources) Benzodiazepine Start: 07-29-2022 clonazePAM 1 m g oral tablet Dose : 1 mg = 1 tab(s), Oral, TID, PRN Anxiety, # 270 tab(s), 0 Refill(s), 70.5 Start Date: 07/29/22 Status: Ordered Quantity: 270.0 Unit: tab(s) Repeat number: 1 Start: 10-06-2021 End: 02-25-2022 take 1 tablet [...] 10:21am Comment on above: Take by mouth. dicyclomine hydrochloride 10 mg oral capsule (1 source) Anticholinergic Start: 2024 End: 2024 dicyclomine 10 mg oral capsule Dose : 10 mg = 1 cap(s), Oral, QID, # 28 cap(s), 0 Refill(s) Start Date: 04/05/25 Stop Date: 04/12/25 Status: Ordered Quantity: 28.0 Unit: cap(s) Repeat number: 1 docusate sodium 100 mg oral capsule (1 [...] 01/22/2024 Active FLUoxetine 40 mg oral capsule (15 sources) Serotonin Reuptake Inhibitor Start: 2024 take 1 capsule by mouth once daily Fluoxetine 40 mg capsule Active 40 mg PO daily February 07, 2025 12:00am Start: 10-08-2023 FLUoxetine (SD OZAC) 40 mg capsule 10/08/2023 Active Start: 09-08-2022 FLUoxetine 20 mg oral capsule Dose : 20 mg = 1 cap(s), Oral, qDay, # 30 cap(s), 0 Refill(s) Start Date: 09/08/22 Status: Ordered Quantity: 30.0 Unit: cap(s) Repeat number: 1 hydrOXYzine pamoate 50 mg oral capsule (20 sources) Antihistamine Start: 06-10-2022 take 1 capsule [...] Nonsteroidal Anti-inflammatory Drug Start: 06-06-20 End: 06-08-20 take 1 capsule by mouth every six hours indomethacin (INDOCIN) 25 MG capsule Take 1 capsule by mouth every 6 hours for 3 doses 3 capsule 0 06/07/2021 06/08/2021 Active mecobalamin (7 sources) Start: 02-08-20 take 1 tablet by mouth once daily Mecobalamin (Vitamin B12) 500 mcg tablet,chewable Active 500 ug PO DAILY February 07, 2025 12:00am methocarbamol 500 mg oral tablet (7 sources) Muscle Relaxant Start: 02-08-20 take 1 tablet by mouth three times daily as needed for pain Methocarbamol 500 mg tablet Active 500 mg PO THREE TIMES A DAY as needed for pain/spasms 60 0 February 07, 2025 12:00am 2 ml metoclopramide 5 mg/ml prefilled syringe (18 sources) Dopamine-2 Receptor Antagonist Start: 06-06-20 metoclopramide (REGLAN) injection 10 mg Start: 01-17-2021 End: 04-15-2021 take 1 tablet by mouth every six hours as needed for nausea Metoclopramide Hcl 10 mg tablet Discontinued 10 mg PO EVERY 6 HOURS as needed for Headache or nausea 60 2 February 09, 2021 4:53pm April 15, 2021 [...] on above: Take 1 tablet by stefany once daily. ondansetron 4 mg disintegrating oral tablet (20 sources) Serotonin-3 Receptor Antagonist Start: 04-05-2025 End: 04-19-2025 ondansetron 4 mg oral tablet, disintegrating Dose : 4 mg = 1 tab(s), Oral, q6h, PRN Nausea/Vomiting, # 20 tab(s), 0 Refill(s), 04/19/25 3:33:00 AM EDT, Gastroenteritis Vomiting and diarrhea Start Date: 04/05/25 Stop Date: 04/19/25 Status: Ordered Quantity: 20.0 Unit: tab(s) Repeat number: 1 Indications: Noninfective gastroenteritis and colitis, unspecified; Vomiting, unspecified; Start: 07-16-2022 End: 07-19-2022 Zofran 4 mg oral tablet Dose : 4 mg = 1 tab(s), Oral, q6h, PRN As needed for nausea and vomiting, X 3 day(s), # 12 tab(s), 0 Refill(s), 07/19/22 10:10:00 EDT, Renal colic Start Date: 07/16/22 Stop Date: 07/19/22 Status: Ordered Start: 07-20-2021 End: 10-06-2021 Ondansetron 8 mg Tablet,Disintegrating Discontinued 8 mg PO NEEDED as needed [...] Start: 06-14-2020 End: 11-07-2020 Ondansetron 8 mg tablet,disintegrating Discontinued 8 mg PO June 14, 2020 12:00am November 07, 2020 9:10am Start: 02-17-2017 End: 02-07-2019 take 1 tablet by mouth every eight hours as needed for nausea Ondansetron 4 MG tablet Discontinued 4 mg PO EVERY 8 HOURS NEEDED as needed for Nausea February 17, 2017 12:00am February 07, 2019 9:26am ondansetron (ZOFRAN-ODT) disintegrating tablet 4 mg (1 source) Start: 06-06-2021 ondansetron (Z OFRAN-ODT) disintegrating tablet 4 mg OXcarbazepine 600 mg oral tablet (11 sources) Anti-epileptic Agent Start: 07-29-2022 Trileptal 600 [...] Sig (Original) acetaminophen 325 mg oral tablet (18 sources) Start: 07-20-2021 End: 10-06-2021 take 2 [...] / oxyCODONE hydrochloride 5 mg oral tablet (8 sources) Opioid Agonist Start: 07-22-2021 End: 08-05-2021 Oxycodone-Acetaminophen (Endocet) 5-325 mg tablet Discontinued 1 {tbl} PO Q4H as needed for pain 20 7 0 July 22, 2021 August 05, 2021 3:02pm delivery delivered Encounter for delivery without indication aspirin 81 mg delayed release oral tablet (8 sources) Platelet Aggregation Inhibitor, Nonsteroidal Anti-inflammatory Drug Start: 01-03-2021 End: 01-12-2021 take 1 tablet by mouth once daily Aspirin 81 MG tablet,delayed release (DR/EC) Discontinued 81 mg PO DAILY January 03, 2021 12:00am January 12, 2021 10:37am azithromycin 250 mg oral tablet (20 sources) Macrolide Antimicrobial Start: 05-31-2020 End: 05-31-2020 take 1 g by mouth once daily Azithromycin 1 gram packet Discontinued 1 g PO DAILY 3 5 0 May 31, 2020 12:00am June 04, 2020 12:00am May 31, 2020 12:37pm Acute bronchitis, unspecified Sinusitis Start: 06-14-2019 End: 01-12-2021 take 2-5 tablets by mouth once daily Azithromycin 250 mg tablet Discontinued 0 PO .COMPLEX 6 0 September 28, 2020 1:00am January 12, 2021 10:38am take 500 mg today (day 1), then 250 mg for 4 days (days 2-5) PO Start: 02-07-2019 End: 06-14-2019 Azithromycin 250 mg tablet Discontinued 250 mg PO daily 6 0 February 07, 2019 12:00am June 14, 2019 9:37am 2 tablets today, then 1 tablet daily on days 2 through 5 benzonatate 100 mg oral capsule (8 sources) Non-narcotic Antitussive Start: 06-14-2019 End: 05-31-2020 take 1 capsule by mouth every eight hours as needed for cough Benzonatate 100 mg capsule Discontinued 100 mg PO Q8H as needed for cough 30 0 June 14, 2019 12:00am May 31, 2020 11:56am Acute bronchitis, unspecified betamethasone 3 mg/ml / betamethasone acetate 3 mg/ml injectable suspension (1 source) Corticosteroid Start: 06-07-2021 End: 06-07-2021 inject 12 mg by intramuscular injection once 12 mg, IntraMUSCular, ONCE, On Mon06/07/21 at 0130, For 1 dose Blood Pressure Monitor (Blood Pressure Kit) kit (8 sources) Start: 06-15-2021 End: 10-06-2021 Blood Pressure Monitor (Blood Pressure Kit) kit Discontinued 0 .ROUTE .MEDSUPPLY 1 0 June 15, 2021 12:00am October 06, 2021 9:53am As directed Start: 06-15-2021 End: 10-06-2021 Blood Pressure Monitor (Bloo d Pressure Kit) kit Discontinued 0 .ROUTE .MEDSUPPLY 1 June 15, 2021 12:00am October 06, 2021 9:53am As directed Breast Pump device (8 sources) Start: 04-07-2021 End: 10-06-2021 Breast Pump device Discontin ued 0 .ROUTE .MEDSUPPLY 1 0 April 07, 2021 12:00am October 06, 2021 9:53am As directed Start: 04-07-2021 End: 10-06-2021 Breast Pump device Discontin ued 0 .ROUTE .MEDSUPPLY 1 April 07, 2021 12:00am October 06, 2021 9:53am As directed doxycycline hyclate 100 mg oral tablet (16 sources) Tetracycline-class Drug Start: 11-07-2020 End: 01-12-2021 take 1 tablet by mouth twice daily Doxycycline Hyclate 100 mg tablet Discontinued 100 mg PO TWICE A DAY 20 0 November 07, 2020 10:13am January 12, 2021 10:38am estradiol 1 mg oral tablet (11 sources) Estrogen Start: 01-03-2021 End: 01-25-2021 take 2 tablets by mouth twice daily Estradiol 1 MG tablet Discontinued 2 mg PO TWICE A DAY January 03, 2021 12:00am January 25, 2021 11:47am Start: 11-05-2020 estradiol 2 mg oral tablet Dose : 2 mg = 1 tab(s), Oral, qDay, # 30 tab(s), 0 Refill(s) Start Date: 11/05/20 Status: Ordered famotidine 20 mg oral tablet (8 sources) Histamine-2 Receptor Antagonist Start: 05-28-2021 End: 06-11-2021 take 1 tablet by mouth twice daily Famotidine (Pepcid) 20 mg tablet Discontinued 20 mg PO TWICE A DAY 60 4 May 28, 2021 12:00am June 11, 2021 4:10pm fluconazole 150 mg oral tablet (8 sources) Azole Antifungal Start: 11-16-2022 End: 02-07-2025 Fluconazole 150 mg tablet Discontinued 150 mg PO .COMPLEX 2 0 November 16, 2022 1:00am February 07, 2025 9:50am 150 mg PO take one po now and repeat in 3 days ibuprofen 600 mg oral tablet (20 sources) Nonsteroidal Anti-inflammatory Drug Start: 07-22-2021 End: 08-05-2021 take 1 tablet by mouth every six hours as needed for pain Ibuprofen 600 MG tablet Discontinued 600 mg PO EVERY 6 HOURS NEEDED as needed for Pain 30 0 July 22, 2021 12:00am August 05, 2021 3:02pm Start: 07-20-2021 End: 08-05-2021 Ibuprofen 800 mg Tablet Disc ontinued 800 mg PO NEEDED as needed for prn pain July 20, 2021 12:00am August 05, 2021 3:02pm Start: 06-14-2020 End: 01-12-2021 Ibuprofen 600 mg tablet Disc ontinued NMA PO June 14, 2020 12:00am January 12, 2021 10:38am lamoTRIgine 100 mg oral tablet (8 sources) Mood Stabilizer, Anti-epileptic Agent Start: 09-03-2013 End: 09-05-2013 Lamotrigine 100 MG tablet Discontinued 25 mg PO TWICE A DAY 60 0 September 03, 2013 1:00am September 05, 2013 3:40pm linaclotide 0.29 mg oral capsule (8 sources) Guanylate Cyclase-C Agonist Start: 05-06-2018 End: 02-07-2019 take 1 capsule by mouth once daily Linaclotide 290 capsule Discontinued 290 ug PO DAILY May 06, 2018 12:00am February 07, 2019 9:26am lurasidone hydrochloride 80 mg oral tablet (16 sources) Atypical Antipsychotic Start: 10-06-2021 End: 02-25-2022 [...] 20 grams methylPREDNISolone 4 mg oral tablet (16 sources) Corticosteroid Start: 09-28-2020 End: 10-03-2020 take 1 tablet by mouth once Methylprednisolone (Medrol (Marco)) 4 mg tablets,dose pack Discontinued 4 mg PO per package directions 21 5 0 September 28, 2020 1:00am October 02, 2020 1:00am September 28, 2020 1:01pm naltrexone hydrochloride 50 mg oral tablet (8 sources) Opioid Antagonist Start: 01-12-2021 End: 01-25-2021 take 1 tablet by mouth once daily Naltrexone 50 mg tablet Discontinued 50 mg PO DAILY January 12, 2021 12:00am January 25, 2021 11:47am nitrofurantoin, macrocrystals 100 mg oral capsule (16 sources) Nitrofuran Antibacterial Start: 07-27-2013 End: 09-04-2013 take 1 capsule by mouth every twelve hours Nitrofurantoin Monohyd/M-Cryst 100 MG capsule Discontinued 100 mg PO EVERY 12 HOURS 14 0 September 03, 2013 1:00am September 04, 2013 10:14pm norethindrone acetate 5 mg oral tablet (8 sources) Start: 02-25-2022 End: 06-10-2022 take 1 tablet by mouth twice daily, then take 1 tablet by mouth once daily Norethindrone Acetate (Aygestin) 5 mg tablet Discontinued 5 mg PO .COMPLEX 30 0 February 25, 2022 12:00am June 10, 2022 9:30am 5 mg PO BID x 3 days and then once daily for remainder potassium chloride 20 meq extended release oral tablet (8 sources) Start: 09-15-2020 End: 09-17-2020 take 1 tablet by mouth twice daily Potassium Chloride 20 mEq tablet extended release Discontinued 20 meq PO TWICE A DAY 4 2 0 September 15, 2020 1:00am September 16, 2020 1:00am September 17, 2020 1:02am predniSONE 20 mg oral tablet (20 sources) Start: 04-27-2021 End: 05-02-2021 predniSONE 20 [...] tablet Disc ontinued 10 mg PO .COMPLEX 30 0 November 07, 2020 10:13am January 03, 2021 3:50am Take 4 pills for 3 days, 3 pills for 3 days, 2 pills for 3 days, take 1 pill for 3 days progesterone 50 mg/ml injectable solution (16 sources) Progesterone Start: 01-03-2021 End: 01-25-2021 Progesterone Micronized 1.125 GM gel Discontinued 1.125 g VG DAILY January 03, 2021 12:00am January 25, 2021 11:47am Start: 01-03-2021 End: 01-25-2021 inject 50 mg by intramuscular injection twice daily Progesterone 50 MG/ML oil Discontinued 50 mg IM TWICE A DAY January 03, 2021 12:00am January 25, 2021 11:47am promethazine hydrochloride 25 mg oral tablet (8 sources) Phenothiazine Start: 05-06-2018 End: 02-07-2019 Promethazine 25 MG tablet Discontinued 0.5 - 1 {tbl} PO EVERY 6 HOURS NEEDED as needed for Nausea 10 0 May 06, 2018 12:00am February 07, 2019 9:26am 12 hr pseudoephedrine hydrochloride 120 mg extended release oral tablet (8 sources) alpha-Adrenergic Agonist Start: 06-14-2020 End: 11-07-2020 Pseudoephedrine Hcl (Sinus 12 Hour) 120 mg tablet extended release Discontinued 120 mg PO Q12H June 14, 2020 12:00am November 07, 2020 9:10am QUEtiapine 100 mg oral tablet (8 sources) Atypical Antipsychotic Start: 07-27-2013 End: 09-05-2013 take 1 tablet by mouth three times daily Quetiapine 100 MG tablet Discontinued 100 mg PO THREE TIMES A DAY July 27, 2013 12:00am September 05, 2013 3:40pm sertraline 100 mg oral tablet (20 sources) Serotonin Reuptake Inhibitor Start: 10-06-2021 End: [...] 0 Active terconazole 4 mg/ml vaginal cream (8 sources) Azole Antifungal Start: 07-02-2021 End: 07-09-2021 Terconazole 0.4 % cream Discontinued 1 NMA VAGINAL AT BEDTIME 45 7 0 July 02, 2021 12:00am July 08, 2021 12:00am July 09, 2021 12:01am topiramate 100 mg oral tablet (8 sources) Start: 11-07-2020 End: 01-12-2021 take 1 tablet by mouth twice daily Topiramate (Topamax) 100 mg tablet Discontinued 100 mg PO TWICE A DAY November 07, 2020 1:00am January 12, 2021 10:39am traZODone hydrochloride 100 mg oral tablet (16 sources) Serotonin Reuptake Inhibitor Start: 05-06-2018 End: [...] 2013 3:40pm vortioxetine 10 mg oral tablet (8 sources) Start: 11-17-2015 End: 06-14-2020 take 1 tablet by mouth once daily Vortioxetine 10 MG tablet Discontinued 20 mg PO DAILY November 17, 2015 1:00am June 14, 2020 10:21am depression zolpidem tartrate 5 mg oral tablet (3 [...] above: past trauma Bacterial infection; unspecified site (8 sources) Bacteria present; Translations: [Streptococcus, group B, as the cause of diseases classified elsewhere] 07-22-2021 Episodic Comment on above: tx with PCN in labor Calculus of urinary tract (7 sources) Renal colic; Translations: [Unspecified renal colic] Onset: 07-16-2022 Episodic Cardiac dysrhythmias (3 sources) Tachycardia 07-29-2022 Episodic Contraceptive and procreative management (10 sources) Encounter for fertility testing; Translations: [Patient encounter status] Onset: 08-05-2020 06-10-2022 Episodic Deficiency and other anemia (16 sources) Chronic anemia; Translations: [Anemia, unspecified] 07-22-2021 Episodic Comment on above: transfused 2 units. hg stable. iron upon dc home E Codes: Fall (1 source) Fall; Translations: [Unspecified fall, initial encounter] 02-12-2024 Episodic Early or threatened labor (10 sources) Threatened premature labor - not delivered ; Translations: [False labor before 37 completed weeks of gestation, unspecified trimester] Onset: 06-06-2021 Episodic Essential hypertension (3 sources) Hypertensive disorder 07-29-2022 Chronic Comment on above: No meds Fluid and electrolyte disorders (2 sources) Dehydration; Translations: [Dehydration] Onset: 04-05-2025 Episodic Genitourinary symptoms and ill-defined conditions (13 sources) History of recurrent urinary tract infection; Translations: [Personal history of urinary (tract) infections] Onset: 09-27-2012 Resolved: 07-10-2014 09-27-2021 Episodic Headache; including migraine (8 sources) Migraine; Translations: [Migraine, unspecified, not intractable, without status migrainosus] 01-18-2021 Chronic Hypertension complicating ; childbirth and the puerperium (16 sources) Mild pre-eclampsia; Translations: [Mild to moderate pre-eclampsia, third trimester] 07-22-2021 Episodic Comment on above: twice weekly visits, home bp monitoring, weekly labs, reviewed symptoms. weekly bpp with MFM. deliver at 37 if V/V recommend immediate delivery- patient requesting primary for twins Immunizations and screening for infectious disease (12 sources) Immunization due; Translations: [Encounter for immunization] [...] Resolved: 03-10-2021 12-03-2011 Chronic Nausea and vomiting (5 sources) Vomiting; Translations: [Vomiting, unspecified] Onset: 07-17-2022 07-17-2022 Episodic Noninfectious gastroenteritis (2 sources) Noninfectious enteritis; Translations: [Noninfective gastroenteritis and colitis, unspecified] Onset: 04-05-2025 Episodic Nonmalignant breast conditions (10 sources) Increased ; Translations: [Galactorrhea not associated with childbirth] Onset: 07-01-2010 Resolved: 07-10-2014 11-24-2011 Episodic Other acquired deformities (14 sources) Scoliosis deformity of spine; Translations: [Scoliosis, unspecified] 02-07-2025 Chronic Other aftercare (1 source) Long-term current use of drug therapy; Translations: [Other long term care administrator (current) drug therapy] Episodic Other complications of ; puerperium affecting management of mother (16 sources) Deliveries by ; Translations: [Encounter for delivery without indication] 07-22-2021 Episodic Comment on above: SM CS v/b twins aver i kike Other complications of ; puerperium affecting management of mother (8 sources) Abnormality of heart; Translations: [Anomaly of heart of fetus affecting , antepartum] 07-22-2021 Episodic Comment on above: 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 M to reach out to patient to schedule another echo. initial ECHO was read normal. Serial growth q4w. testing 1x week Other complications of (8 sources) Anemia of ; Translations: [Anemia complicating , unspecified trimester] 07-22-2021 Chronic Other complications of (12 sources) High risk ; Translations: [Supervision of high risk , unspecified, unspecified trimester] Onset: 11-07-2013 Resolved: 07-10-2014 09-27-2021 Episodic Comment on above: PRR CHELSEA: Girl/Girl - Sonya (sp TBD)PC: Neena Reza; Angelito Vigil Arianna &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 14:55) Other hydrocodone bitartrate (From Vicodin) Adverse Reaction (Verified 05/13/25 14:55) Vomiting oxcarbazepine (From Trileptal) Adverse Reaction (Verified 05/13/25 14:55) Vomiting sumatriptan (From Imitrex) Adverse Reaction (Verified 05/13/25 14:55) Vomiting sumatriptan succinate (From Imitrex) Adverse Reaction (Verified 05/13/25 14:55) Vomiting Medications ???Medication ???Instructions ???Recorded ???Confirmed ???Type hydroxyzine pamoate 50 mg capsule 50 mg PO BID 06/10/22 05/13/25 Hi story (Vistaril) fluoxetine 40 mg capsule 40 mg PO QDAY 02/07/25 05/13/25 Hi story mecobalamin (vitamin B12) 500 mcg 500 mcg PO DAILY 02/07/25 5 History chewable tablet methocarbamol 500 mg tablet 500 mg PO TID PRN pain/spasms #60 02/07/25 05/13/25 Rx tabs PFSH Medical History Pre-eclampsia H/O [...] Yes additional social history: -Junito [place] HPI right breast lump Details: SUZIE ALEXANDRE is a 34 year old who presents for painful lump right breast 6-8 months History 8 Elective abortions Hx Para 7 Spontaneous abortions Hx # Term Pregnancies Ectopic pregnancies Hx # Pregnancies Multiple births 1 # of living children 7 Past Pregnancies Del. Date Name GA/Weeks Outcome Route Bth Weight Gen Labor Lgth Anesthesia Del Locatn Provider FOB Unknown 2009- Libia 40 live - full term 8lbs 13oz Female 6 hours epidural [facility] Jori Unknown 2011- Neena 36 live - 6lbs 10oz Female 7 hours epi dural [facility] Dr.Vandevelde Hsieh Unknown 2012- Yaritza 37 live - full term 6lbs 15oz Female 4 hours epidural [facility] Jori Unknown 2013- Angelito 38 live - full term 6lbs 10oz Male less than 2cm epid ural [facility] Hsieh Unknown 2016- Aneta 39 live - full term 8lbs 15 oz Female 10 houts epidura l [facility] SH[facility] Hsieh 07/20/21 Kike 35 live - Female [facility] Dr. Reilly 07/20/21 Joelle 35 live - Female [facility] Dr. Reilly Delivery Date: Last Updated by: Donny Flores Meconium aspiration; hyperemesis Delivery Date: Last Updated by: Donny Flores Non reassuring NST Delivery Date: Last Updated by: Donny Flores Meconium; loose nucal cord x1 Delivery Date: Last Updated by: Donny Flores no complications Delivery Date: Last Updated by: Donny Flores Severe hyperemesis; meconium; loose nuchal cord x1; manual placenta removal. Delivery Date: 07/20/21 Last Updated by: Carolina Torres Severe preeclampsia LTCS VTS/Brch (more content not included)... Normal [facility] .Auto Diffon 04-05-2025 Basophil, Absolute 0.0 10 3/mcL Normal 0.0-0.3 [facility] Comment on above: Performed By: #### L IP, MG, MDW, ADIFF, CMP, ANEU, CBC, GFR #### [address] [address] Basophils/100 WBC (Bld) 0.3 % Normal 0.0-2.5 [facility] Comment on above: Performed By: #### L IP, MG, MDW, ADIFF, CMP, ANEU, CBC, GFR #### [address] [address] Eosinophil, Absolute 0.0 10 3/mcL Normal 0.0-0.7 [facility] Comment on above: Performed By: #### L IP, MG, MDW, ADIFF, CMP, ANEU, CBC, GFR #### [address] [address] Eosinophils/100 WBC (Bld) 0.3 % Normal 0.0-6.0 [facility] Comment on above: Performed By: #### L IP, MG, MDW, ADIFF, CMP, ANEU, CBC, GFR #### [address] [address] Lymphocyte, Absolute 0.6 10 3/mcL Low 0.9-4.3 [facility] Comment on above: Performed By: #### L IP, MG, MDW, ADIFF, CMP, ANEU, CBC, GFR #### [address] [address] Lymphocytes/100 WBC (Bld) 7.1 % Low 20.0-40.0 [facility] Comment on above: Performed By: #### L IP, MG, MDW, ADIFF, CMP, ANEU, CBC, GFR #### [address] [address] Monocyte, Absolute 0.8 10 3/mcL Normal 0.1-1.4 [facility] Comment on above: Performed By: #### L IP, MG, MDW, ADIFF, CMP, ANEU, CBC, GFR #### [address] [address] Monocytes/100 WBC (Bld) 9.7 % Normal 2.0-13.0 [facility] Comment on above: Performed By: #### L IP, MG, MDW, ADIFF, CMP, ANEU, CBC, GFR #### [address] [address] Neutrophils/100 WBC (Bld) 82.6 % High 50.0-75.0 [facility] Comment on above: Performed By: #### L IP, MG, MDW, ADIFF, CMP, ANEU, CBC, GFR #### [address] [address] .GFRon 04-05-2025 Estimated Glomerular Filtration Rate 116 ml/min/1.73sqm Normal [facility] Comment on above: Result Comment: Stages of Chronic Kidney Disease (CKD) Stage Description eGFR(ml/min/1.73 sq.m.) CKD 1 Normal kidney function or >=90 normal kindney function with possible kidney damage (ex. Proteinuria) CKD 2 Kidney damage with mild loss 60-89 of kidney function CKD 3a Mild to moderate loss of kidney 45-59 function CKD 3b Moderate to severe loss of 30-44 of kindey function CKD 4 Severe loss of kidney function 15-29 CKD 5 Kidney failure <15 Note: (go live 2024) the eGFR calculation was updated to the 2020 CKD-EPI creatinine equation without a race factor to calculate the eGFR results. Performed By: #### U AMIC, UA, PREGU #### [address] [address] .MDWon 04-05-2025 Monocyte Distribution Width 22.26 High 0.00-20.00 [facility] Comment on above: Result Comment: For adults in ED, MDW>20.0 may be associated with a higher risk of sepsis during the first 12hrs of hospital admission Performed By: #### L IP, MG, MDW, ADIFF, CMP, ANEU, CBC, GFR #### [place] [address] .NEUABSon 04-05-2025 Neutrophil, Absolute 7.2 10 3/mcL Normal 2.3-8.1 [facility] Comment on above: Performed By: #### L IP, MG, MDW, ADIFF, CMP, ANEU, CBC, GFR #### [address] [address] CBCon 04-05-2025 Erythrocyte distribution width (RBC) [Ratio] 12.6 % Normal 11.5-15.5 [facility] Comment on above: Performed By: #### L IP, MG, MDW, ADIFF, CMP, ANEU, CBC, GFR #### [place] [address] Hematocrit (Bld) [Volume fraction] 39.4 % Normal 34.0-46.0 [facility] Comment on above: Performed By: #### L IP, MG, MDW, ADIFF, CMP, ANEU, CBC, GFR #### [place] [address] Hgb 13.5 G/dL Normal 12.0-16.0 [facility] Comment on above: Performed By: #### L IP, MG, MDW, ADIFF, CMP, ANEU, CBC, GFR #### [address] [address] MCH (RBC) [Entitic mass] 31.3 pg Normal 27.0-33.0 [facility] Comment on above: Performed By: #### L IP, MG, MDW, ADIFF, CMP, ANEU, CBC, GFR #### [address] [address] MCHC 34.3 G/dL Normal 32.0-36.0 [facility] Comment on above: Performed By: #### L IP, MG, MDW, ADIFF, CMP, ANEU, CBC, GFR #### [address] [address] MCV (RBC) [Entitic vol] 91.4 fL Normal 80.0-99.0 [facility] Comment on above: Performed By: #### L IP, MG, MDW, ADIFF, CMP, ANEU, CBC, GFR #### [address] [address] Platelet 221 10 3/mcL Normal 150-450 [facility] Comment on above: Performed By: #### L IP, MG, MDW, ADIFF, CMP, ANEU, CBC, GFR #### [address] [address] Platelet mean volume (Bld) [Entitic vol] 8.2 fL Normal 6.6-10.5 [facility] Comment on above: Performed By: #### L IP, MG, MDW, ADIFF, CMP, ANEU, CBC, GFR #### [address] [address] RBC 4.31 10 6/mcL Normal 4.10-5.30 [facility] Comment on above: Performed By: #### L IP, MG, MDW, ADIFF, CMP, ANEU, CBC, GFR #### [address] [place] [address] WBC 8.8 10 3/mcL Normal 4.5-10.8 [facility] Comment on above: Performed By: #### L IP, MG, MDW, ADIFF, CMP, ANEU, CBC, GFR #### [address] [address] CMPon 04-05-2025 BUN/Creatinine Ratio 19 ratio Normal 7-27 [facility] Comment on above: Performed By: #### L IP, MG, MDW, ADIFF, CMP, ANEU, CBC, GFR #### [address] [address] Creatinine [Mass/Vol] 0.67 mg/dL Normal 0.51-0.95 [facility] Comment on above: Performed By: #### L IP, MG, MDW, ADIFF, CMP, ANEU, CBC, GFR #### [address] [address] Albumin Level 3.6 G/dL Normal 3.5-5.0 [facility] Comment on above: Performed By: #### L IP, MG, MDW, ADIFF, CMP, ANEU, CBC, GFR #### [address] [address] Albumin/Globulin [Mass ratio] 1.1 {ratio} Normal 1.1-2.5 [facility] Comment on above: Performed By: #### L IP, MG, MDW, ADIFF, CMP, ANEU, CBC, GFR #### [address] [address] ALP [Catalytic activity/Vol] 82 U/L Normal 40-135 [facility] Comment on above: Performed By: #### L IP, MG, MDW, ADIFF, CMP, ANEU, CBC, GFR #### [address] [address] ALT [Catalytic activity/Vol] 27 U/L Normal 14-59 [facility] Comment on above: Performed By: #### L IP, MG, MDW, ADIFF, CMP, ANEU, CBC, GFR #### [address] [address] AST [Catalytic activity/Vol] 19 U/L Normal 10-40 [facility] Comment on above: Performed By: #### L IP, MG, MDW, ADIFF, CMP, ANEU, CBC, GFR #### [address] [address] Bili Total 1.0 mg/dL Normal 0.2-1.0 [facility] Comment on above: Result Comment: Use of this assay is not recommended for patients undergoing treatment with eltrombopag due to the potential for falsely elevated results. Performed By: #### L IP, MG, MDW, ADIFF, CMP, ANEU, CBC, GFR #### [address] [address] Calcium [Mass/Vol] 8.3 mg/dL Low 8.4-10.2 [facility] Comment on above: Performed By: #### L IP, MG, MDW, ADIFF, CMP, ANEU, CBC, GFR #### [address] [address] Chloride [Moles/Vol] 105 mmol/L Normal 98-107 [facility] Comment on above: Performed By: #### L IP, MG, MDW, ADIFF, CMP, ANEU, CBC, GFR #### [address] [address] CO2 [Moles/Vol] 23 mmol/L Normal 22-29 [facility] Comment on above: Performed By: #### L IP, MG, MDW, ADIFF, CMP, ANEU, CBC, GFR #### [address] [address] Electrolyte Balance 14.0 mEq/L Normal 4.0-15.0 [facility] Comment on above: Performed By: #### L IP, MG, MDW, ADIFF, CMP, ANEU, CBC, GFR #### [address] [address] Globulin 3.3 G/dL Normal 2.7-4.4 [facility] Comment on above: Performed By: #### L IP, MG, MDW, ADIFF, CMP, ANEU, CBC, GFR #### [address] [address] Glucose [Mass/Vol] 122 mg/dL High 70-105 [facility] Comment on above: Performed By: #### L IP, MG, MDW, ADIFF, CMP, ANEU, CBC, GFR #### [address] [address] Potassium [Moles/Vol] 3.5 mmol/L Normal 3.5-5.1 [facility] Comment on above: Performed By: #### L IP, MG, MDW, ADIFF, CMP, ANEU, CBC, GFR #### [address] [address] Sodium [Moles/Vol] 142 mmol/L Normal 136-145 [facility] Comment on above: Performed By: #### L IP, MG, MDW, ADIFF, CMP, ANEU, CBC, GFR #### [address] [address] Total Protein 6.9 G/dL Normal 6.4-8.2 [facility] Comment on above: Performed By: #### L IP, MG, MDW, ADIFF, CMP, ANEU, CBC, GFR #### [address] [address] Urea nitrogen [Mass/Vol] 13 mg/dL Normal 7-18 [facility] Comment on above: Performed By: #### L IP, MG, MDW, ADIFF, CMP, ANEU, CBC, GFR #### [address] [address] LABORATORYOrdered By: Sy Banks on 04-05-2025 Appearance (U) Slightly Cloudy *ABN* (04/05/25 4:15 AM) Invalid Interpretation Code Clear AO Auto Urine SS Bacteria LM.HPF (Urine sed) [#/Area] Trace /HPF Invalid Interpretation Code Negative AO Auto Urine SS Bilirubin Ql (U) Small *ABN* (04/05/25 4:15 AM) Invalid Interpretation Code Negative AO Auto Urine SS Color (U) Yellow (04/05/25 4:15 AM) Normal AO Auto Urine SS Glucose Test strip (U) [Mass/Vol] Negative Normal Negative AO Auto Urine SS HCG ( test) Ql Negative (04/05/25 4:15 AM) Normal AO Manual Urine SS Hemoglobin Auto test strip (U) [Mass/Vol] Negative (04/05/25 4:15 AM) Normal Negative AO Auto Urine SS Ketones Ql (U) 15 mg/dL Invalid Interpretation Code Negative AO Auto Urine SS test (u) int Not detected Invalid Interpretation Code AO Manual Urine SS UA Leuk Est Negative (04/05/25 4:15 AM) Normal Negative AO Auto Urine SS UA Nitrite Negative (04/05/25 4:15 AM) Normal Negative AO Auto Urine SS UA pH 8.5 *ABN* (04/05/25 4:15 AM) Invalid Interpretation Code 5.0 - 8.0 AO Auto Urine SS UA Protein 30 mg/dL Normal Negative AO Auto Urine SS UA RBC Rare /HPF Normal 0-2 AO Auto Urine SS UA Spec Grav 1.015 (04/05/25 4:15 AM) Normal 1.015-1.025 AO Auto Urine SS UA Specimen Type Not Given (04/05/25 4:15 AM) Normal AO Auto Urine SS UA Squam Epithelial Rare /HPF Normal 0-20 AO Au to Urine SS UA Urobilinogen 0.2 E.U./dL Normal 0.2-1.0 AO Auto Urine SS WBC LM.HPF (Urine sed) [#/Area] Rare /HPF Normal 0-5 AO Auto Urine SS LABORATORYOrdered By: SYSTEM SYSTEM on 04-05-2025 Albumin BCP dye [Mass/Vol] 3.6 G/dL Normal 3.5 - 5.0 G/dL AO ADM SS Albumin/Globulin [Mass ratio] 1.1 {ratio} Normal 1.1 - 2.5 ratio AO ADM SS ALP [Catalytic activity/Vol] 82 U/L Normal 40 - 135 U/L AO ADM SS ALT With P-5'-P [Catalytic activity/Vol] 27 U/L Normal 14 - 59 U/L AO ADM SS AST With P-5'-P [Catalytic activity/Vol] 19 U/L Normal 10 - 40 U/L AO ADM SS Basophils (Bld) [#/Vol] 0.0 103/mcL Normal 0.0 - 0.3 10^3/mcL AO Workflow SS Basophils/100 WBC (Bld) 0.3 % Normal 0.0 - 2.5 % AO Workflow SS Bilirubin [Mass/Vol] 1.0 mg/dL Normal 0.2 - 1 .0 mg/dL AO ADM SS Comment on above: Interpretive Data: U se of this assay is not recommended for patients undergoing treatment with eltrombopag due to the potential for falsely elevated results. Calcium [Mass/Vol] 8.3 mg/dL Low 8.4 - 10. 2 mg/dL AO ADM SS Chloride [Moles/Vol] 105 mmol/L Normal 98 - 10 7 mmol/L AO ADM SS CO2 [Moles/Vol] 23 mmol/L Normal 22 - 29 mmol/L AO ADM SS Creatinine [Mass/Vol] 0.67 mg/dL Normal 0.51 - 0.95 mg/dL AO ADM SS Electrolyte Balance 14.0 mEq/L Normal 4.0 - 15 .0 mEq/L AO ADM SS Eosinophil, Absolute 0.0 103/mcL Normal 0.0 - 0 .7 10^3/mcL AO Workflow SS Eosinophils/100 WBC (Bld) 0.3 % Normal 0.0 - 6.0 % AO Workflow SS Erythrocyte distribution width (RBC) [Ratio] 12.6 % Normal 11.5 - 15.5 % AO Workflow SS Estimated Glomerular Filtration Rate 116 ml/min/1.73sqm Invalid Interpretation Code AO Chemistry S Comment on above: Interpretive Data: Stages of Chronic Kidney Disease (CKD) Stage Description eGFR(ml/min/1.73 sq.m.) CKD 1 Normal kidney function or >=90 normal kindney function with possible kidney damage (ex. Proteinuria) CKD 2 Kidney damage with mild loss 60-89 of kidney function CKD 3a Mild to moderate loss of kidney 45-59 function CKD 3b Moderate to severe loss of 30-44 of kindey function CKD 4 Severe loss of kidney function 15-29 CKD 5 Kidney failure <15 Note: (go live 2024) the eGFR calculation was updated to the 2020 CKD-EPI creatinine equation without a race factor to calculate the eGFR results. Globulin 3.3 G/dL Normal 2.7 - 4.4 G/dL AO ADM SS Glucose [Mass/Vol] 122 mg/dL High 70 - 105 mg/dL AO ADM SS Hematocrit (Bld) [Volume fraction] 39.4 % Normal 34.0 - 46.0 % AO Workflow SS Hemoglobin (Bld) [Mass/Vol] 13.5 G/dL Normal 12.0 - 16.0 G/dL AO Workflow SS Lipase [Catalytic activity/Vol] 36 U/L Normal 16 - 77 U/L AO ADM SS Lymphocytes (Bld) [#/Vol] 0.6 103/mcL Low 0. 9 - 4.3 10^3/mcL AO Workflow SS Lymphocytes/100 WBC (Bld) 7.1 % Low 20 .0 - 40.0 % AO Workflow SS Magnesium [Mass/Vol] 1.5 mg/dL Low 1.8 - 2 .4 mg/dL AO ADM SS MCH (RBC) [Entitic mass] 31.3 pg Normal 27. 0 - 33.0 pg AO Workflow SS MCHC 34.3 G/dL Normal 32.0 - 36.0 G/dL AO Workflow SS MCV (RBC) [Entitic vol] 91.4 fL Normal 80.0 - 99.0 fL AO Workflow SS Monocyte distribution width Auto (Bld) [Entitic vol] 22.26 1 High 0.00 - 20.00 AO Workflow SS Comment on above: Result Comment: For adults in ED, MDW>20.0 may be associated with a higher risk of sepsis during the first 12hrs of hospital admission Monocytes (Bld) [#/Vol] 0.8 103/mcL Normal 0.1 - 1.4 10^3/mcL AO Workflow SS Monocytes/100 WBC (Bld) 9.7 % Normal 2.0 - 13.0 % AO Workflow SS Neutrophils (Bld) [#/Vol] 7.2 103/mcL Normal 2. 3 - 8.1 10^3/mcL AO Workflow SS Neutrophils/100 WBC (Bld) 82.6 % High 50 .0 - 75.0 % AO Workflow SS Platelet mean volume (Bld) [Entitic vol] 8.2 fL Normal 6.6 - 10.5 fL AO Workflow SS Platelets (Bld) [#/Vol] 221 103/mcL Normal 150 - 450 10^3/mcL AO Workflow SS Potassium [Moles/Vol] 3.5 mmol/L Normal 3.5 - 5.1 mmol/L AO ADM SS Protein [Mass/Vol] 6.9 G/dL Normal 6.4 - 8.2 G/dL AO ADM SS RBC (Bld) [#/Vol] 4.31 106/mcL Normal 4.10 - 5.3 0 10^6/mcL AO Workflow SS Sodium [Moles/Vol] 142 mmol/L Normal 136 - 145 mmol/L AO ADM SS Urea nitrogen [Mass/Vol] 13 mg/dL Normal 7 - 18 mg/dL AO ADM SS Urea nitrogen/Creatinine [Mass ratio] 19 ratio Normal 7 - 27 ratio AO ADM SS WBC (Bld) [#/Vol] 8.8 103/mcL Normal 4.5 - 10.8 10^3/mcL AO Workflow SS LIPon 04-05-2025 Lipase Level 36 U/L Normal 16-77 [facility] Comment on above: Performed By: #### L IP, MG, MDW, ADIFF, CMP, ANEU, CBC, GFR #### [address] [address] MGon 04-05-2025 Magnesium [Mass/Vol] 1.5 mg/dL Low 1.8-2.4 [facility] Comment on above: Performed By: #### L IP, MG, MDW, ADIFF, CMP, ANEU, CBC, GFR #### [address] [address] PREGUon 04-05-2025 HCG ( test) Ql (U) Negative Normal [facility] Comment on above: Performed By: #### U AMIC, UA, PREGU #### [address] [address] test (u) int Not detected Invalid Interpretation Code [facility] Comment on above: Performed By: #### U AMIC, UA, PREGU #### [address] [address] UAon 04-05-2025 Color (U) Yellow Normal [facility] Comment on above: Performed By: #### U AMIC, UA, PREGU #### [address] [address] Glucose (U) [Mass/Vol] Negative Normal Negative [facility] Comment on above: Performed By: #### U AMIC, UA, PREGU #### [place] [address] Ketones Ql (U) 15 mg/dL Abnormal Negative [facility] Comment on above: Performed By: #### U AMIC, UA, PREGU #### [place] [address] UA Appear Slightly Cloudy Abnormal Clear [facility] Comment on above: Performed By: #### U AMIC, UA, PREGU #### [place] [address] UA Bili Small Abnormal Negative [facility] Comment on above: Performed By: #### U AMIC, UA, PREGU #### [place] [address] UA Blood Negative Normal Negative [facility] Comment on above: Performed By: #### U AMIC, UA, PREGU #### [place] [address] UA Leuk Est Negative Normal Negative [facility] Comment on above: Performed By: #### U AMIC, UA, PREGU #### [place] [address] UA Nitrite Negative Normal Negative [facility] Comment on above: Performed By: #### U AMIC, UA, PREGU #### [place] [address] UA pH 8.5 Abnormal 5.0 - 8.0 [facility] Comment on above: Performed By: #### U AMIC, UA, PREGU #### [place] [address] UA Protein 30 mg/dL Normal Negative [facility] Comment on above: Performed By: #### U AMIC, UA, PREGU #### [place] [address] UA Spec Grav 1.015 Normal 1.015-1.025 [facility] Comment on above: Performed By: #### U AMIC, UA, PREGU #### [place] [address] UA Specimen Type Not Given Normal [facility] Comment on above: Performed By: #### U AMIC, UA, PREGU #### [place] [id number] UA Urobilinogen 0.2 E.U./dL Normal 0.2-1.0 [facility] Comment on above: Performed By: #### U AMIC, UA, PREGU #### [place] [address] UAMICon 04-05-2025 UA Bacteria Trace Abnormal Negative [facility] Comment on above: Performed By: #### U AMIC, UA, PREGU #### [place] [address] UA RBC Rare Normal 0-2 [facility] Comment on above: Performed By: #### U AMIC, UA, PREGU #### [place] [address] UA Squam Epithelial Rare Normal 0-20 [facility] Comment on above: Performed By: #### U AMIC, UA, PREGU #### [place] [address] UA WBC Rare Normal 0-5 [facility] Comment on above: Performed By: #### U AMIC, UA, PREGU #### [place] [address] Serum human chorionic gonado tropin detection for pregnancyOrdered By: Poonam Reilly on 03-12-2025 HCG ( test) Ql 210 mIU/mL High <9 [facility] Comment on above: Gestational Age0.2-1 Week: 5-50 mIU/mL1-2 Weeks: 50-500 mIU/mL2-3 Weeks: 100-5000 mIU/mL3-4 Weeks: 500-10,000 mIU/mL4-5 Weeks:1000-50,000 mIU/mL5-6 Weeks: 10,000-100,000 mIU/mL6-8 Weeks: 15,000-200,000 mIU/mL2-3 Months:10,000-100,000 mIU/mL hCG Titer Quant., Serumon HCG QUANT. 210 mIU/mL High <9 non-preg [facility] Comment on above: Result Comment: Gest ational Age 0.2-1 Week: 5-50 mIU/mL 1-2 Weeks: 50-500 mIU/mL 2-3 Weeks: 100-5000 mIU/mL 3-4 Weeks: 500-10,000 mIU/mL 4-5 Weeks:1000-50,000 mIU/mL 5-6 Weeks: 10,000-100,000 mIU/mL 6-8 Weeks: 15,000-200,000 mIU/mL 2-3 Months:10,000-100,000 mIU/mL Performed By: #### L 700.8000 #### [facility] [address] [place], [address] Transvaginal w/Preg USon Transvaginal w/Preg US [facility] [address] [place], [place] [address] Transvaginal w/Preg US MR#: [id number] Acct: [id number] Name: SUZIE ALEXANDRE Rep #: [id number] : 1990 F 34 From: Panda villarreal MD PCP: Care Physician,No Primary Status: REG CLI Study: Transvaginal w/Preg US Date of Exam: 03/11/25 Exam# [id number] Ordering Dr: Poonam Reilly PROCEDURE: TRANSVAGINAL W/PREG US 03/11/2025 REASON FOR EXAM: SPOTTING/RULE OUT ECTOPIC TECHNIQUE: Transvaginal sonographic technique. COMPARISON: None FINDINGS: Comments: LMP: January 26, 2025. Number of Gestational Sacs: 0 Number of Fetuses: Not visualized Yolk Sac: Not visualized Placenta: Presently not well-visualized Uterine Abnormalities: Endometrial thickening measuring 19 mm. Ovaries / Adnexa: Right ovary is unremarkable. The left ovary was not visualized. US/Transvaginal w/Preg US IMPRESSION: No intrauterine gestation is seen at this time. Endometrial thickening measuring 19 mm. Reading Location: [place] [address] CC: Dr. Poonam Reilly MD; No Primary Care Physician Position Clerk: Signed Normal [facility] Serum human chorionic gonado tropin detection for pregnancyOrdered By: Elli Ramirez on 03-10-2025 HCG ( test) Ql 548 mIU/mL High <9 [facility] Comment on above: Gestational Age0.2-1 Week: 5-50 mIU/mL1-2 Weeks: 50-500 mIU/mL2-3 Weeks: 100-5000 mIU/mL3-4 Weeks: 500-10,000 mIU/mL4-5 Weeks:1000-50,000 mIU/mL5-6 Weeks: 10,000-100,000 mIU/mL6-8 Weeks: 15,000-200,000 mIU/mL2-3 Months:10,000-100,000 mIU/mL hCG Titer Quant., Serumon HCG QUANT. 548 mIU/mL High <9 non-preg [facility] Comment on above: Result Comment: Gest ational Age 0.2-1 Week: 5-50 mIU/mL 1-2 Weeks: 50-500 mIU/mL 2-3 Weeks: 100-5000 mIU/mL 3-4 Weeks: 500-10,000 mIU/mL 4-5 Weeks:1000-50,000 mIU/mL 5-6 Weeks: 10,000-100,000 mIU/mL 6-8 Weeks: 15,000-200,000 mIU/mL 2-3 Months:10,000-100,000 mIU/mL Performed By: #### L 700.8000 ####[facility] [id number] [place], [address] Serum human chorionic gonado tropin detection for pregnancyOrdered By: Poonam Reilly on 03-07-2025 HCG ( test) Ql 263 mIU/mL High <9 [facility] Comment on above: Gestational Age0.2-1 Week: 5-50 mIU/mL1-2 Weeks: 50-500 mIU/mL2-3 Weeks: 100-5000 mIU/mL3-4 Weeks: 500-10,000 mIU/mL4-5 Weeks:1000-50,000 mIU/mL5-6 Weeks: 10,000-100,000 mIU/mL6-8 Weeks: 15,000-200,000 mIU/mL2-3 Months:10,000-100,000 mIU/mL hCG Titer Quant., Serumon HCG QUANT. 263 mIU/mL High <9 non-preg [facility] Comment on above: Result Comment: Gest ational Age 0.2-1 Week: 5-50 mIU/mL 1-2 Weeks: 50-500 mIU/mL 2-3 Weeks: 100-5000 mIU/mL 3-4 Weeks: 500-10,000 mIU/mL 4-5 Weeks:1000-50,000 mIU/mL 5-6 Weeks: 10,000-100,000 mIU/mL 6-8 Weeks: 15,000-200,000 mIU/mL 2-3 Months:10,000-100,000 mIU/mL Performed By: #### L 700.8000 #### [facility] [address] [place], [address] Serum human chorionic gonado tropin detection for pregnancyOrdered By: Elli Ramirez on 03-05-2025 HCG ( test) Ql 95 mIU/mL High <9 [facility] Comment on above: Gestational Age0.2-1 Week: 5-50 mIU/mL1-2 Weeks: 50-500 mIU/mL2-3 Weeks: 100-5000 mIU/mL3-4 Weeks: 500-10,000 mIU/mL4-5 Weeks:1000-50,000 mIU/mL5-6 Weeks: 10,000-100,000 mIU/mL6-8 Weeks: 15,000-200,000 mIU/mL2-3 Months:10,000-100,000 mIU/mL hCG Titer Quant., Serumon HCG QUANT. 95 mIU/mL High <9 non-[facility] Comment on above: Result Comment: Gest ational Age 0.2-1 Week: 5-50 mIU/mL 1-2 Weeks: 50-500 mIU/mL 2-3 Weeks: 100-5000 mIU/mL 3-4 Weeks: 500-10,000 mIU/mL 4-5 Weeks:1000-50,000 mIU/mL 5-6 Weeks: 10,000-100,000 mIU/mL 6-8 Weeks: 15,000-200,000 mIU/mL 2-3 Months:10,000-100,000 mIU/mL Performed By: #### L 700.8000 ####[facility] [address] [place], [address] Serum human chorionic gonado tropin detection for pregnancyOrdered By: Elli Ramirez on 03-03-2025 HCG ( test) Ql 39 mIU/mL High <9 [facility] Comment on above: Gestational Age0.2-1 Week: 5-50 mIU/mL1-2 Weeks: 50-500 mIU/mL2-3 Weeks: 100-5000 mIU/mL3-4 Weeks: 500-10,000 mIU/mL4-5 Weeks:1000-50,000 mIU/mL5-6 Weeks: 10,000-100,000 mIU/mL6-8 Weeks: 15,000-200,000 mIU/mL2-3 Months:10,000-100,000 mIU/mL hCG Titer Quant., Serumon HCG QUANT. 39 mIU/mL High <9 non-preg [facility] Comment on above: Result Comment: Gest ational Age 0.2-1 Week: 5-50 mIU/mL 1-2 Weeks: 50-500 mIU/mL 2-3 Weeks: 100-5000 mIU/mL 3-4 Weeks: 500-10,000 mIU/mL 4-5 Weeks:1000-50,000 mIU/mL 5-6 Weeks: 10,000-100,000 mIU/mL 6-8 Weeks: 15,000-200,000 mIU/mL 2-3 Months:10,000-100,000 mIU/mL Performed By: #### L 700.8000 ####[facility] [address] [place], [place], [id number] Cerv Spine 4 or 5 Viewson Cerv Spine 4 or 5 Views [facility] Imaging Services [address] [place], [place] [address] Cerv Spine 4 or 5 Views MR#: [id number] Acct: [id number] Name: BETHANYKANDYSUZIE Rep #: [id number] : 1990 F 34 From: Tal ledbetter MD PCP: Michelle Goldberg DO Status: DEP AMB Study: Cerv Spine 4 or 5 Views Date of Exam: 02/07/25 Exam# [id number] Ordering Dr: Ana Hilton PROCEDURE: CERV SPINE [...] pain. No evidence of instability. Reading Location: [place] [address] CC: PANCHO Mcdonnell; Michelle Goldberg DO Position Clerk: Signed Normal [facility] L/S Spine Min 4 Viewson L/S Spine Min 4 Views [facility] Imaging Services [address] [place], [place] [address] L/S Spine Min 4 Views MR#: [id number] Acct: [id number] Name: SUZIE ALEXANDRE Rep #: [id number] : 1990 F 34 From: Ced Ortiz MD PCP: Michelle Goldberg DO Status: DEP AMB Study: L/S Spine Min 4 Views Date of Exam: 02/07/25 Exam# [id number] Ordering Dr: Ana Hilton PROCEDURE: L/S SPINE MIN 4 VIEWS 02/07/2025 REASON FOR EXAM: CHRONIC PAIN, NKI TECHNIQUE: Four views; AP, lateral and flexion-extension COMPARISON: None available FINDINGS: Leftward thoracolumbar curvature, scoliosis. 5 rxw-mwa-nbzmyvb lumbar vertebral body types identified. No fracture or malalignment. No evidence of instability. The disc spaces appear within limits. Suspect possible small bilateral nephrolithiasis RAD/L/S Spine Min 4 Views IMPRESSION: Leftward thoracolumbar curvature, scoliosis. Suspect possible small bilateral nephrolithiasis Reading Location: [facility] CC: PANCHO Mcdonnell; Michelle Goldberg DO Position Clerk: Signed Normal [facility] Orthopedic Visit Reporton Orthopedic Visit Report [facility] [address] [place] [address] OFFICE VISIT Date of Service: 02/07/25 MR#: [id number] Acct: [id number] Name: SUZIE ALEXANDRE Rep #: [id number] : 1990 Provider: PANCHO Mcdonnell Age/Sex: 34/F Location: [facility] Status: Signed Intake Vital Signs 06/10/22 09:13 [...] so is (more content not included)... Normal [facility] Absolute lymphocyte countOrd ered By: Michelle Goldberg on 11-29-2024 Lymphocytes Auto (Unsp spec) [#/Vol] 1.60 10*3/uL 0.83-4.51 [facility] Absolute neutrophil countOrd ered By: Michelle Goldberg on 11-29-2024 Neutrophils (Bld) [#/Vol] 4.4 10*3/uL 2.0-7.7 [facility] Automated lymphocyte count a s percentage of total leukocytesOrdered By: Michelle Goldberg on 11-29-2024 Lymphocytes/100 WBC Auto (Unsp spec) 22.8 % 19- [facility] BUN/creatinine ratioOrdered By: Michelle Goldberg on 11-29-2024 Urea nitrogen/Creatinine [Mass ratio] 12.5 mg/mg 10-20 [facility] Basophil percentageOrdered B y: Michelle Goldberg on 11-29-2024 Basophils/100 WBC (Bld) 0.9 % 0-1 [facility] Bilirubin, totalOrdered By: Michelle Goldberg on 11-29-2024 Bilirubin [Mass/Vol] 0.34 mg/dL 0.00-1.[address] [facility] CBC W/Diff, Automatedon 11-03 Absolute Lymph 1.60 X10 3/uL Normal 0.83-4.51 [facility] Comment on above: Performed By: #### L 501.9520, L500.4100, L500.4050, L503.6030, L100.0100, L503.6550, L501.9985, L506.0400 ####[facility] [address] [place], [address] Absolute Neut 4.4 X10 3/uL Normal 2.0-7.7 [facility] Comment on above: Performed By: #### L 501.9520, L500.4100, L500.4050, L503.6030, L100.0100, L503.6550, L501.9985, L506.0400 ####[facility] [address] [place], [address] Basophils/100 WBC (Bld) 0.9 % Normal 0-1 [facility] Comment on above: Performed By: #### L 501.9520, L500.4100, L500.4050, L503.6030, L100.0100, L503.6550, L501.9985, L506.0400 ####[facility] [address] [place], [address] Eosinophils/100 WBC (Bld) 3.4 % Normal 0-5 [facility] Comment on above: Performed By: #### L 501.9520, L500.4100, L500.4050, L503.6030, L100.0100, L503.6550, L501.9985, L506.0400 ####[facility] [address] [place], [address] Erythrocyte distribution width (RBC) [Ratio] 12.4 % Normal 11.6-14.6 [facility] Comment on above: Performed By: #### L 501.9520, L500.4100, L500.4050, L503.6030, L100.0100, L503.6550, L501.9985, L506.0400 ####[facility] [address] [place], [address] Hematocrit (Bld) [Volume fraction] 42.1 % Normal 37-47 [facility] Comment on above: Performed By: #### L 501.9520, L500.4100, L500.4050, L503.6030, L100.0100, L503.6550, L501.9985, L506.0400 ####[facility] [address] [place], [address] Hemoglobin (Bld) [Mass/Vol] 14.2 g/dL Normal 12.0-15.0 [facility] Comment on above: Performed By: #### L 501.9520, L500.4100, L500.4050, L503.6030, L100.0100, L503.6550, L501.9985, L506.0400 ####[facility] [address] [place], [address] IG% 0.300 Normal 0.0-0.9 [facility] Comment on above: Result Comment: IG% - Immature Granulocytes (promyelocytes, myelocytes and metamyelocytes) > 1% indicates that a LEFT SHIFT is Present. Performed By: #### L 501.9520, L500.4100, L500.4050, L503.6030, L100.0100, L503.6550, L501.9985, L506.0400 ####[facility] [address] [place], [address] Lymphocytes/100 WBC (Bld) 22.8 % Normal 19-41 [facility] Comment on above: Performed By: #### L 501.9520, L500.4100, L500.4050, L503.6030, L100.0100, L503.6550, L501.9985, L506.0400 ####[facility] [address] [place], [address] MCH (RBC) [Entitic mass] 31.0 pg Normal 27.0-32.0 [facility] Comment on above: Performed By: #### L 501.9520, L500.4100, L500.4050, L503.6030, L100.0100, L503.6550, L501.9985, L506.0400 ####[facility] [address] [place], [address] MCHC (RBC) [Mass/Vol] 33.7 g/dL Normal 32-36 [facility] Comment on above: Performed By: #### L 501.9520, L500.4100, L500.4050, L503.6030, L100.0100, L503.6550, L501.9985, L506.0400 ####[facility] [address] [place], [address] MCV (RBC) [Entitic vol] 91.9 fL Normal 81-99 [facility] Comment on above: Performed By: #### L 501.9520, L500.4100, L500.4050, L503.6030, L100.0100, L503.6550, L501.9985, L506.0400 ####[facility] [address] [place], [address] Monocytes/100 WBC (Bld) 10.4 % High 0-10 [facility] Comment on above: Performed By: #### L 501.9520, L500.4100, L500.4050, L503.6030, L100.0100, L503.6550, L501.9985, L506.0400 ####[facility] [address] [place], [address] Neutrophils/100 WBC (Bld) 62.2 % Normal 47-70 [facility] Comment on above: Performed By: #### L 501.9520, L500.4100, L500.4050, L503.6030, L100.0100, L503.6550, L501.9985, L506.0400 ####[facility] [address] [place], [address] Nucleated RBC (Bld) [#/Vol] 0 10*3/uL Normal 0-5 [facility] Comment on above: Performed By: #### L 501.9520, L500.4100, L500.4050, L503.6030, L100.0100, L503.6550, L501.9985, L506.0400 ####[facility] [address] [place], [address] Platelet mean volume (Bld) [Entitic vol] 11.2 fL Normal 6.2-12.0 [facility] Comment on above: Performed By: #### L 501.9520, L500.4100, L500.4050, L503.6030, L100.0100, L503.6550, L501.9985, L506.0400 ####[facility] [address] [place], [address] Platelets (Bld) [#/Vol] 266 10*3/uL Normal 150-450 [facility] Comment on above: Performed By: #### L 501.9520, L500.4100, L500.4050, L503.6030, L100.0100, L503.6550, L501.9985, L506.0400 ####[facility] [address] [place], [address] RBC (Bld) [#/Vol] 4.58 10*6/uL Normal 4.2-5.4 [facility] Comment on above: Performed By: #### L 501.9520, L500.4100, L500.4050, L503.6030, L100.0100, L503.6550, L501.9985, L506.0400 ####[facility] [address] [place], [address] RDW SD 41.4 fl Normal 35.1-43.9 [facility] Comment on above: Performed By: #### L 501.9520, L500.4100, L500.4050, L503.6030, L100.0100, L503.6550, L501.9985, L506.0400 ####[facility] [address] [place], [address] WBC (Bld) [#/Vol] 7.0 10*3/uL Normal 4.4-11.0 [facility] Comment on above: Performed By: #### L 501.9520, L500.4100, L500.4050, L503.6030, L100.0100, L503.6550, L501.9985, L506.0400 ####[facility] [address] [place], [address] Calculated total iron bindin g capacityOrdered By: Michelle Goldberg on 11-29-2024 Total Iron Binding Capacity 276 ug/dL 250-450 [facility] Calculated very low density lipoprotein (VLDL) cholesterol measurementOrdered By: Michelle Goldberg on 11-29-2024 Calculated very low density lipoprotein (VLDL) cholesterol measurement 13 mg/dL 5-40 [facility] VLDL Cholesterol 13 mg/dL 5-40 [facility] Carbon dioxide measurementOr dered By: Michelle Goldberg on 11-29-2024 CO2 [Moles/Vol] 24.6 mmol/L 22.0-29.0 [facility] Chloride measurementOrdered By: Michelle Goldberg on 11-29-2024 Chloride [Moles/Vol] 101 mmol/L 96-[address] [facility] Comprehensive Metabolic Prof ilon 11-29-2024 Albumin [Mass/Vol] 4.4 g/dL Normal 3.5-5.0 [facility] Comment on above: Performed By: #### L 501.9520, L500.4100, L500.4050, L503.6030, L100.0100, L503.6550, L501.9985, L506.0400 #### [facility] [address] [place], [address] Albumin/Globulin [Mass ratio] 1.6 {ratio} Normal 0.9-2.4 [facility] Comment on above: Performed By: #### L 501.9520, L500.4100, L500.4050, L503.6030, L100.0100, L503.6550, L501.9985, L506.0400 #### [facility] [address] [place], [address] ALK PHOS 92 U/L Normal 35-104 [facility] Comment on above: Performed By: #### L 501.9520, L500.4100, L500.4050, L503.6030, L100.0100, L503.6550, L501.9985, L506.0400 #### [facility] [address] [place], [address] ALT [Catalytic activity/Vol] 15 U/L Normal <=34 [facility] Comment on above: Performed By: #### L 501.9520, L500.4100, L500.4050, L503.6030, L100.0100, L503.6550, L501.9985, L506.0400 #### [facility] [address] [place], [address] Anion gap [Moles/Vol] 12 mmol/L Normal 5-15 [facility] Comment on above: Performed By: #### L 501.9520, L500.4100, L500.4050, L503.6030, L100.0100, L503.6550, L501.9985, L506.0400 #### [facility] [address] [place], [address] AST [Catalytic activity/Vol] 21 U/L Normal <=31 [facility] Comment on above: Performed By: #### L 501.9520, L500.4100, L500.4050, L503.6030, L100.0100, L503.6550, L501.9985, L506.0400 #### [facility] [address] [place], [address] Bilirubin [Mass/Vol] 0.34 mg/dL Normal 0.00-1.[address] [facility] Comment on above: Performed By: #### L 501.9520, L500.4100, L500.4050, L503.6030, L100.0100, L503.6550, L501.9985, L506.0400 #### [facility] [address] [place], [address] BUN/CRE 12.5 RATIO Normal 10-20 [facility] Comment on above: Performed By: #### L 501.9520, L500.4100, L500.4050, L503.6030, L100.0100, L503.6550, L501.9985, L506.0400 #### [facility] [address] [place], [address] Calcium [Mass/Vol] 9.5 mg/dL Normal 7.6-11.0 [facility] Comment on above: Performed By: #### L 501.9520, L500.4100, L500.4050, L503.6030, L100.0100, L503.6550, L501.9985, L506.0400 #### [facility] [address] [place], [address] Chloride [Moles/Vol] 101 mmol/L Normal 96-[address] [facility] Comment on above: Performed By: #### L 501.9520, L500.4100, L500.4050, L503.6030, L100.0100, L503.6550, L501.9985, L506.0400 #### [facility] [address] [place], [address] CO2 [Moles/Vol] 24.6 mmol/L Normal 22.0-29.0 [facility] Comment on above: Performed By: #### L 501.9520, L500.4100, L500.4050, L503.6030, L100.0100, L503.6550, L501.9985, L506.0400 #### [facility] [address] [place], [address] Creatinine [Mass/Vol] 0.75 mg/dL Normal 0.70-1.20 [facility] Comment on above: Performed By: #### L 501.9520, L500.4100, L500.4050, L503.6030, L100.0100, L503.6550, L501.9985, L506.0400 #### [facility] [address] [place], [address] GFR/1.73 sq M.predicted among non-blacks MDRD (S/P/Bld) [Vol rate/Area] 105 mL/min/{1.73_m2} Normal >60 [facility] Comment on above: Result Comment: mL/m in/1.73m2 CKD-EPI Creatinine Equation (2020) Performed By: #### L 501.9520, L500.4100, L500.4050, L503.6030, L100.0100, L503.6550, L501.9985, L506.0400 #### [facility] [address] [place], [address] Globulin (S) [Mass/Vol] 2.8 g/dL Normal 2.2-4.2 [facility] Comment on above: Performed By: #### L 501.9520, L500.4100, L500.4050, L503.6030, L100.0100, L503.6550, L501.9985, L506.0400 #### [facility] [address] [place], [address] Glucose [Mass/Vol] 79 mg/dL Normal 70-99 [facility] Comment on above: Performed By: #### L 501.9520, L500.4100, L500.4050, L503.6030, L100.0100, L503.6550, L501.9985, L506.0400 #### [facility] [address] [place], [address] Potassium [Moles/Vol] 4.1 mmol/L Normal 3.3-5.1 [facility] Comment on above: Performed By: #### L 501.9520, L500.4100, L500.4050, L503.6030, L100.0100, L503.6550, L501.9985, L506.0400 #### [facility] [address] [place], [address] Sodium [Moles/Vol] 138 mmol/L Normal 133-145 [facility] Comment on above: Performed By: #### L 501.9520, L500.4100, L500.4050, L503.6030, L100.0100, L503.6550, L501.9985, L506.0400 #### [facility] [address] [place], [address] T PROT 7.2 g/dL Normal 5.9-8.4 [facility] Comment on above: Performed By: #### L 501.9520, L500.4100, L500.4050, L503.6030, L100.0100, L503.6550, L501.9985, L506.0400 #### [facility] [address] [place], [address] Urea nitrogen [Mass/Vol] 9 mg/dL Normal 4-19 [facility] Comment on above: Performed By: #### L 501.9520, L500.4100, L500.4050, L503.6030, L100.0100, L503.6550, L501.9985, L506.0400 #### [facility] [address] [place], [address] Eosinophil percentageOrdered By: Michelle Goldberg on 11-29-2024 Eosinophils/100 WBC (Bld) 3.4 % 0-5 [facility] Erythrocyte distribution wid th ratioOrdered By: Michelle Goldberg on 11-29-2024 Erythrocyte distribution width (RBC) [Ratio] 12.4 % 11.6-14.6 [facility] Erythrocyte distribution wid th standard deviationOrdered By: Michelle Goldberg on 11-29-2024 Erythrocyte distribution width (RBC) [Entitic vol] 41.4 fL 35.1-43.9 [facility] Erythrocyte distribution width (RBC) [Ratio] 41.4 fl 35.1-43.9 [facility] Ferritinon 11-29-2024 Ferritin [Mass/Vol] 57 ng/mL Normal 22-378 [facility] Comment on above: Performed By: #### L 501.9520, L500.4100, L500.4050, L503.6030, L100.0100, L503.6550, L501.9985, L506.0400 ####[facility] [address] [place], [place], [address] GFR/1.73 sq M.predicted mindy g non-blacks MDRD (S/P/Bld) [Vol rate/Area]Ordered By: Michelle Goldberg on 11-29-2024 Estimated GFR (MDRD) Non-Af Amer 105 >60 [facility] Comment on above: mL/min/1.73m2 CKD-EP I Creatinine Equation (2020) Glomerular filtration rate ( GFR) estimation/1.73 sq m using serum, plasma, or whole bOrdered By: Michelle Goldberg on 11-29-2024 GFR/1.73 sq M.predicted among non-blacks MDRD (S/P/Bld) [Vol rate/Area] 105 mL/min/{1.73_m2} >60 [facility] Comment on above: mL/min/1.73m2 CKD-EP I Creatinine Equation (2020) Hematocrit Auto (Bld) [Volum e fraction]Ordered By: Michelle Goldberg on 11-29-2024 Hematocrit (Bld) [Volume fraction] 42.1 % 37-47 [facility] Hemoglobin A1con 11-29-2024 HbA1c (Bld) [Mass fraction] 5.0 % Low <=5.6 [facility] Comment on above: Performed By: #### L 501.9520, L500.4100, L500.4050, L503.6030, L100.0100, L503.6550, L501.9985, L506.0400 #### [facility] [address] [place], [address] Hemoglobin A1c percentageOrd ered By: Michelle Goldberg on 11-29-2024 HbA1c (Bld) [Mass fraction] 5.0 % Low >5.7 [facility] Hemoglobin measurementOrdere d By: Michelle Goldberg on 11-29-2024 Hemoglobin (Bld) [Mass/Vol] 14.2 g/dL 12.0-15.0 [facility] Immature granulocytes/100 WB C Auto (Bld)Ordered By: Michelle Goldberg on 11-29-2024 Immature granulocytes/100 WBC (Bld) 0.300 % 0.0-0.9 [facility] Comment on above: IG% - Immature Granu locytes (promyelocytes, myelocytes and metamyelocytes) > 1% indicates that a LEFT SHIFT is Present. Iron (Unsp spec) [Mass/Mass] Ordered By: Michelle Goldberg on 11-29-2024 Iron [Mass/Vol] 129 ug/dL 50-170 [facility] Iron measurement (mass/mass) Ordered By: Michelle Goldberg on 11-29-2024 Iron (Unsp spec) [Mass/Mass] 129 ug/dL 50-170 [facility] Iron saturation [Mass fracti on]Ordered By: Michelle Goldberg on 11-29-2024 Iron Saturation 47.0 % 15.0-55.0 [facility] Iron+Iron Binding Capacityon 11-29-2024 Iron [Mass/Vol] 129 ug/dL Normal 50-170 [facility] Comment on above: Performed By: #### L 501.9520, L500.4100, L500.4050, L503.6030, L100.0100, L503.6550, L501.9985, L506.0400 ####[facility] [address] [place], [address] IRON SATURATION 47.0 Normal 15.0-55.0 [facility] Comment on above: Performed By: #### L 501.9520, L500.4100, L500.4050, L503.6030, L100.0100, L503.6550, L501.9985, L506.0400 ####[facility] [address] [place], [address] TIBC 276 ug/dL Normal 250-450 [facility] Comment on above: Performed By: #### L 501.9520, L500.4100, L500.4050, L503.6030, L100.0100, L503.6550, L501.9985, L506.0400 ####[facility] [address] [place], [address] UIBC 147 ug/dL Low 228-428 [facility] Comment on above: Performed By: #### L 501.9520, L500.4100, L500.4050, L503.6030, L100.0100, L503.6550, L501.9985, L506.0400 ####[facility] [address] [place], [address] LDL calc ser/plasOrdered By: Michelle Goldberg on 11-29-2024 Cholesterol in LDL [Mass/Vol] 92 mg/dL [facility] Comment on above: Ovniggfhmd=922-002 m g/dL & Higher Hpsk=734 mg/dL or greater LDL Cholesterol, Calculated 92 mg/dL [facility] Comment on above: Qsjvsvcoqe=910-552 m g/dL & Higher Sqoy=383 mg/dL or greater Laboratory - Chemistry and C hemistry - challengeOrdered By: Michelle Goldberg on 11-29-2024 AST [Catalytic activity/Vol] 21 U/L <32 [facility] Lipid Profileon 11-29-2024 CHOL:HDL 3.26 Normal [facility] Comment on above: Performed By: #### L 501.9520, L500.4100, L500.4050, L503.6030, L100.0100, L503.6550, L501.9985, L506.0400 #### [facility] [address] [place], [address] Cholesterol [Mass/Vol] 152 mg/dL Normal <=200 [facility] Comment on above: Result Comment: Chol esterol level, Desirable <200 mg/dL Borderline high cholesterol 200-239 mg/dL High cholesterol >=240 mg/dL Recommendations of the NCEP Adult Treatment Panel for the following risk-cutoff thresholds for the [place] population. Performed By: #### L 501.9520, L500.4100, L500.4050, L503.6030, L100.0100, L503.6550, L501.9985, L506.0400 #### [facility] [address] [place], [place], [id number] Cholesterol in HDL [Mass/Vol] 47 mg/dL Normal [facility] Comment on above: Result Comment: Sharon onal Cholesterol Education Program (NCEP) guidelines: <40 mg/dL: Low HDL-cholesterol (major risk factor for CHD) >= 60 mg/dL: High HDL-cholesterol (negative risk factor for CHD) HDL-cholesterol is affected by a number of factors, e.g. smoking, exercise, hormones, sex and age. Performed By: #### L 501.9520, L500.4100, L500.4050, L503.6030, L100.0100, L503.6550, L501.9985, L506.0400 #### [facility] [address] [place], [address] Cholesterol in LDL [Mass/Vol] 92 mg/dL Normal [facility] Comment on above: Result Comment: Bord uznkfp=116-985 mg/dL Higher Gwmp=986 mg/dL or greater Performed By: #### L 501.9520, L500.4100, L500.4050, L503.6030, L100.0100, L503.6550, L501.9985, L506.0400 #### [facility] [address] [place], [address] Cholesterol in VLDL [Mass/Vol] 13 mg/dL Normal 5-40 [facility] Comment on above: Performed By: #### L 501.9520, L500.4100, L500.4050, L503.6030, L100.0100, L503.6550, L501.9985, L506.0400 #### [facility] [address] [place], [address] Triglyceride [Mass/Vol] 66 mg/dL Normal [facility] Comment on above: Result Comment: The drugs N-Acetylcysteine and Metamizole may falsely depress this assay. Normal range: <150 mg/dL Borderline High: 150-199 mg/dL High: 200-499 mg/dL Very High: >500 mg/dL Performed By: #### L 501.9520, L500.4100, L500.4050, L503.6030, L100.0100, L503.6550, L501.9985, L506.0400 #### [facility] [address] [place], [address] Lymphocytes Auto (Unsp spec) [#/Vol]Ordered By: Michelle Goldberg on 11-29-2024 Lymphocytes (Bld) [#/Vol] 1.60 10*3/uL 0.83-4.5 1 [facility] Lymphocytes/100 WBC Auto (Un sp spec)Ordered By: Michelle Goldberg on 11-29-2024 Lymphocytes/100 WBC (Bld) 22.8 % 19-41 [facility] MCV (mean corpuscular volume ) determinationOrdered By: Michelle Goldberg on 11-29-2024 MCV (RBC) [Entitic vol] 91.9 fL 81-99 [facility] Mean corpuscular hemoglobin (MCH) determinationOrdered By: Michelle Goldberg on 11-29-2024 MCH (RBC) [Entitic mass] 31.0 pg 27.0-32.0 [facility] Mean corpuscular hemoglobin concentration (MCHC) determinationOrdered By: Michelle Goldberg on 11-29-2024 MCHC (RBC) [Mass/Vol] 33.7 g/dL 32-36 [facility] Mean platelet volume determi nationOrdered By: Michelle Goldberg on 11-29-2024 Platelet mean volume (Bld) [Entitic vol] 11.2 fL 6.2-12.0 [facility] Monocyte percentageOrdered B y: Michelle Goldberg on 11-29-2024 Monocytes/100 WBC (Bld) 10.4 % High 0-10 [facility] Neutrophil percentageOrdered By: Michelle Goldberg on 11-29-2024 Neutrophils/100 WBC (Bld) 62.2 % 47-70 [facility] No Panel InformationOrdered By: Michelle Goldberg on 11-29-2024 Unsaturated Iron Binding Capacity 147 ug/dL Low 228-428 [facility] Nucleated red blood cell per centageOrdered By: Michelle Goldberg on 11-29-2024 Nucleated RBC/100 WBC (Bld) [Ratio] 0 % 0-5 [facility] Platelet countOrdered By: Reji Goldberg on 11-29-2024 Platelets (Bld) [#/Vol] 266 10*3/uL 150-450 [facility] RBC Auto (Bld) [#/Vol]Ordere d By: Michelle Goldberg on 11-29-2024 RBC (Bld) [#/Vol] 4.58 10*6/uL 4.2-5.4 [facility] Scoliosis 1 viewon Scoliosis 1 view [facility] Imaging Services [address], [place] [address] Scoliosis 1 view MR#: [id number] Acct: [id number] Name: SUZIE ALEXANDRE Rep #: [id number] : 1990 F 34 From: Latia Larson MD PCP: Michelle Goldberg DO Status: REG CLI Study: Scoliosis 1 view Date of Exam: 11/29/24 Exam# [id number] Ordering Dr: Michelle Goldberg [facility] D O PROCEDURE: SCOLIOSIS 1 VIEW REASON [...] THE THORACIC AND LUMBAR SPINE. Reading Location: [id number] CC: Michelle Goldberg DO Position Clerk: Signed Normal [facility] Screening total cholesterol/ high density lipoprotein (HDL) cholesterol ratioOrdered By: Michelle Goldberg on 11-29-2024 Cholesterol.total/Cholest sandra in HDL [Mass ratio] 3.26 {ratio} [facility] Serum creatinine measurement (mass/volume)Ordered By: Michelle Goldberg on 11-29-2024 Creatinine [Mass/Vol] 0.75 mg/dL 0.70-1.20 [facility] Serum globulin measurementOr dered By: Michelle Goldberg on 11-29-2024 Globulin (S) [Mass/Vol] 2.8 g/dL 2.2-4.2 [facility] Serum glucose measurement (m ass/volume)Ordered By: Michelle Goldberg on 11-29-2024 Glucose [Mass/Vol] 79 mg/dL 70-99 [facility] Serum or plasma alanine hanks otransferase (ALT) measurementOrdered By: Michelle Goldberg on 11-29-2024 ALT [Catalytic activity/Vol] 15 U/L <35 [facility] Serum or plasma albumin delmi urement (mass/volume)Ordered By: Michelle Goldberg on 11-29-2024 Albumin [Mass/Vol] 4.4 g/dL 3.5-5.0 [facility] Serum or plasma albumin/glob ulin mass ratioOrdered By: Michelle Goldberg on 11-29-2024 Albumin/Globulin [Mass ratio] 1.6 {ratio} 0.9-2.4 [facility] Serum or plasma alkaline stepan sphatase measurementOrdered By: Michelle Goldberg on 11-29-2024 ALP [Catalytic activity/Vol] 92 U/L 35-104 [facility] Serum or plasma anion gap de termination (moles/volume)Ordered By: Michelle Goldberg on 11-29-2024 Anion gap [Moles/Vol] 12 mmol/L 5-15 [facility] Serum or plasma calcium delmi urement (mass/volume)Ordered By: Michelle Goldberg on 11-29-2024 Calcium [Mass/Vol] 9.5 mg/dL 7.6-11.0 [facility] Serum or plasma cholesterol in HDL measurement (mass/volume)Ordered By: Michelle Goldberg on 11-29-2024 Cholesterol in HDL [Mass/Vol] 47 mg/dL >40 [facility] Comment on above: National Cholesterol Education Program (NCEP) guidelines:<40 mg/dL: Low HDL-cholesterol (major risk factor for CHD)>= 60 mg/dL: High HDL-cholesterol (negative risk factor for CHD)HDL-cholesterol is affected by a number of factors, e.g. smoking, exercise, hormones, sex and age. Serum or plasma cholesterol measurement (mass/volume)Ordered By: Michelle Goldberg on 11-29-2024 Cholesterol [Mass/Vol] 152 mg/dL <201 [facility] Comment on above: Cholesterol level, D esirable <200 mg/dLBorderline high cholesterol 200-239 mg/dLHigh cholesterol >=240 mg/dLRecommendations of the NCEP Adult Treatment Panel for the following risk-cutoff thresholds for the [place] population. Serum or plasma ferritin terry surement (mass/volume)Ordered By: Michelle Goldberg on 11-29-2024 Ferritin [Mass/Vol] 57 ng/mL 22-378 [facility] Serum or plasma iron saturat ion measurement (mass fraction)Ordered By: Michelle Goldberg on 11-29-2024 Iron saturation [Mass fraction] 47.0 % 15.0-55.0 [facility] Serum or plasma potassium me asurementOrdered By: Michelle Goldberg on 11-29-2024 Potassium [Moles/Vol] 4.1 mmol/L 3.3-5.1 [facility] Serum or plasma sodium measu rement (moles/volume)Ordered By: Michelle Goldberg on 11-29-2024 Sodium [Moles/Vol] 138 mmol/L 133-145 [facility] Serum or plasma urea nitroge n measurement (mass/volume)Ordered By: Michelle Goldberg on 11-29-2024 Urea nitrogen [Mass/Vol] 9 mg/dL 4-19 [facility] T4 Free Directon 11-29-2024 T4 FREE DIRECT 1.20 ng/dL Normal 0.76-1.46 [facility] Comment on above: Performed By: #### L 501.9520, L500.4100, L500.4050, L503.6030, L100.0100, L503.6550, L501.9985, L506.0400 ####[facility] [address] [place], [place], [id number] T4 freeOrdered By: Michelle coronado on 11-29-2024 Free T4 [Mass/Vol] 1.20 ng/dL 0.76-1.46 [facility] TSH DL <= 0.005 mIU/L QnOrde red By: Michelle Goldberg on 11-29-2024 Thyroid Stimulating Hormone (TSH) 0.482 uIU/mL 0.300-4.200 [facility] TSH Qn 0.482 uIU/mL 0.300-4.200 [facility] Thyroid Stim Hormone (TSH)on 11-29-2024 TSH 0.482 uIU/mL Normal 0.300-4.200 [facility] Comment on above: Performed By: #### L 501.9520, L500.4100, L500.4050, L503.6030, L100.0100, L503.6550, L501.9985, L506.0400 #### [facility] [address] [place], [place], [id number] Total proteinOrdered By: Albina Goldberg on 11-29-2024 Protein [Mass/Vol] 7.2 g/dL 5.9-8.4 [facility] Triglycerides measurementOrd ered By: Michelle Goldberg on 11-29-2024 Triglyceride [Mass/Vol] 66 mg/dL <199 [facility] Comment on above: The drugs N-Acetylcy steine and Metamizole may falsely depress this assay. Normal range: <150 mg/dLBorderline High: 150-199 mg/dLHigh: 200-499 mg/dLVery High: >500 mg/dL White blood cell (WBC) count Ordered By: Michelle Goldberg on 11-29-2024 WBC (Bld) [#/Vol] 7.0 10*3/uL 4.4-11.0 [facility] ) SUZIE ALEXANDRE ([id number]) 1990 F Date Time Provider Department 08/31/24 10:45 AM GAVINO MURPHY [facility] During your visit today, we recorded the following information about you: Temperature Pulse Respiration Blood pressure 97.8 degrees 105/minute 18/minute 122/76 Weight 69.8 kg [facility]ino Murphy APRN.[facility] 08/31/2024 11:35 AM Signed CC: Patient presents [...] SURGICAL HISTORY Procedure Laterality Date BREAST BIOPSY [id number] RIGHT COLPOSCOPY CERVIX UPPER/ADJACENT VAGINA Colposcopy PAST [...] EXAMINATION: LUIS (more content not included)... Normal [facility] XR CHEST 2V FRONTAL/LATon XR CHEST 2V [...] Unremarkable exam with no acute radiographic abnormality. Position Clerk: [facility] Transcribe Date/Time: Aug 31 2024 11:23A Dictated by : CHELSY SUMMERS MD This examination was interpreted and the report reviewed and electronically signed by: CHELSY SUMMERS MD on Aug 31 2024 11:23AM EST [id number] Normal [facility] XR Chest PA and Lateralon IMPRESSION: Unremarkable exam with no acute radiographic abnormality. Position Clerk: MEGHAN Transcribe Date/Time: Aug 31 2024 11:23A Dictated by : CHELSY SUMMERS MD This examination was interpreted and the report reviewed and electronically signed by: CHELSY SUMMERS MD on Aug 31 2024 11:23AM [facility] DIVISION OF RADIOLOGY * * *Final Report* [...] soft tissues: Unremarkable. DIVISION OF RADIOLOGY Provider, [facility] - 08/31/2024 * * *Final Report* * [...] Unremarkable exam with no acute radiographic abnormality. Position Clerk: MEGHAN Transcribe Date/Time: Aug 31 2024 11:23A Dictated by : CHELSY SUMMERS MD This examination was interpreted and the report reviewed and electronically signed by: CHELSY SUMMERS MD on Aug 31 2024 11:23AM EST [facility] Radiology Study observation (narrative) Claudette lei [facility] XR Chest PA and LateralOrder ed By: Ccf Provider on 08-31-2024 [facility] CNOVon 02-12-2024 CNOV Office Visit (UCWSTR ) SUZIE ALEXANDRE ([id number]) 1990 F Date Time Provider Department 02/12/24 9:30 AM [facility] your visit today, we recorded the following information about you: Temperature Pulse Respiration Blood pressure 98.2 degrees 90/minute 16/minute 110/64 Weight 73.5 kg Abril Hernandez, COMPENSATION SUPERVISOR.QUALITY CHECKER 02/12/2024 11:06 AM Signed Subjective Shoulder Injury [...] SURGICAL HISTORY Procedure Laterality Date BREAST BIOPSY [id number] RIGHT COLPOSCOPY CERVIX UPPER/ADJACENT VAGINA Colposcopy PAST [...] No radiographic evidence of acute osseous injury Position Clerk: [facility] Transcribe Date/Time: Feb 12 2024 10:29A Dictated by : FRANCISCO GIPSON MD - REST, ICE to painful areas. 2. Fall, initial encounter - ICD9: E888.9, ICD10: W19.XXXA - Follow-up with your PCP in 3-5 days if symptoms have not improved or sooner if sympto (more content not included)... Normal [facility] XR SHLDR >/=3V AP/GUERRERO AP/OTH R LTon [...] No radiographic evidence of acute osseous injury Position Clerk: [facility] Transcribe Date/Time: Feb 12 2024 10:29A Dictated by : FRANCISCO GIPSON MD This examination was interpreted and the report reviewed and electronically signed by: FRANCISCO GIPSON MD on Feb 12 2024 10:31AM EST [id number] Normal [facility] XR Shoulder - left 3 Viewson 02-12-2024 IMPRESSION: No radiographic evidence of acute osseous injury Position Clerk: [facility] Transcribe Date/Time: Feb 12 2024 10:29A Dictated by : FRANCISCO GIPSON MD This examination was interpreted and the report reviewed and electronically signed by: FRANCISCO GIPSON MD on Feb 12 2024 10:31AM EST DIVISION OF RADIOLOGY * * *Final Report* [...] Acromioclavicular joint intact. DIVISION OF RADIOLOGY Provider, [facility] - 02/12/2024 * * *Final Report* * [...] No radiographic evidence of acute osseous injury Position [facility] Transcribe Date/Time: Feb 12 2024 10:29A Dictated by : FRANCISCO GIPSON MD This examination was interpreted and the report reviewed and electronically signed by: FRANCISCO GIPSON MD on Feb 12 2024 10:31AM EST [facility] Radiology Study observation (narrative) Claudette lei [facility] XR Shoulder - left 3 ViewsOr dered By: Ccf Provider on 02-12-2024 [facility] CNOVon 12-17-2023 CNOV Office Visit (UCWSTR ) SUZIE ALEXANDRE ([id number]) 1990 F Date Time Provider Department 12/17/23 9:00 AM JARRETT LEVI [facility] During your visit today, we recorded the following information about you: Temperature Pulse Respiration Blood pressure 97.4 degrees 74/minute 16/minute 122/70 Jarrett Levi PA-C 12/17/2023 9:19 AM Signed This note was created using [employer]. Subjective Suzie Alexandre is a 33 year [...] chronic, without mention of hemorrhage or perforation 2007 Generalized anxiety disorder Anxiety, DEPRESSION/BIPOLAR Infertility, female [...] SURGICAL HISTORY Procedure Laterality Date BREAST BIOPSY [id number] RIGHT COLPOSCOPY CERVIX UPPER/ADJACENT VAGINA Colposcopy PAST [...] Mental St (more content not included)... Normal [facility] XR ABDOMEN APon 09-04-2023 XR ABDOMEN AP [...] 09/04/2023 1:52:45 PM Ordering Provider: LATIA TAVAREZ [facility]. Send Out See Comments [facility]) Comment on above: Order Comment: lithi um Result Comment: Comp lete reference lab report scanned to EMR. Performed By: #### C MP, ADIFF, ANEU, CBC, 125VTD, HFP, MISC, GFR, TSH, A1C, LIPID #### [address] [id number] #### FOL, PROL, B12, T4, T3 #### [address] [address] TSHon 01-05-2023 TSH Qn 1.35 m[IU]/L Normal 0.36-3.74 [facility]) Comment on above: Performed By: #### C MP, ADIFF, ANEU, CBC, 125VTD, HFP, MISC, GFR, TSH, A1C, LIPID #### [address] [address] #### FOL, PROL, B12, T4, T3 #### [address] [address] VIDDHon 01-04-2023 Vit. D 1,25 Dihydro. 62.9 pg/mL Normal 19.9-79.3 [facility] ([place]) Comment on above: Result Comment: Perf ormed By: [facility] [address] [place] [address] Registry Np: Otis Blackman III, M.D. CLIA#: [id number] Performed By: #### C MP, ADIFF, ANEU, CBC, 125VTD, HFP, MISC, GFR, TSH, A1C, LIPID #### [address] [address] #### FOL, PROL, B12, T4, T3 #### [address] [address] .Auto Diffon 01-03-2023 Basophil, Absolute 0.1 10 3/mcL Normal 0.0-0.2 [facility] ([place]) Comment on above: Performed By: #### C MP, ADIFF, ANEU, CBC, 125VTD, HFP, MISC, GFR, TSH, A1C, LIPID #### [address] [address] #### FOL, PROL, B12, T4, T3 #### [address] [address] Basophils/100 WBC (Bld) 0.9 % Normal 0.0-2.5 [facility] ([place]) Comment on above: Performed By: #### C MP, ADIFF, ANEU, CBC, 125VTD, HFP, MISC, GFR, TSH, A1C, LIPID #### [address] [address] #### FOL, PROL, B12, T4, T3 #### [address] [address] Eosinophil, Absolute 0.2 10 3/mcL Normal 0.0-0.4 [facility] ([place]) Comment on above: Performed By: #### C MP, ADIFF, ANEU, CBC, 125VTD, HFP, MISC, GFR, TSH, A1C, LIPID #### [address] [address] #### FOL, PROL, B12, T4, T3 #### [address] [address] Eosinophils/100 WBC (Bld) 2.5 % Normal 0.0-7.0 [facility] ([place]) Comment on above: Performed By: #### C MP, ADIFF, ANEU, CBC, 125VTD, HFP, MISC, GFR, TSH, A1C, LIPID #### [address] [address] #### FOL, PROL, B12, T4, T3 #### [address] [address] Lymphocyte, Absolute 1.8 10 3/mcL Normal 0.8-3.9 [facility] ([place]) Comment on above: Performed By: #### C MP, ADIFF, ANEU, CBC, 125VTD, HFP, MISC, GFR, TSH, A1C, LIPID #### [place] [address] #### FOL, PROL, B12, T4, T3 #### [address] [address] Lymphocytes/100 WBC (Bld) 28.0 % Normal 10.0-50.0 [facility] ([place]) Comment on above: Performed By: #### C MP, ADIFF, ANEU, CBC, 125VTD, HFP, MISC, GFR, TSH, A1C, LIPID #### [address] [address] #### FOL, PROL, B12, T4, T3 #### [address] [address] Monocyte, Absolute 0.6 10 3/mcL Normal 0.2-1.0 [facility] ([place]) Comment on above: Performed By: #### C MP, ADIFF, ANEU, CBC, 125VTD, HFP, MISC, GFR, TSH, A1C, LIPID #### [address] [address] #### FOL, PROL, B12, T4, T3 #### [address] [address] Monocytes/100 WBC (Bld) 8.4 % Normal 1.7-13.0 [facility] ([place]) Comment on above: Performed By: #### C MP, ADIFF, ANEU, CBC, 125VTD, HFP, MISC, GFR, TSH, A1C, LIPID #### [address] [address] #### FOL, PROL, B12, T4, T3 #### [address] [address] Neutrophils/100 WBC (Bld) 60.2 % Normal 37.0-80.0 [facility] ([place]) Comment on above: Performed By: #### C MP, ADIFF, ANEU, CBC, 125VTD, HFP, MISC, GFR, TSH, A1C, LIPID #### [address] [address] #### FOL, PROL, B12, T4, T3 #### [address] [address] .GFRon 01-03-2023 GFR 144 ml/min/1.73sqm Normal [facility] ([place]) Comment on above: Result Comment: GFR Population [...] HFP, MISC, GFR, TSH, A1C, LIPID #### [address] [address] #### FOL, PROL, B12, T4, T3 #### [address] [address] GFR Non- 119 ml/min/1.73sqm Normal [facility] ([place]) Comment on above: Result Comment: GFR Population [...] HFP, MISC, GFR, TSH, A1C, LIPID #### [address] [address] #### FOL, PROL, B12, T4, T3 #### [address] [address] .NEUABSon 01-03-2023 Neutrophil, Absolute 3.9 10 3/mcL Normal 2.9-6.2 [facility] ([place]) Comment on above: Performed By: #### C MP, ADIFF, ANEU, CBC, 125VTD, HFP, MISC, GFR, TSH, A1C, LIPID #### [address] [address] #### FOL, PROL, B12, T4, T3 #### [address] [address] A1Con 01-03-2023 HbA1c (Bld) [Mass fraction] 5.0 % Normal 4.3-6.4 [facility] ([place]) Comment on above: Performed By: #### C MP, ADIFF, ANEU, CBC, 125VTD, HFP, MISC, GFR, TSH, A1C, LIPID #### [address] [address] #### FOL, PROL, B12, T4, T3 #### [address] [address] B12on 01-03-2023 Cobalamin (Vitamin B12) [Mass/Vol] 644 pg/mL Normal 211-911 [facility] ([place]) Comment on above: Performed By: #### C MP, ADIFF, ANEU, CBC, 125VTD, HFP, MISC, GFR, TSH, A1C, LIPID #### [address] [address] #### FOL, PROL, B12, T4, T3 #### [address] [address] CBCon 01-03-2023 Erythrocyte distribution width (RBC) [Ratio] 16.0 % High 11.5-14.5 [facility] ([place]) Comment on above: Performed By: #### C MP, ADIFF, ANEU, CBC, 125VTD, HFP, MISC, GFR, TSH, A1C, LIPID #### [address] [address] #### FOL, PROL, B12, T4, T3 #### [address] [address] Hematocrit (Bld) [Volume fraction] 36.7 % Low 37.0-47.0 [facility] ([place]) Comment on above: Performed By: #### C MP, ADIFF, ANEU, CBC, 125VTD, HFP, MISC, GFR, TSH, A1C, LIPID #### [address] [address] #### FOL, PROL, B12, T4, T3 #### [address] [address] Hgb 12.2 G/dL Normal 12.0-16.0 [facility] ([place]) Comment on above: Performed By: #### C MP, ADIFF, ANEU, CBC, 125VTD, HFP, MISC, GFR, TSH, A1C, LIPID #### [address] [address] #### FOL, PROL, B12, T4, T3 #### [place] [address] MCH (RBC) [Entitic mass] 27.4 pg Normal 27.0-31.2 [facility] ([place]) Comment on above: Performed By: #### C MP, ADIFF, ANEU, CBC, 125VTD, HFP, MISC, GFR, TSH, A1C, LIPID #### [place] [address] #### FOL, PROL, B12, T4, T3 #### [place] [address] MCHC 33.4 G/dL Normal 33.0-37.0 [facility] ([place]) Comment on above: Performed By: #### C MP, ADIFF, ANEU, CBC, 125VTD, HFP, MISC, GFR, TSH, A1C, LIPID #### [place] [address] #### FOL, PROL, B12, T4, T3 #### [place] [address] MCV (RBC) [Entitic vol] 82.2 fL Normal 80.0-94.0 [facility] ([place]) Comment on above: Performed By: #### C MP, ADIFF, ANEU, CBC, 125VTD, HFP, MISC, GFR, TSH, A1C, LIPID #### [place] [address] #### FOL, PROL, B12, T4, T3 #### [place] [address] Platelet 259 10 3/mcL Normal 130-400 [facility] ([place]) Comment on above: Performed By: #### C MP, ADIFF, ANEU, CBC, 125VTD, HFP, MISC, GFR, TSH, A1C, LIPID #### [place] [address] #### FOL, PROL, B12, T4, T3 #### [place] [address] Platelet mean volume (Bld) [Entitic vol] 8.7 fL Normal 7.4-10.4 [facility] ([place]) Comment on above: Performed By: #### C MP, ADIFF, ANEU, CBC, 125VTD, HFP, MISC, GFR, TSH, A1C, LIPID #### [address] [address] #### FOL, PROL, B12, T4, T3 #### [place] [address] RBC 4.46 10 6/mcL Normal 4.20-5.40 [facility] ([place]) Comment on above: Performed By: #### C MP, ADIFF, ANEU, CBC, 125VTD, HFP, MISC, GFR, TSH, A1C, LIPID #### [address] [address] #### FOL, PROL, B12, T4, T3 #### [place] [address] WBC 6.6 10 3/mcL Normal 4.6-10.8 [facility] ([place]) Comment on above: Performed By: #### C MP, ADIFF, ANEU, CBC, 125VTD, HFP, MISC, GFR, TSH, A1C, LIPID #### [address] [address] #### FOL, PROL, B12, T4, T3 #### [place] [address] CMPon 01-03-2023 Albumin Level 3.9 G/dL Normal 3.5-5.0 [facility] ([place]) Comment on above: Performed By: #### C MP, ADIFF, ANEU, CBC, 125VTD, HFP, MISC, GFR, TSH, A1C, LIPID #### [address] [address] #### FOL, PROL, B12, T4, T3 #### [place] [address] Albumin/Globulin [Mass ratio] 1.3 {ratio} Normal 1.1-2.5 [facility] ([place]) Comment on above: Performed By: #### C MP, ADIFF, ANEU, CBC, 125VTD, HFP, MISC, GFR, TSH, A1C, LIPID #### [place] [address] #### FOL, PROL, B12, T4, T3 #### [address] [address] ALP [Catalytic activity/Vol] 87 U/L Normal 40-135 [facility] ([place]) Comment on above: Performed By: #### C MP, ADIFF, ANEU, CBC, 125VTD, HFP, MISC, GFR, TSH, A1C, LIPID #### [place] [address] #### FOL, PROL, B12, T4, T3 #### [address] [address] ALT [Catalytic activity/Vol] 26 U/L Normal 14-59 [facility] ([place]) Comment on above: Performed By: #### C MP, ADIFF, ANEU, CBC, 125VTD, HFP, MISC, GFR, TSH, A1C, LIPID #### [place] [address] #### FOL, PROL, B12, T4, T3 #### [place] [id number] AST [Catalytic activity/Vol] 18 U/L Normal 10-40 [facility] ([place]) Comment on above: Performed By: #### C MP, ADIFF, ANEU, CBC, 125VTD, HFP, MISC, GFR, TSH, A1C, LIPID #### [place] [address] #### FOL, PROL, B12, T4, T3 #### [address] [address] Bili Total 0.2 mg/dL Normal 0.2-1.0 [facility] ([place]) Comment on above: Result Comment: Use of this assay is not recommended for patients undergoing treatment with eltrombopag due to the potential for falsely elevated results. Performed By: #### C MP, ADIFF, ANEU, CBC, 125VTD, HFP, MISC, GFR, TSH, A1C, LIPID #### [address] [address] #### FOL, PROL, B12, T4, T3 #### [address] [address] BUN/Creatinine Ratio 16 ratio Normal 7-27 [facility] ([place]) Comment on above: Performed By: #### C MP, ADIFF, ANEU, CBC, 125VTD, HFP, MISC, GFR, TSH, A1C, LIPID #### [address] [address] #### FOL, PROL, B12, T4, T3 #### [address] [address] Calcium [Mass/Vol] 8.8 mg/dL Normal 8.4-10.2 [facility] [place] Comment on above: Performed By: #### C MP, ADIFF, ANEU, CBC, 125VTD, HFP, MISC, GFR, TSH, A1C, LIPID #### [address] [address] #### FOL, PROL, B12, T4, T3 #### [address] [address] Chloride [Moles/Vol] 104 mmol/L Normal 98-107 [facility] ([place]) Comment on above: Performed By: #### C MP, ADIFF, ANEU, CBC, 125VTD, HFP, MISC, GFR, TSH, A1C, LIPID #### [address] [address] #### FOL, PROL, B12, T4, T3 #### [address] [address] CO2 [Moles/Vol] 26 mmol/L Normal 22-29 [facility] ([place]) Comment on above: Performed By: #### C MP, ADIFF, ANEU, CBC, 125VTD, HFP, MISC, GFR, TSH, A1C, LIPID #### [address] [address] #### FOL, PROL, B12, T4, T3 #### [address] [address] Creatinine [Mass/Vol] 0.58 mg/dL Normal 0.55-1.02 [facility] ([place]) Comment on above: Performed By: #### C MP, ADIFF, ANEU, CBC, 125VTD, HFP, MISC, GFR, TSH, A1C, LIPID #### [address] [address] #### FOL, PROL, B12, T4, T3 #### [address] [address] Electrolyte Balance 10.0 mEq/L Normal 4.0-15.0 [facility] ([place]) Comment on above: Performed By: #### C MP, ADIFF, ANEU, CBC, 125VTD, HFP, MISC, GFR, TSH, A1C, LIPID #### [address] [address] #### FOL, PROL, B12, T4, T3 #### [address] [address] Globulin 3.0 G/dL Normal [facility] ([place]) Comment on above: Performed By: #### C MP, ADIFF, ANEU, CBC, 125VTD, HFP, MISC, GFR, TSH, A1C, LIPID #### [address] [address] #### FOL, PROL, B12, T4, T3 #### [address] [address] Glucose [Mass/Vol] 79 mg/dL Normal 70-105 [facility] [place] Comment on above: Performed By: #### C MP, ADIFF, ANEU, CBC, 125VTD, HFP, MISC, GFR, TSH, A1C, LIPID #### [address] [address] #### FOL, PROL, B12, T4, T3 #### [address] [address] Potassium [Moles/Vol] 4.5 mmol/L Normal 3.5-5.1 [facility] ([place]) Comment on above: Performed By: #### C MP, ADIFF, ANEU, CBC, 125VTD, HFP, MISC, GFR, TSH, A1C, LIPID #### [address] [address] #### FOL, PROL, B12, T4, T3 #### [address] [address] Sodium [Moles/Vol] 140 mmol/L Normal 136-145 [facility] [place] Comment on above: Performed By: #### C MP, ADIFF, ANEU, CBC, 125VTD, HFP, MISC, GFR, TSH, A1C, LIPID #### [address] [address] #### FOL, PROL, B12, T4, T3 #### [address] [address] Total Protein 6.9 G/dL Normal 6.4-8.2 [facility] ([place]) Comment on above: Performed By: #### C MP, ADIFF, ANEU, CBC, 125VTD, HFP, MISC, GFR, TSH, A1C, LIPID #### [address] [address] #### FOL, PROL, B12, T4, T3 #### [address] [address] Urea nitrogen [Mass/Vol] 9 mg/dL Normal 7-18 [facility] ([place]) Comment on above: Performed By: #### C MP, ADIFF, ANEU, CBC, 125VTD, HFP, MISC, GFR, TSH, A1C, LIPID #### [address] [address] #### FOL, PROL, B12, T4, T3 #### [address] [address] FOLon 01-03-2023 Folate 9.27 ng/mL Normal 5.38-24.00 [facility] ([place]) Comment on above: Performed By: #### C MP, ADIFF, ANEU, CBC, 125VTD, HFP, MISC, GFR, TSH, A1C, LIPID #### [address] [address] #### FOL, PROL, B12, T4, T3 #### [place] [address] HFPon 01-03-2023 Bili Indirect Unable to Calculate Normal [facility] ([place]) Comment on above: Result Comment: Unab le to calculate this test result accurately. Results used to calculate this test are outside the reportable range. Performed By: #### C MP, ADIFF, ANEU, CBC, 125VTD, HFP, MISC, GFR, TSH, A1C, LIPID #### [address] [address] #### FOL, PROL, B12, T4, T3 #### [place] [address] Bili Direct <0.1 Normal 0.0-0.2 [facility] ([place]) Comment on above: Result Comment: Use of this assay is not recommended for patients undergoing treatment with eltrombopag due to the potential for falsely elevated results. Performed By: #### C MP, ADIFF, ANEU, CBC, 125VTD, HFP, MISC, GFR, TSH, A1C, LIPID #### [place] [id number] #### FOL, PROL, B12, T4, T3 #### [place] [address] LABORATORYOrdered By: Sy Banks on 01-03-2023 Basophil, [...] 01-03-2023 Cholesterol [Mass/Vol] 154 mg/dL Normal 0-200 [facility] ([place]) Comment on above: Result Comment: Chol esterol Reference Interval: Less than 200 Desirable 200-239 Borderline high risk 240 and above High risk Performed By: #### C MP, ADIFF, ANEU, CBC, 125VTD, HFP, MISC, GFR, TSH, A1C, LIPID #### [address] [address] #### FOL, PROL, B12, T4, T3 #### [address] [address] Cholesterol in HDL [Mass/Vol] 50 mg/dL Normal 40-60 [facility] ([place]) Comment on above: Performed By: #### C MP, ADIFF, ANEU, CBC, 125VTD, HFP, MISC, GFR, TSH, A1C, LIPID #### [address] [address] #### FOL, PROL, B12, T4, T3 #### [address] [address] Cholesterol in LDL [Mass/Vol] 87 mg/dL Normal 0-130 [facility] ([place]) Comment on above: Performed By: #### C MP, ADIFF, ANEU, CBC, 125VTD, HFP, MISC, GFR, TSH, A1C, LIPID #### [address] [address] #### FOL, PROL, B12, T4, T3 #### [address] [address] Triglyceride [Mass/Vol] 85 mg/dL Normal 0-150 A [facility] ([place]) Comment on above: Result Comment: Trig lyceride Reference Interval: Less than 150 Normal 150-199 Borderline high risk 200-499 High risk 500 or higher Very high risk Performed By: #### C MP, ADIFF, ANEU, CBC, 125VTD, HFP, MISC, GFR, TSH, A1C, LIPID #### [address] [address] #### FOL, PROL, B12, T4, T3 #### [address] [address] Laboratory - Chemistry and C hemistry - [...] PROLon 01-03-2023 Prolactin 9.2 ng/mL Normal 2.0-30.0 [facility] ([place]) Comment on above: Performed By: #### C MP, ADIFF, ANEU, CBC, 125VTD, HFP, MISC, GFR, TSH, A1C, LIPID #### [address] [address] #### FOL, PROL, B12, T4, T3 #### [address] [address] T3on 01-03-2023 Total T3 164 ng/dL Normal 60-181 [facility] ([place]) Comment on above: Performed By: #### C MP, ADIFF, ANEU, CBC, 125VTD, HFP, MISC, GFR, TSH, A1C, LIPID #### [address] [address] #### FOL, PROL, B12, T4, T3 #### [address] [address] T4on 01-03-2023 T4 [Mass/Vol] 10.6 ug/dL Normal 4.5-10.9 [facility] ([place]) Comment on above: Result Comment: No te - New Reference Range in effect 20 Performed By: #### C MP, ADIFF, ANEU, CBC, 125VTD, HFP, MISC, GFR, TSH, A1C, LIPID #### [address] [address] #### FOL, PROL, B12, T4, T3 #### [address] [address] LABORATORYOrdered By: Kena quiroz on 07-18-2022 Glucose [Mass/Vol] 74 mg/dL Invalid Interpretation Code 70 - 110 mg/dL [facility] Work Phone: LABORATORYOrdered By: SYSTEM SYSTEM on 07-18-2022 Basophils (Bld) [#/Vol] 0.0 103/mcL Invalid Interpretation Code 0.0 - 0.3 10^3/mcL Workflow SS Basophils/100 WBC (Bld) 0.8 % Invalid Interpretation Code 0.0 - 2.5 % AH Workflow SS Calcium [Mass/Vol] 8.7 mg/dL Invalid Interpretation Code 8.7 - 10.4 mg/dL ADM SS Chloride [Moles/Vol] 109 mmol/L Invalid Interpretation Code 98 - 110 mEq/L ADM SS CO2 [Moles/Vol] 22 mmol/L Invalid Interpretation Code 22 - 32 mEq/L ADM SS Creatinine [Mass/Vol] 0.69 mg/dL Invalid Interpretation Code 0.50 - 1.20 mg/dL ADM SS Electrolyte Balance 10.0 mEq/L Invalid Interpretation Code 4.0 - 15.0 mEq/L ADM SS Eosinophils (Bld) [#/Vol] 0.2 103/mcL Invali d Interpretation Code 0.0 - 0.7 10^3/mcL AH Workflow SS Eosinophils/100 WBC (Bld) 4.2 % Invali d Interpretation Code 0.0 - 6.0 % AH Workflow SS Erythrocyte distribution width (RBC) [Ratio] 15.4 % Invalid Interpretation Code 11.5 - 15.5 % AH Workflow SS GFR/1.73 sq M.predicted among blacks [...] Invalid Interpretation Code 12.0 - 16.0 G/dL AH Workflow SS Lymphocytes (Bld) [#/Vol] 1.6 103/mcL Invali d Interpretation Code 0.9 - 4.3 10^3/mcL Workflow SS Lymphocytes/100 WBC (Bld) 32.9 % Invali d Interpretation Code 20.0 - 40.0 % AH Workflow SS MCH (RBC) [Entitic mass] 29.3 pg Invalid Interpretation Code 27.0 - 33.0 pg AH Workflow SS MCHC 34.0 G/dL Invalid Interpretation Code 32.0 - 36.0 G/dL AH Workflow SS MCV (RBC) [Entitic vol] 86.4 fL Invalid Interpretation Code 80.0 - 99.0 fL Workflow SS Monocytes (Bld) [#/Vol] 0.4 103/mcL Invalid Interpretation Code 0.1 - 1.4 10^3/mcL AH Workflow SS Monocytes/100 WBC (Bld) 9.4 % Invalid Interpretation Code 2.0 - 13.0 % AH Workflow SS Neutrophils (Bld) [#/Vol] 2.5 103/mcL Invali d Interpretation Code 2.3 - 8.1 10^3/mcL AH Workflow SS Neutrophils/100 WBC (Bld) 52.7 % Invali d Interpretation Code 50.0 - 75.0 % AH Workflow SS Platelet mean volume (Bld) [Entitic [...] CNOV Office Visit (FAMMAS ) SUZIE ALEXANDRE ([id number]) 1990 F Date Time Provider Department 04/07/22 3:00 PM YUSEF MERCADO During your visit today, we recorded the following information about you: Temperature Pulse Respiration Blood pressure 98.4 degrees 92/minute 14/minute 132/94 Weight Height 75.1 kg 1.664 m Yusef Mercado APRN.QUALITY CHECKER 04/07/2022 4:41 PM Signed - Begin daily GI probiotic and daily fiber supplement - Stay hydrated - Complete labs both blood and stool tests - Begin taking omeprazole 20mg daily - Avoid irritating foods - Follow up in 1 month - Go to ER if symptoms worsen or do not improve in next several days Yusef Mercado APRN.QUALITY CHECKER 04/08/2022 7:52 AM Signed This note was created using [facility]. Subjective Suzie Alexandre is a 31 year [...] - FECAL OCCULT BLOOD TEST Yusef Mercado, GISELLA.QUALITY CHECKER Referring Provider: SELF [200] Allergies As of Date: 04/07/2022 Noted Allergy Reaction BACTRIM (SULFAMETHOXAZOLE-TRIM ETH*07/16/2009 8 - GI Upset DEPAKOTE (DIVALPROEX) 09/15/2009 1 - Mental Status Change IMITREX (SUMATRIPTAN) 07/16/2009 11 - Vomiting KEFLEX (CEPHALEXIN) 07/10/2014 11 - Vomiting TRILEPTAL (CARBAMAZEPINE ANALOGUE*07/16/2009 11 - Vomiting VICODIN (HYDROCODONE-ACETAMINO PHE*07/16/2009 11 - Vomiting Date Reviewed: 04/07/2022 Reviewed by: Lolita (more content not included)... 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 Pediatric Cardiology referral recommended. [facility] I spent 30 minutes in patient care and consultation. Normal [facility] CULTURE URINEon 06-07-2021 CULTURE URINE CULTURE URINE --> Status: F No growth (<1,000 CFU/ml). Normal [facility] Comment on above: Performed By: #### C /UR #### [facility] [address] [place] [phone] Culture, UrineOrdered By: Sera Soares on 06-07-2021 Bacteria identified Cx Nom (U) No growth (<1,000 CFU/ml). [facility] Work Phone: Test Performed by [facility], [address] [place] [address] [facility] Work Phone: [facility] Work Phone: Glucose,Bedsideon 06-07-2021 Glucose [Mass/Vol] 136 mg/dL High 70-100 [facility] Comment on above: Result Comment: Test performed by glucose meter. Results may be 10%-15% lower than serum/plasma values. (CLIA ID [id number]) Performed By: #### B GLU #### [facility] [address] [place] [phone] POCT GlucoseOrdered By: Arlin Cash on 06-07-2021 Glucose [Mass/Vol] 136 mg/dL High 70 - 100 mg/dL [facility] Work Phone: Comment on above: Test performed by gl ucose meter. Results may be 10%-15% lower than serum/plasma values. (CLIA ID [id number]) Interpretation and review of laboratory results Abnormal [facility] Work Phone: Test Performed by [facility], [address] [place] [id number] [employer] Work Phone: [facility] Work Phone: C. Trachomatis / N. Gonorrho eae, DNAOrdered By: Geoff Soares on 06-06-2021 C. trachomatis DNA PJ+probe Ql (Genital specimen) NOT Detected Chlamydia trachomatis Nucleic Acid NOT Detected by DNA Amplification using the [employer] System. Culture is the only recommended test in medical-legal cases such as suspected child abuse or molestation. [facility] Work Phone: N. gonorrhoeae DNA PJ+probe Ql (Unsp spec) NOT Detected Neisseria gonorrhoeae Nucleic Acid NOT Detected by DNA Amplification using the [employer] System. Culture is the only recommended test in medical-legal cases such as suspected child abuse or molestation. [facility] Work Phone: 1 Test Performed by [facility], [address] [place] [address] [facility] Work Phone: [facility] Work Phone: CBCOrdered By: Geoff Soraes on 06-06-2021 Hematocrit (Bld) [Volume fraction] 26.6 % Low 35.0 - 47.0 % [facility] Phone: Hemoglobin.gastrointestin al spec 1 Ql (Stl) 8.3 g/dL Low 11.7 - 16.0 g/dL [facility] Phone: Interpretation and review of laboratory results Abnormal [facility] Phone: MCH (RBC) [Entitic mass] 20.9 pg Low 26. 0 - 34.0 pg [facility] Work Phone: MCHC (RBC) [Mass/Vol] 31.1 % Low 32.0 - 36.0 % [facility] Phone: MCV (RBC) [Entitic vol] 67.3 fL Low 79.0 - 98.0 fL [facility] Phone: Platelet distribution width (Bld) [Ratio] 20.3 % High 11.5 - 14.5 % [facility] Phone: Platelet mean volume (Bld) [Entitic vol] 8.5 fL 7.4 - 10.4 fL [employer] Phone: Platelets (Bld) [#/Vol] 245 10*3/uL 140 - 440 10*3/uL [facility] Work Phone: RBC (Bld) [#/Vol] 3.95 10*6/uL 3.80 - 5.2 0 10*6/uL [facility] Work Phone: 222 WBC (Bld) [#/Vol] 17.3 10*3/uL High 3.6 - 10.7 10*3/uL [facility] Work Phone: Test Performed by [facility] elicit [facility], [address] [place] [address] [facility] Work Phone: [phone] [facility] Work Phone: Chlamydia and GC PCR Panelon 06-06-2021 Chlamydia and GC PCR Panel Chlamydia trachomatis PCR --> Status: F NOT Detected Chlamydia trachomatis Nucleic Acid NOT Detected by DNA Amplification using the [employer] System. Culture is the only recommended test in medical-legal cases such as suspected child abuse or molestation. Chlamydia trachomatis Nucleic Acid NOT Detected by DNA Amplification using the Cepheid System. Culture is the only recommended test in medical-legal cases such as suspected child abuse or molestation. Neisseria gonorrhoeae PCR --> Status: F NOT Detected Neisseria gonorrhoeae Nucleic Acid NOT Detected by DNA Amplification using the Cepheid System. Culture is the only recommended test in medical-legal cases such as suspected child abuse or molestation. Neisseria gonorrhoeae Nucleic Acid NOT Detected by DNA Amplification using the [employer] System. Culture is the only recommended test in medical-legal cases such as suspected child abuse or molestation. Normal [facility] Comment on above: Performed By: #### C TNGP #### [address] Hemogramon 06-06-2021 Erythrocyte distribution width (RBC) [Ratio] 20.3 % High 11.5-14.5 [facility] Comment on above: Performed By: #### H EMOG #### [facility] [employer] [address] [place] [address] Hematocrit (Bld) [Volume fraction] 26.6 % Low 35.0-47.0 [facility] Comment on above: Performed By: #### H EMOG #### [address] Hemoglobin (Bld) [Mass/Vol] 8.3 g/dL Low 11.7-16.0 [facility] Comment on above: Performed By: #### H EMOG #### [facility] [address], [place] MCH (RBC) [Entitic mass] 20.9 pg Low 26.0-34.0 [facility] Comment on above: Performed By: #### H EMOG #### [facility] [address], [place] MCHC 31.1 % Low 32.0-36.0 [facility] Comment on above: Performed By: #### H EMOG #### [facility] [address], [place] MCV (RBC) [Entitic vol] 67.3 fL Low 79.0-98.0 [facility] Comment on above: Performed By: #### H EMOG #### [place] [address] [address], [place] Platelet mean volume (Bld) [Entitic vol] 8.5 fL Normal 7.4-10.4 [facility] Comment on above: Performed By: #### H EMOG #### [place] [address] [address], [place] Platelets (Bld) [#/Vol] 245 10*3/uL Normal 140-440 [facility] Comment on above: Performed By: #### H EMOG #### [place] [address] [address], [place] RBC (Bld) [#/Vol] 3.95 10*6/uL Normal 3.80-5.20 [facility] Comment on above: Performed By: #### H EMOG #### [place] [address] [address], [place] WBC (Bld) [#/Vol] 17.3 10*3/uL High 3.6-10.7 [facility] Comment on above: Performed By: #### H EMOG #### [facility] [address], [place] TS GELon 06-06-2021 TS GEL ABO Group: A Rh, Gel: POS Antibody Screen Gel: NEG Normal [facility] Comment on above: Performed By: #### T SGL #### [facility] TYPE AND SCREENOrdered By: Damir Soares on 06-06-2021 ABO Grouping A [facility] Work Phone: Rh Type Positive [facility] Work Phone: [phone] Test Performed by [facility], [address] [place] [address] [facility] Work Phone: [phone] [facility] Work Phone: [phone] Trichomonas Vaginali, Molecu larOrdered By: Geoff Soares on 06-06-2021 Trichomonas Vaginali, Molecular NOT Detected Reference Interval: Not Detected Method: Real-time PCR. Negative results do not completely rule out infection with Trichomonas vaginalis. [facility] Work Phone: Test Performed by [facility], [address] [place] [address] [facility] Work Phone: [facility] Work Phone: Trichomonas vaginalis PCRon 06-06-2021 Trichomonas vaginalis PCR Trichomonas va ginalis PCR --> Status: F NOT Detected Reference Interval: Not Detected Method: Real-time PCR. Negative results do not completely rule out infection with Trichomonas vaginalis. Reference Interval: Not Detected Method: Real-time PCR. Negative results do not completely rule out infection with Trichomonas vaginalis. Normal [facility] Comment on above: Performed By: #### T VPCR #### [facility] [address] [place] [phone] [id number] 02-11-2021 SARS-CoV-2 (COVID-19) RNA PJ+probe Ql (Unsp spec) Negative Normal Negative [facility] Comment on above: Result Comment: Nega tive results do not preclude SARS-CoV-2 infection and should not be used as the sole basis for patient management decisions. Negative results must be combined with clinical observations, patient history, and epidemiological information. Performed By: #### L [phone] #### [facility] [address] [place] [address] ABO, External ResultOrdered By: Historical Provider on 02-01-2021 ABO, External Result A [facility] Work Phone: HIV, External ResultOrdered By: Historical Provider on 02-01-2021 HIV, External Result Negative [facility] Work Phone: Hepatitis B, External Result Ordered By: Historical Provider on 02-01-2021 Hep B, External Result Non-Reactive [facility] Work Phone: Hepatitis C Antibody, Urologic Surgeon al ResultOrdered By: Historical Provider on 02-01-2021 [...] MABEL DONOVAN MD Date: 08/04/2020 9:20 AM [facility] CUSTOMER ADVISOR SPECIALIST - Office Visiton 06-02 CUSTOMER ADVISOR SPECIALIST - Office Visit Chief Complaint PATIENT HERE [...] 1 TABLET 3 TIMES DAILY NEEDED; Therapy: [id number] to (Evaluate:[id number]); Last Rx:[id number] Ordered Rx By: Mirna Pat; Dispense: 7 [...] Jun 18 2020 3:32PM EST (Author) Normal [employer] CUSTOMER ADVISOR SPECIALIST - Office Visiton 06-02 CUSTOMER ADVISOR SPECIALIST - Office Visit Chief Complaint Patient here for pain (7) and bleeding after surgery. Surgery date 06/05/2020. History of Present Hqoczja19 yo who presents for problem visit s/p [...] exam (V72.63) (Z01.812) Vitals Vital Signs Recorded: [id number] 01:48PM Heart Tbdi463 Raqtcqgi672 Qdznbywqt04 Height5 ft 6 in Gqwiwz318 lb 6 oz BMI Tujgouznyb93.21 BSA Calculated1.83 Tobacco Usea) Yes Patient encouraged [...] Jun 11 2020 2:39PM EST (Author) [facility] CBCon 06-05-2020 Erythrocyte distribution width (RBC) [Ratio] 15.1 % High 11.5 - 14.5 [facility] Comment on above: Performed By: #### C BC #### [address] [address] Hematocrit (Bld) [Volume fraction] 40.8 % Normal 36.0 - 46.0 [facility] Comment on above: Performed By: #### C BC #### [address] [address] Hemoglobin (Bld) [Mass/Vol] 12.6 g/dL Normal 12.0 - 16.0 [facility] Comment on above: Performed By: #### C BC #### [address] [address] MCHC (RBC) [Mass/Vol] 30.9 g/dL Low 32.0 - 36.0 [facility] Comment on above: Performed By: #### C BC #### [address] [address] MCV (RBC) [Entitic vol] 85 fL Normal 80 - 100 [facility] Comment on above: Performed By: #### C BC #### [address] [address] Nucleated RBC/100 WBC (Bld) [Ratio] 0.0 /100 WBC Normal 0.0 - 0.0 [facility] Comment on above: Performed By: #### C BC #### [address] [address] Platelets (Bld) [#/Vol] 264 10*3/uL Normal 150 - 450 [facility] Comment on above: Performed By: #### C BC #### [address] [address] RBC (Bld) [#/Vol] 4.78 x10E12/L Normal 4.00 - 5.20 [facility] Comment on above: Performed By: #### C BC #### [address] [place] [address] WBC (Bld) [#/Vol] 7.6 10*3/uL Normal 4.4 - 11.3 [facility] Comment on above: Performed By: #### C BC #### [address] [place] [address] HCG,BETA-QUANTITATIVEon HCG,BETA-QUANTITATIVE <2 Normal [facility] Comment on above: Result Comment: Low- level [...] HCG measurement is performed using the [employer] Access Immunoassay which detects intact HCG and free beta HCG subunit. This test is not indicated for use as a tumor marker. HCG testing is performed using a different test methodology at [facility] than other [facility]. Direct result comparison should only be made within the same method. REF VALUES NON FEMALE <5 MALES <5 Performed By: #### H CGQU #### [address] [place] [address] History and Physicalon 06-05 History and Physical [...] the note. I personally evaluated the patient [id number] Attending Provider Inpatient Certification StatementI certify this [...] Profile - Preop v2 05-Jun-2020 07:00 Normal [facility] History and Physical This report has bee n cancelled. Normal [facility] History and Physical - Surge ry > 30 dayson 06-05-2020 History and Physical - Surgery > 30 days This report has been cancelled. Normal [facility] History and Physical - Surgery > 30 [...] PMH: MDD PSH: Tubal ligation via modified [place] Social: smokes 1 ppd Allergies None Home Medication Review: Home Medications Reviewed: yes Impression/Procedure: Impression and Planned Procedure: History of modified [place] tubal ligation. Desires tubal reversal. Plan to [...] the note. I personally evaluated the patient [id number] Electronic Signatures: Mirna Pat (Fellow)) (Signed 04-Jun-2020 15:54) Authored: History of Present Illness, Home Medication Review, Impression/Procedure, Physical Exam, Consent, Signatures/Attestation El Gomez) (Signed 05-Jun-2020 12:13) Authored: Signatures/Attestation Co-Signer: History of Present Illness, Home Medication Review, Impression/Procedure, Physical Exam, Consent, Signatures/Attestation Last Updated: 05-Jun-2020 12:13 by El Gomez) [facility] Patient Profile - Preop v2on 06-05-2020 Patient Profile - Preop v2 Profile: Initial Info: How to be Addressedbridgette Spoken Language PreferredEnglish Source of Informationpatient; family Are you currently using the Personal Electronic Health Record or MYUHCAREno Are you interested in learning more about MYCARE for the management of your healthdeclined Stated Reason for Admissiontubal reversal Primary Contact Name and Numbersherry mother [phone] Limitations on Visitors/Phone Callsnone Patient Belongingsremains with patient Patient Belongings Remaining with Patientclothing; phone to mother Medications Brought to Hospitalno General Health: Weight in kg72.3 kilogram(s) Weight in gca744.3 pound(s) Weight Methodstated Height in feet5 feet [...] child(kayce); significant other Resource/Environmental Concernsnone Anticipated Transition [place] [facility] Anticipated at Transitionnone Substance: Current or [...] instruction; individual instruction Cultural Considerationsnone Developmental Considerationsnone Catholic Considerationsnone Other learner availableno [place] RiskPatient location auto qualifies him/her for HIGH RISK. Are there any cultural, spiritual, bahai practices/values/needs that are important for us to [...] Surgery > 30 days 05-Jun-2020 00:00 Normal [facility] Preop Checkliston 06-05-2020 Preop Checklist Preop Checklist: Preop Checklist: Arrival [id number] Arrival Time06:25 Procedure Typetubal anastomosis Temperature C36.4 degrees C Temperature F97.5 degrees F Heart Jlhw670 beats per minute Respiratory Rate18 breath per minute Blood Pressure Lfjrxxpg886 mm/Hg Blood Pressure Klvzalnwd45 mm/Hg NPO [id number] 07:00 NPO Commentlast solids 9/3 ID Band Onyes Allergy Bandyes Consent Signedyes [...] 05-Jun-2020 07:34 by Nenita Pickering (ILDA) Normal [facility] TYPE + SCREENon 06-05-2020 ABO TYPE A Normal [facility] Comment on above: Performed By: #### T +S #### [place] [address] RH TYPE Positive Normal [facility] Comment on above: Performed By: #### T +S #### [place] [address] CORONAVIRUS 2019, SCREEN ASY MPTOMATICon 06-03-2020 CORONAVIRUS 2019,PCR NOT DETECTED Normal Not Detected [facility] Comment on above: Result Comment: [...] patient management decisions. Fact sheet for providers: https://www.fda.gov/media/894290/download Fact sheet for patients: https://www.fda.gov/media/421392/download This test has received FDA Emergency Use Authorization (EUA) and has been verified by [facility] ([facility]). This test is only authorized for the duration of time that circumstances exist to justify the authorization of the emergency use of in vitro diagnostic tests for the detection of SARS-CoV-2 virus and/or diagnosis of COVID-19 infection under section 564(b)(1) of the Act, 21 U.S.C. 360bbb-3(b)(1), unless the authorization is terminated or revoked sooner. [facility] is certified under CLIA-88 as qualified to perform high complexity testing. Testing is performed in the [facility] laboratories located at [address] [place] [address]. Performed By: #### C OVSC #### [place] [address] CORONAVIRUS 2019, SCREEN ASY MPTOMATICon 06-02-2020 Lab Specimen Source Nasal, Nasopharyngeal Normal [facility] Comment on above: Performed By: #### C OVSC #### [place] [address] COVID CCon 05-27-2020 SARS-CoV-2 (COVID-19) RNA PJ+probe Ql (Unsp spec) Negative Normal NEGATIVE [facility] Comment on above: Order Comment: COVID 19 SENT TO [facility] 05/23/20 1215 ELLI VERMA Result Comment: Test performed by PCR This test was developed and its performance characteristics determined by [facility] Laboratory [facility] [place]. This test has been authorized by FDA under and Emergency Use Authorization (EUA). This test has been validated in accordance with the FDA's Guidance Document Policy for Diagnostics Testing in Laboratories Certified to Perform High Complexity Testing under CLIA prior to Emergency use Authorization for Coronavirus Disease 2019 during the Public Health Emergency issued on November. Test performed by: [id number] [place] [id number] Otis Blackman III, M.D. Performed By: #### L [phone] #### [facility] [address] [facility]. [address] [phone] Vital Signs Date Time Vital Sign Value Performing Clinician Facility 05-13-2025 14:52-0400 Body height 165.1 cm Michelle Ashlyn DO Work Phone: 3(505)[phone] [place] [address] 05-13-2025 14:52-0400 Body mass index (BMI) [Ratio] 27.1 kg/m2 Michelle Ashlyn DO Work Phone: 2(808)[phone] [place] [address] 05-13-2025 14:52-0400 Body weight 74.02 kg Michelle Ashlyn DO Work Phone: 3(697)113-666092 [place] [address] 05-13-2025 14:52-0400 Diastolic blood pressure 87 mm[Hg] Michelle Ashlyn DO Work Phone: 7(556)[phone] [place] [address] 05-13-2025 14:52-0400 Systolic blood pressure 125 mm[Hg] Michelle Ashlyn DO Work Phone: 3(557)139-610692 [place] [address] 02-07-2025 09:37-0400 Body height 165.1 cm Michelle Ashlyn DO Work Phone: 0(974)[phone] [place] [address] 02-07-2025 09:37-0400 Body mass index (BMI) [Ratio] 26.1 kg/m2 Michelle Ashlyn DO Work Phone: 6(215)936-004692 [place] [address] 02-07-2025 09:37-0400 Body weight 71.21 kg Michelle Ashlyn DO Work Phone: 7(883)685-820892 [place] [address] 08-31-2024 10:36-0500 Body mass index (BMI) [Ratio] 25.22 kg/m2 Gavino Murphy APRN.QUALITY CHECKER Work Phone: [facility] 08-31-2024 10:36-0500 Body temperature 97.81 [degF] Gavino Murphy APRN.QUALITY CHECKER Work Phone: [facility] 08-31-2024 10:36-0500 Body weight 69.8 kg Gavino Murphy APRN.QUALITY CHECKER Work Phone: [facility] 08-31-2024 10:36-0500 Diastolic blood pressure 76 mm[Hg] Gavino Murphy APRN.QUALITY CHECKER Work Phone: [facility] 08-31-2024 10:36-0500 Heart rate 105 /min Gavino Murphy APRN.QUALITY CHECKER Work Phone: [facility] 08-31-2024 10:36-0500 Respiratory rate 18 /min Gavinoruben Murphy APRN.QUALITY CHECKER Work Phone: [facility] 08-31-2024 10:36-0500 SaO2% (BldA) [Mass fraction] 96 % Gavino Murphy APRN.QUALITY CHECKER Work Phone: [facility] 08-31-2024 10:36-0500 Systolic blood pressure 122 mm[Hg] Gavino Murphy COMPENSATION SUPERVISOR.QUALITY CHECKER Work Phone: [facility] 02-12-2024 09:27-0400 Body mass index (BMI) [Ratio] 26.55 kg/m2 Abril Penn-Ruy COMPENSATION SUPERVISOR.QUALITY CHECKER Work Phone: [facility] 02-12-2024 09:27-0400 Body temperature 98.2 [degF] Abril Mailer-Wood COMPENSATION SUPERVISOR.QUALITY CHECKER Work Phone: [facility] 02-12-2024 09:27-0400 Body weight 73.5 kg Abril Penn-Ruy COMPENSATION SUPERVISOR.QUALITY CHECKER Work Phone: [facility] 02-12-2024 09:27-0400 Diastolic blood pressure 64 mm[Hg] Abril Mailer-Ruy COMPENSATION SUPERVISOR.QUALITY CHECKER Work Phone: [facility] 02-12-2024 09:27-0400 Heart rate 90 /min Abril Praisler-Wood COMPENSATION SUPERVISOR.QUALITY CHECKER Work Phone: [facility] 02-12-2024 09:27-0400 Respiratory rate 16 /min Abril Praisler-Wood COMPENSATION SUPERVISOR.QUALITY CHECKER Work Phone: [facility] 02-12-2024 09:27-0400 SaO2% (BldA) [Mass fraction] 98 % Abril Mailer-Wood COMPENSATION SUPERVISOR.QUALITY CHECKER Work Phone: [facility] 02-12-2024 09:27-0400 Systolic blood pressure 110 mm[Hg] Abril Hernandez APRN.CNP Work Phone: [facility] 12-17-2023 08:54-0400 Body temperature 97.39 [degF] Jarrett Athy PA-C Work Phone: [facility] 12-17-2023 08:54-0400 Diastolic blood pressure 70 mm[Hg] Jarrett Athy PA-C Work Phone: [facility] 12-17-2023 08:54-0400 Heart rate 74 /min Jarrett Athy PA-C Work Phone: [facility] 12-17-2023 08:54-0400 Respiratory rate 16 /min Jarrett Athy PA-C Work Phone: [facility] 12-17-2023 08:54-0400 SaO2% (BldA) [Mass fraction] 98 % Jarrett Athy PA-C Work Phone: [facility] 12-17-2023 08:54-0400 Systolic blood pressure 122 mm[Hg] Jarrett Athy PA-C Work Phone: [facility] 07-18-2022 23:00-0400 Diastolic blood pressure 79 mm[Hg] DR GREG MC MD [facility] 07-18-2022 23:00-0400 Mean blood pressure 92 mm[Hg] DR GREG MC MD [facility] 07-18-2022 23:00-0400 Systolic blood pressure 119 mm[Hg] DR GREG MC MD [facility] 07-18-2022 22:53-0400 Body temperature 97.34 [degF] DR GREG MC MD [facility] 07-18-2022 22:53-0400 Diastolic Blood Pressure NBP [address] GREG MC MD [facility] 07-18-2022 22:53-0400 Heart rate 59 /min DR GREG MC MD [address] [place] [address] 07-18-2022 22:53-0400 Mean blood pressure 83 mm[Hg] DR GREG MC MD [address] [place] [address] 07-18-2022 22:53-0400 Respiratory rate 16 /min DR GREG MC MD [address] [place] [address] 07-18-2022 22:53-0400 Systolic Blood Pressure NBP [address] GREG MC MD [address] [place] [address] 07-18-2022 22:44-0400 Diastolic Blood Pressure NBP [address] GREG MC MD [address] [place] [address] 07-18-2022 22:44-0400 Heart rate 60 /min DR GREG MC MD [address] [place] [address] 07-18-2022 22:44-0400 Mean blood pressure 81 mm[Hg] DR GREG MC MD [address] [place] [address] 07-18-2022 22:44-0400 Systolic Blood Pressure NBP [address] GREG MC MD [address] [place] [address] 07-18-2022 22:28-0400 Body temperature 97.52 [degF] DR GREG MC MD [address] [place] [address] 07-18-2022 22:28-0400 Diastolic Blood Pressure NBP [address] GREG MC MD [address] [place] [address] 07-18-2022 22:28-0400 Heart rate 69 /min DR GREG MC MD [address] [place] [address] 07-18-2022 22:28-0400 Mean blood pressure 84 mm[Hg] DR GREG MC MD [facility] 07-18-2022 22:28-0400 Reason For Taking VItal Signs DR GREG MC MD [address] [place] [address] 07-18-2022 22:28-0400 Systolic Blood Pressure NBP [address] GREG MC MD [address] [place] [address] 07-18-2022 22:20-0400 Heart rate 68 /min DR GREG MC MD [address] [place] [address] 07-18-2022 15:18-0400 Body temperature 98.24 [degF] DR GREG MC MD [address] [place] [address] 07-18-2022 15:18-0400 Diastolic blood pressure 70 mm[Hg] DR GREG MC MD [address] [place] [address] 07-18-2022 15:18-0400 Heart rate 72 /min DR GREG MC MD [address] [place] [address] 07-18-2022 15:18-0400 Reason For Taking VItal Signs DR GREG MC MD [address] [place] [address] 07-18-2022 15:18-0400 Systolic blood pressure 110 mm[Hg] DR GREG MC MD [address] [place] [address] 07-18-2022 06:59-0400 Body temperature 98.06 [degF] DR GREG MC MD [address] [place] [address] 07-18-2022 06:59-0400 Diastolic blood pressure 73 mm[Hg] DR GREG MC MD [address] [place] [address] 07-18-2022 06:59-0400 Systolic blood pressure 107 mm[Hg] DR GREG MC MD [address] [place] [address] 07-18-2022 05:38-0400 Body weight 25.1 kg/m2 DR GREG MC MD [facility] 07-17-2022 22:08-0400 Mean blood pressure 77 mm[Hg] DR GREG MC MD [facility] 07-17-2022 22:08-0400 Reason For Taking VItal Signs DR GREG MC MD [facility] 07-17-2022 21:43-0400 Body height 167.[address] GREG MC MD [facility] 07-17-2022 21:43-0400 Body weight 70.[address] GREG MC MD [facility] 07-17-2022 21:43-0400 Body weight 25.1 kg/m2 DR GREG MC MD [facility] 07-17-2022 16:30-0400 Diastolic blood pressure 78 mm[Hg] MEGHAN TURK DO [facility] 07-17-2022 16:30-0400 Heart rate 80 /min MEGHAN TURK DO [facility] 07-17-2022 16:30-0400 Mean blood pressure 87 mm[Hg] MEGHAN TURK DO [facility] 07-17-2022 16:30-0400 Respiratory rate 16 /min MEGHAN TURK DO [facility] 07-17-2022 16:30-0400 Systolic blood pressure 106 mm[Hg] MEGHAN TURK DO [facility] 07-17-2022 15:06-0400 Body temperature 97.7 [degF] MEGHAN TURK DO [facility] 07-17-2022 15:06-0400 Diastolic blood pressure 100 mm[Hg] MEGHAN TURK DO [facility] 07-17-2022 15:06-0400 Heart rate 100 /min MEGHAN TUKR DO [facility] 07-17-2022 15:06-0400 Mean blood pressure 113 mm[Hg] MEGHAN TURK DO [facility] 07-17-2022 15:06-0400 Respiratory rate 16 /min MEGHAN TURK DO [facility] 07-17-2022 15:06-0400 Systolic blood pressure 139 mm[Hg] MEGHAN TURK DO [facility] 07-16-2022 09:03-0400 Diastolic blood pressure 80 mm[Hg] KALPANA MOJICA MD [facility] 07-16-2022 09:03-0400 Heart rate 82 /min KALPANA MOJICA MD [facility] 07-16-2022 09:03-0400 Mean blood pressure 96 mm[Hg] KALPANA MOJCIA MD [facility] 07-16-2022 09:03-0400 Respiratory rate 16 /min KALPANA MOJICA MD [facility] 07-16-2022 09:03-0400 Systolic blood pressure 128 mm[Hg] KALPANA MOJICA MD [facility] 07-16-2022 07:33-0400 Body temperature 97.52 [degF] KALPANA MOJICA MD [facility] 07-16-2022 07:33-0400 Diastolic blood pressure 88 mm[Hg] KALPANA MOJICA MD [facility] 07-16-2022 07:33-0400 Heart rate 90 /min KALPANA MOJICA MD [facility] 07-16-2022 07:33-0400 Mean blood pressure 104 mm[Hg] KALPANA MOJICA MD [facility] 07-16-2022 07:33-0400 Respiratory rate 16 /min KALPANA MOJICA MD [facility] 07-16-2022 07:33-0400 Systolic blood pressure 136 mm[Hg] KALPANA MOJICA MD [facility] 06-07-2021 04:37-0400 Body temperature 98.01 [degF] Johnathon [...] 165.1 cm Johnathon Mcnair MD Work Phone: [employer] Work Phone: 06-06-2021 07:28-0400 Body mass index (BMI) [Ratio] 32.28 kg/m2 Johnathon Mcnair MD Work Phone: [facility] Work Phone: 06-06-2021 07:28-040 Body weight 88 kg Johnathon Mcnair MD Work Phone: [facility] Work Phone: Encounters Encounter Date Encounter Type Care Provider Facility Start: 07-02-2025 ambulatory No Primary Car e Physician Facility:[facility] Start: 06-24-2025 ambulatory No Primary Car e Physician Facility:[facility] Start: 06-20-2025 End: 06-20-2025 ambulatory No Primary Care Physician Facility:[facility] Start: 06-16-2025 ambulatory Sandy Ferreira PRODUCT SCIENTIST Facil ity:[facility] Start: 05-13-2025 End: 05-13-2025 Patient encounter procedure Sandy Ferreira PRODUCT SCIENTIST-C -[facility] Work Phone: Start: 05-13-2025 End: 05-13-2025 ambulatory Michelel Goldberg DO Work Phone: -[facility] Start: 04-05-2025 End: 04-05-2025 Emergency department patient visit DONNY YVONNE DO [facility] Start: 03-31-2025 End: 03-31-2025 Emergency department patient visit DONNY RUSSELL DO [facility] Start: 03-12-2025 End: 03-12-2025 ambulatory Michelle Gonzaleser DO Work Phone: [facility] Work Phone: Start: 03-12-2025 End: 03-12-[address] Poonam Reilly MD -Laboratory Work Phone: Start: 03-11-2025 End: 03-12-2025 ambulatory Michelle Ashlyn DO Work Phone: [facility] Work Phone: Start: 03-11-2025 End: 03-11-[address] Poonam Reilly MD -Ultrasound [facility] Work Phone: Start: 03-10-2025 End: 03-11-2025 ambulatory Michelle Ashlyn DO Work Phone: [facility] Work Phone: Start: 03-10-2025 End: 03-10-2025 Patient encounter procedure Elli Ramirez CNM -Laboratory Work Phone: Start: 03-10-2025 End: 03-10-2025 ambulatory No Primary Care Physician Facility:[facility] Start: 03-07-2025 End: 03-07-2025 ambulatory Michelle Ashlyn DO Work Phone: [facility] Work Phone: Start: 03-07-2025 End: 03-07-[address] Poonam Reilly MD -Laboratory Work Phone: Start: 03-07-2025 End: 03-07-2025 ambulatory No Primary Care Physician Facility:[facility] Start: 03-05-2025 End: 03-05-2025 ambulatory Michelle Ashlyn DO Work Phone: [facility] Work Phone: Start: 03-05-2025 End: 03-05-2025 Patient encounter procedure Elli Ramirez CNM -Laboratory Work Phone: Start: 03-05-2025 End: 03-05-2025 ambulatory Michelle Ashlyn VSC Facility:[facility] Start: 03-03-2025 End: 03-03-2025 ambulatory Michelle Ashlyn DO Work Phone: [facility] Work Phone: Start: 03-03-2025 End: 03-03-2025 Patient encounter procedure Elli Ramirez CNM -Laboratory Work Phone: Start: 03-03-2025 End: 03-03-2025 ambulatory Michelle Goldberg VS Facility:[facility] Start: 02-14-2025 ambulatory Michelle Siunger [facility] Faci lity:[facility] Start: 02-07-2025 End: 02-07-2025 Patient encounter procedure Ana DELEON -[facility] Work Phone: Start: 02-07-2025 End: 02-07-2025 ambulatory Michelle Gonzaleser [facility] Facility:[facility] Start: 11-29-2024 End: 11-29-2024 ambulatory Michelle Goldberg DO Work Phone: [facility] Work Phone: Start: 11-29-2024 End: 11-29-2024 Patient encounter procedure Michelle Goldberg DO -Laboratory, [place] Work Phone: Start: 11-29-2024 End: 11-29-2024 ambulatory Michelle Goldberg [facility] Facility:[facility] Start: 08-31-2024 End: 08-31-2024 Subsequent hospital visit by physician Kimberly [facility] Work Phone: Radiology Comment on above: Acute cough [R05.1] Start: 08-31-2024 End: 08-31-2024 ambulatory LACI SINGH Facility:[facility] Start: 08-31-2024 End: 08-31-2024 Patient encounter procedure Gavino Murphy APRN.QUALITY CHECKER Work Phone: [facility] Comment on above: Acute cough (Primary Dx) Start: 02-12-2024 End: 02-12-2024 Subsequent hospital visit by physician Kimberly [facility] Work Phone: Radiology Comment on above: Injury of left shoul chirag, initial encounter [S49.92XA] Start: 02-12-2024 End: 02-12-2024 ambulatory LACI SINGH Facility:[facility] Start: 02-12-2024 End: 02-12-2024 Patient encounter procedure Abril Mary COMPENSATION SUPERVISOR.QUALITY CHECKER Work Phone: [facility] Comment on above: Injury of left shoul chirag, initial encounter (Primary Dx); Fall, initial encounter Start: 12-17-2023 End: 12-17-2023 ambulatory LACI SINGH Facility:[facility] Start: 12-17-2023 End: 12-17-2023 Patient encounter procedure Jarrett Levi PA-C Work Phone: [facility] Comment on above: Acute non-recurrent maxillary sinusitis (Primary Dx) Start: 09-11-2023 End: 09-12-2023 ambulatory LATIA TAVAREZ COMPENSATION SUPERVISOR-QUALITY CHECKER Facility:A Start: 09-04-2023 End: 09-05-2023 ambulatory LATIA TAVAREZ COMPENSATION SUPERVISOR-QUALITY CHECKER Facility:A Start: 01-03-2023 End: 01-04-[address] LACI SINGH MD Facility:B Start: 01-03-2023 End: 01-03-2023 Patient encounter procedure LISSY BAXTER [facility] Start: 09-08-2022 Patient encounter procedure [facility]cf Provider [facility] Start: 07-18-2022 Patient encounter procedure [facility] Provider [facility] Start: 07-17-2022 End: 07-18-[address] GREG MC MD [facility] Start: 07-17-2022 End: 07-17-2022 Emergency department patient visit MEGHAN TURK DO [facility] Start: 07-16-2022 End: 07-16-2022 Emergency department patient visit KALPANA MOJICA MD [facility] Start: 06-06-2021 End: 06-07-2021 Evaluation and management of inpatient Johnathon Mcnair MD Work Phone: [facility] Start: 08-04-2020 End: 08-05-2020 Patient encounter procedure LACI CAT [facility] Start: 09-27-2012 End: 01-04-2013 Patient requested procedure Abril Hernandez COMPENSATION SUPERVISOR.QUALITY CHECKER Work Phone: [facility] Start: 05-20-2010 End: 11-24-2011 Patient encounter status Abril SalazarLang COMPENSATION SUPERVISOR.QUALITY CHECKER Work Phone: [facility] Procedures Date Procedure Procedure Detail Performing Clinician Start: 03-11-2025 Transvaginal obstetr ic ultrasonography Michelle Goldberg DO Work Phone: Start: 02-07-2025 X-ray of cervical spine Michelle Ashlyn DO Work Phone: Start: 02-07-2025 X-ray of lumbosacral spine Michelle Ashlyn DO Work Phone: Start: 11-29-2024 X-ray scoliosis surv ey, single view Michelle Ashlyn DO Work Phone: Start: 11-29-2024 Total iron binding c apacity measurement Michelle Ashlyn DO Work Phone: Start: 08-31-2024 Radiologic exam ches t 2 views Gavino Murphy APRN.QUALITY CHECKER Work Phone: Start: 02-12-2024 Radex shoulder compl ete minimum 2 views Abril Hernandez APRN.QUALITY CHECKER Work Phone: Start: 08-05-2022 Ureteroscopy LISSY PAR K Start: 07-18-2022 Cystoscopy LISSY PAR K Start: 06-07-2021 Gluc bld gluc mntr d ev cleared [...] Hi lucasical Provider Start: 02-01-2021 HEPATITIS B, EXTERNAL RESULT Historical Provider Start: 02-01-2021 HEPATITIS C ANTIBODY , EXTERNAL RESULT Historical Provider Start: 02-01-2021 HIV, EXTERNAL RESULT Hi lucasical Provider Start: 02-01-2021 RH FACTOR, EXTERNAL RESULT Historical Provider Start: 02-01-2021 RPR, EXTERNAL RESULT Hi storical Provider Start: 02-01-2021 RUBELLA TITER, EXTER NAL RESULT Historical Provider Start: 06-05-2020 Antibody screen Comment on above: Performed By: #### T +S #### [facility] [address] [place] [address] section LISSY BAXTER In vitro fertilization DENISSE BAXTER Ligation of fallopian tube A FARZAD BAXTER Open reversal of fem leigha sterilization LISSY BAXTER Stent, device (physi jorge object) LISSY BAXTER Comment on above: 08-05-22 Plan of Treatment Date Care Activity Detail Author Start: 2053 Pneumococcal 0-64 ye ars Vaccine (2 of 2 - PPSV23) Pneumococcal 0-64 years Vaccine (2 of 2 - PPSV23) [facility] Work Phone: Start: 05-28-2031 DTaP/Tdap/Td vaccine (5 - Td or Tdap) DTaP/Tdap/Td vaccine (5 - Td or Tdap) [facility] Work Phone: Start: 05-28-2031 Urine microalbumin profile DTaP,Tdap,Td Vaccine (6 - Td or Tdap) [facility] Start: 04-18-2026 Urine microalbumin profile DTAP,TDAP,TD (4 - Td or Tdap) [facility] Start: 02-07-2025 Patient referral [facility] Work Phone: Start: 06-02-2024 Covid-19 Vaccine ( season) Covid-19 Vaccine () [facility] Start: 06-02-2024 Covid-19 Vaccine ( season) Covid-19 Vaccine ( season) [facility] Start: 06-02-2024 Influenza vaccination C [facility] Start: 10-02-2023 Behavioral Health Screening Behavioral Health Screening [facility] Start: 10-02-2023 Depression Assessment Depression Ass essment [facility] Start: 06-02-2023 Covid-19 Vaccine ( season) Covid-19 Vaccine ( season) [facility] Start: 06-02-2023 Influenza vaccination Influenza Vacc ine (#1) [facility] Start: 06-02-2022 Influenza vaccination INFLUENZA (#1) [facility] Start: 10-02-2021 DEPRESSION ASSESSMENT DEPRESSION ASS ESSMENT [facility] Start: 06-02-2021 Influenza vaccination Flu vaccine (# 1) [facility] Work Phone: Start: 2018 HPV TESTING HPV TESTING [facility] Start: 2018 Screening for malign ant neoplasm of cervix HPV Testing [facility] Start: 10-09-2018 PAP TESTING PAP TESTING [facility] Start: 10-09-2018 Screening for malign ant neoplasm of cervix [facility] Start: 05-13-2015 Pneumococcal vaccination Pneum ococcal Vaccine (2 of 2 - PCV) [facility] Start: 2009 Screening for malign ant neoplasm of cervix Cervical cancer screen [facility] Work Phone: Start: 2007 Hepatitis B Vaccine (1 of 3 - 19+ 3-dose series) Hepatitis B Vaccine (1 of 3 - 19+ 3-dose series) [facility] Start: 2006 Depression Screening Depression Scre ening [facility] Start: 2006 HEPATITIS C SCREENING HEPATITIS C [facility] Start: 2006 Hepatitis C screening Hepatitis C [facility] Start: 2003 HIV screening HIV screen [facility] Work Phone: Start: 2000 COVID-19 Vaccine (1) COVID-19 Vaccin e (1) [facility] Work Phone: Start: 1994 PNEUMOCOCCAL (1 - PCV) PNEUMOCOCCAL (1 - PCV) [facility] Start: 1989 Varicella vaccine (1 of 2 - 2-dose childhood series) Varicella vaccine (1 of 2 - 2-dose childhood series) [facility] Work Phone: Start: 05-14-1989 COVID-19 VACCINE (#1) COVID-19 VACCI NE (#1) [facility] Start: 1988 HEPATITIS B (1 of 3 - 3-dose series) HEPATITIS B (1 of 3 - 3-dose series) [facility] Start: 1988 Hepatitis C screening Hepatitis C [facility] Work Phone: Glucose [Mass/volume ] in [...] Comment on above: As directed - RT (SD N) until discontinued starting 06/06/2021 Patient referral [facility] Work Phone: TYPE AND SCREEN TYPE AND SCREEN Blood Bank Routine Every Third Day until discontinued starting 06/06/2021, 1 completed [facility] Work Phone: Comment on above: Every Third Day unti l discontinued starting 06/06/2021, 1 completed Immunizations Immunization Date Immunization Notes Care Provider Gloria perea 05-28-2021 tetanus toxoid, redu sonia diphtheria toxoid, and acellular pertussis vaccine, adsorbed LISSY BAXTER [facility] 04-18-2016 tetanus toxoid, redu sonia diphtheria toxoid, and acellular pertussis vaccine, adsorbed [facility] Provider [facility] 05-13-2014 pneumococcal polysaccharide vaccine, 23 valent LISSY BAXTER [facility] 05-13-2014 pneumococcal vaccine , unspecified formulation Michelle Goldberg DO Work Phone: [facility] 03-28-2014 tetanus toxoid, redu sonia diphtheria toxoid, and acellular pertussis vaccine, adsorbed [facility] Provider [facility] 07-02-2013 Influenza virus vaccine Eagle Goldberg DO Work Phone: [facility] 07-02-2013 influenza virus vacc ine, unspecified formulation Jarrett Levi PA-C Work Phone: [facility] 02-20-2013 tetanus toxoid, redu sonia diphtheria toxoid, and acellular pertussis vaccine, adsorbed [facility] Provider [facility] Work Phone: 08-18-2011 influenza virus vacc ine, unspecified formulation [facility] Provider [facility] Work Phone: Payers Date Payer Category Payer Self-pay 2022 Medicaid [employer] [facility] MEDICAID [id number] 2022-Present [phone] [address] [place] [address] Medicaid [id number] 2022 Medicare [employer] [facility] MEDICARE [id number] 2022-Present [phone] [address] [place] [address] Medicare [id number] 2022 Medicaid [id number] 2022 Unknown [id number] 2015 Private Health Insurance [id number] 1988 Unknown [id number]. 598 1988 Unknown [id number] [id number]. 627 1988 Unknown [id number] [id number]. 627 1988 Unknown [id number] 2.840.1.916233.3.579.2. 627 1988 Unknown [id number] .[id number]. 627 1988 Unknown [id number] 2.840.1.898349.3.579.2. 627 1959 Medicare [id number] 1959 Unknown [id number] Unknown [id number] [id number]. 462 Unknown [id number] 2.840.1.993292.3.579.2. 462 Unknown [id number] .[id number]. 462 Unknown [id number] .840.1.008294.3.579.2. 462 Unknown [id number] [id number]. 462 Unknown [id number] [id number]. 89 Unknown [id number] 462 Unknown [id number] 462 Unknown [id number] 462 Unknown [id number] 462 Unknown [id number] 462 Unknown [id number] 462 Unknown [id number] 462 Unknown [id number] 462 Unknown [id number] 462 Social History Date Type Detail Facility Start: 06-06-2021 End: 06-10-2022 Tobacco smoking status RIIS Current every day smoker [facility] Work Phone: History of tobacco use Cigarette Smoker [facility] Start: 06-06-2021 End: 10-18-2022 Cigarettes smoked current (pack per day) - Reported [facility] Work Phone: Start: 06-06-2021 End: 02-12-2024 Tobacco use and exposure Never used [facility] Start: 06-06-2021 Alcohol intake Ex-drinker (finding) [facility] Phone: Start: 11-29-2020 [facility] Work Phone: Start: 1990 Sex Assigned At Not on file [facility] Work Phone: Exposure to SARS-CoV -2 (event) Not sure [facility] Start: 09-27-2020 End: 07-29-2022 Tobacco smoking status Heavy tobacco smoker (finding) [facility] Start: 1990 Sex Assigned At Female A [facility] Start: 04-08-2022 End: 08-31-2024 Alcohol intake Current non-drinker of alcohol (finding) [facility] Start: 05-12-2016 End: 02-12-2024 Tobacco Comment Vapo [facility] Start: 10-18-2022 End: 10-14-2023 Tobacco use panel [facility] National Score (1-10 0), lower number is lower risk 85 [facility] Start: 09-05-2013 Rare Rare [facility] Start: 01-17-2021 Spouse/ Significant Other Spouse/ Significant Other [facility] Start: 09-05-2013 Cigarettes Cigarettes [facility] Start: 06-29-2019 End: 12-12-2024 Sex Female (finding) [facility] Sexual Orientation [facility] Functional Status Date Assessment Result Facility 07-18-2022 Functional Status [facility] 07-18-2022 Functional Status [facility] 07-18-2022 Functional Status [facility] 07-18-2022 Functional Status [facility] 07-18-2022 Functional Status Multilevel home [facility] 07-18-2022 Functional Status [facility] 07-18-2022 Functional Status bilateral knee high [facility] 07-18-2022 Functional Status [facility] 07-17-2022 Functional Status [facility] 07-17-2022 Functional Status Standard Safet y ID band on, Allergy Band on, Call device within reach, Bed in low position, Wheels locked, Upper/Half-Length side-rails up, Phone within reach, personal items within reach [facility] 07-16-2022 Functional Status Independent [facility] 07-16-2022 Functional Status Standard Safet y ID band on, Allergy Band on, Call device within reach, Bed in low position, Wheels locked, Upper/Half-Length side-rails up, Phone within reach, personal items within reach, Bedside Cart Locked, Visitor at bedside [facility] Mental Status Date Assessment Result Facility 07-18-2022 Mental Status Oriented x [facility] 07-18-2022 [facility] 07[facility]22 [facility] 07[facility]17-2022 Mental Status Orientation Oriented x 4 [facility] 07-16-2022 Mental Status Orientation Oriented x 4 [facility] 07-16-2022 [facility] Clinical Notes 10-14-2019 to 04-05-2025 Note Date & Type Note Facility 04-05-2025 Hospital Discharg e instructions Patient Education 04/05/2025 03:31:38 Diet for Vomiting or Diarrhea (Adult) Diet for Vomiting or Diarrhea (Adult) Your symptoms may return or get worse after eating certain foods listed below. If this happens, stop eating these foods until your symptoms ease and you feel better. Once the vomiting stops, follow the steps below. During the first 12 to 24 hours During the first 12 to 24 hours, follow this diet: Drinks. Plain water, sport drinks like electrolyte solutions, soft drinks without caffeine, mineral water (plain or flavored), clear fruit juices, and decaffeinated tea and coffee. Soups. Clear broth. Desserts. Plain gelatin, popsicles, and fruit juice bars. As you feel better, you may add 6 to 8 ounces of yogurt per day. If you have diarrhea, don't have foods or drinks that contain sugar, high-fructose corn syrup, or sugar alcohols. During the next 24 hours During the next 24 hours you may add the following to the above: Hot cereal, plain toast, bread, rolls, and crackers Plain noodles, rice, mashed potatoes, and chicken noodle or rice soup Unsweetened canned fruit (but not pineapple) and bananas Don't eat more than 15 grams of fat a day. Do this by staying away from margarine, butter, oils, mayonnaise, sauces, gravies, fried foods, peanut butter, meat, poultry, and fish. Don't eat much fiber. Stay away from raw or cooked vegetables, fresh fruits (except bananas), and bran cereals. Limit how much caffeine and chocolate you have. Do not use any spices or seasonings except salt. During the next 24 hours Slowly go back to your normal diet, as you feel better and your symptoms ease. [id number] [employer]. [address] [place] [address]. All rights reserved. This information is not intended as a substitute for professional medical care. Always follow your healthcare professional's instructions. Follow Up Care 04/05/2025 03:05:11 With:Go to emergency room if symptoms worsen Address:Unknown When:2-4 days With:LACI SINGH MD Address: [address], [place] [id number] [phone] When:2-4 days [facility] 04-05-2025 Note Discharge Instructions Thank you for allowing [facility] to assist you with your healthcare needs. The following is important discharge information regarding your hospital visit. Diagnosis from Today's Visit Dehydration Gastroenteritis Vomiting and diarrhea What to Do Next Instructions from Your Care Team Please take Zofran for nausea and vomiting symptoms. You are also prescribed dicyclomine or Bentyl for abdominal cramping symptoms. Get plenty of fluids and rest. Stick to a clear liquid diet for the first 24 hours and slowly advance as tolerated to more bland solids including crackers or bland noodles. Return to the emergency department for any acute worsening symptoms or concerns otherwise follow-up with PCP within the next week for repeat assessment. Your magnesium was slightly low on labs here, please discuss this with pcp as they may want to recheck labs this week. No qualifying data available. Post Acute Orders No qualifying data available. You Need to Schedule the Following Appointments Follow Up with Go to emergency room if symptoms worsen When:Within 2-4 days Follow Up with LACI SINGH MD When:Within 2-4 days Where:[address] [place] [address] [phone] Allergies Bactrim (Mild) Depakote Imitrex Vicodin Medications Please ask your primary doctor or pharmacist before taking any other medication not listed, including over the counter drugs, herbal medications, vitamins and or supplements as they may interact with your home medications. What How Much When Why Instructions Last Dose New dicyclomine (dicyclomine 10 mg oral capsule) 1 cap by mouth Four (4) times a day Duration: 7 Days Printed Prescription New ondansetron (ondansetron 4 mg oral tablet, disintegrating) 1 tab(s) by mouth Every 6 hours as needed for Nausea/Vomiting Gastroenteritis Vomiting and diarrhea Printed Prescription Unchanged albuterol (albuterol MDI (90 mcg/ inh) CFC free inhalation aerosol) 1 puff(s) by inhalation Every 6 hours as needed for as needed for wheezing Bronchitis Unchanged clonazePAM (clonazePAM 1 mg oral tablet) 1 tab(s) by mouth Three (3) times a day as needed for Anxiety Unchanged FLUoxetine (FLUoxetine 20 mg oral capsule) 1 cap by mouth Once a day Unchanged hydrOXYzine (Vistaril 50 mg oral capsule) 1 cap by mouth Four (4) times a day as needed for as needed for anxiety Please take this list to your next doctor s visit. Bring all medications you take, including over the counter medications, herbals and other supplements with you to your doctor s visit. Patients and families are reminded to discard old lists and to update any records with all medication providers or retail pharmacies. Education Materials Diet for Vomiting or Diarrhea (Adult) Your symptoms may return or get worse after eating certain foods listed below. If this happens, stop eating these foods until your symptoms ease and you feel better. Once the vomiting stops, follow the steps below. During the first 12 to 24 hours During the first 12 to 24 hours, follow this diet: Drinks. Plain water, sport drinks like electrolyte solutions, soft drinks without caffeine, mineral water (plain or flavored), clear fruit juices, and decaffeinated tea and coffee. Soups. Clear broth. Desserts. Plain gelatin, popsicles, and fruit juice bars. As you feel better, you may add 6 to 8 ounces of yogurt per day. If you have diarrhea, don't have foods or drinks that contain sugar, high-fructose corn syrup, or sugar alcohols. During the next 24 hours During the next 24 hours you may add the following to the above: Hot cereal, plain toast, bread, rolls, and crackers Plain noodles, rice, mashed potatoes, and chicken noodle or rice soup Unsweetened canned fruit (but not pineapple) and bananas Don't eat more than 15 grams of fat a day. Do this by staying away from margarine, butter, oils, mayonnaise, sauces, gravies, fried foods, peanut butter, meat, poultry, and fish. Don't eat much fiber. Stay away from raw or cooked vegetables, fresh fruits (except bananas), and bran cereals. Limit how much caffeine and chocolate you have. Do not use any spices or seasonings except salt. During the next 24 hours Slowly go back to your normal diet, as you feel better and your symptoms ease. [id number] [employer]. [address] [place] [address], [place] [address]. All rights reserved. This information is not intended as a substitute for professional medical care. Always follow your healthcare professional's instructions. Additional Information VACCINATE! IT SAVES LIVES! Members of the community who have not yet received the COVID-19 vaccine and would like to receive it can visit one of [facility] vaccine clinics. There are many vaccine clinic locations within the [facility]. For locations and available times, please visit [email or web address] [email or web address] It is important to note that some COVID mobile vaccine clinics are held outdoors and may be canceled in rainy or stormy conditions. To learn more about pediatric vaccinations (ages 5-11), we invite you to visit the [facility] webpage. [email or web address]/p [email or web address]-Akhxtpifnrg-Freq [email or web address]-[email or web address] To learn more about the COVID-19 vaccine, we invite you to visit the CDC website for a list of frequently asked questions. https://www.cdc.gov/coronavirus/ 2019-ncov/vaccines/faq.html [facility] Patient Portal Access Instructions: Stay connected with your healthcare team and access your personal medical information anytime with the [facility] Patient Portal. If you would like a full copy of your medical records please contact the [facility] Medical Records Department Monday through Monday between 8a.m. and 4:30p.m. Please follow the directions below to access the portal: 1.Access the email account you provided upon registration to the hospital.2.Look for an invitation email from [facility].3.Open the email and access the invitation link: Accept Invitation to [facility]4.Fill in the required brandon to create your account. Sign into [email or web address] with your username and password that you [...] you will allow to register on the [facility] Patient Portal for access to your information. You can also access the [facility] Patient Portal on the [employer] javier. Simply click on Health Records under Health Data and then click on the [employer] logo. HOW TO SAFELY DISPOSE OF PRESCRIPTION MEDICATIONS Please use one of the following methods to safely dispose of your unused medications. 1.Use a drug disposal kit: the drug disposal pouch allows you to safely discard your old and unused drugs. Ask your nurse to give you one when you are discharged.2.Visit a local take-back location: Many local pharmacies and police departments have programs that collect old and unwanted prescription drugs. Call your local pharmacy or go to http://[address]/4V4Ll5r to find one close to you.3.Make use of household items: Use cat litter or old coffee grounds to dispose medications if other options are not available. Mix your drugs with these household products, seal them in an airtight container and throw it into the garbage. Call [facility]: [phone] to be sure your drugs can be [...] a CHART COPY Signatures Patient Education Materials Diet for Vomiting or Diarrhea (Adult) Medication Leaflets My discharge plan and instructions have been reviewed and explained to me and I,SUZIE ALEXANDRE understand my current condition and have read and understand these discharge instructions. I have received a written copy of the plan/instructions. If I have questions, I am aware that I should contact my doctor. Patient/Tie Presser Signature: Date/Time: Relationship to Patient: Witness Name/Signature: Date/Time: [facility] 03-31-2025 Hospital Discharg e instructions Patient Education 03/31/2025 17:07:52 Panic Attack Panic Attack A panic attack is an extreme fear reaction that comes on for no clear reason. There is often a fear that something terrible will happen or that you may . The attack may last a few minutes up to a few hours. Between attacks, things will seem quite normal. This condition has a psychological cause and can be treated with the help of a therapist or psychiatrist. Medicine can be very helpful for this problem. Panic attacks usually come on suddenly, reaches a peak within minutes, and includes at least 4 of these symptoms: Palpitations, pounding heart, or accelerated heart rate Sweating Chills or heat sensations Trembling or shaking Sensations of shortness of breath or smothering Feelings of choking Chest pain or discomfort Nausea or abdominal distress Feeling dizzy, unsteady, light-headed, or faint Numbness or tingling sensations Fear of dying Fear of going crazy or of losing control Feelings of unreality, strangeness, or detachment from the environment Many of these symptoms can be linked to physical problems, so it is sometimes necessary to rule out conditions like thyroid disorders, heart disease, gastrointestinal problems, and others. They can also start as physical symptoms, but psychologically we may react to them in a fearful way, worsening the way we react and feel. Home care Try to find the sources of stress in your life. They may not be obvious. These may include: oDaily hassles of life which pile up (traffic jams, missed appointments, car troubles). oMajor life changes, both good (new baby, job promotion) and bad (loss of job, loss of loved one). oFeeling that you have too many responsibilities and can't take care of everything at once. oHelplessness: feeling like your problems are too much for you to handle. Notice how your body reacts to stress. Learn to listen to your body signals so that you can take action before the stress becomes severe. Try to be aware of what you were doing before the reaction started; this may give you clues to things that can trigger a reaction. It may be situations in your life, or what you were doing at the time. When possible, avoid or reduce the cause of stress. Avoid hassles, limit the amount of change that is happening in your life at one time or take a break when you feel overloaded. Unfortunately, you can't stay away from many stressful situations. So you need to learn how to manage stress better. Many proven methods will reduce your anxiety. These include simple things like exercise, good nutrition, and adequate rest. Also, there are certain techniques that are helpful: relaxation and breathing exercises, visualization, biofeedback, meditation, or simply taking time-out to clear your mind. For more information about this, ask your doctor or go to a local bookstore and review the many books and tapes available on this subject. Follow-up care Follow-up with your healthcare provider, or as advised. Call 911 Call 911 if you: Have suicidal thoughts, a suicide plan, and the means to carry out the plan Have serious thoughts of hurting someone else Have trouble breathing Are very confused Feel very drowsy or have trouble awakening Faint or lose consciousness Have new chest pain that becomes more severe, lasts longer, or spreads into your shoulder, arm, neck, jaw, or back Have a very rapid or irregular heartbeat Have a seizure When to seek medical advice Call your healthcare provider right away if any of these occur: Worsening of your symptoms to the point of feeling [id number] Feeling that you may try to harm yourself or another Can't sleep or eat for 3 days in a row Increased pain with breathing Increasing feeling of weakness or dizziness Cough with dark colored sputum (phlegm) or blood Fever of 100.4 F (38 C) or higher, or as directed by your healthcare provider Swelling, pain, or redness in one leg Requests by family or friends for you to seek help for your symptoms [phone] [employer]. [address] [place] [address], [place] [phone]. All rights reserved. This information is not intended as a substitute for professional medical care. Always follow your healthcare professional's instructions. Follow Up Care 03/31/2025 15:17:15 With:Go to emergency room if symptoms worsen Address:Unknown When:2-4 days With:LACI SINGH MD Address: [address] [place] [phone] When:2-4 days [facility] 03-31-2025 Note Discharge Instructions Thank you for allowing [facility] to assist you with your healthcare needs. The following is important discharge information regarding your hospital visit. Diagnosis from Today's Visit Panic attack What to Do Next Instructions from Your Care Team Please continue to take your Vistaril as needed for anxiety symptoms in addition to your other medications prescribed to you for your depression. Please follow closely with your counselor. If you experience any acute worsening symptoms or concerns return to the emergency department for more emergent evaluation otherwise follow-up with your PCP in the next week for repeat assessment. No qualifying data available. Post Acute Orders No qualifying data available. You Need to Schedule the Following Appointments Follow Up with Go to emergency room if symptoms worsen When:Within 2-4 days Follow Up with LACI SINGH MD When:Within 2-4 days [facility] [facility] [place] [phone] Allergies Bactrim (Mild) Depakote Imitrex Vicodin Medications Please ask your primary doctor or pharmacist before taking any other medication not listed, including over the counter drugs, herbal medications, vitamins and or supplements as they may interact with your home medications. What How Much When Why Instructions Last Dose Unchanged albuterol (albuterol MDI (90 mcg/ inh) CFC free inhalation aerosol) 1 puff(s) by inhalation Every 6 hours as needed for as needed for wheezing Bronchitis Unchanged clonazePAM (clonazePAM 1 mg oral tablet) 1 tab(s) by mouth Three (3) times a day as needed for Anxiety Unchanged FLUoxetine (FLUoxetine 20 mg oral capsule) 1 cap by mouth Once a day Unchanged hydrOXYzine (Vistaril 50 mg oral capsule) 1 cap by mouth Four (4) times a day as needed for as needed for anxiety Please take this list to your next doctor s visit. Bring all medications you take, including over the counter medications, herbals and other supplements with you to your doctor s visit. Patients and families are reminded to discard old lists and to update any records with all medication providers or retail pharmacies. Education Materials Panic Attack A panic attack is an extreme fear reaction that comes on for no clear reason. There is often a fear that something terrible will happen or that you may . The attack may last a few minutes up to a few hours. Between attacks, things will seem quite normal. This condition has a psychological cause and can be treated with the help of a therapist or psychiatrist. Medicine can be very helpful for this problem. Panic attacks usually come on suddenly, reaches a peak within minutes, and includes at least 4 of these symptoms: Palpitations, pounding heart, or accelerated heart rate Sweating Chills or heat sensations Trembling or shaking Sensations of shortness of breath or smothering Feelings of choking Chest pain or discomfort Nausea or abdominal distress Feeling dizzy, unsteady, light-headed, or faint Numbness or tingling sensations Fear of dying Fear of going crazy or of losing control Feelings of unreality, strangeness, or detachment from the environment Many of these symptoms can be linked to physical problems, so it is sometimes necessary to rule out conditions like thyroid disorders, heart disease, gastrointestinal problems, and others. They can also start as physical symptoms, but psychologically we may react to them in a fearful way, worsening the way we react and feel. Home care Try to find the sources of stress in your life. They may not be obvious. These may include: oDaily hassles of life which pile up (traffic jams, missed appointments, car troubles). oMajor life changes, both good (new baby, job promotion) and bad (loss of job, loss of loved one). oFeeling that you have too many responsibilities and can't take care of everything at once. oHelplessness: feeling like your problems are too much for you to handle. Notice how your body reacts to stress. Learn to listen to your body signals so that you can take action before the stress becomes severe. Try to be aware of what you were doing before the reaction started; this may give you clues to things that can trigger a reaction. It may be situations in your life, or what you were doing at the time. When possible, avoid or reduce the cause of stress. Avoid hassles, limit the amount of change that is happening in your life at one time or take a break when you feel overloaded. Unfortunately, you can't stay away from many stressful situations. So you need to learn how to manage stress better. Many proven methods will reduce your anxiety. These include simple things like exercise, good nutrition, and adequate rest. Also, there are certain techniques that are helpful: relaxation and breathing exercises, visualization, biofeedback, meditation, or simply taking time-out to clear your mind. For more information about this, ask your doctor or go to a local bookstore and review the many books and tapes available on this subject. Follow-up care Follow-up with your healthcare provider, or as advised. Call 911 Call 911 if you: Have suicidal thoughts, a suicide plan, and the means to carry out the plan Have serious thoughts of hurting someone else Have trouble breathing Are very confused Feel very drowsy or have trouble awakening Faint or lose consciousness Have new chest pain that becomes more severe, lasts longer, or spreads into your shoulder, arm, neck, jaw, or back Have a very rapid or irregular heartbeat Have a seizure When to seek medical advice Call your healthcare provider right away if any of these occur: Worsening of your symptoms to the point of feeling [id number] Feeling that you may try to harm yourself or another Can't sleep or eat for 3 days in a row Increased pain with breathing Increasing feeling of weakness or dizziness Cough with dark colored sputum (phlegm) or blood Fever of 100.4 F (38 C) or higher, or as directed by your healthcare provider Swelling, pain, or redness in one leg Requests by family or friends for you to seek help for your symptoms [id number] [employer]. [address] [place] [address]. All rights reserved. This information is not intended as a substitute for professional medical care. Always follow your healthcare professional's instructions. Additional Information VACCINATE! IT SAVES LIVES! Members of the community who have not yet received the COVID-19 vaccine and would like to receive it can visit one of [facility] vaccine clinics. There are many vaccine clinic locations within the [facility]. For locations and available times, please visit www.gettheshot.coronavirus.[place]. gov/. It is important to note that some COVID mobile vaccine clinics are held outdoors and may be canceled in rainy or stormy conditions. To learn more about pediatric vaccinations (ages 5-11), we invite you to visit the [facility] webpage. https://www.akronEdoomes.org/p ages/7954-Mjstg-Jrwvednguvt-Freq fpqhlz-Xdgjw-Lzmwdbkjj.html To learn more about the COVID-19 vaccine, we invite you to visit the CDC website for a list of frequently asked questions. https://www.cdc.gov/coronavirus/ 2019-ncov/vaccines/faq.html [facility] Patient Portal Access Instructions: Stay connected with your healthcare team and access your personal medical information anytime with the [facility] Patient Portal. If you would like a full copy of your medical records please contact the [facility] Medical Records Department Monday through Monday between 8a.m. and 4:30p.m. Please follow the directions below to access the portal: 1.Access the email account you provided upon registration to the [facility].2.Look for an invitation email from [facility].3.Open the email and access the invitation link: Accept Invitation to [facility]4.Fill in the required brandon to create your account. Sign into [email or web address] with your username and password that you [...] you will allow to register on the [facility] Patient Portal for access to your information. You can also access the [facility] Patient Portal on the ActiveSec. Simply click on Health Records under Health Data and then click on the Movatu logo. HOW TO SAFELY DISPOSE OF PRESCRIPTION MEDICATIONS Please use one of the following methods to safely dispose of your unused medications. 1.Use a drug disposal kit: the drug disposal pouch allows you to safely discard your old and unused drugs. Ask your nurse to give you one when you are discharged.2.Visit a local take-back location: Many local pharmacies and police departments have programs that collect old and unwanted prescription drugs. Call your local pharmacy or go to http://[employer].Crispify/9R0Xj0q to find one close to you.3.Make use of household items: Use cat litter or old coffee grounds to dispose medications if other options are not available. Mix your drugs with these household products, seal them in an airtight container and throw it into the garbage. Call [facility]: [phone] to be sure your drugs can be [...] a CHART COPY Signatures Patient Education Materials Panic Attack Medication Leaflets My discharge plan and instructions have been reviewed and explained to me and I,SUZIE ALEXANDRE understand my current condition and have read and understand these discharge instructions. I have received a written copy of the plan/instructions. If I have questions, I am aware that I should contact my doctor. Patient/Tie Presser Signature: Date/Time: Relationship to Patient: Witness Name/Signature: Date/Time: [facility] 03-31-2025 Note Exam Date Time Procedure Performing Provider Status 03/31/25 4:18 PM EKG [ED AOH] - CV DONNY RUSSELL DO; (Verified) ECG Final Report Sinus rhythm Low voltage, precordial leads Baseline wander in lead(s) I,II,aVR,aVF Electronic Signature: DONNY RUSSELL DO 03/31/2025 17:02:23 [facility]06-11-2025 Radiology Diagnostic study note [facility] Imaging Services [address] [place], [place] [address] Transvaginal w/Preg US MR#: [id number] Acct: [id number] Name: SUZIE ALEXANDRE Rep #: [id number] : 1990 F 34 From: Ghassan Williamson MD PCP: Care Physician,No Primary Status: REG CLI Study:Transvaginal w/Preg US Date of Exam: 03/11/25 Exam# [id number] Ordering Dr: Poonam Gar MD PROCEDURE: TRANSVAGINAL W/PREG US 03/11/2025 REASON FOR EXAM: SPOTTING/RULE OUT ECTOPIC TECHNIQUE: Transvaginal sonographic technique. COMPARISON: None FINDINGS: Comments: LMP: January 26, 2025. Number of Gestational Sacs: 0 Number of Fetuses: Not visualized Yolk Sac: Not visualized Placenta: Presently not well-visualized Uterine Abnormalities: Endometrial thickening measuring 19 mm. Ovaries / Adnexa: Right ovary is unremarkable. The left ovary was not visualized. US/Transvaginal w/Preg US IMPRESSION: No intrauterine gestation is seen at this time. Endometrial thickening measuring 19 mm. Reading Location: [place] [address] CC: Dr. Poonam Reilly MD; No Primary Care Physician ~ Position Clerk: Signed [facility]05-09-2025 Evaluation note* Diagnosis Onset Date Resolution Status Admit Date Lumbar radiculopathy acute February 07, 2025 9:30am Scoliosis acute February 07, 2025 9:30am Neck pain noneactive February 07, 2025 9:30am [facility] Work Phone: 1(140) 805-119803-02-2025 Radiology Diagnostic study note [facility] Imaging Services [address] [place] [address] Scoliosis 1 view MR#: [id number] Acct: [id number] Name: SUZIE ALEXANDRE Rep #: [id number] : 1990 F 34 From: Sarah Larson MD PCP: Michelle Goldberg DO Status: REG CLI Study:Scoliosis 1 view Date of Exam: Exam# [id number] Ordering Dr: Sanna Goldberg [facility] DO PROCEDURE: SCOLIOSIS 1 VIEW REASON FOR EXAM: [...] THE THORACIC AND LUMBAR SPINE. Reading Location: [id number] CC: Michelle Goldberg, DO ~ Position Clerk: Signed [facility]11-30-2024 History of Present illness Narrative* Chencho Hill [...] PATIENT PRESENTS WITH AN IMPLANTABLE OR ATTACHED SHAKE FEEDER: No RADIOLOGY DEPARTMENT: General X-ray: Exam(s) Completed: Chest X-Ray PERIPHERAL IV DATA: Not applicable SIGNED BY: RT Carlo(Josue) August 31, 2024 11:16 AM [facility]24 NoteHNO ID: [id number] Author: CHENCHO HILL RT(R) Service: Radiology Author [...] PATIENT PRESENTS WITH AN IMPLANTABLE OR ATTACHED SHAKE FEEDER: No RADIOLOGY DEPARTMENT: General X-ray: Exam(s) Completed: Chest X-Ray PERIPHERAL IV DATA: Not applicable SIGNED BY: RT Carlo(R) August 31, 2024 11:16 [facility]11-30-2024 NoteHNO ID: [id number] Author: GAVINO MURPHY APRN.QUALITY CHECKER Service: ? Author Type: Nurse Practitioner Type: [...] SURGICAL HISTORY Procedure Laterality Date BREAST BIOPSY [id number] RIGHT COLPOSCOPY CERVIX UPPER/ADJACENT VAGINA Colposcopy PAST [...] pleural effusion. No p (more content not included)...[facility]11-30-2024 History of Present illness Narrative* Gavino Murphy APRN.[facility] - 08/31/2024 10:56 AM EST CC: Patient [...] SURGICAL HISTORY Procedure Laterality Date BREAST BIOPSY [id number] RIGHT COLPOSCOPY CERVIX UPPER/ADJACENT VAGINA Colposcopy PAST [...] Unremarkable exam with no acute radiographic abnormality. Position Clerk: MEGHAN Transcribe Date/Time: Aug 31 2024 11:23A Dictated by : CHELSY SUMMERS MD Believed to be viral at this time. Supportive care. Potential red flag symptoms discussed with the patient. Reviewed appropriate action plan to take if red flag symptoms occur. Patient agreeable to treatment plan. Gavino Murphy APRN.CHIKA documented in [facility]-13-2024 Instructions* Patient Instructions* Abril Hernandez APRN.CNP - 02/12/2024 10:37 AM EDT ASSESSMENT/PLAN: 1. Injury of left shoulder, initial encounter - ICD9: 959.2, ICD10: S49.92XA (primary diagnosis) - XR SHOULDER GENERAL 3V OR MORE AP/TRUE AP/OTHER LEFT FINDINGS: No acute fracture or dislocation identified. Acromioclavicular joint intact. IMPRESSION: No radiographic evidence of acute osseous injury Position Clerk: MEGHAN Transcribe Date/Time: Feb 12 2024 10:29A [...] Discussed expected course of illness Abril Hernandez APRN.QUALITY CHECKER documented in this [facility] History of Present illness Narrative* Chencho Hill [...] PATIENT PRESENTS WITH AN IMPLANTABLE OR ATTACHED SHAKE FEEDER: No RADIOLOGY DEPARTMENT: General X-ray: Exam(s) Completed: Upper Extremity X- Ray(s): Shoulder, AP / TRUE AP / AXILLARY left PERIPHERAL IV DATA: Not applicable SIGNED BY: RT Carlo(R) February 12, 2024 10:09 AM documented in this encounterK[facility]-13-2024 NoteHNO ID: [id number] Author: CHENCHO HILL RT(R) Service: Radiology Author [...] PATIENT PRESENTS WITH AN IMPLANTABLE OR ATTACHED SHAKE FEEDER: No RADIOLOGY DEPARTMENT: General X-ray: Exam(s) Completed: Upper Extremity X-Ray(s): Shoulder, AP / TRUE AP / AXILLARY left PERIPHERAL IV DATA: Not applicable SIGNED BY: RT Carlo(R) February 12, 2024 10:09 [facility]05-13-2024 NoteHNO ID: [id number] Author: ABRIL HERNANDEZ APRN.QUALITY CHECKER Service: ? Author Type: Nurse Practitioner Type: [...] SURGICAL HISTORY Procedure Laterality Date BREAST BIOPSY [id number] RIGHT COLPOSCOPY CERVIX UPPER/ADJACENT VAGINA Colposcopy PAST [...] No radiographic evidence of acute osseous injury Position Clerk: MEGHAN Transcribe Date/Time: Feb 12 2024 10:29A [...] Discussed expected course of illness Abril Hernandez APRN.[facility]05-13-2024 History of Present illness Narrative* Abril Hernandez APRN.QUALITY CHECKER - 02/12/2024 9:42 AM EDT Subjective Shoulder [...] SURGICAL HISTORY Procedure Laterality Date BREAST BIOPSY [id number] RIGHT COLPOSCOPY CERVIX UPPER/ADJACENT VAGINA Colposcopy PAST [...] No radiographic evidence of acute osseous injury Position Clerk: MEGHAN Transcribe Date/Time: Feb 12 2024 10:29A [...] Discussed expected course of illness Abril Hernandez APRN.QUALITY CHECKER documented in this encounterK[facility]03-17-2024 NoteHNO ID: [id number] Author: JARRETT LEVI PA-C Service: ? Author Type: Physician Senior Premium Auditor Type: Progress Notes Filed: 12/17/2023 09:19 Note Text: This note was created using UMMCriter. Subjective Suzie Alexandre is a 33 year [...] SURGICAL HISTORY Procedure Laterality Date BREAST BIOPSY [id number] RIGHT COLPOSCOPY CERVIX UPPER/ADJACENT VAGINA Colposcopy PAST [...] analgesia prn. - Follo (more content not included)...[facility]03-17-2024 History of Present illness Narrative* Jarrett Levi PA-C - 12/17/2023 9:17 AM EDT This note was created using NoteWriter. Subjective Suzie Alexandre is a 33 year [...] SURGICAL HISTORY Procedure Laterality Date BREAST BIOPSY [id number] RIGHT COLPOSCOPY CERVIX UPPER/ADJACENT VAGINA Colposcopy PAST [...] worsen. Jarrett Levi PA-C documented in this encounterK[facility]10-18-2022 Hospital Discharge instructions Patient Education 07/18/2022 22:32:00 [...] including vitamins, herbs, eye drops, creams, and crwd-aeo-biqiwut medicines. Any problems you or family members [...] 09/23/2014 Document Revised: 08/31/2018 Document Reviewed: 06/30/2017 [employer] Patient Education 2019 On[employer]ia. Follow Up Care 07/17/2022 21:29:49 With:CRISTIN TURNER MD, [facility] Address: [address] [place] [address] [address] [place] [address] [phone] When:08/01/2022 [facility] 10-17-2022 Nurse Progress note pt refused to sign AMA form stating that she was told by both Dr. Robin and Dr. Harper she would be discharged after her cystoscopy. Digitally Signed by Yesika Joshua RN on 07/18/2022 11:52 PM [facility] [id number] Anesthesiology Consult note Patient: SUZIE ALEXANDRE Age: [...] TORSTEN LARA MD on 07/18/2022 11:34 PM [facility] HospitalHiztnnxe85-96-2235 Note Discharge Instructions Thank you for allowing [facility] to assist you with your healthcare needs. [...] have frequency and urgency of urination, and tdjt-cgi-ownksyc acetaminophen and ibuprofen (or ketorolac) can be useful Follow Up Appointments Follow Up with CRISTIN TURNER MD, [facility] When In 2 weeks 08/01/2022 EDT Where: [address] [facility] [address] [facility] [place] [phone] The Following Activity and Diet Have Been [...] 12 hours Duration: 7 Days Pickup at [facility] 1811 Unchanged acetaminophen-hydrocodone (El Segundo 325- 5 mg oral tablet) 1 tab(s) by mouth Every 6 hours as needed for As needed for severe pain Renal colic Renal colic on left side Duration: 3 Days Pickup at [facility] 1812 Unchanged albuterol (albuterol MDI (90 mcg/ inh) [...] for as needed for sleep Pharmacy Information [facility] [address]: [address] [place] [id number] [phone] Please take this list to your next [...] including vitamins, herbs, eye drops, creams, and mndp-grt-goepvux medicines. Any problems you or family members [...] 09/23/2014 Document Revised: 08/31/2018 Document Reviewed: 06/30/2017 [employer] Patient Education 2020 [employer]ia. Additional Information VACCINATE! IT SAVES LIVES! Members of the community who have not yet received the COVID-19 vaccine and would like to receive it can visit one of [facility] vaccine clinics. There are many vaccine clinic locations within the [facility]. For locations and available times, please visit https://[email or web address]/. It is important to note that some COVID mobile vaccine clinics are held outdoors and may be canceled in rainy or stormy conditions. To learn more about pediatric vaccinations (ages 5-11), we invite you to visit the [facility] webpage. https://www.[facility].org/pages/3635-Oxceq-Qkjymdvjnjf-Cyellzafqt-Votut-Prg stions.htmlTo learn more about the COVID-19 vaccine, we invite you to visit the [facility] website for a list of frequently asked questions. [email or web address]/assets/Cdyvoefy-itq-Cftjbtjj/wxkzz-Niogkht-Kfkbyeoerd _Asked-Questions.pdf [facility] Patient Portal Access Instructions: Stay connected with your healthcare team and access your personal medical information anytime with the [facility] Patient Portal.If you would like a full copy of your medical records, please contact the [facility] Medical Records Department, Monday through Monday between 8a.m. and 4:30p.m. Please follow the directions below to access the portal: 1.Access the email account you provided upon registration to the hospital.2.Look for an invitation email from [facility].3.Open the email and access the invitation link: Accept Invitation to [facility]4.Fill in the required brandon to create your account. Sign into [email or web address] with your username and password that you [...] you will allow to register on the [facility] Patient Portal for access to your information. You can also access the [facility] Patient Portal on the ActiveSec. Simply click on Health Records under Hashtrackta and then click on the [employer] logo. HOW TO SAFELY DISPOSE OF PRESCRIPTION [...] Call your local pharmacy or go to http://[employer].Crispify/0E9Zp1a to find one close to you.3.Make use of household items: Use cat litter or old coffee grounds to dispose medications if other options arenot available. Mix your drugs with these household products, seal them in an airtight container andthrow it into the garbage. Call [facility]: [phone] to be sure your drugs can be [...] aware that I should contact my doctor. Patient/Tie Presser Signature: Date/Time: Relationship to Patient: Witness Name/Signature: Date/Time: [facility] [id number] Anesthesiology Consult note Patient: SUZIE ALEXANDRE Age: [...] Oral, Once, PRN: Migraine headache Prescriptions Prescribed El Segundo 325- 5 mg oral tablet: 1 tab(s), [...] (UPJ) due to stone / SNOMED CT 696369998 / Confirmed / SNOMED CT 907476846 / Confirmed Emesis / SNOMED CT 1722081251 / Confirmed, Active Problems (8) Anxiety Bipolar disorder Depression Emesis Migraine Obstruction of left ureteropelvic junction (UPJ) due to stone Tobacco use Histories Past Medical History: No active or resolved past medical history items have been selected or recorded. Procedure history: No active procedure history items have been selected or recorded. Social History Social & Psychosocial Habits Alcohol 01/30/2021isk Assessment: Denies Alcohol Use 04/27/2021 Use: Never [...] Weight 70.5 kg Weight Lbs 155.1 lb [place] Body Weight 59.26 kg Type of Scale [...] Documentation reviewed: Current records. Assessment and Plan [place] Society of Anesthesiologists (ASA) physical status classification: Class I. Anesthetic Preoperative Plan Premedication: intravenous. Anesthetic technique: MAC (GA as backup). Induction: intravenously. Maintenance airway: Mask. Postoperative pain management: Per surgeon. Risks discussed: nausea, vomiting, sore throat, dental injury. Informed consent: signed by patient. Digitally Signed by TORSTEN LARA MD on 07/18/2022 09:28 PM [facility] HospitalIcudatsw49-86-0003 Note Date of Service 07/18/22 Chief Complaint [...] GARETT ROBIN DO on 07/18/2022 09:46 AM [facility] [id number] History and physical note Date of Service 07/17/2022 Chief Complaint kidney stone, nausea and vomiting History of Present Illness 31-year-old female with a history of kidney stone, migraine, bipolar depression, and anxiety presents with left flank pain started suddenly earlier this morning sharp in quality progressive in severity comes and goes associated with nausea and vomiting so she went to [place] emergency department. In the emergency department UA [...] 120 mL/hr, Infuse over: 5 minute(s), 0, 07/17/22:03:00 EDT LORazepam, Start: 07/17/2203:00 EDT, Dose = 1 mg, = 1 tab(s), Oral, q4h, PRN, Anxiety, 07/17/2222:03:00 EDT melatonin, Start: 07/17/22:03:00 EDT, Dose = 3 mg, = 1 tab(s), Oral, qHS, PRN, Sleep, May repeatx 1 dose, 07/17/22 22:03:00 EDT melatonin, Start: 07/17/2203:00 EDT, Dose = 3 mg, = 1 tab(s), Oral, qHS, PRN, Sleep, May repeatx 1 dose, 07/17/22 22:03:00 EDT morphine, Start: 07/17/22:03:00 EDT, Dose = 4 mg, = 1 mL, IV Push, q3h, PRN, Pain, scale 7-10, 07/17/22 22:03:00 EDT nicotine, Start: 07/17/22 23:00:00 EDT, Dose = 1 patch(es), ER Film, Transdermal, q24h, 6 week(s), Stop: 08/27/22 23:00:00 EST, 07/17/22:42:00 EDT nicotine (Nicoderm Patch REMOVAL), Start: 07/18/22 23:00:00 EDT, q24h, 07/18/22:42:00 EDT nicotine (Nicoderm Patch REMOVAL), Start: 07/17/22:45:00 EDT, Once, 07/17/22:42:00 EDT ondansetron, Start: 07/17/22:03:00 EDT, Dose = 4 mg, = 2 mL, IV Push, q4h, PRN, Nausea/Vomiting,07/17/22 22:03:00 EDT OXcarbazepine, Start: 07/17/22 23:21:00 EDT, Dose = 600 mg, = 2 tab(s), Oral, BID, 07/17/22 23:21:00 EDT polyethylene glycol 3350, Start: 07/17/22:03:00 EDT, [...] 2 mg = 1 tab(s), Oral, qDay El Segundo 325- 5 mg oral tablet 1 tab(s), [...] TU FLYNN MD on 07/17/2022 11:39 PM [facility] [id number] Urology Consult note Date of Service 07/17/2022 Reason for Consultation Left UPJ Stone Referring Physician Dr. Nixon History of Present Illness This is a 31 year old transfer from [place]. She went to [facility] yesterday and had increased pain and anusea. She was discharged home and then went back today. The urologist in [place] requested transfer to [place]. Location: Left ureteral stone Duration: 2 days [...] mg= 1 tab(s), Oral, qDay, Not taking El Segundo 325- 5 mg oral tablet, 1 tab(s), [...] CRISTIN TURNER MD on 07/17/2022 10:40 PM [facility] [id number] Evaluation + Plan note Future Appointments Diagnostic Tests Pending * Urine Culture 07/17/22 [facility] 10-16-2022 Evaluation + Plan noteExtracted from: Title:History [...] Patch REMOVAL), Start: 07/18/22 23:00:00 EDT, q24h, 07/18/22 22:42:00 EDT nicotine (Nicoderm Patch REMOVAL), Start: 07/17/22 22:45:00 EDT, Once, 07/17/22 22:42:00 EDT ondansetron, Start: 07/17/22 22:03:00 EDT, Dose = 4 mg, = 2 [...] Panel 07/19/22 * Complete Blood Count 07/19/22 [facility] 10-15-2022 Hospital Discharge instructions Patient Education 07/16/2022 [...] for 8 hours and increasing bladder pressure 6872-3402 [employer]. [address] [place] [address]. All rights reserved. This information is not intended as a substitute for professional medical care. Always follow yourhealthcare professional's instructions. Follow Up Care 07/16/2022 07:26:22 With:BERT STOUT Address: [address] [place] [address] [facility] (1) When:2-4 days Comments:Schedule an appointment for follow-up.Strain your urine.Push fluids.Use Tylenol, Advil or Aleve forpain and fever as needed.Use El Segundo as prescribed for severe pain and Zofran for nausea and vomiting.Return to the ED if your symptoms worsen. [facility] 10-15-2022 Emergency department Discharge summary Discharge Instructions Thank you for allowing [facility] to assist you with your healthcare needs. [...] for pain and fever as needed. Use El Segundo as prescribed for severe pain and Zofran for nausea and vomiting. Return to the ED if your symptoms worsen. Where: [address] [place] [address] [facility] (1) Allergies Bactrim Depakote Imitrex Medications Please ask your primary doctor or pharmacist before taking any other medication not listed, including over the counter drugs, herbal medications, vitamins and or supplements as they may interact withyour home medications. What How Much When Why Instructions Last Dose New acetaminophen-hydrocodone ([place] Segundo 325- 5 mg oral tablet) 1 tab(s) [...] pharmacies. Medication Leaflets ondansetron (oral) (on CANDIDA se joel) Adilia Pat Zuplenz What is the most [...] may report side effects to FDA at 8-825-CIO-5760. What other drugs will affect ondansetron? Ondansetron [...] interact with ondansetron. This includes prescription and ghuf-uvi-ffacrcw medicines, vitamins, and herbal products. Give a [...] to ensure that the information provided by [employer]. ('Mult[employer]') is accurate, up-to-date, and complete, but no guarantee is made to that effect. Drug information contained herein may be time sensitive. Poynt information has been compiled for use by healthcare practitioners and consumers in the [place] and therefore [employer] does not warrant that uses outside of the [place] are appropriate, unless specifically indicated otherwise. 4th aspects drug information does not endorse drugs, diagnose patients or recommend therapy. 4th aspects drug information isan informational resource designed to [...] effective or appropriate for any given patient. [employer] does not assume any responsibility for any aspect of healthcare administered with the aid of information Poynt provides. The information contained herein is not intended to cover all possible uses, directions, precautions, warnings, drug interactions, allergic reactions, or adverse effects. If you have questions about the drugs you are taking, check with your doctor, nurse or pharmacist. Copyright 4375-0887 [employer]. Version: 13.01. Revision Date: 07/22/2016. acetaminophen and hydrocodone (a SEET a MIN oh fen and jacob efe SUMNERE done) Hycet, Lorcet, El Segundo, Verdrocet, Vicodin, Xodol, Zamicet What is the [...] may report side effects to FDA at 7-756-TQD-8253. What other drugs will affect acetaminophen and [...] affect acetaminophen and hydrocodone, including prescription and gykc-ipv-fuzdwtx medicines, vitamins, and herbal products. Not all [...] to ensure that the information provided by [employer]. ('[employer]') is accurate, up-to-date, and complete, but no guarantee is made to that effect. Drug information contained herein may be time sensitive. Poynt information has been compiled for use by healthcare practitioners and consumers in the [place] and therefore Poynt does not warrant that uses outside of the [place] States are appropriate, unless specifically indicated otherwise. [employer] drug information does not endorse drugs, diagnose patients or recommend therapy. [employer] aspects drug information isan informational resource designed to [...] effective or appropriate for any given patient. [employer] does not assume any responsibility for any aspect of healthcare administered with the aid of information [employer] provides. The information contained herein is not intended to cover all possible uses, directions, precautions, warnings, drug interactions, allergic reactions, or adverse effects. If you have questions about the drugs you are taking, check with your doctor, nurse or pharmacist. Copyright 2061-0169 [employer]. Version: 16.03. Revision Date: 11/03/2020. Education Materials [...] for 8 hours and increasing bladder pressure 4523-9582 [employer]. [address] [place] [address], [place] [address]. All rights reserved. This information is not intended as a substitute for professional medical care. Always follow yourhealthcare professional's instructions. Additional Information VACCINATE! IT SAVES LIVES! Members of the community who have not yet received the COVID-19 vaccine and would like to receive it can visit one of [facility] vaccine clinics. There are many vaccine clinic locations within the [facility]. For locations and available times, please visit [email or web address]. It is important to note that some COVID mobile vaccine clinics are held outdoors and may be canceled in rainy orstormy conditions. To learn more about pediatric vaccinations (ages 5-11), we invite you to visit the [facility] webpage. [email or web address]/[email or web address] [email or web address] learn more about the COVID-19 vaccine, we invite you to visit the [place] website for a list of frequently asked questions. [email or web address]-[email or web address]/[email or web address]-Cuxbphuvil _[email or web address]-Questions.pdf [facility] Patient Portal Access Instructions: Stay connected with your healthcare team and access your personal medical information anytime with the [facility] Patient Portal. If you would like a full copy of your medical records please contact the [facility] Medical Records Department Monday through Monday between 8a.m. and 4:30p.m. Please follow the directions below to access the portal: 1.Access the email account you provided upon registration to the [facility].2.Look for an invitation email from [facility].3.Open the email and access the invitation link: Accept Invitation to [facility]4.Fill in the required brandon to create your account. Sign into www.Mtime with your username and password that you [...] you will allow to register on the [facility] Patient Portal for access to your information. You can also access the [facility] Patient Portal on the [employer] javier. Simply click on Health Records under Mi[employer]io and then click on the [employer] logo. HOW TO SAFELY DISPOSE OF PRESCRIPTION [...] Call your local pharmacy or go to [email or web address] to find one close to you.3.Make use of household items: Use cat litter or old coffee grounds to dispose medications if other options arenot available. Mix your drugs with these household products, seal them in an airtight container andthrow it into the garbage. Call [facility]: [phone] to be sure your drugs can be [...] aware that I should contact my doctor. Patient/Tie Presser Signature: Date/Time: Relationship to Patient: Witness Name/Signature: Date/Time: [facility]10-15-2022 Note ORIGINAL EXAMINATION: CT OF THE [...] Sign Date: 07/16/2022 9:59:39 AM Ordering Provider: [facility]10-15-2022 Note ORIGINAL EXAMINATION: CT OF THE ABDOMEN [...] Sign Date: 07/16/2022 9:59:39 AM Ordering Provider: [facility]07-08-2022 Note HNO ID: [id number] Author: Yusef Mercado APRN.QUALITY CHECKER Service: ? Author Type: Nurse Practitioner Type: Progress Notes Filed: 04/08/2022 7:52 AM Note Text: This note was created using [facility]. Subjective Suzie Alexandre is a 31 year [...] - FECAL OCCULT BLOOD TEST Yusef Mercado APRN.[facility]09-06-2021 Note Attestation signed by Arlin Cash MD at 06/07/2021 3:11 PM MFM See today's note precautions discussed and the importance of close follow up in [place] with low threshold to return via ambulance if any concerns. Questions answered and less than 30 minutes spent today planning discharge Arlin Cash MD Department of Obstetrics and Gynecology [facility] Discharge Summary Admission on 06/06/2021 4:40 AM Suzie Alexandre is a 30 y.o. at 29w1d who presented from [place] for contractions. While there she made change [...] discharge. Meds: Suzie Alexandre Home Medication Instructions REAL:[id number] Printed on:06/07/21 4894 Medication Information acetaminophen (TYLENOL) 500 MG tablet [...] di/di twins Follow up appointment with your doctor/group product manager - Keep next scheduled appointment Activity - Normal Activity Call your doctor/group product manager if you have: - leaking fluid - vaginal bleeding - regular contractions: More than 6 contractions in one hour - decreased movement - worsening abdominal (belly) pain - headache, blurry vision, increased swelling, upper abdominal pain Elida Watson MD on 06/07/2021 at 10:49 [facility]01-13-2020 History of Past illness Narrative* Problem Noted [...] she called Dr. Martha Milner's office in [place] and a beta quantitative hCG was drawn today at [facility]. She also called into our office this [...] smoking during . Advised pt to quit. [place] tobacco quit Line information given to patient.TKRN [...] at the end of August [address] [facility] for possible seizures she had a negative MRI during her hospitalization. She states she had an MRI and EEG done on September 27 at [place] to the hospital and she is awaiting those reports. TKRN History of recurrent UTI (urinary tract infectio n) 09/27/2012 07/10/2014 Overview: 01/08/14 - patient on macrobid for uti, diagnosed at [facility] - 12/06/13 - urine culture negative - [...] 12/25/13 - mood stable sees vinny at [facility], discussed risks of meds in , off xanax - KJ 10/23/13 - patient seen for depression & anxiety, meds restarted by her pcp while she awaits pyschiatry appt, discussed the medication risks in & advised her to not use xanax - KJ 10/09/13 - patient doing OK off meds, patient will call with any problems - KJ 09/30/2013Krystiane has a history of anxiety and depression diagnosed in 2001. She was also diagnosed with Bipolar Disorder in 2007. She previously saw Dr Addis Lee a psychiatrist at the [facility], but most recently sees a counselor at the counseling center here in [place]. She stopped her Xanax and Cymbalta at the end of August 2013. She states I am a nervous wreck, but I will be okay. She denies any depression symptoms at the present time, just anxiety. She has a followup appointment this week with her counselor here in [place], and she will discuss her symptoms with [...] Routine gynecological examination 05/20/2010 11/24/2011 Overview: [facility] [place] Abdominal pain, generalized 09/01/200905/2014 Diarrhea 09/01/2009 11/24/2011 Bipolar affective disorder, manic, moderate 08/0212/03/2011 Left flank pain 08/18/2009 11/24/2011 Supervision of other high-risk (V23.89) 07/21/2009 03/29/2012 Abdominal pain, right lower quadrant 07/21/2009 11/24/2011 documented as of this encounter (statuses as of 07/19/2022) [facility]01-13-2020 History of Past illness Narrative* Problem Noted [...] she called Dr. Martha Milner's office in [place] and a beta quantitative hCG was drawn today at [facility]. She also called into our office this [...] - needs 3rd trimester growth u/s per [facility] - 10/09/13 - advised on risks & cessation - KJ 09/30/2013 Pt smokes one half pack of cigarettes a day. Discussed risks of smoking during . Advised pt to quit. [place] tobacco quit Line information given to patient.TKRN [...] will have her sign records release - KJ 09/30/2013 Patient states she was hospitalized for 3 days at the end of August [address] [facility] for possible seizures she had a negative MRI during her hospitalization. She states she had an MRI and EEG done on September 27 at [place] to the hospital and she is awaiting those reports. TKRN History of recurrent UTI (urinary tract infectio n) 09/27/2012 07/10/2014 Overview: 01/08/14 - patient on macrobid for uti, diagnosed at [facility] - 12/06/13 - urine culture negative - [...] 11/20/2010 07/10/2014 Overview: 12/25/13 - mood stable anshul casillas at [facility], discussed risks of meds in , off [...] Dr Addis Lee a psychiatrist at the [facility], but most recently sees a counselor at the counseling center here in [place]. She stopped her Xanax and Cymbalta at the end of August 2013. She states I am a nervous wreck, but I will be okay. She denies any depression symptoms at the present time, just anxiety. She has a followup appointment this week with her counselor here in [place], and she will discuss her symptoms with [...] Routine gynecological examination 05/20/2010 11/24/2011 Overview: [facility] Abdominal pain, generalized 09/01/2009 01/0 05/2014 Diarrhea 09/01/2009 11/24/2011 Bipolar affective disorder, manic, moderate 08/0212/03/2011 Left flank pain 08/18/2009 11/24/2011 Supervision of other high-risk (V23.89) 07/21/2009 03/29/2012 Abdominal pain, right lower quadrant 07/21/2009 11/24/2011 documented as of this encounter (statuses as of 09/09/2022) [facility]01-13-2020 History of Past illness Narrative* Problem Noted [...] pregn ancies complicating , antepartum 09/30/201307/10 Overview: 09/30/2013Keyla delivered her last child May 01, 2013. TKRN First trimester bleeding 09/30/201306/2014 Overview: 09/30/2013 Patient states that she started bleeding dark red spotting today. She states she has noted pelvic cramping that is a 4 on the pain scale that started today also. She states that she called Dr. Martha Milner's office in [place] and a beta quantitative hCG was drawn today at [facility]. She also called into our office this morning regarding the bleeding and a quantitative hCG was ordered by Dr. Murphy. Patient states she has a history of subchorionic bleed with her last 2 pregnancies. Discussed bleeding with Dr. Murphy and she ordered a quantitative hCG to be done here today with a repeat on , October 03. Miscarriage precautions discussed. Patient is [...] smoking during . Advised pt to quit. [place] tobacco quit Line information given to patient.TKRN [...] at the end of August [address] [facility] for possible seizures she had a negative MRI during her hospitalization. She states she had an MRI and EEG done on September 27 at [place] to the hospital and she is awaiting those reports. TKRN History of recurrent UTI (ur inary tract infection) 09/27/2012 07/10/2014 Overview: 01/08/14 - patient on macrobid for uti, diagnosed at [facility] - 12/06/13 - urine culture negative - [...] 12/25/13 - mood stable sees vinny at [facility], discussed risks of meds in , off [...] Dr Addis Lee a psychiatrist at the [facility], but most recently sees a counselor at the counseling center here in [place]. She stopped her Xanax and Cymbalta at the end of August 2013. She states I am a nervous wreck, but I will be okay. She denies any depression symptoms at the present time, just anxiety. She has a followup appointment this week with her counselor here in [place], and she will discuss her symptoms with [...] establish Routine gynecological examination 05/20/2010 11/24/2011 Overview: [facility] [place] Abdominal pain, generalized 09/01/2009 10/09/2013 Diarrhea 09/01/2009 11/24/2011 Bipolar affective disorder, manic, moderate 08/18/2009 12/03/2011 Left flank pain 08/18/2009 11/24/2011 Supervision of other high-ri sk (V23.89) 07/21/2009 03/29/2012 Abdominal pain, right lower quadrant 07/21/2009 11/24/2011 documented as of this encounter (statuses as of 12/17/2023) [facility] No data available for this section [facility] Evaluation + Plan note Future Appointments Appointment Date:09/11/2023 10:00:00 AM Scheduled Provider:LATIA TAVAREZ Location:UROLOGY Appointment Type:URO OV 20 min Diagnostic Tests Pending * Vitamin D, 1,25-Dihydroxy 01/03/23 * [facility] Send out (Blood Specimens) 01/03/23 Future Scheduled Tests Laboratory* Basic Metabolic Panel 07/19/22 * Complete Blood Count 07/19/22 Radiology* XR Abdomen AP 09/08/23 [facility] Evaluation + Plan note Future Scheduled Tests Radiology* XR Abdomen AP 09/11/25 [facility] Evaluation note* Diagnosis Threatened labor, antepartum Threatened premature labor, antepartum documented in this encounter [facility] Work Phone: Evaluation note* Diagnosis Acute non-recurrent maxillary sinusitis- Primary documented in this encounter [facility] note* Diagnosis Injury of left shoulder, initial encounter- Primary Fall, initial encounter Injury of left shoulder, initial encounter documented in this encounter [facility] note* Diagnosis Injury of left shoulder, initial encounter documented in this encounter [facility] note* Diagnosis Acute cough- Primary Acute cough documented in this encounter [facility] note* Diagnosis Acute cough documented in this encounter [facility] noteNo assessment information availableWCommunity [facility] Work Phone: Hospital Discharge instructions* Instructions* Geoff Soares MD - 06/07/2021 Follow up appointment with your doctor/group product manager - Call office for appointment in 2-3days Activity - Normal Activity Call your doctor/group product manager if you have: - leaking fluid - [...] related visit on 06/07/21. Geoff Soares MD [facility] Work [facility] Hospital Discharge instructions No data available for this section [facility] Progress note No data available for this section [facility] Reason for referral (narrative)* Diagnostic Procedure Only (Urgent) - Closed Specialty Diagnoses / Procedures Referred By Contac t Referred To Contact XR IMAGING Diagnoses Injury of left shoulder, initial encounter Procedures XR SHOULDER GENERAL 3V OR MORE AP/TRUE AP/OTHER LEFT RADEX SHOULDER COMPLETE MINIMUM 2 VIEWS Abril Hernandez APRN.CNP [address] [place] [address] [place] [address] Referral ID Status Reason Start Date Expiration Date V isits Requested Visits Authorized [id number] Closed Auto-Generate d Referral 02/12/2024 03/13/2025 1 1 [facility] for referral (narrative)* Diagnostic Procedure Only (Urgent) - Closed Specialty Diagnoses / Procedures Referred By Contac t Referred To Contact XR IMAGING Diagnoses Injury of left shoulder, initial encounter Procedures XR SHOULDER GENERAL 3V OR MORE AP/TRUE AP/OTHER LEFT RADEX SHOULDER COMPLETE MINIMUM 2 VIEWS Abril Hernandez APRN.QUALITY CHECKER [address] [id number] [place] [address] Referral ID Status Reason Start Date Expiration Date V isits Requested Visits Authorized [id number] Closed Auto-Generate d Referral 02/12/2024 03/13/2025 1 1 [facility] for referral (narrative)No reason for referral information availableWCommunity [facility] Medical Center Work Phone: Reason for visit Narrative* Diagnostic Procedure Only (Urgent) - Closed Specialty Diagnoses / Procedures Referred By Contac t Referred To Contact XR IMAGING Diagnoses Injury of left shoulder, initial encounter Procedures XR SHOULDER GENERAL 3V OR MORE AP/TRUE AP/OTHER LEFT RADEX SHOULDER COMPLETE MINIMUM 2 VIEWS Abril Hernandez APRN.QUALITY CHECKER [address] [place] [address] [place] [address] Referral ID Status Reason Start Date Expiration Date V isits Requested Visits Authorized [id number] Closed Auto-Generate d Referral 02/12/2024 03/13/2025 1 1 [facility] Summary Purpose Family History No Family History Records Found Relationship Condition Age at Onset Recorded Date/T dino father Hypertension Unknown Coagulation disorder Unknown Malignant neoplasm Unknown Cerebrovascular accident (CVA) Unknown mother Depression Unknown Anxiety Unknown grandfather Cardiac disease Unknown Myocardial infarction Unknown Advance Directives No Advanced Directives Records FoundLatest Code Status on File Code Status Date Activated Date Inactivated Comments Full Code 06/06/2021 6:18 AM Advance Directive Response Recorded Date/ Time Advance Directives No May 28, 2021 11:57am Procedure Findings Note Post Operative Note: PreOp D iagnosis: tubal ligation Post-Procedure Diagnosis: same Procedure: 1. laparotomy tubal reanastomoses 2. chromotubation 3. 4. 5. Surgeon: Dr. Gomez Resident/Fellow/Other Senior Premium Auditor: Bi Borjas Anesthesia: general I.V. Fluids: 1L [...] 9:30am Neck pain February 07, 2025 9:30am Chief Complaint Admit Date FASTING November 29, 2024 10:15am SCOLIOSIS February 07, 2025 9:30am RM 2 February 07, 2025 9:48am E ORDERS March 05, 2025 9:00a m EORDERS March 07, 2025 8:54a m Chief Complaint Admit Date FASTING November 29, 2024 10:15am SCOLIOSIS February 07, 2025 9:30am RM 2 February 07, 2025 9:48am E ORDERS March 05, 2025 9:00a m EORDERS March 07, 2025 8:54a m spotting/rule out ectopic March 11, 2025 11:55am Chief Complaint Admit Date SCOLIOSIS February 07, 2025 9:30am RM 2 February 07, 2025 9:48am E ORDERS March 05, 2025 9:00a m EORDERS March 07, 2025 8:54a m spotting/rule out ectopic March 11, 2025 11:55am right breast lump May 13, 2025 2: 47pm Additional Source Comments INFORMATION SOURCE (unrecogn ized section and content) DATE CREATED AUTHOR 06/19/2020 [employer] DATE CREATED AUTHOR AUTHOR'S ORGANIZ ATION 07/01/2020 [facility] DATE CREATED AUTHOR AUTHOR'S ORGANIZ ATION 07/16/2020 [facility] DATE CREATED AUTHOR AUTHOR'S ORGANIZ ATION 08/05/2020 [facility] DATE CREATED AUTHOR AUTHOR'S ORGANIZ ATION 02/23/2021 [facility] DATE CREATED AUTHOR AUTHOR'S ORGANIZ ATION 07/19/2021 [facility] DATE CREATED AUTHOR AUTHOR'S ORGANIZ ATION 07/23/2021 [facility] DATE CREATED AUTHOR AUTHOR'S ORGANIZ ATION 04/08/2022 [facility] DATE CREATED AUTHOR AUTHOR'S ORGANIZ ATION 09/23/2023 [facility] DATE CREATED AUTHOR AUTHOR'S ORGANIZ ATION 09/01/2024 [facility] DATE CREATED AUTHOR AUTHOR'S ORGANIZ ATION 04/12/2025 [facility] DATE CREATED AUTHOR AUTHOR'S ORGANIZ ATION 06/25/2025 [facility] Reason for Visit (unrecogniz ed section and [...] On 06/07/21 at 0130, For 1 dose 013 (Given - Provid er: Marilee Smyth RN) busPIRone (BUSPAR) tablet 30 mg 30 mg, Oral, 3 TIMES DAILY, First dose on 06/06/21 at 0900, This 15 mg tablet can [...] For 48 hours 0704 (Given - Provider: aKtie Downey RN)1300 (Given - Provider: Cat Gambino RN)1913 (Given - Provider: Cat Gambino RN) 0137 (Given - Provider: Marilee Smyth RN)1005 (Given - Provider: Mirna Cronin RN)1315 (Due - Provider: Eitan Benjamin RPH)191 (Due - Provider: Eitan Benjamin RPH) metoclopramide (REGLAN) injection 10 mg (COMPLETED) 10 mg, IntraVENous, ONCE, On 06/06/21 at 2115, For 1 dose 2108 (Given - Provider: Marilee Smyth, ILDA) nicotine (NICODERM CQ) 14 MG/24HR 1 patch [...] to facility policy for handling and disposal. 09 (Patch Applied - Provider: Cat Gambino RN - Comment: right outer upper arm) 0859 (Patch Removed - Provider: Mirna Cronin, ILDA)0900 (Due) vitamin 27-1 MG tablet 1 tablet [...] First dose on 06/06/21 at 0900 0900 (Due)211 (Given - Provider: Marilee Smyth RN) 09 (Not Given - Provider: Mirna Cronin RN - Reason: Loss of IV access)2100 (Due) Continuous Medication Order 06/05/2021 06/06/2021 06/07/2021 magnesium sulfate (02824 mg/500mL infusion) (CANCELED) 2,000 mg/hr (50 mL/hr), [...] (See Alternative - Provider: Marilee Smyth RN) 453 (See Alternative - Provider: Afsaneh Durham, ILDA) acetaminophen (TYLENOL) tablet 650 mg(Linked Group 1) 650 mg, Oral, EVERY 4 HOURS PRN, Pain Mild (1-3), Fever, Fever >100.5 (38 C), Starting on 06/06/21 at 0611, Do not use if NPO. 920 (Given - Provider: Cat Gambino RN - Comment: intermittent bodly aches and occ contraction)2108 (Given - Provider: Marilee Smyth RN) 453 (Given - Provider: Afsaneh Durham, ILDA) docusate [...] Administer if oral route cannot be used. 1735 (Given - Provider: Cat Gambino RN) ondansetron (ZOFRAN-ODT) disintegrating tablet 4 mg(Linked Group 2) 4 mg, Oral, EVERY 8 HOURS PRN, Nausea, Vomiting, Starting on 06/06/21 at 0611 9332 (See Alternative - Provider: Cat Gambino RN) [...] Member Role: Primary Care Physician Address: Address: [address] [place] [address]- Care Team Related Persons Name: ELVIRA GUILLEN Address: Home [address] [place] [address] Name: LIBIA ALEXANDRE Address: Home [address] [place] [address] Name: KIKE ALEXANDRE Address: Home [address] [place], [place] [id number] Name: MICHAEL ALEXANDRE Address: Home [address] [place] [address] Name: JORI ALEXANDRE Name: NEENA ALEXANDRE Address: Home [address] [place] [address] [place] Name: YARITZA ALEXANDRE Address: Home [address] [place] [address] [place] Care Team Personnel Name: LACI SINGH MD Member Role: Primary Care Physician Address: Address: [address] [id number]- [place] Care Team Related Persons Name: ELVIRA GUILLEN Address: Home [address] [place] [address] Name: LIBIA ALEXANDRE Address: Home [address] [place] [address] [place] Name: KIKE ALEXANDRE Address: Home [address] [place] [address] Name: MICHAEL ALEXANDRE Address: Home [address] [place] [address] Name: JORI ALEXANDRE Name: NEENA ALEXANDRE Address: Home [address] [place] [address] [place] Name: YARITZA ALEXANDRE Address: Home [address] [place] [address] [place] Care Team Personnel Name: LACI SINGH MD Member Role: Primary Care Physician Address: Address: [address] [place], [place] [id number]- [place] Care Team Related Persons Name: ELVIRA GUILLEN Address: Home [address] [place] [address] Name: LIBIA ALEXANDRE Address: Home [address] [place] [address] [place] Name: KIKE ALEXANDRE Address: Home [address] [place] [address] Name: MICHAEL ALEXANDRE Address: Home [address] [place] [address] Name: JORI ALEXANDRE Name: NEENA ALEXANDRE Address: Home [address] [place] [address] [place] Name: YARITZA ALEXANDRE Address: [place] [address] [place] Source Comments (unrecognize d section and content) In the event this informatio n is protected by the Federal Confidentiality of Alcohol and Drug Abuse Patient Records regulations: The Federal rules restrict any use of the information to criminally investigate or prosecute any alcohol or drug abuse patient.[facility] the event this information is protected by the Federal Confidentiality of Alcohol and Drug Abuse Patient Records regulations: The Federal rules restrict any use of the information to criminally investigate or prosecute any alcohol or drug abuse patient.[facility]bleIn the event this information is protected by the Federal Confidentiality of Alcohol and Drug Abuse Patient Records regulations: The Federal rules restrict any use of the information to criminally investigate or prosecute any alcohol or drug abuse patient.[facility]bleIn the event this information is protected by the Federal Confidentiality of Alcohol and Drug Abuse Patient Records regulations: The Federal rules restrict any use of the information to criminally investigate or prosecute any alcohol or drug abuse patient.[facility]bleIn the event this information is protected by the Federal Confidentiality of Alcohol and Drug Abuse Patient Records regulations: The Federal rules restrict any use of the information to criminally investigate or prosecute any alcohol or drug abuse patient.[facility]bleIn the event this information is protected by the Federal Confidentiality of Alcohol and Drug Abuse Patient Records regulations: The Federal rules restrict any use of the information to criminally investigate or prosecute any alcohol or drug abuse patient.[facility]bleIn the event this information is protected by the Federal Confidentiality of Alcohol and Drug Abuse Patient Records regulations: The Federal rules restrict any use of the information to criminally investigate or prosecute any alcohol or drug abuse patient.[facility] Care Teams (unrecognized sec tion and content) Seed Laboratory Assistant Relationship Specialty Start Date End Date Laci Singh MD PCP - General Family Medicine 11/28/11 Lico Mortensen ([facility]) [id number] [place], [place] [id number] Psychiatry 05/31/18 Seed Laboratory Assistant Relationship Specialty Start Date End Date Laci Singh MD PCP - General Family Medicine 11/28/11 Lico Mortensen ([facility]) [address] [place] [address] Psychiatry 05/31/18 [employer] Laboratory Assistant Relationship Specialty Start Date End Date Laci Singh MD PCP - General Family Medicine 11/28/11 Lico Mortensen ([facility]) [address] [place] [address] Psychiatry 05/31/18 Seed Laboratory Assistant Relationship Specialty Start Date End Date Laci Singh MD PCP - General Family Medicine 11/28/11 Lico Mortensen ([facility]) [address] [place] [address] Psychiatry 05/31/18 [employer] Laboratory Assistant Relationship Specialty Start Date End Date Laci Singh MD PCP - General Family Medicine 11/28/11 Lico Mortensen ([facility]) [address] [place] [address] Psychiatry 05/31/18 [employer] Laboratory Assistant Relationship Specialty Start Date End Date Laci Singh MD PCP - General Family Medicine 11/28/11 Lico Mortensen ([facility]) [address] [place] [address] Psychiatry 05/31/18 [employer] Laboratory Assistant Relationship Specialty Start Date End Date Laci Singh MD PCP - General Family Medicine 11/28/11 Lico Mortensen ([facility]) [address] [place] [address] Psychiatry 05/31/18 Team Status: Active Member Role Status Dates Dr. Laci Singh MD Family Provider Active Michelle Ashlyn VSC, DO Primary Care Provider Active Team Status: Inactive Member Role Status Dates Michelle Ashlyn VSC, DO Primary Care Provider Active Start: November 29, 2024 End: November 29, 2024 Michelle Ashlyn VSC, DO Attending Provider Active Start: November 29, 2024 End: November 29, 2024 Michelle Ashlyn VSC, DO Referring Provider Active Start: November 29, [...] Team Status: Inactive Member Role Status Dates Michelleyvette Goldberg VSC, DO Primary Care Provider Active Start: February 07, 2025 End: February 07, 2025 Dr. Erich Avendaño MD Attending Provider Active S tart: February 07, 2025 End: February 07, 2025 Team Status: Inactive Member Role Status Dates Michelleyvette Goldberg VSC, DO Primary Care Provider Active Start: March 03, 2025 End: March 03, 2025 Elli Ramirez CNM Attending Provider Active S tart: March 03, 2025 End: March 03, 2025 Elli Ramirez CNM Referring Provider Active S tart: March 03, 2025 End: March 03, 2025 Team Status: Active Member Role Status Dates Michelle Goldberg VSC, DO Primary Care Provider Active Start: March 05, 2025 Elli Ramirez CNM Attending Provider Active S tart: March 05, 2025 Elli Ramirez CNM Referring Provider Active S tart: March 05, 2025 Team Status: Active Member Role Status Dates No Primary Care Physician Primary Care Provider Active Team Status: Inactive Member Role Status Dates Michelle Gonzaleser ADRIANEC, DO Primary Care Provider Active Start: March 05, 2025 End: March 05, 2025 Elli Ramirez CNM Attending Provider Active S tart: March 05, 2025 End: March 05, 2025 Elli Ramirez CNM Referring Provider Active S tart: March 05, 2025 End: March 05, 2025 Team Status: Active Member Role Status Dates Dr. Poonam Reilly MD Attending Provider Active Start: March 07, 2025 Dr. Poonam Reilly MD Referring Provider Active Start: March 07, 2025 No Primary Care Physician Primary Care Provider Active Start: March 07, 2025 Team Status: Active Member Role Status Dates No Primary Care Physician Primary Care Provider Active Start: March 10, 2025 Elli Ramirez CNM Attending Provider Active S tart: March 10, 2025 Elli Ramirez CNM Referring Provider Active S tart: March 10, 2025 Team Status: Inactive Member Role Status Dates Dr. Poonam Reilly MD Attending Provider Active Start: March 07, 2025 End: March 07, 2025 Dr. Poonam Reilly MD Referring Provider Active Start: March 07, 2025 End: March 07, 2025 No Primary Care Physician Primary Care Provider Active Start: March 07, 2025 End: March 07, 2025 Team Status: Active Member Role Status Dates Dr. Poonam Reilly MD Attending Provider Active Start: March 11, 2025 Dr. Poonam Reilly MD Referring Provider Active Start: March 11, 2025 No Primary Care Physician Primary Care Provider Active Start: March 11, 2025 Team Status: Inactive Member Role Status Dates No Primary Care Physician Primary Care Provider Active Start: March 10, 2025 End: March 10, 2025 Elli Ramirez CNM Attending Provider Active S tart: March 10, 2025 End: March 10, 2025 Elli Ramirez CNM Referring Provider Active S tart: March 10, 2025 End: March 10, 2025 Team Status: Active Member Role Status Dates No Primary Care Physician Primary Care Provider Active Start: March 12, 2025 Dr. Poonam Reilly MD Attending Provider Active Start: March 12, 2025 Dr. Poonam Reilly MD Referring Provider Active Start: March 12, 2025 Team Status: Inactive Member Role Status Dates No Primary Care Physician Primary Care Provider Active Start: March 12, 2025 End: March 12, 2025 Dr. Poonam Reilly MD Attending Provider Active Start: March 12, 2025 End: March 12, 2025 Dr. Poonam Reilly MD Referring Provider Active Start: March 12, 2025 End: March 12, 2025 Team Status: Inactive Member Role Status Dates Dr. Poonam Reilly MD Attending Provider Active Start: March 11, 2025 End: March 11, 2025 Dr. Poonam Reilly MD Referring Provider Active Start: March 11, 2025 End: March 11, 2025 No Primary Care Physician Primary Care Provider Active Start: March 11, 2025 End: March 11, 2025 Team Status: Active Member Role/Relationship Status Dates No Primary Care Physician Primary Care Provider Active Team Status: Inactive Member Role/Relationship Status Dates Michelle Goldberg VSC, DO Primary Care Provider Active Start: February 07, 2025 End: February 07, 2025 Michelle Goldberg VSC, DO Referring Provider Active Start: February 07, 2025 End: February 07, 2025 PANCHO Mcdonnell Attending Provider Active Star t: February 07, 2025 End: February 07, 2025 Team Status: Inactive Member Role/Relationship Status Dates Michelle Goldberg VSC, DO Primary Care Provider Active Start: February 07, 2025 End: February 07, 2025 Dr. Erich Avendaño MD Attending Provider Active S tart: February 07, 2025 End: February 07, 2025 Team Status: Inactive Member Role/Relationship Status Dates Michelle Goldberg VSC, DO Primary Care Provider Active Start: March 03, 2025 End: March 03, 2025 Elli Ramirez CNM Attending Provider Active S tart: March 03, 2025 End: March 03, 2025 Elli Ramirez CNM Referring Provider Active S tart: March 03, 2025 End: March 03, 2025 Team Status: Inactive Member Role/Relationship Status Dates Michelle Siutanya HINTON DO Primary Care Provider Active Start: March 05, 2025 End: March 05, 2025 Elli Ramirez CNM Attending Provider Active S tart: March 05, 2025 End: March 05, 2025 Elli Ramirez CNM Referring Provider Active S tart: March 05, 2025 End: March 05, 2025 Team Status: Inactive Member Role/Relationship Status Dates Dr. Poonam Reilly MD Attending Provider Active Start: March 07, 2025 End: March 07, 2025 Dr. Poonam Reilly MD Referring Provider Active Start: March 07, 2025 End: March 07, 2025 No Primary Care Physician Primary Care Provider Active Start: March 07, 2025 End: March 07, 2025 Team Status: Inactive Member Role/Relationship Status Dates No Primary Care Physician Primary Care Provider Active Start: March 10, 2025 End: March 10, 2025 Elli Ramirez CNM Attending Provider Active S tart: March 10, 2025 End: March 10, 2025 Elli Ramirez CNM Referring Provider Active S tart: March 10, 2025 End: March 10, 2025 Team Status: Inactive Member Role/Relationship Status Dates Dr. Poonam Reilly MD Attending Provider Active Start: March 11, 2025 End: March 11, 2025 Dr. Poonam Reilly MD Referring Provider Active Start: March 11, 2025 End: March 11, 2025 No Primary Care Physician Primary Care Provider Active Start: March 11, 2025 End: March 11, 2025 Team Status: Inactive Member Role/Relationship Status Dates No Primary Care Physician Primary Care Provider Active Start: March 12, 2025 End: March 12, 2025 Dr. Poonam Reilly MD Attending Provider Active Start: March 12, 2025 End: March 12, 2025 Dr. Poonam Reilly MD Referring Provider Active Start: March 12, 2025 End: March 12, 2025 Team Status: Inactive Member Role/Relationship Status Dates No Primary Care Physician Primary Care Provider Active Start: May 13, 2025 End: May 13, 2025 No Primary Care Physician Referring Provider Active Start: May 13, 2025 End: May 13, 2025 Sandy Ferreira NP, PRODUCT SCIENTIST-C Attending Provider Active Start: May 13, 2025 End: May 13, 2025 Goals (unrecognized section and content) Goals [...] BE BASED ON THE PRIMARY CLINICAL RECORDS. [facility]. provides no warranty or guarantee of the accuracy or completeness of information in this document.
== END 2025-07-02 11:15 | disposition home or self-care (01) ==
LOC: SDC 05:58 → AC 06:11
PROVIDERS: Anesthesiology; Referring Provider Surgery; Visit Provider Surgery
PROC: (CPT 19083; principal; 2025-07-02 07:15)
DX: D24.1 Benign neoplasm of right breast (principal); F31.9 Bipolar disorder, unspecified; D24.2 Benign neoplasm of left breast; F41.1 Generalized anxiety disorder; F17.210 Nicotine dependence, cigarettes, uncomplicated; Z79.899 Other long term (current) drug therapy
CPT/HCPCS: 19083; 00400; 76098; 81025; 88307; 88341; 88342; A4648; J2405